=== PATIENT | male | born 1960 | race Caucasian/White ===

== ENCOUNTER 2016-10-01 18:12 | Inpatient (IN) | payer MEDICARE, MEDICAID ==
[~2016-10-01] VITALS: Ht 174 cm; Wt 116.6 kg
[~2016-10-01 18:12] MED LIST: ATOR40TA69 PO; BUPR150T9 PO; DOCU-41 PO; METO100T3 PO; OXYC1TAB24 PO; SLO64 PO; WARF7.5T4 PO
[2016-10-01 18:23] VITALS: BP 96/62; PULSE 93; RESP 18; O2SAT 97
--- NOTE | 2016-10-01 20:57 | ED.REPORT ---
HPI-Psychiatric Illness Date of Service Oct 01, 2016 ED Provider: Shalom Torres DO A 56 year old male on Warfarin with a history of stroke, diabetes, chronic atrial fibrillation on Warfarin, and coronary artery disease is brought to the ED via EMS due to behavioral changes. The pt's stroke occurred on 05/11/2017 and he has been at [facility] since for rehabilitation. The pt was on Wellbutrin, but was put on Prozac two weeks ago due to worsening depression. Since that time , he has been attempting to leave [facility] and requiring that his come in to watch him. When the pt was told by his four days ago that he was not able to be discharged yet, and he proceeded to "throw a fit." He was discharged two days ago, but has been emotionally unstable. This includes severe depression and rages. He has continued to be unstable to the point that his felt unsafe and called police two days ago. He was given Lorazepam and calmed down. He has been acting fairly normally today, but refused to take Lorazepam again and his has remained concerned. Nursing Notes Stated Complaint: BEHAVIORAL CHANGES Chief Complaint: Psychiatric Complaint Nursing Notes Reviewed: Yes Allergies: Coded Allergies: No Known Allergies (Verified , 05/02/16) Scheduled Atorvastatin Calcium (Atorvastatin Calcium) 40 Mg Tablet 40 MG PO HS Bupropion HCl (Zyban) 150 Mg Tablet.er 150 MG PO BID Magnesium Chloride (Slow-Mag) 64 Mg Tablet 64 MG PO BID Metoprolol Tartrate (Metoprolol Tartrate) 100 Mg Tablet 150 MG PO BID Warfarin Sodium (Warfarin Sodium) 7.5 Mg Tablet 7.5 MG PO DAILY Scheduled PRN Docusate Sodium (Colace) 100 Mg Capsule 100 MG PO DAILY PRN PRN For Constipation oxyCODONE-Acetaminophen 5-325 mg (oxyCODONE-Acetaminophen 5-325 mg) 1 Each Tablet 1 TAB PO Q4H PRN PRN For Pain General Time Seen by MD: 20:56 Chief Complaint Other (Behavioral changes) Hx Obtained From: Spouse, EMS Arrived By: Ambulance Onset Occurred: More than a week ago... Symptom Duration: Since onset Recent Healthcare: Recent doctor visit, Recent hospitalization Similar Sx Previous: No Risk-Psychiatric Illness Suicide Risk Stratification Suicide Risk Factors - Adult: No: Alcohol use, Prior psych admission, Substance abuse RF Statements: Risk factors reviewed Past Medical History Past Medical History Stroke Morbid obesity Depression Liliya's gangrene of R groin Kidney stones chronic atrial fibrillation on Warfarin Reports: Coronary artery disease, Diabetes mellitus, Stroke Past Surgical History Vertical sleeve gastrectomy Family History noncontributory Smoking History Never Smoker Social History Hx of alcohol abuse Alcohol Use: Denies alcohol use Drug Use: Denies drug use Other Social History: Good social support, , Local resident Ambulatory Status Independent Review of Systems Review of Systems Note: behavioral changes per Constitutional: Denies: Fever Respiratory: Denies: Non-productive cough Cardiovascular: Denies: Chest pain GI: Denies: Abdominal pain Skin: Denies Rash Psychiatric: Reports: Depression, Hostile Complete sys rev & neg: except as marked. Physical Exam Initial Vital Signs Vital Signs (First) Date Time Temp Pulse Resp B/P Pulse Ox O2 Delivery O2 Flow Rate FiO2 10/01/16 18:23 35.7 93 18 96/62 97 Room Air Initial VS: Reviewed General/Constitutional: Awake, Alert markedly aphasic, repeats statements ("oh boy") follows commands seems to understand conversation Neurologic: Oriented X3, No sensory deficits alternating between elated and frustrated Head / Eyes: Atraumatic, Normocephalic, PERRL, EOMI ENT: Atraumatic, Airway patent, Mucous membranes moist Respiratory / Chest: Atraumatic, Breath sounds NL, Breath sounds = bilat, No respiratory distress Cardiovascular: Heart rate NL, Regular rhythm, Heart sounds NL Abdomen: Atraumatic, Soft, Non-tender Skin: Atraumatic, Color NL, No rash, Warm, Dry Neck: Atraumatic, Supple, Full range of motion Back: Atraumatic Upper Extremity / MS: Atraumatic contracture and paralysis of the right arm strength and full use of left arm Lower Extremity / Pelvis / MS: Atraumatic Interpretation & Diagnostics Lab Results Interpretation Result Diagram: 10/01/16213710/01/162137 Test 10/01/16 21:38 10/01/16 22:32 White Blood Count 11.0th/mm3 (3.8-10.1) Red Blood Count 3.22mil/mm3 (4.40-5.80) Hemoglobin 10.1g/dL (13.8-17.2) Hematocrit 31.2% (41.0-50.0) Mean Corpuscular Volume 96.9fL (81-100) Mean Corpuscular Hemoglobin 31.4pg (27.0-35.0) Mean Corpuscular Hemoglobin Concent 32.4% (32.0-37.0) Red Cell Distribution Width 15.3% (12.3-15.4) Platelet Count 169bil/L (150-400) Neutrophils (%) (Auto) 73.7% (40-74) Lymphocytes (%) (Auto) 14.3% (14-46) Monocytes (%) (Auto) 11.0% (4-12) Eosinophils (%) (Auto) 0.7% (0-5) Basophils (%) (Auto) 0.2% (0-3) Prothrombin Time 22.8sec (8.1-12.5) Prothromb Time International Ratio 2.10ratio Sodium Level 140mEq/L (134-144) Potassium Level 3.7mEq/L (3.5-5.2) Chloride Level 103mEq/L (97-108) Carbon Dioxide Level 21mmol/L (18-29) Blood Urea Nitrogen 19mg/dL (6-24) Creatinine 0.77mg/dL (0.76-1.27) Estimat Glomerular Filtration Rate 111mL/min (>59) Glucose Level 96mg/dL (60-99) Calcium Level 9.0mg/dL (8.5-10.1) Total Bilirubin 0.7mg/dL (0.0-1.2) Aspartate Amino Transf (AST/SGOT) 34U/L (0-50) Alanine Aminotransferase (ALT/SGPT) 30U/L (0-44) Alkaline Phosphatase 83U/L (25-150) Total Protein 6.6g/dL (6.4-8.4) Albumin 3.4g/dL (3.4-5.0) Thyroid Stimulating Hormone (TSH) 1.350uIU/mL (0.450-4.500) Hold Schultz Top Tube Received (Received) Urine Color Dark yellow (YELLOW) Urine Appearance Clear (CLEAR,HAZY) Urine pH 5.0 (5.0-8.0) Urine Specific [place] 1.027 (1.003-1.035) Urine Protein Tracemg/dL (NEG,TRACE) Urine Glucose (UA) Negativemg/dL (NEGATIVE) Urine Ketones Tracemg/dL (NEGATIVE) Urine Occult Blood Negative (NEGATIVE) Urine Nitrite Negative (NEGATIVE) Urine Bilirubin Negative (NEGATIVE) Urine Urobilinogen Normalmg/dL (NORMAL) Urine Leukocyte Esterase Negative (NEGATIVE) Urine RBC 0-2/hpf (0-2) Urine WBC 0-5/hpf (0-5) Urine Epithelial Cells Few/hpf (NONE-MOD) Urine Crystals Oxalic acid crystals (NONE Urine Bacteria Moderate/hpf (NONE-FEW) Urine Hyaline Casts None/lpf (NONE) Urine Granular Casts None seen (NONE SEEN) Urine Waxy Casts None seen (NONE SEEN) Urine Red Blood Cell Casts None seen (NONE SEEN) Urine White Blood Cell Casts None seen (NONE SEEN) Urine Mucus Present (None Seen) Urine Trichomonas None seen (NONE SEEN) Urine Yeast None (NONE SEEN) Urine Culture Reflexed Indicated Hold Urine Received (Received) Pulse Oximetry Interpretation Pulse Oximetry Interpretation: 97% on room air Pulse Oximetry: Pulse Ox normal Pulse Oximetry Interpretation: 97% on room air Pulse Oximetry: Pulse Ox normal CT Head Interpretation IMPRESSION: 5 mm hyperdensity seen within the left temporal lobe, an area of encephalomalacia. Although this could represent calcification, in the absence of prior studies, acute blood cannot be excluded and recommend followup in 6 hours with noncontrast head CT. Findings were personally telephoned and discussed with Dr. Torres in the emergency department 2200 hrs. 10/01/16. Elsewhere, no acute abnormality. Dictated by: Wale Huang M.D. on 10/01/2016 at 21:55 Approved by: Wale Huang M.D. on 10/01/2016 at 22:04 Interpretation / Wet Read by: Interpret - Radiologist Re-Eval/Medical Decision Med Decision/Clinical Course Mr. Mclaughlin's is no longer able to care for him at home. His degree of a aphasia and hyperkinetic physical outbursts prevent her from caring for him safely. Most likely is going to need to be back into a care facility. We will repeat the head scan at the 6 hour interval as per recommendations from radiology. If there is in fact hemorrhage will reverse the pro time and transfer him to [facility]. Otherwise plan for hospital admission for long-term care placement. Care endorsed to at the end of my shift. Currently Mr. Mclaughlin is resting comfortably. His mental status has not changed. His neurologic exam has not changed. Source of Hx: Old records Counseled Regarding: Diagnosis, Lab results Discharge & Departure Shift Change Sign-Out Patient Care Transferred: Yes Discussed Complaint(s): Yes Laboratory Evaluation: Ordered, not yet done Imaging Studies: Imaging discussed Response to Therapy: Improved Impression: Primary Impression: Aphasia as late effect of cerebrovascular accident Additional Impression: Acute situational disturbance Discharge Condition All VS Reviewed: Yes Condition: Stable Referrals: Vicky Martin MD (PCP) Care Transferred to: Dr. Valentine Care Transferred at: 03:00 Margarita Attestation Portions of this note were transcribed by Vielka Saavedra. I, Dr. Torres personally performed the history, physical exam and medical decision-making; I reviewed and confirmed the accuracy of the information in the transcribed note. Signed by: Margarita Silver, 10/02/2016 and 0013. copies to: Vicky Martin MD, Todd P DO Oct 01, 2016 20:57 VIELKA SAAVEDRA Oct 01, 2016 21:17
[2016-10-01] MEDS ORDERED: LORazepam 0.5 mg Tablet PO ONE (21:20)
[2016-10-01 21:55] LABS: BASOPHILS % (AUTO) 0.2 % (0-3); EOSINOPHILS % (AUTO) 0.7 % (0-5); Mean Corpuscular Hemoglobin 31.4 pg (27.0-35.0); Mean Corpuscular Volume 96.9 fL (81-100); NEUTROPHILS % (AUTO) 73.7 % (40-74); Platelet Count 169 bil/L (150-400)
--- NOTE | 2016-10-01 22:06 | DRSVH ---
PROCEDURE: CT BRAIN WITHOUT CONTRAST ([id number]) INDICATIONS: altered, warfarin use TECHNIQUE: Noncontrast 4.5 mm thick angled axial sections acquired from the foramen magnum to the vertex, with c oronal reformats. COMPARISON: [facility], CT, BRAIN (TPA), 05/11/2016, 20:28. [facility], CT, CT ANGIO BRAIN AND NECK, 05/11/2016, 21:37. FINDINGS: Image quality: Excellent. CSF spaces: Basal cisterns are patent. No extra-axial fluid collections. Ventricles are normal in size and shape. Brain: No midline shift. Unchanged appearance of subcentimeter right frontal extra-axial hyperdensit y, presumed calcification since 05/11/16 on image 26 series 2. Large hypodensity seen within the left temporoparietal lobe in keeping with prior infarct or trauma. There is a small 5 mm hyperdense focus seen on image 16 series 2, which is technically indeterminate however cannot exclude small focus of acute intracranial blood in the absence of more recent comparison studies. Allen-white matter interface is normal. Skull and face: Calvarium and visualized facial bones are intact, without suspicious lesions. Sinuses: Visualized sinuses and mastoids are clear. IMPRESSION: 5 mm hyperdensity seen within the left temporal lobe, an area of encephalomalacia. Although this coul d represent calcification, in the absence of prior studies, acute blood cannot be excluded and recomm end followup in 6 hours with noncontrast head CT. Findings were personally telephoned and discussed w chacha Torres in the emergency department 2200 hrs. 10/01/16. Elsewhere, no acute abnormality. Dictated by: Wale Huang M.D. on 10/01/2016 at 21:55 Approved by: Wale Huang M.D. on 10/01/2016 at 22:04
[2016-10-01 22:07] LABS: INR 2.1 ratio
[2016-10-01 22:39] VITALS: BP 97/62; PULSE 122; RESP 20; O2SAT 97
[2016-10-01 23:23] LABS: APPEARANCE,URINE CLEAR (CLEAR,HAZY); COLOR,URINE DARK YELLOW (YELLOW); OCCULT BLOOD,URINE NEGATIVE (NEGATIVE); UROBILINOGEN,URINE NORMAL (NORMAL)
[2016-10-02] VITALS (7 sets, daily range): BP systolic 103–139; BP diastolic 37–69; PULSE 60–91; RESP 14–22; O2SAT 95–97
[2016-10-02] MEDS ORDERED: 0.9% Sodium Chloride 1,000 ML IV ONE (03:06)
[2016-10-02] MEDS ORDERED: Ondansetron 2 mg/mL 2 mL Inj IVPUSH PRN ×2 (05:35→08:15)
--- NOTE | 2016-10-02 06:43 | NUR ---
Received Received from ED via stretcher. Transferred into bed via slideboard. Agitated during transfer and unable to answer questions at this time r/t expressive aphasia. to come to answer admit questions as patient is unable to and becomes increasingly agitated when asked questions at this time. sitter at bedside for patient safety.
[2016-10-02] MEDS ORDERED: Alum-Mag Hydrox-Simeth 30 mL Suspension PO PRN (08:15)
[2016-10-02] MEDS ORDERED: Polyethylene Glycol (PEG) 17 Gm Powder PO PRN (08:15)
[2016-10-02] MEDS: 0.9% Sodium Chloride 1,000 ML IV SCH ×2 (09:09→19:28)
--- NOTE | 2016-10-02 09:36 | DRSVH ---
PROCEDURE: X-RAY PELVIS W/LAT HIP (RT) ([id number]) INDICATIONS: right hip pain TECHNIQUE: AP pelvis with lateral view(s) of the right hip(s). COMPARISON: None. FINDINGS: Bones: No fractures or dislocations. Pelvic ring appears intact. No suspicious bony lesions. Mild joint narrowing with periarticular osteophyte formation. Degenerative change within the lower lumba r spine. Soft tissues: The visualized bowel gas pattern is normal. No suspicious soft tissue calcifications. IMPRESSION: No displaced fracture seen. If there is continued pain, followup exam or additional eduardo ging such as MRI or CT could be performed for further assessment. Dictated by: Ronn Moreno RRA Interpreted: Charo Marsh MD on 10/02/2016 at 9:35 Transcribed by: MUNA on 10/02/2016 at 9:36 Approved by: Charo Marsh MD, PhD on 10/02/2016 at 16:50
--- NOTE | 2016-10-02 09:49 | DRSVH ---
PROCEDURE: CT BRAIN WITHOUT CONTRAST ([id number]) INDICATIONS: follow up from earlier, possible bleed, fall, warfarin use. TECHNIQUE: Noncontrast 4.5 mm thick angled axial sections acquired from the foramen magnum is left frontal-tempo ro-parietal infarct noted. the vertex, with coronal reformats. COMPARISON: [facility], CT, CT ANGIO BRAIN AND NECK, 05/11/2016, 21:37. [facility], CT, BRAIN (TPA), 05/11/2016, 20:28. [facility], CT, CT BRAIN WO CON, 10/01/2016, 21:14. FINDINGS: Image quality: Limited by patient motion artifact. CSF spaces: Basal cisterns are patent. No extra-axial fluid collections. The ventricles are symmet nani in size and shape. Brain: No intracranial bleeds or masses. There is cerebral volume loss for age, with resultant vent ricular and sulcal prominence. There are periventricular and deep white matter chronic small vessel ischemic changes. Old left hsogkem-crxfephz-dwymknad infarct is stable compared to prior examinations . There is intracranial internal carotid artery and vertebral artery atherosclerosis. Skull and face: Calvarium and visualized facial bones appear intact, without suspicious lesions. Sinuses: Visualized sinuses and mastoids are clear. IMPRESSION: No acute intracranial disease process. Dictated by: Charo Marsh MD, PhD on 10/02/2016 at 9:44 Approved by: Charo Marsh MD, PhD on 10/02/2016 at 9:48
[2016-10-02] MEDS ORDERED: ASPI-973 PO (12:00)
[2016-10-02] MEDS ORDERED: WARF5TAB7 PO (12:01)
[2016-10-02] MEDS ORDERED: METO25TA99 PO (12:04)
[2016-10-02] MEDS ORDERED: FAMO20T PO (12:05)
[2016-10-02] MEDS ORDERED: MULT1CAP33 PO (12:06)
[2016-10-02] MEDS ORDERED: SENN-133 PO (12:06)
[2016-10-02] MEDS ORDERED: SERT50TA9 PO (12:07)
[2016-10-02] MEDS ORDERED: CHOL200047 PO (12:07)
[2016-10-02] MEDS ORDERED: MAGN400O4 PO (12:10)
[2016-10-02] MEDS ORDERED: BISA10SU61 RC (12:10)
[2016-10-02] MEDS ORDERED: ACET325C PO (12:12)
[2016-10-02 13:52] LABS: BASOPHILS % (AUTO) 0.4 % (0-3); EOSINOPHILS % (AUTO) 1.8 % (0-5); MONOCYTES % (AUTO) 11.9 % (4-12); Mean Corpuscular Hemoglobin 31.2 pg (27.0-35.0); Mean Corpuscular Volume 97.3 fL (81-100); NEUTROPHILS % (AUTO) 68.3 % (40-74); Platelet Count 145 bil/L (150-400)
--- NOTE | 2016-10-02 14:32 | NUR ---
Patient is open with [facility] and will most likely need resumption orders. called [facility] and let them know patient was here. 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
[2016-10-02] MEDS: buPROPion XL 150 mg ER24 Tablet PO SCH (14:42)
--- NOTE | 2016-10-02 16:18 | PCM.PHAPRO ---
Progress Date of Service: Oct 02, 2016 Warfarin Dosing Indication: Afib Home Dose: 5mg Thursday , 7.5mg AOD Anticoagulation Trends: INR 2.1 INR change Warf Dose 7.5 MG GOAL INR: 2-3 Summary: Currently stable and therapeutic on home dose, continue with home dosing. Pharmacy will continue to follow daily. Thank you for consulting pharmacy in the care of this patient. Rony Medina Oct 02, 2016 16:17
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
--- NOTE | 2016-10-02 16:36 | NUR ---
Evaluation completed. Please go to "Notes" then click on "Assessments and Notes" (bottom left corner of screen). Then select appropriate discipline tab on top of screen.
--- NOTE | 2016-10-02 19:21 | NUR ---
Case Management: IMM explained to patient's Connie at 1903, all questions answered. Signed original placed in chart, copy given to Connie. Evelin Pearson RN
[2016-10-02] MEDS: MeTOProlol XL 25 mg ER24 Tablet PO SCH (20:30)
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
--- NOTE | 2016-10-03 05:11 | NUR ---
Behavior Patient was having a difficult time communicating and he was getting agitated and frustrated with and staff. Patient would start to cry and was at bedside to console. Patient was given pain medication and he fell asleep. Sitter remained at bedside to keep patient safe.
[2016-10-03 05:38] LABS: Mean Corpuscular Hemoglobin 31.2 pg (27.0-35.0); Mean Corpuscular Volume 97.9 fL (81-100)
[2016-10-03 06:06] LABS: INR 1.79 ratio
[2016-10-03] MEDS: 0.9% Sodium Chloride 1,000 ML IV SCH ×2 (06:10→17:12)
[2016-10-03 06:12] LABS: Unsaturated Iron Binding 128.2 ug/dL
[2016-10-03 06:40] VITALS: BP 115/72; PULSE 63; RESP 16; O2SAT 92
[2016-10-03 07:13] LABS: Vitamin B12 354 pg/mL (211-946)
[2016-10-03] MEDS ORDERED: Iron Sucrose Inj 200 MG in 0.9% Sodium Chloride 100 ML IV ONE (08:10)
[2016-10-03] MEDS: MeTOProlol XL 25 mg ER24 Tablet PO SCH ×2 (08:33→22:49)
[2016-10-03] MEDS: buPROPion XL 150 mg ER24 Tablet PO SCH (08:33)
--- NOTE | 2016-10-03 11:25 | NUR ---
BARREL INSPECTOR entered room to support communication. Large communication board with colored pictures was not helpful to facilitate communication. Small board with 6 items for need and turn on/off light and tv pictures was utilized well. Practiced use of board with pt. BARREL INSPECTOR continues to recommend full AAC device evaluation with BARREL INSPECTOR and an access to ACC evaluation with OT, both may be completed on an outpatient basis.
--- NOTE | 2016-10-03 12:08 | PCM.PHAPRO ---
Progress Date of Service: Oct 03, 2016 INR = 1.79, HCT = 28.6, PLTS = 150. Pt continues on warfarin for afib. INR today low at 1.79, goal 2-3. Will give warfarin 7.5 mg today. INR ordered. Pharmacy will continue to follow this pt' s warfarin therapy. Becka Milton PharmD Oct 03, 2016 12:08
--- NOTE | 2016-10-03 13:39 | PCM.PNMED ---
Subjective Date of Service Oct 03, 2016 Subjective 55-year-old male with medical history of diabetes type II, coronary artery disease, atrial fibrillation on warfarin, and morbid obesity presents to the emergency department via EMS due to behavioral changes. Overnight patient had some episodes of agitation and crying Per TELEPHONER report this morning patient attempted to take butter knife off tray when being cleared and hide in sheets. Nursing was notified. Patient does not endorse pain, he does agree to being frustrated, and points to sad on his communication tool. Exam Vital Signs Vital Sign - Last Date Time Temp Pulse Resp B/P Pulse Ox O2 Delivery O2 Flow Rate FiO2 10/03/16 06:40 36.9 63 16 115/72 92 Room Air Intake and Output 10/02/16 10/02/16 10/03/16 Cumulative From/Thru 15:00 23:00 07:00 10/02/16 06:05 - 10/03/16 06:03 Intake Total 0 ml 2213 ml 2213 ml Output Total 600 ml 525 ml 1125 ml Balance -600 ml 1688 ml 1088 ml Intake Oral 0 ml 250 ml 250 ml IV Total 1963 ml 1963 ml Output Urine Total 600 ml 525 ml 1125 ml # Voids 1 1 Exam General: Awake, alert, no acute distress, well-developed, well-nourished, appropriately interactive HEENT: Normocephalic, atraumatic. External ears without defect. Pupils equal, round, and reactive to light and accommodation. Anicteric sclerae, moist conjunctivae, and no lid lag. Lips dry, Oropharynx free of erythema and cobble stoning with moist mucosa. Neck: Supple. No jugular venous distension. No lymphadenopathy or thyromegaly. Cardiovascular: Regular rate and rhythm with no murmurs, rubs, or gallops appreciated Pulmonary: Clear to auscultation bilaterally with no crackles, wheezes, or rhonchi. Normal respiratory effort with no use of accessory muscles, snoring Abdomen: Bowel tones present. Obese, soft, nontender, nondistended. No hepatosplenomegaly or masses appreciated. Extremities: Multiple bruises in various stages of healing on upper and lower extremities, large ecchymosis on left internal thigh appears to be recent. No clubbing, cyanosis, edema, or lymphadenopathy appreciated. Skin: Normal temperature, turgor, and texture; no rash, ulcers, or subcutaneous nodules appreciated. Psychiatric/Neurologic: known gait impairment, right-sided weakness with resting flexion of right upper extremity. Lab and Diagnostics Result Diagram: 10/03/16 0520 10/03/16 0520 X-Rays, CTs and MRIs PROCEDURE: CT BRAIN WITHOUT CONTRAST ([id number]) INDICATIONS: altered, warfarin use TECHNIQUE: Noncontrast 4.5 mm thick angled axial sections acquired from the foramen magnum to the vertex, with coronal reformats. COMPARISON: [facility], CT, BRAIN (TPA), 05/11/2016, 20:28. [facility], CT, CT ANGIO BRAIN AND NECK, 05/11/2016, 21:37. FINDINGS: Image quality: Excellent. CSF spaces: Basal cisterns are patent. No extra-axial fluid collections. Ventricles are normal in size and shape. Brain: No midline shift. Unchanged appearance of subcentimeter right frontal extra-axial hyperdensity, presumed calcification since 05/11/16 on image 26 series 2. Large hypodensity seen within the left temporoparietal lobe in keeping with prior infarct or trauma. There is a small 5 mm hyperdense focus seen on image 16 series 2, which is technically indeterminate however cannot exclude small focus of acute intracranial blood in the absence of more recent comparison studies. Allen-white matter interface is normal. Skull and face: Calvarium and visualized facial bones are intact, without suspicious lesions. Sinuses: Visualized sinuses and mastoids are clear. IMPRESSION: 5 mm hyperdensity seen within the left temporal lobe, an area of encephalomalacia. Although this could represent calcification, in the absence of prior studies, acute blood cannot be excluded and recommend followup in 6 hours with noncontrast head CT. Findings were personally telephoned and discussed with Dr. Torres in the emergency department 2200 hrs. 10/01/16. Elsewhere, no acute abnormality. Dictated by: Wale Huang M.D. on 10/01/2016 at 21:55 PROCEDURE: CT BRAIN WITHOUT CONTRAST ([id number]) INDICATIONS: follow up from earlier, possible bleed, fall, warfarin use. TECHNIQUE: Noncontrast 4.5 mm thick angled axial sections acquired from the foramen magnum is left [id number] infarct noted. the vertex, with coronal reformats. COMPARISON: [facility], CT, CT ANGIO BRAIN AND NECK, 05/11/2016, 21 :37. [facility], CT, BRAIN (TPA), 05/11/2016, 20:28. [facility], CT, CT BRAIN WO CON, 10/01/2016, 21:14. FINDINGS: Image quality: Limited by patient motion artifact. CSF spaces: Basal cisterns are patent. No extra-axial fluid collections. The ventricles are symmetric in size and shape. Brain: No intracranial bleeds or masses. There is cerebral volume loss for age , with resultant ventricular and sulcal prominence. There are periventricular and deep white matter chronic small vessel ischemic changes. Old left frontal- temporal-parietal infarct is stable compared to prior examinations. There is intracranial internal carotid artery and vertebral artery atherosclerosis. Skull and face: Calvarium and visualized facial bones appear intact, without suspicious lesions. Sinuses: Visualized sinuses and mastoids are clear. IMPRESSION: No acute intracranial disease process. Dictated by: Charo Marsh MD, PhD on 10/02/2016 at 9:44 PROCEDURE: X-RAY PELVIS W/LAT HIP (RT) ([id number]) INDICATIONS: right hip pain IMPRESSION: No displaced fracture seen. If there is continued pain, followup exam or additional imaging such as MRI or CT could be performed for further assessment. Dictated by: Ronn Moreno [facility] Interpreted: Charo Marsh MD on 10/02/2016 at 9:35 Assessment & Plan 56-year-old male with past medical history of stroke, atrial fibrillation on warfarin, type II diabetes mellitus, anxiety, and coronary artery disease presented to the emergency department with behavioral changes and fall from wheelchair. 1. Acute behavioral disturbance, present on admission, acute - Patient's antidepressant medication was switched from Wellbutrin to sertraline about 2 weeks ago. Since that time patient has become increasingly agitated - Once discharged from [facility] patient had multiple episodes of agitation, emotional lability, and frustration culminating in an episode of throwing items across the room and outside - Consult psychiatry, we appreciate their time and recommendations - Sertraline discontinued, Wellbutrin resumed - TSH normal - Vitamin B12 and folate ordered - Vitamin D level requested by psychiatry, pending - Suicidal ideation not endorsed by patient at this time. Precautions in place. 2. Right hip pain, present on admission, acute - Pain likely secondary to fall from wheelchair - X-ray pelvis with lateral right hip performed in emergency department that shows no displaced fractures - Continue to monitor 3. 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 - Patient needs assist for transfers 4. Normocytic, normochromic Anemia, present on admission, subacute - Records review reveals some degree of anemia since 2009, patient with vertical sleeve gastrectomy in February 2016 - Most likely anemia of chronic disease as iron is low and TIBC is low. - Vitamin B12 and folate levels normal - IV iron sucrose ordered - Continue to monitor with CBC in the a.m. 5. Urinary tract infection, present on admission, chronicity unknown - Patient endorses some discomfort with urination - Urine culture positive for enterococci, sensitivities to follow - Treat with Macrobid 100 mg by mouth twice a day for 5 days 6. Restless legs, present on admission - Likely secondary to iron deficiency - IV iron sucrose as above 7. Difficult social situation, present on admission, acute - is concerned for her safety at home in her 's current state. - Social work and case management referral initiated, their expertise is appreciated. 8. Atrial fibrillation, chronic - Continue warfarin, dosed by pharmacy 9. Coronary artery disease, chronic - Continue aspirin, metoprolol, atorvastatin Acetaminophen for mild pain when necessary. Bowel regimen Senna and MiraLAX PRN. Zofran when necessary for nausea and vomiting. GI prophylaxis with home dose famotidine DVT prophylaxis patient therapeutic on warfarin Patient is admitted under observation status with expected length of stay less than 2 midnights due to severity of presenting symptoms, risk of adverse event, and complexity of treatment plan. Pain Evaluation: Adequate Pain Control GI Prophylaxis: H2 mayda VTE Prophylaxis: Theraputic Anticoag with Warfarin VTE Mechanical Devices: Intermittant Pneumatic CD Resuscitation Status: CPR: Attempt Resuscitation Attending Statement The patient was seen and examined together with Dr. Wong on 10/03/2016 and I agree with the history, exam and plan as outlined in the note above. Elis Wong DO Oct 03, 2016 08:18 Tom Booth MD Oct 04, 2016 11:16
--- NOTE | 2016-10-03 14:29 | NUR ---
Social Work: Initial Assessment Data: Pt is a 56 y/o male admitted for behavioral changes / combative / previous CV. Pt's PCP is Dr Martin, pt's insurance is Medicare with [facility] supp. EMR reviewed. Readmit score not listed. DIRECTOR OF ACQUISITION MARKETING met with pt's spouse for initial assessment. She states pt lives in [place] in a single story home where he is wheelchair bound. Pt was previously at [facility] then came home on September 29, 2016, with [facility] RN/PT/OT/DIRECTOR OF ACQUISITION MARKETING. Pt no longer drives, has no LTC or VA benefits and is not a caregiver. Pt's spouse states pt has SADE from Thursday through Thursday from 9:30am-5:30pm. DIRECTOR OF ACQUISITION MARKETING requested UR specialist fax clinicals over to Bettina FAY with [facility]. Per H&P, pt has a history of alcoholism. Pt's spouse reports pt quit drinking a few years ago and now uses marijuana. Pt's spouse states she cannot take pt home. Pt has become combative which resulted in pt's spouse calling --1 and pt was brought to the hospital. Pt's spouse states that this behavior is new. Pt was not nearly as agitated while at [facility] and he became very agitated once home, which looked like pt throwing items at his spouse and out the front door including a computer and a table. Pt's spouse states that he began chewing on electrical cords and that he army crawled through the home to knock over a "100 pound speaker". Psych has been consulted and has met with pt. They have adjusted pt's medications and will follow pt while he is at the hospital this visit. DIRECTOR OF ACQUISITION MARKETING spoke with Erik with [facility] regarding pt. He states that pt came to them on May 23, 2016 through September 29, 2016. Erik states that pt was not combative while in their facility and he suspects that pt is frustrated due to lack of ability to communicate and that pt's family may be overwhelmed. Erik states that they are able to accept pt to their facility, under his Medicaid as pt is out of his Medicare days, if that is what the pt and family want. Assessment: Pt in wheel chair at baseline. Plan: DIRECTOR OF ACQUISITION MARKETING will meet with pt and spouse to discuss D/C planning and the possibility of going back to [facility]. REBECA Zhang Addendum: 10/03/16 at 1515 by MIGUEL LÓPEZ Amended: Links added.
[2016-10-03 14:43] VITALS: BP 106/64; PULSE 69; RESP 16; O2SAT 96
--- NOTE | 2016-10-03 16:32 | NUR ---
Social Work: Continued d/c planning Data: Pt is on day 1 of hospitalization. EMR reviewed. UNIX ANALYST met with pt and spouse at bedside. UNIX ANALYST explained that [facility] is possibly willing to take pt back with his Medicaid and that [facility] is able to meet with pt on Thursday at the earliest. Pt has a caregiver that will be there on Thursday. Pt communicates by saying the word "hands" over and over again in different tones and an expressive face. Pt also says "oh boy", "no", and nodding (sometimes saying yes). Pt can write slowly, but only one word at a time and it is very difficult for him, sometimes writing letters that he does not mean to write and getting frustrated. UNIX ANALYST and pt's spoke with pt and asked many questions, pt can answer yes or no questions. Pt expresses that he does not want to go back to [employer] and that he wants to go back home with his . This would be home with [facility] with RN/PT/OT/UNIX ANALYST/ST/ALYSE and their SADE caregiver on Thursday through Thursday from 9:30am-5:30pm. They do not have support over the weekend. They do not have funds for private pay caregiving. They do not have any family or friends who can assist. Pt's stated previously with dialysis social worker that she is fearful of going home with pt because of how violent he became when he was frustrated with her. Pt answered that he was mad at his spouse because she wouldn't let him go where he wanted to, we could not get an answer of where he wanted to go. UNIX ANALYST explored techniques to calm down when upset with pt and spouse. Pt wrote the words "talk is food" on a piece of paper and used what little words that he has to express his feelings about this. After a lot of questions and time, UNIX ANALYST asked pt if he is talking about Speach Therapy and he said "oh boy!" while nodding his head very excitedly. UNIX ANALYST asked if he was wanting them to work on his communication more instead of mostly his eating. Pt again was very happy and sighed a relief filled sigh and said "yes". UNIX ANALYST states that ST and OT can provide assistance with that but that there may be other opportunities in the community to support pt in his ability to say words and communicate. UNIX ANALYST asked pt's spouse if she feels comfortable taking pt home with support of [facility] and SADE. Pt's spouse said she was as long as pt doesn't get violent again. UNIX ANALYST states that she did the right thing by calling 9-1-1 last time and that she has that option in the future. Pt's spouse states she wants pt to be monitored regarding his new psych meds. UNIX ANALYST notified MD of the situation. Assessment: Pt with caregiving at baseline. Plan: Pt will d/c home via POV when medically stable, SADE caregiving available on Thursday, [facility] available on Thursday. UNIX ANALYST will continue to follow. REBECA Zhang
[2016-10-03] MEDS ORDERED: Warfarin 5 MG, Warfarin 2.5 MG PO ONE ×2 (17:00)
--- NOTE | 2016-10-03 18:15 | NUR ---
Behavior- Patient awake and alert. Frustrated at times when trying to communicate needs and at times becomes angry especially towards . Complained that he has not been able to sleep well in hospital, and appeared relieved that he has medication ordered to help with sleep. Tylenol given and effective for most of leg discomfort. Patient much more calm and interactive this evening, laughing and joking with who has been at the bedside most of the day.
[2016-10-03] MEDS: Nitrofurantoin Monohyd-Macrocryst 100 mg Capsule PO SCH (20:30)
[2016-10-03 21:13] VITALS: BP 114/77; PULSE 62; RESP 16; O2SAT 95
[2016-10-03] MEDS: lamoTRIgine 25 mg Tablet PO SCH (22:46)
--- NOTE | 2016-10-03 23:19 | PCM.PNPSY ---
Subjective Date of Service Oct 03, 2016 Subjective The patient's family reported that the patient was quite irritable last night. The patient reports that he slept poorly as he was interrupted by nursing rounds. The patient reported no particular side effects from restarting bupropion. Nursing staff reported that the patient had sequestered a knife from his tray. When asked about why he had taken it, he denied intent to harm self but was unable to respond any further than writing "I needed it." Sleep: poor as above Appetite: reports decreased though this appears baseline secondary to bariatric surgery Suicidal and homicidal ideation: denies Anxiety/Depression: patient frustrated and tearful regarding aphasia Current Medications Current Medications Acetaminophen 650 mg Q4H PRN PO Last administered on 10/03/16 01:22; Admin Dose 650 MG; Start 10/02/16 at 08:15 Aspirin 81 mg DAILY PO Last administered on 10/03/16 08:33; Admin Dose 81 MG; Start 10/03/16 at 08:30 Atorvastatin Calcium 40 mg 40 mg HS PO Last administered on 10/02/16 20:11; Admin Dose 40 MG; Start 10/02/16 at 21:00 Bupropion HCl 150 mg DAILY PO Last administered on 10/03/16 08:33; Admin Dose 150 MG; Start 10/02/16 at 13:35; Stop 10/05/16 at 08:31 Docusate Sodium 100 mg DAILY PO Last administered on 10/03/16 08:33; Admin Dose 100 MG; Start 10/03/16 at 08:30 Famotidine 20 mg BID PO Last administered on 10/03/16 08:33; Admin Dose 20 MG; Start 10/02/16 at 20:30 Iron Sucrose/ Sodium Chloride 110 ml @ 110 mls/hr ONCE ONCE IV Last administered on 10/03/16 10:27; Admin Dose 110 MLS/HR; Start 10/03/16 at 08:10 ; Stop 10/03/16 at 09:09; Status DC Lorazepam 0.5 mg ONCE ONCE IVPUSH Last administered on 10/02/16 03:45; Admin Dose 0.5 MG; Start 10/02/16 at 03:30; Stop 10/02/16 at 03:31; Status DC Lorazepam 0.5 mg ONCE ONCE PO Last administered on 10/01/16 21:30; Admin Dose 0.5 MG; Start 10/01/16 at 21:20; Stop 10/01/16 at 21:21; Status DC Lorazepam 1 mg 1 mg ONCE ONCE IVPUSH Last administered on 10/02/16 04:13; Admin Dose 1 MG; Start 10/02/16 at 04:10; Stop 10/02/16 at 04:11; Status DC Metoprolol Succinate 12.5 mg BID PO Last administered on 10/03/16 08:33; Admin Dose 12.5 MG; Start 10/02/16 at 20:30 Pharmacy Consult 1 ea DAILY@17 XX Last administered on 10/02/16 16:49; Admin Dose 1 EA; Start 10/02/16 at 17:00 Sodium Chloride 1,000 ml @ 100 mls/hr Q10H IV Last administered on 10/03/16 06 :10; Admin Dose 100 MLS/HR; Start 10/02/16 at 08:13 Warfarin Sodium 7.5 mg OT ONCE PO Last administered on 10/02/16 18:25; Admin Dose 7.5 MG; Start 10/02/16 at 17:00; Stop 10/02/16 at 17:01; Status DC Mental Status Exam Vital Signs Vital Signs Date Time Temp Pulse Resp B/P Pulse Ox O2 Delivery O2 Flow Rate FiO2 10/03/16 06:40 36.9 63 16 115/72 92 Room Air Appearance: Unkept Attitude: Cooperative (but severely aphasic) Behavior: Overtly anxious, Tearful Affect: Labile Mood: Anxious, Fearful Thought Process/Associations: Other (difficult to assess due to aphasia) Speech Production: Other Speech Rate: Other Speech Articulation: Other (expressive aphasia) Thought Content: Other (difficult to assess) Danger to Self/Suicidal Ideati: None Danger to Others: None Consciousness: Alert Orientation: Person, Place, Situation (difficult to assess) Memory: Untestable Estimate Intellectual Function: Unable to assess Insight: Unable to assess Judgement: Unable to assess Result Diagram: 10/03/1651910/03/16519 Mental Health Plan The patient is a 56-year-old male with a history of depression and stroke with expressive aphasia, who presents with worsening mental state following his return to home and recent change of medications. Given the patient's family history of bipolar disorder and his reported history of hypomanic episodes in the past, switch to an selective serotonin reuptake inhibitor may have triggered a hypomanic episode or irritability. He could also be experiencing some form of withdrawal from the Wellbutrin, although this is less likely. The patient reports a history of thyroid disorder, although his TSH is normal. The patient reportedly had difficulty taking Wellbutrin 3 times a day and this may have resulted in missed doses at times which could have resulted in worsening symptoms. He is also prescribed vitamin D3, and given his gastric bypass surgery, it is possible there are some malabsorption issues and so vitamin d3 level ordered. Discussed with patient and starting adjunctive treatment with mood stabilizer given his history of possible hypomania, recurrent depression, and stroke. Although carbamazepine, oxcarbazepine, and valproic acid were options discussed, given his current symptoms, lamotrigine appeared to be the best candidate. Risks and benefits including long titration and Trivedi-Osbaldo syndrome were discussed and the patient and family agreed to proceed. [place] AXIS I: 1. Mood disorder unspecified versus cyclothymic or bipolar II disorder. 2. Alcohol use disorder in partial remission, with recent relapse AXIS II: Deferred. AXIS III: See past medical history. AXIS IV: Severe. AXIS V: Global Assessment of Functioning 35. Treatments 1. Wellbutrin XL 150mg x 4 days then 300mg daily thereafter. 2. The patient has a significant expressive aphasia, but is able to write under certain circumstances and use an image board. He appears to be able to at least answer limited questions in written format and appeared to be able to answer more with his eyes closed and would likely benefit from a clipboard with a ruler attached to help him organize his writing. This was discussed with the patient's . 3. B12, Folate, TSH normal. D3 level pending 4. Will start lamotrigine 25mg nightly, if sleep worsens, would move to daytime. Weeks 1& 2- 25mg nightly. Weeks 3 & 4-50mg nightly. Week 5-100mg nightly. Week 6-200mg nightly. 5. The patient has denied intent to harm self, but limiting china and metal utensils is advised. This was discussed with nursing and physician. Should the patient express active suicidal ideation, he should have a 1:1 sitter. 6. Psychiatry will continue to follow the patient while he is inpatient. 7. Please feel free to consult Psychiatry with any questions. Waiblinger,Paddy E MD Oct 03, 2016 14:27
--- NOTE | 2016-10-03 23:23 | NUR ---
Behavior Pt was pleasant and cooperative with care. Laughed and joked with care givers. Attempts to communicate are mostly successful, when not he smiles and shrugs shoulders. Will continue to work with pt communication issues.
[2016-10-04] MEDS ORDERED: diphenhydrAMINE 25 mg Capsule PO ONE (01:45)
[2016-10-04 05:18] VITALS: BP 105/66; PULSE 59; RESP 18; O2SAT 94
[2016-10-04] MEDS: 0.9% Sodium Chloride 1,000 ML IV SCH ×3 (05:30→20:13)
[2016-10-04 06:09] LABS: BASOPHILS % (AUTO) 0.7 % (0-3); EOSINOPHILS % (AUTO) 6.7 % (0-5); MONOCYTES % (AUTO) 8.9 % (4-12); Mean Corpuscular Hemoglobin 31.2 pg (27.0-35.0); Mean Corpuscular Volume 97.7 fL (81-100); NEUTROPHILS % (AUTO) 53.9 % (40-74); Platelet Count 170 bil/L (150-400)
[2016-10-04 06:21] LABS: INR 2.4 ratio
[2016-10-04] MEDS: MeTOProlol XL 25 mg ER24 Tablet PO SCH ×2 (08:56→21:09)
[2016-10-04] MEDS: buPROPion XL 150 mg ER24 Tablet PO SCH (08:57)
[2016-10-04] MEDS: Nitrofurantoin Monohyd-Macrocryst 100 mg Capsule PO SCH ×2 (08:57→21:10)
--- NOTE | 2016-10-04 09:25 | NUR ---
KULDEEP signed by at bedside. Becka Brunson,SECURITY TEAM LEAD
--- NOTE | 2016-10-04 13:07 | PCM.PNPSY ---
Subjective Date of Service Oct 04, 2016 Subjective Patient appears to have had a good night. Pleasant, bright and cooperative with this card writer hand. Still quite aphasic but pointed to images to indicate 2/10 on the pain scale (good) as his mood. He indicated that he thought he was thinking more clearly and denied any intent to harm himself. We discussed his current medication titration and the patient was appreciative. He denied side effects. Sleep: better Appetite: good, awaiting lunch Suicidal and homicidal ideation: denied Auditory hallucinations/Visual hallucinations: denied Other Psychotic Symptoms: N/A Anxiety/Depression: better today. Current Medications Current Medications Aspirin 81 mg DAILY PO Last administered on 10/04/16 08:57; Admin Dose 81 MG; Start 10/03/16 at 08:30 Atorvastatin Calcium 40 mg 40 mg HS PO Last administered on 10/03/16 22:46; Admin Dose 40 MG; Start 10/02/16 at 21:00 Bupropion HCl 150 mg DAILY PO Last administered on 10/04/16 08:57; Admin Dose 150 MG; Start 10/02/16 at 13:35; Stop 10/05/16 at 08:31 Diphenhydramine HCl 25 mg ONCE ONCE PO Last administered on 10/04/16 01:52; Admin Dose 25 MG; Start 10/04/16 at 01:45; Stop 10/04/16 at 01:49; Status DC Docusate Sodium 100 mg DAILY PO Last administered on 10/04/16 08:56; Admin Dose 100 MG; Start 10/03/16 at 08:30 Famotidine 20 mg BID PO Last administered on 10/04/16 08:57; Admin Dose 20 MG; Start 10/02/16 at 20:30 Iron Sucrose/ Sodium Chloride 110 ml @ 110 mls/hr ONCE ONCE IV Last administered on 10/03/16 10:27; Admin Dose 110 MLS/HR; Start 10/03/16 at 08:10 ; Stop 10/03/16 at 09:09; Status DC Lamotrigine 25 mg HS PO Last administered on 10/03/16 22:46; Admin Dose 25 MG; Start 10/03/16 at 21:00 Melatonin 5 mg 17 PO Last administered on 10/03/16 17:11; Admin Dose 5 MG; Start 10/03/16 at 17:00 Metoprolol Succinate 12.5 mg BID PO Last administered on 10/04/16 08:56; Admin Dose 12.5 MG; Start 10/02/16 at 20:30 Nitrofurantoin 100 mg BID PO Last administered on 10/04/16 08:57; Admin Dose 100 MG; Start 10/03/16 at 20:30 Pharmacy Consult 1 ea DAILY@17 XX Last administered on 10/02/16 16:49; Admin Dose 1 EA; Start 10/02/16 at 17:00 Warfarin Sodium 7.5 mg OT ONCE PO Last administered on 10/02/16 18:25; Admin Dose 7.5 MG; Start 10/02/16 at 17:00; Stop 10/02/16 at 17:01; Status DC Warfarin Sodium/ Warfarin Sodium 7.5 mg DAILY@17 ONCE PO Last administered on 17:11; Admin Dose 7.5 MG; Start 10/03/16 at 17:00; Stop 10/03/16 at 17: 01; Status DC Mental Status Exam Vital Signs Vital Signs Date Time Temp Pulse Resp B/P Pulse Ox O2 Delivery O2 Flow Rate FiO2 10/04/16 05:18 37.1 59 18 105/66 94 Room Air Appearance: Unkept Attitude: Pleasant, Cooperative (but severely aphasic) Behavior: No unusual behavior Affect: Well Modulated/Appropriate Mood: Euthymic Thought Process/Associations: Other (difficult to assess due to aphasia) Speech Production: Other Speech Rate: Other Speech Articulation: Other (expressive aphasia) Thought Content: Appropriate, Other (difficult to assess) Danger to Self/Suicidal Ideati: None Danger to Others: None Hallucinations: Auditory (Denies), Visual (Denies) Consciousness: Alert Orientation: Person, Place (difficult to assess but seemed to understand was in a hospital), Situation (difficult to assess) Memory: Untestable Estimate Intellectual Function: Unable to assess Insight: Unable to assess Judgement: Unable to assess Result Diagram: 10/04/1650910/04/16509 Mental Health Plan The patient is a 56-year-old male with a history of depression and stroke with expressive aphasia, who presents with worsening mental state following his return to home and recent change of medications. Given the patient's family history of bipolar disorder and his reported history of hypomanic episodes in the past, switch to an selective serotonin reuptake inhibitor may have triggered a hypomanic episode or irritability. He could also be experiencing some form of withdrawal from the Wellbutrin, although this is less likely. The patient reports a history of thyroid disorder, although his TSH is normal. The patient reportedly had difficulty taking Wellbutrin 3 times a day and this may have resulted in missed doses at times which could have resulted in worsening symptoms. He is also prescribed vitamin D3, and given his gastric bypass surgery, it is possible there are some malabsorption issues and so vitamin d3 level ordered and was also normal. Discussed with patient and starting adjunctive treatment with mood stabilizer given his history of possible hypomania, recurrent depression, and stroke. Although carbamazepine, oxcarbazepine, and valproic acid were options discussed, given his current symptoms, lamotrigine appeared to be the best candidate. Risks and benefits including long titration and Trivedi-Osbaldo syndrome were discussed and the patient and family agreed to proceed. Discussed with Dr. Wong who also started melatonin 5mg at bedtime which appears to have been effective. Patient appeared brighter this morning and was in good spirits. Mitchell AXIS I: 1. Mood disorder unspecified versus cyclothymic or bipolar II disorder. 2. Alcohol use disorder in partial remission, with recent relapse AXIS II: Deferred. AXIS III: See past medical history. AXIS IV: Severe. AXIS V: Global Assessment of Functioning 45. Treatments 1. Wellbutrin XL 150mg x 4 days then 300mg daily thereafter. 2. The patient has a significant expressive aphasia, but is able to write under certain circumstances and use an image board. He appears to be able to at least answer limited questions in written format and appeared to be able to answer more with his eyes closed and would likely benefit from a clipboard with a ruler attached to help him organize his writing. This was discussed with the patient's . 3. B12, Folate, TSH, D3 all normal. 4. Continue melatonin 5mg at bedtime. 5. Continue lamotrigine 25mg nightly, if sleep worsens, would move to daytime. Weeks 1& 2- 25mg nightly. Weeks 3 & 4-50mg nightly. Week 5-100mg nightly. Week 6-200mg nightly. 6. The patient continues to deny intent to harm self, but limiting china and metal utensils is advised. Should the patient express active suicidal ideation, he should have a 1:1 sitter. 7. Psychiatry will see patient again on Thursday10/06/16 if still admitted. 8. Please feel free to consult Psychiatry with any questions. Paddy Stout MD Oct 04, 2016 13:07
--- NOTE | 2016-10-04 13:48 | NUR ---
Social Work-readiness for discharge: Data:EMR Reviewed. Pt is on day 2 of hospitalization for behavioral changed per H&P. Pt is not medically stable for discharge anticipate tomorrow. Psychiatry has seen pt and worked on adjusting medications. Psychiatry has cleared pt for return home. SW met with pt and at bedside to discuss discharge planning, SW role explained. Pt and agreeable for pt to return home with services. [facility] has been set up for RN,OT,PT, ST, MARINE ENGINE MECHANIC, and MARKING STITCHER. confirms that she has caregivers set up for Thursday and they come Thursday through Thursday. SW also discussed that [facility] will be out on Thursday to see pt. confirms that she met with Dwayne yesterday. has questions about transport. Pt did come in via EMS and does have Medicaid transport. Pt is w/c bound at baseline. SW explained w/c van through Medicaid could be set up for discharge. Pt and agreeable to plan. F2F in folder. SW will continue to follow. Assessment: Pt who would benefit from services and SADE. Plan:Pt to discharge home with when medically stable. Referral made to [facility] for RN,OT,PT,ST,MARKING STITCHER, and MARINE ENGINE MECHANIC. Pt to have Caregiver support Thursday through Thursday. Psychiatry has adjusted pt's medications and has cleared pt for home. F2F in folder. SW will continue to follow. REBECA Duncan
[2016-10-04 14:55] VITALS: BP 133/85; PULSE 68; RESP 20; O2SAT 97
--- NOTE | 2016-10-04 15:19 | NUR ---
behavior Pt appeared to be in a pleasant mood as evidence by laughing and smiling with this nurse. Pt occasionally became frustrated, but showed no aggression when trying to communicate d/t his expressive aphasia. Pt stated that he was having a hard time sleeping and requested Tylenol as a sleep aid. Pt acted and answered questions appropriately when able to and was cooperative with care.
--- NOTE | 2016-10-04 16:27 | NUR ---
Evaluation completed. Please go to "Notes" then click on "Assessments and Notes" (bottom left corner of screen). Then select appropriate discipline tab on top of screen.
--- NOTE | 2016-10-04 17:53 | PCM.PNMED ---
Subjective Date of Service Oct 04, 2016 Subjective 55-year-old male with medical history of diabetes type II, coronary artery disease, atrial fibrillation on warfarin, and morbid obesity presents to the emergency department via EMS due to behavioral changes. Overnight patient had trouble sleeping This morning patient reports feeling okay. He does not endorse any pain, though he does have some concern about the left side of his head that is difficult to elucidate. Patient and requested medicine to help him sleep in the evening. Exam Vital Signs Vital Sign - Last Date Time Temp Pulse Resp B/P Pulse Ox O2 Delivery O2 Flow Rate FiO2 10/04/16 14:55 36.3 68 20 133/85 97 Room Air Intake and Output 10/03/16 10/03/16 10/04/16 Cumulative From/Thru 15:00 23:00 07:00 10/02/16 06:05 - 10/04/16 06:43 Intake Total 1902 ml 1183 ml 5298 ml Output Total 700 ml 275 ml 2100 ml Balance 1202 ml 908 ml 3198 ml Intake Oral 740 ml 200 ml 1190 ml IV Total 1162 ml 983 ml 4108 ml Output Urine Total 700 ml 275 ml 2100 ml # Voids 1 Exam General: Awake, alert, no acute distress, well-developed, well-nourished, appropriately interactive with moments of increased intensity due to frustration from aphasia HEENT: Normocephalic, atraumatic. External ears without defect. Pupils equal, round, and reactive to light and accommodation. Anicteric sclerae, moist conjunctivae, and no lid lag. Lips dry, Oropharynx free of erythema and cobble stoning with moist mucosa. Small amount of dried blood on lips coming from the gumline of upper rate incisor Neck: Supple. No jugular venous distension. No lymphadenopathy or thyromegaly. Cardiovascular: Regular rate and rhythm with no murmurs, rubs, or gallops appreciated Pulmonary: Clear to auscultation bilaterally with no crackles, wheezes, or rhonchi. Normal respiratory effort with no use of accessory muscles, snoring Abdomen: Bowel tones present. Obese, soft, nontender, nondistended. No hepatosplenomegaly or masses appreciated. Extremities: Multiple bruises in various stages of healing on upper and lower extremities, large ecchymosis on left internal thigh appears to be recent. No clubbing, cyanosis, edema, or lymphadenopathy appreciated. Skin: Normal temperature, turgor, and texture; no rash, ulcers, or subcutaneous nodules appreciated. Psychiatric/Neurologic: known gait impairment, right-sided weakness with resting flexion of right upper extremity. Expressive aphasia using the word hand repeatedly and "oh boy" occasionally Lab and Diagnostics Result Diagram: 10/04/16 0510 10/04/16 0510 X-Rays, CTs and MRIs PROCEDURE: CT BRAIN WITHOUT CONTRAST ([id number]) INDICATIONS: altered, warfarin use TECHNIQUE: Noncontrast 4.5 mm thick angled axial sections acquired from the foramen magnum to the vertex, with coronal reformats. COMPARISON: [facility], CT, BRAIN (TPA), 05/11/2016, 20:28. [facility], CT, CT ANGIO BRAIN AND NECK, 05/11/2016, 21:37. FINDINGS: Image quality: Excellent. CSF spaces: Basal cisterns are patent. No extra-axial fluid collections. Ventricles are normal in size and shape. Brain: No midline shift. Unchanged appearance of subcentimeter right frontal extra-axial hyperdensity, presumed calcification since 05/11/16 on image 26 series 2. Large hypodensity seen within the left temporoparietal lobe in keeping with prior infarct or trauma. There is a small 5 mm hyperdense focus seen on image 16 series 2, which is technically indeterminate however cannot exclude small focus of acute intracranial blood in the absence of more recent comparison studies. Allen-white matter interface is normal. Skull and face: Calvarium and visualized facial bones are intact, without suspicious lesions. Sinuses: Visualized sinuses and mastoids are clear. IMPRESSION: 5 mm hyperdensity seen within the left temporal lobe, an area of encephalomalacia. Although this could represent calcification, in the absence of prior studies, acute blood cannot be excluded and recommend followup in 6 hours with noncontrast head CT. Findings were personally telephoned and discussed with Dr. Torres in the emergency department 2200 hrs. 10/01/16. Elsewhere, no acute abnormality. Dictated by: Wale Huang M.D. on 10/01/2016 at 21:55 PROCEDURE: CT BRAIN WITHOUT CONTRAST ([id number]) INDICATIONS: follow up from earlier, possible bleed, fall, warfarin use. TECHNIQUE: Noncontrast 4.5 mm thick angled axial sections acquired from the foramen magnum is left [id number] infarct noted. the vertex, with coronal reformats. COMPARISON: [facility], CT, CT ANGIO BRAIN AND NECK, 05/11/2016, 21 :37. [facility], CT, BRAIN (TPA), 05/11/2016, 20:28. [facility], CT, CT BRAIN WO CON, 10/01/2016, 21:14. FINDINGS: Image quality: Limited by patient motion artifact. CSF spaces: Basal cisterns are patent. No extra-axial fluid collections. The ventricles are symmetric in size and shape. Brain: No intracranial bleeds or masses. There is cerebral volume loss for age , with resultant ventricular and sulcal prominence. There are periventricular and deep white matter chronic small vessel ischemic changes. Old left frontal- temporal-parietal infarct is stable compared to prior examinations. There is intracranial internal carotid artery and vertebral artery atherosclerosis. Skull and face: Calvarium and visualized facial bones appear intact, without suspicious lesions. Sinuses: Visualized sinuses and mastoids are clear. IMPRESSION: No acute intracranial disease process. Dictated by: Charo Marsh MD, PhD on 10/02/2016 at 9:44 PROCEDURE: X-RAY PELVIS W/LAT HIP (RT) ([id number]) INDICATIONS: right hip pain IMPRESSION: No displaced fracture seen. If there is continued pain, followup exam or additional imaging such as MRI or CT could be performed for further assessment. Dictated by: Ronn Moreno [facility] Interpreted: Charo Marsh MD on 10/02/2016 at 9:35 Assessment & Plan 56-year-old male with past medical history of stroke, atrial fibrillation on warfarin, type II diabetes mellitus, anxiety, and coronary artery disease presented to the emergency department with behavioral changes and fall from wheelchair. 1. Acute behavioral disturbance, present on admission, acute - Patient's antidepressant medication was switched from Wellbutrin to sertraline about 2 weeks ago. Since that time patient has become increasingly agitated - Once discharged from [facility] patient had multiple episodes of agitation, emotional lability, and frustration culminating in an episode of throwing items across the room and outside - Consult psychiatry, we appreciate their time and recommendations - Sertraline discontinued, Wellbutrin resumed - TSH normal - Vitamin B12 and folate normal - Vitamin D level in the normal range at 44 - Suicidal ideation not endorsed by patient at this time. Precautions in place. 2. Right hip pain, present on admission, acute - Pain likely secondary to fall from wheelchair - X-ray pelvis with lateral right hip performed in emergency department that shows no displaced fractures - Continue to monitor 3. 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 - Patient needs assist for transfers - Physical therapy recommending discharge to detention facility. 4. Normocytic, normochromic Anemia, present on admission, subacute - Records review reveals some degree of anemia since 2009, patient with vertical sleeve gastrectomy in February 2016 - Most likely anemia of chronic disease as iron is low and TIBC is low. - Vitamin B12 and folate levels normal - IV iron sucrose ordered - Continue to monitor with CBC in the a.m. - Patient to follow-up with iron infusion or oral iron upon discharge 5. Urinary tract infection, present on admission, chronicity unknown - Patient endorses some discomfort with urination - Urine culture positive for enterococci, sensitivities to follow - Treat with Macrobid 100 mg by mouth twice a day for 5 days 6. Restless legs, present on admission - Likely secondary to iron deficiency - IV iron sucrose as above 7. Difficult social situation, present on admission, acute - is concerned for her safety at home in her 's current state. - Social work and case management referral initiated, their expertise is appreciated. 8. Atrial fibrillation, chronic - Continue warfarin, dosed by pharmacy 9. Coronary artery disease, chronic - Continue aspirin, metoprolol, atorvastatin Acetaminophen for mild pain when necessary. Bowel regimen Senna and MiraLAX PRN. Zofran when necessary for nausea and vomiting. GI prophylaxis with home dose famotidine DVT prophylaxis patient therapeutic on warfarin Patient is admitted under observation status with expected length of stay less than 2 midnights due to severity of presenting symptoms, risk of adverse event, and complexity of treatment plan. Patient's preference would be to go home. Home health can be arranged. residential is recommended by physical therapy. Pain Evaluation: Adequate Pain Control GI Prophylaxis: H2 mayda VTE Prophylaxis: Theraputic Anticoag with Warfarin VTE Mechanical Devices: Intermittant Pneumatic CD Resuscitation Status: CPR: Attempt Resuscitation Attending Statement The patient was seen and examined together with Dr. Wong on 10/04/2016 and I agree with the history, exam and plan as outlined in the note above. Elis Wong DO Oct 04, 2016 17:53 Tom Booth MD Oct 05, 2016 10:51
[2016-10-04 20:40] VITALS: BP 124/71; PULSE 60; RESP 18; O2SAT 98
[2016-10-04] MEDS ORDERED: diphenhydrAMINE 50 mg Capsule PO SCH (21:00)
[2016-10-04] MEDS: lamoTRIgine 25 mg Tablet PO SCH (21:10)
--- NOTE | 2016-10-05 03:38 | NUR ---
IV access Pt's IV line got infiltrated and pt has been refusing to have another one. was notified and aware, says ok not to have an IV line for now. Will continue to monitor.
[2016-10-05 04:40] VITALS: BP 114/69; PULSE 58; RESP 20; O2SAT 96
[2016-10-05] MEDS: 0.9% Sodium Chloride 1,000 ML IV SCH (06:13)
[2016-10-05 06:56] LABS: BASOPHILS % (AUTO) 0.6 % (0-3); EOSINOPHILS % (AUTO) 6.4 % (0-5); MONOCYTES % (AUTO) 10.2 % (4-12); Mean Corpuscular Hemoglobin 31.4 pg (27.0-35.0); Platelet Count 165 bil/L (150-400)
[2016-10-05] MEDS: MeTOProlol XL 25 mg ER24 Tablet PO SCH (09:01)
[2016-10-05] MEDS: Nitrofurantoin Monohyd-Macrocryst 100 mg Capsule PO SCH (09:01)
[2016-10-05] MEDS: buPROPion XL 150 mg ER24 Tablet PO SCH (09:04)
[2016-10-05 09:27] LABS: INR 2.62 ratio
--- NOTE | 2016-10-05 10:17 | PCM.DIMED ---
Elis Wong DO 10/04/16 0812: Discharge Instructions Date of Service Oct 04, 2016 Dates of Hospitalization Oct 02, 2016 at 05:31 Discharge Diagnosis Discharge Diagnosis 1. Acute behavioral disturbance 2. Right hip pain 3. 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 Normocytic normochromic anemia 5. Urinary tract infection 6. Restless leg 7. Atrial fibrillation 8. Coronary artery disease 9. Cyclothymic or bipolar II disorder Medication Instructions Will start lamotrigine 25mg nightly, if sleep worsens, move to daytime dosing should be advanced on the following schedule: Weeks 1& 2- 25mg nightly. Weeks 3 & 4-50mg nightly. Week 5-100mg nightly. Week 6-200mg nightly. Take Wellbutrin 150 mg for 4 days, 300 mg daily after that (starting 10/06/2016) Continue other medications as previously prescribed You will need to take iron supplementation, you have been given an IV dose here in the hospital, you will be discharged with oral prescription. Follow-up with your primary care provider for additional labs and infusions if necessary. Diet Heart Healthy Activity Home Health Phyical Therapy Call your provider Fever or Chills, Shortness of breath, Chest pain, Excessive diarrhea Patient Instructions You had acute behavioral disturbance possibly related to medication change. Continue to take her previously prescribed medications with the exception of sertraline Follow-up plan Follow-up with primary care provider within 2 weeks. Home health nursing, physical therapy, occupational therapy, and speech therapy Follow-up Provider: Vicky Martin MD Follow-up with PCP in: 2 weeks Adina Page DO 10/05/16 1017: Tom Booth MD 10/05/16 1050: Elis Wong DO Oct 04, 2016 08:12 Adina Page DO Oct 05, 2016 10:17 Tom Booth MD Oct 05, 2016 10:50
[2016-10-05] MEDS ORDERED: BUPR300T51 PO (10:22)
[2016-10-05] MEDS ORDERED: LAMO25TA2 PO (10:22)
[2016-10-05] MEDS ORDERED: MELA5TAB14 PO (10:22)
[2016-10-05] MEDS ORDERED: NITR100 PO (10:25)
--- NOTE | 2016-10-05 13:28 | NUR ---
Social Work-discharge: Data:EMR Reviewed. Pt is on day 3 of hospitalization for behavioral changes per H&P. Pt is medically stable for discharge today. Psychiatry has seen pt and cleared pt for home, changed some medications. PT worked with pt and they are recommending SNF. Pt continues to decline SNF, wanting to return home. Pt is excited about returning home today. VIANEY confirmed with Connie about discharge and has arranged for caregiver to be at the house tomorrow. SW informed Dwayne Patel with [facility] [phone] of discharge and faxed in F2F and orders for RN,PT,OT,ST,SPECIAL WARFARE OPERATOR, and DEVELOPMENT OFFICER. [facility] to be out to the house on Thursday. requesting assistance with transport home. SW verified pt did come in via Ambulance. VIANEY set up Medicaid w/c van for 1545. SW updated pt and , both agreeable. All updated and agreeable to plan. Assessment:Pt to benefit from caregivers and HH services. Plan:Pt to discharge home today via medicaid transport at 1545. Psychiatry has cleared pt for home. Pt declining SNF, but agreeable to HH Services. F2F and orders for RN,PT,OT,ST,SPECIAL WARFARE OPERATOR, and DEVELOPMENT OFFICER faxed into [facility]. Pt to have caregiving assistance at home. All updated and agreeable to plan. REBECA Duncan
[2016-10-05 13:33] VITALS: BP 119/69; PULSE 67; RESP 20; O2SAT 95
--- NOTE | 2016-10-05 15:53 | NUR ---
discharge went of discharge information with and pt. No iv. pt left in wheelchair with , SHIP CAPTAIN and transport service. no s/s of distress at time of dc
[2016-10-06] MEDS ORDERED: buPROPion XL 300 mg ER24 Tablet PO SCH (08:30)
--- NOTE | 2016-10-17 13:32 | PCM.DC.MED ---
Discharge Summary Date of Service Oct 06, 2016 Dates of Hospitalization Date of Hospital Admission Oct 02, 2016 at 05:31 Date of Discharge: Oct 05, 2016 Providers: Admitting Physician: Carmelo Alexander MD Primary Care Physician: Vicky Martin MD Attending Physician: Carmelo Alexander MD Diagnosis at Time of Discharge Diagnosis at Time of Discharge Discharge Diagnosis 1. Acute behavioral disturbance 2. Right hip pain 3. 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 Normocytic normochromic anemia 5. Urinary tract infection 6. Restless leg 7. Atrial fibrillation 8. Coronary artery disease 9. Cyclothymic or bipolar II disorder Consultations Psychiatry Procedures XRay, CTs & MRIs PROCEDURE: CT BRAIN WITHOUT CONTRAST ([id number]) IMPRESSION: 5 mm hyperdensity seen within the left temporal lobe, an area of encephalomalacia. Although this could represent calcification, in the absence of prior studies, acute blood cannot be excluded and recommend followup in 6 hours with noncontrast head CT. Findings were personally telephoned and discussed with Dr. Torres in the emergency department 2200 hrs. 10/01/16. Elsewhere, no acute abnormality. Dictated by: Wale Huang M.D. on 10/01/2016 at 21:55 PROCEDURE: CT BRAIN WITHOUT CONTRAST ([id number]) IMPRESSION: No acute intracranial disease process. Dictated by: Charo Marsh MD, PhD on 10/02/2016 at 9:44 PROCEDURE: X-RAY PELVIS W/LAT HIP (RT) ([id number]) INDICATIONS: right hip pain IMPRESSION: No displaced fracture seen. If there is continued pain, followup exam or additional imaging such as MRI or CT could be performed for further assessment. Dictated by: Ronn Moreno [facility] Interpreted: Charo Marsh MD on 10/02/2016 at 9:[address] Wong's H and P: "55-year-old male with medical history of diabetes type II, coronary artery disease, atrial fibrillation on warfarin, and morbid obesity presents to the emergency department via EMS due to behavioral changes. Patient had a stroke on 05/11/2016 for which she was transferred to [facility], his deficits include right-sided weakness and expressive aphasia. Patient had a medication change from Wellbutrin to sertraline about 2 weeks ago due to increased tearfulness. In the last couple of weeks he has been generally irritable and then 5 days prior to admission he had some episodes of agitation with sobbing. He had been at [facility] until he was discharged on 09/29/2016. Since being home patient has continued to be agitated and exhibited episodes of frustration including throwing things across the room and also outside. During one of these events he fell from his wheelchair. Due to patient's aphasia and somnolence history is completed with records review and as reported by patient's Melba. She says that he has been eating a general diet recently with a much greater appetite in the last couple of weeks. He had a vertical sleeve gastrectomy in February 2016, he was taken off of warfarin for one week for a kidney stone removal procedure. It was soon after that time that he had his stroke." Hospital Course 56-year-old male with past medical history of stroke, atrial fibrillation on warfarin, type II diabetes mellitus, anxiety, and coronary artery disease presented to the emergency department with behavioral changes and fall from wheelchair. 1. Acute behavioral disturbance, present on admission, acute - Patient's antidepressant medication was switched from Wellbutrin to sertraline about 2 weeks ago. Since that time patient has become increasingly agitated - Once discharged from [facility] patient had multiple episodes of agitation, emotional lability, and frustration culminating in an episode of throwing items across the room and outside - Consult psychiatry, we appreciate their time and recommendations - Sertraline discontinued, Wellbutrin resumed - TSH normal - Vitamin B12 and folate normal - Vitamin D level in the normal range at 44 - Suicidal ideation not endorsed by patient at this time. Precautions in place. 2. Right hip pain, present on admission, acute - Pain likely secondary to fall from wheelchair - X-ray pelvis with lateral right hip performed in emergency department that shows no displaced fractures - Continued to monitor 3. 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 - Patient needed assist for transfers - Physical therapy [facility]. 4. Normocytic, normochromic Anemia, present on admission, subacute - Records review reveals some degree of anemia since 2009, patient with vertical sleeve gastrectomy in February 2016 - Most likely anemia of chronic disease as iron is low and TIBC is low. - Vitamin B12 and folate levels normal - IV iron sucrose ordered - Continued to monitor with CBC in the a.m. - Patient to follow-up with iron infusion or oral iron upon discharge 5. Urinary tract infection, present on admission, chronicity unknown - Patient endorsed some discomfort with urination - Urine culture positive for enterococci, sensitivities to follow - Treated with Macrobid 100 mg by mouth twice a day for 5 days 6. Restless legs, present on admission - Likely secondary to iron deficiency - IV iron sucrose as above 7. Difficult social situation, present on admission, acute - is concerned for her safety at home in her 's current state. - Social work and case management referral initiated, their expertise is appreciated. 8. Atrial fibrillation, chronic - Continued warfarin, dosed by pharmacy 9. Coronary artery disease, chronic - Continued aspirin, metoprolol, atorvastatin Exam Vital Signs (Last) Date Time Temp Pulse Resp B/P Pulse Ox O2 Delivery O2 Flow Rate FiO2 10/05/16 13:33 36.6 67 20 119/69 95 Room Air Exam General: Awake, alert, no acute distress, well-developed, well-nourished, appropriately interactive with moments of increased intensity due to frustration from aphasia HEENT: Normocephalic, atraumatic. External ears without defect. Pupils equal, round, and reactive to light and accommodation. Anicteric sclerae, moist conjunctivae, and no lid lag. Lips dry, Oropharynx free of erythema and cobble stoning with moist mucosa. Small amount of dried blood on lips coming from the gumline of upper rate incisor Neck: Supple. No jugular venous distension. No lymphadenopathy or thyromegaly. Cardiovascular: Regular rate and rhythm with no murmurs, rubs, or gallops appreciated Pulmonary: Clear to auscultation bilaterally with no crackles, wheezes, or rhonchi. Normal respiratory effort with no use of accessory muscles, snoring Abdomen: Bowel tones present. Obese, soft, nontender, nondistended. No hepatosplenomegaly or masses appreciated. Extremities: Multiple bruises in various stages of healing on upper and lower extremities, large ecchymosis on left internal thigh appears to be recent. No clubbing, cyanosis, edema, or lymphadenopathy appreciated. Skin: Normal temperature, turgor, and texture; no rash, ulcers, or subcutaneous nodules appreciated. Psychiatric/Neurologic: known gait impairment, right-sided weakness with resting flexion of right upper extremity. Expressive aphasia using the word hand repeatedly and "oh boy" occasionally Test 10/01/16 21:38 10/01/16 22:32 10/02/16 13:30 10/03/16 05:20 Thyroid Stimulating Hormone (TSH) 1.350uIU/mL (0.450-4.500) Hold Schultz Top Tube Received (Received) Urine Color Dark yellow (YELLOW) Urine Appearance Clear (CLEAR,HAZY) Urine pH 5.0 (5.0-8.0) Urine Specific [place] 1.027 (1.003-1.035) Urine Protein Tracemg/dL (NEG,TRACE) Urine Glucose (UA) Negativemg/dL (NEGATIVE) Urine Ketones Tracemg/dL (NEGATIVE) Urine Occult Blood Negative (NEGATIVE) Urine Nitrite Negative (NEGATIVE) Urine Bilirubin Negative (NEGATIVE) Urine Urobilinogen Normalmg/dL (NORMAL) Urine Leukocyte Esterase Negative (NEGATIVE) Urine RBC 0-2/hpf (0-2) Urine WBC 0-5/hpf (0-5) Urine Epithelial Cells Few/hpf (NONE-MOD) Urine Crystals Oxalic acid crystals (NONE Urine Bacteria Moderate/hpf (NONE-FEW) Urine Hyaline Casts None/lpf (NONE) Urine Granular Casts None seen (NONE SEEN) Urine Waxy Casts None seen (NONE SEEN) Urine Red Blood Cell Casts None seen (NONE SEEN) Urine White Blood Cell Casts None seen (NONE SEEN) Urine Mucus Present (None Seen) Urine Trichomonas None seen (NONE SEEN) Urine Yeast None (NONE SEEN) Urine Culture Reflexed Indicated Hold Urine Received (Received) Vitamin B12 Level 354pg/mL (211-946) Folate > 19.9ng/mL (>3.0) Iron Level 26ug/dL (35-150) Total Iron Binding Capacity 154ug/dL (250-450) Percent Iron Saturation 17%sat (15-50) Unsaturated Iron Binding 128.2ug/dL Vitamin D 25-Hydroxy 44.0ng/mL (30.0-100.0) Test 10/05/16 05:45 10/05/16 08:47 White Blood Count 6.4th/mm3 (3.8-10.1) Red Blood Count 2.96mil/mm3 (4.40-5.80) Hemoglobin 9.3g/dL (13.8-17.2) Hematocrit 29.0% (41.0-50.0) Mean Corpuscular Volume 98.0fL (81-100) Mean Corpuscular Hemoglobin 31.4pg (27.0-35.0) Mean Corpuscular Hemoglobin Concent 32.1% (32.0-37.0) Red Cell Distribution Width 14.9% (12.3-15.4) Platelet Count 165bil/L (150-400) Neutrophils (%) (Auto) 54.0% (40-74) Lymphocytes (%) (Auto) 28.6% (14-46) Monocytes (%) (Auto) 10.2% (4-12) Eosinophils (%) (Auto) 6.4% (0-5) Basophils (%) (Auto) 0.6% (0-3) Sodium Level 144mEq/L (134-144) Potassium Level 3.7mEq/L (3.5-5.2) Chloride Level 110mEq/L (97-108) Carbon Dioxide Level 22mmol/L (18-29) Blood Urea Nitrogen 10mg/dL (6-24) Creatinine 0.66mg/dL (0.76-1.27) Estimat Glomerular Filtration Rate 133mL/min (>59) Glucose Level 72mg/dL (60-99) Calcium Level 8.9mg/dL (8.5-10.1) Total Bilirubin 0.4mg/dL (0.0-1.2) Aspartate Amino Transf (AST/SGOT) 27U/L (0-50) Alanine Aminotransferase (ALT/SGPT) 19U/L (0-44) Alkaline Phosphatase 74U/L (25-150) Total Protein 5.5g/dL (6.4-8.4) Albumin 2.7g/dL (3.4-5.0) Prothrombin Time 28.6sec (8.1-12.5) Prothromb Time International Ratio 2.62ratio Discharge Medications Discharge Medications Aspirin (Aspirin) 81 Mg Tablet 81 MG PO DAILY (Reported) Atorvastatin Calcium (Atorvastatin Calcium) 40 Mg Tablet 40 MG PO HS (Reported) Bupropion ER (Wellbutrin XL) 300 Mg Tab.er.24h 300 MG PO DAILY Prescribed by: KACEY PAGE DO Docusate Sodium (Colace) 100 Mg Capsule 100 MG PO DAILY (Reported) Famotidine (Pepcid) 20 Mg Tablet 20 MG PO BID (Reported) Lamotrigine (Lamictal) 25 Mg Tablet 25 MG PO HS Prescribed by: KACEY PAGE DO Melatonin (Melatonin) 5 Mg Tablet 5 MG PO 17 Prescribed by: KACEY PAGE DO Metoprolol Succinate ER (Metoprolol Succinate ER) 25 Mg Tab.er.24h 12.5 MG PO BID (Reported) Multivitamin (Multivitamins) 1 Each Capsule 1 EACH PO DAILY (Reported) Nitrofurantoin Monohyd/M-Cryst (MacroBid) 100 Mg Capsule 100 MG PO BID Prescribed by: KACEY PAGE DO Sennosides (Senna) 8.6 Mg Tablet 8.6 MG PO DAILY (Reported) Warfarin Sodium (Warfarin Sodium) 7.5 Mg Tablet 7.5 MG PO , , W, , , ( Reported) Warfarin Sodium (Warfarin Sodium) 5 Mg Tablet 5 MG PO THURSDAY (Reported) As needed Acetaminophen (Acetaminophen) 325 Mg Capsule 650 MG PO Q4H PRN PRN For Pain ( Reported) Bisacodyl (Dulcolax Rectal) 10 Mg Supp.rect 10 MG RC DAILY PRN PRN For Constipation (Reported) Magnesium Hydroxide (Milk of Magnesia) 400 Mg/5 Ml Oral.susp 30 ML PO HS PRN PRN Q3D (Reported) Miscellaneous Medications Cholecalciferol (Vitamin D3) (Vitamin D3) 2,000 Unit Capsule 2,000 UNIT PO ( Reported) Followup Plan Follow-up plan Will start lamotrigine 25mg nightly, if sleep worsens, move to daytime dosing should be advanced on the following schedule: Weeks 1& 2- 25mg nightly. Weeks 3 & 4-50mg nightly. Week 5-100mg nightly. Week 6-200mg nightly. Take Wellbutrin 150 mg for 4 days, 300 mg daily after that (starting 10/06/2016) Continue other medications as previously prescribed You will need to take iron supplementation, you have been given an IV dose here in the hospital, you will be discharged with oral prescription. Follow-up with your primary care provider for additional labs and infusions if necessary. Kacey Page 27, 2017 11:46
== END 2016-10-05 15:45 | disposition home health service (06) | DRG 886 ==
LOC: SED 18:12 → MPC 10-02 05:31 → OBSVTOIN 10-02 05:31
PROVIDERS: ADMIT Hospitalist; ATTEND Hospitalist
DX: F91.9 Conduct disorder, unspecified (principal); I69.351 Hemiplegia and hemiparesis following cerebral infarction affecting right dominant side; N39.0 Urinary tract infection, site not specified; F31.81 Bipolar II disorder; Z79.01 Long term (current) use of anticoagulants; I69.320 Aphasia following cerebral infarction; I25.2 Old myocardial infarction; R41.82 Altered mental status, unspecified; M25.551 Pain in right hip; Y93.9 Activity, unspecified; Y99.9 Unspecified external cause status; W05.0XXA Fall from non-moving wheelchair, initial encounter; Y92.019 Unspecified place in single-family (private) house as the place of occurrence of the external cause; D64.9 Anemia, unspecified; I25.10 Atherosclerotic heart disease of native coronary artery without angina pectoris; Z60.8 Other problems related to social environment; G25.81 Restless legs syndrome; I48.2 Chronic atrial fibrillation; Z98.84 Bariatric surgery status; F34.0 Cyclothymic disorder

== ENCOUNTER 2016-10-24 18:50 | Emergency (ER) | payer MEDICARE, MEDICAID ==
[~2016-10-24 18:50] MED LIST changes: +ACET325C PO; +ASPI-973 PO; +BISA10SU61 RC; -BUPR150T9 PO; +BUPR300T51 PO; +CHOL200047 PO; +FAMO20T PO; +LAMO25TA2 PO; +MAGN400O4 PO; +MELA5TAB14 PO; -METO100T3 PO; +METO25TA99 PO; +MULT1CAP33 PO; +NITR100 PO; -OXYC1TAB24 PO; +SENN-133 PO; -SLO64 PO; +WARF5TAB7 PO
[2016-10-24 19:01] VITALS: BP 107/52; PULSE 77; RESP 16; O2SAT 97
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
[2016-10-24 19:32] LABS: BASOPHILS % (AUTO) 0.5 % (0-3); Mean Corpuscular Hemoglobin 31.9 pg (27.0-35.0); Mean Corpuscular Volume 100.3 fL (81-100); NEUTROPHILS % (AUTO) 65.6 % (40-74); Platelet Count 168 bil/L (150-400)
[2016-10-24 19:52] LABS: INR 2.4 ratio
[2016-10-24 21:52] LABS: APPEARANCE,URINE SLIGHTLY CLOUDY (CLEAR,HAZY); COLOR,URINE DARK YELLOW (YELLOW); OCCULT BLOOD,URINE MODERATE (NEGATIVE); PH,URINE 5.5 (5.0-8.0)
[2016-10-24 21:53] LABS: ICTOTEST,URINE POSITIVE (Negative); UROBILINOGEN,URINE NORMAL (NORMAL)
[2016-10-24 23:08] VITALS: BP 95/62; PULSE 87; RESP 16; O2SAT 98
[2016-10-25 03:43] VITALS: BP 101/63; PULSE 76; RESP 16; O2SAT 98
[2016-10-25 06:19] VITALS: BP 94/62; PULSE 80; RESP 16; O2SAT 98
[2016-10-25 10:58] VITALS: BP 106/66; PULSE 83; RESP 18; O2SAT 98
[2016-10-25] MEDS ORDERED: LORA-303 PO (11:59)
[2016-10-25 12:19] VITALS: BP 106/66; PULSE 83; RESP 18; O2SAT 98
== END 2016-10-25 12:20 | disposition home or self-care (01) ==
LOC: SED 18:50 → EDBD 18:50 → SED 10-25 12:20
DX: R45.1 Restlessness and agitation (principal); N30.00 Acute cystitis without hematuria; F43.0 Acute stress reaction; I48.91 Unspecified atrial fibrillation; I25.10 Atherosclerotic heart disease of native coronary artery without angina pectoris; E11.9 Type 2 diabetes mellitus without complications; Z86.73 Personal history of transient ischemic attack (TIA), and cerebral infarction without residual deficits; Z79.82 Long term (current) use of aspirin; Z79.01 Long term (current) use of anticoagulants
CPT/HCPCS: 36415; 80053; 81000; 81002; 84443; 85025; 85610; 87086; 87088; 93005; 96372; 99285; G0480; J2060

== ENCOUNTER 2016-10-28 07:44 | Inpatient (IN) | payer MEDICARE, MEDICAID ==
[~2016-10-28] VITALS: Ht 172.7 cm; Wt 112.0 kg
[~2016-10-28 07:44] MED LIST changes: +LORA-303 PO
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
[2016-10-28] MEDS ORDERED: Ondansetron 2 mg/mL 2 mL Inj IV PRN (07:55)
[2016-10-28 08:00] VITALS: BP 107/75; PULSE 91; RESP 16; O2SAT 98
[2016-10-28 08:31] LABS: BASOPHILS % (AUTO) 0.6 % (0-3); EOSINOPHILS % (AUTO) 3.8 % (0-5); MONOCYTES % (AUTO) 13.1 % (4-12); Mean Corpuscular Hemoglobin 31.9 pg (27.0-35.0); Mean Corpuscular Volume 100.3 fL (81-100); NEUTROPHILS % (AUTO) 66.2 % (40-74); Platelet Count 149 bil/L (150-400)
--- NOTE | 2016-10-28 08:35 | DRSVH ---
PROCEDURE: X-RAY CHEST ONE VIEW, PORTABLE ([id number]) INDICATIONS: Acute altered level of consciousness TECHNIQUE: One view of the chest was acquired. COMPARISON: [facility], CR, CHEST 2VW, 08/22/2009, 14:20. [facility], CR, CH EST 1VW (PORTABLE), 01/02/2011, 5:58. FINDINGS: Surgical changes and devices: None. Lungs and pleura: No pleural effusions or pneumothorax. Lungs are clear. Mediastinum: Mediastinal contours appear normal. Heart size is normal. Bones and chest wall: No suspicious bony lesions. Overlying soft tissues appear unremarkable. IMPRESSION: No acute cardiopulmonary disease process. Dictated by: Charo Marsh MD, PhD on 10/28/2016 at 8:33 Approved by: Charo Marsh MD, PhD on 10/28/2016 at 8:34
[2016-10-28 09:04] VITALS: PULSE 79; RESP 17; O2SAT 96
[2016-10-28 09:04] LABS: Magnesium 1.7 mg/dL (1.6-2.6)
[2016-10-28 09:07] LABS: APPEARANCE,URINE HAZY (CLEAR,HAZY); COLOR,URINE STRAW (YELLOW); OCCULT BLOOD,URINE NEGATIVE (NEGATIVE); UROBILINOGEN,URINE NORMAL (NORMAL)
[2016-10-28] MEDS ORDERED: cefTRIAXone Inj 2,000 MG in Dextrose 5% Minibag Plus 50 ML IV ONE (09:30)
[2016-10-28 10:34] VITALS: BP 109/54; PULSE 98; RESP 25; O2SAT 99
--- NOTE | 2016-10-28 10:55 | NUR ---
Spoke with Ngoc at [facility] and they have been in contact with family and right now they can not accommodate patient's need at this time. The capacity is to high and he feels the change in behaviors may put others in the facility at risk. Updated ED NEURORADIOLOGIST
[2016-10-28 11:33] VITALS: BP 100/60; PULSE 98; RESP 13; O2SAT 99
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
[2016-10-28] MEDS ORDERED: CHOL5000 PO (16:47)
[2016-10-28] MEDS ORDERED: MELA1TAB16 PO (16:47)
[2016-10-28] MEDS ORDERED: WARF5TAB7 PO (16:53)
[2016-10-28] MEDS ORDERED: WARF2TAB7 PO (16:53)
[2016-10-28] MEDS ORDERED: LAMO25TA PO (16:53)
[2016-10-28 17:02] VITALS: BP 109/77; PULSE 74; RESP 20; O2SAT 100
--- NOTE | 2016-10-28 17:49 | NUR ---
ADMIT Admitted a 56/M into room 3029 following report from ED RN, Heather. Pt arrived via w/c, able to transfer from w/c to bed with 2 person assist, bearing weight on L leg as R UE/RLE flaccid following CVA in May 2016. Pt has expressive aphagia and only able to say a few words such as "hands" repeatedly and other words such as "no", "yes", "oh boy." and other one syllable words. Pt able to write on paper with L hand and writing numbers as well as the word "wait." IV patent, flushing without issue. Noted a scratch to R foot, abrasion on R toe and redness to R groin. Pt wearing sweats and a neri-shirt which he is refusing to take off at this time so skin check to be done when pt more compliant. Melba went home, admission done as well as can be due to pt's limitations. Per sitter at bedside, pt using urinal without issue. Pt admitted under psychiatry, called Dr De La Torre environmental property assessor as there are no admitting orders, diet, medications, etc. frit mixer and burner spoke with to obtain medication orders. Environmental Studies Program Director notified to see if pt will be followed by hospitalist while on [facility]. Pt's bed in lowest, locked position and call light in reach. Sitter at bedside.
[2016-10-28] MEDS ORDERED: Haloperidol 5 mg/mL Inj IV PRN (18:45)
[2016-10-28 19:36] LABS: INR 2.1 ratio
[2016-10-28 20:13] VITALS: BP 108/73; PULSE 82; RESP 18; O2SAT 94
[2016-10-28] MEDS: lamoTRIgine 25 mg Tablet PO SCH (20:42)
[2016-10-28] MEDS: MeTOProlol XL 25 mg ER24 Tablet PO SCH (20:42)
--- NOTE | 2016-10-29 04:57 | NUR ---
Behavior Pt rested intermittently through the night. Became agitated/frustrated while repeatedly stating,"hands." Pt turned frequently throughout the night. R UE/RLE flaccid r/t CVA. Pt wearing sweats and a neri-shirt which he is refusing to take off unable to do a complete skin check at this time. Using urinal in bed without issue. Bed locked, lowest position. Call light in place. Sitter at bedside. Cooperative with care.
[2016-10-29 06:23] LABS: INR 2.06 ratio
[2016-10-29 08:09] VITALS: BP 92/58; PULSE 80; RESP 16
[2016-10-29] MEDS: MeTOProlol XL 25 mg ER24 Tablet PO SCH ×2 (08:11→21:07)
[2016-10-29] MEDS: buPROPion XL 300 mg ER24 Tablet PO SCH (08:14)
--- NOTE | 2016-10-29 10:22 | NUR ---
TT Mary Ch, [phone] pt's SADE FAY. Mary made a referral to the [facility], they assist in difficult placement due to mental illness, disability, ect. Mary will let us know the outcome of referral once she hears back from them. Advised APPLIQUER ZIGZAG.
--- NOTE | 2016-10-29 11:15 | NUR ---
Communication Pt's father and stepmother in this morning and stated they would bring in pt's own communication board from home. Pen/paper provided and ST contacted to bring up communication board in the meantime to ensure adequate communication.
--- NOTE | 2016-10-29 11:40 | PCM.PHAPRO ---
Progress WARFARIN DOSING PER PHARMACY (day) 1 2 [facility] [place] DFF Date -Oct 29-Oct INR 2.10 2.06 INR change -0.04 Warf Dose 5MG 7 MG Updated home dose: Warfarin 7mg daily A/P -Therapeutic INR. was dosed yesterday prior to med rec being updated so pt received lower dose. -Will increase dose to warfarin 7 mg this evening based on home regimen. -Pharmacy will continue to monitor. Jagjit Black, PharmD Jagjit Black Oct 29, 2016 11:40
--- NOTE | 2016-10-29 11:57 | PCM.CHPMED ---
Subjective Date of Service: Oct 29, 2016 Primary Physician: Admitting Physician: Paddy Stout MD Primary Care Physician: Vicky Martin MD Attending Physician: Paddy Stout MD Chief Complaint: Chief Complaint: Medical management History of Present Illness: 56-year-old male with past medical history of stroke, atrial fibrillation on warfarin, type II diabetes mellitus, anxiety, and coronary artery disease is presented to the ED via EMS with aggressive behavior. patient was admitted to psychiatric service, hospitalist was consulted for medical management. Patient was hospitalized with aggressive behaviors and fell from wheelchair. Psychiatry was consulted during this hospitalization, new regimen with wellbutrin, lamotrigine was started, discharged to [facility], and at the end of [place], patient was discharged to home with SADE caregiver. As per , , patient showed multiple aggressive behaviors(refer to for details), didn't feel safe at home, brought him to the hospital. Given his global aphasia from prior stroke, medical history was not obtained from EMR, . stated that he has been compliant to all his medicine except 2-3times since pt was discharged from [facility]. taking aspirin, Coumadin as well. Not witnessed any fever, chills, vomiting, diarrhea, cough, sputum. patient was unhappy at home, being aggressive towards her intermittently. His motor strength has been stable, Review of Systems: Pertinent positives as noted in history of present illness. All other systems were reviewed and are negative PMH Past Medical History PMH Morbid obesity Depression Coronary artery disease, history of MO in 2003 with 2 smaller heart attacks since that time Stroke Liliya's Gangrene of right groin Diabetes mellitus II Kidney stones Atrial fibrillation on warfarin Anxiety Surgical History Vertical sleeve gastrectomy February 2016 Tonsillectomy Incision and drainage of perianal abscess Colonoscopy Family History Mother and sister both with cancer and bipolar disorder Father diabetes and coronary artery disease Physical and emotional abuse Bedside Blood Glucose: 76 Home Medications Sim Gibson [phone] 07/25/1932 09/04/2016 10:00 AM Page: 07/13 Aspirin (Aspirin) 81 Mg Tablet 81 MG PO DAILY (Reported) Last Taken: Unknown Dose on 10/27/16 Atorvastatin Calcium (Atorvastatin Calcium) 40 Mg Tablet 40 MG PO HS (Reported) Last Taken: Unknown Dose on 10/27/16 Bupropion ER (Wellbutrin XL) 300 Mg Tab.er.24h 300 MG PO DAILY Last Taken: Unknown Dose on 10/27/16 Cholecalciferol (Vitamin D3) (Vitamin D3) 5,000 Unit Capsule 5,000 UNIT PO DAILY (Reported) Last Taken: Unknown Dose on 10/27/16 Docusate Sodium (Colace) 100 Mg Capsule 100 MG PO DAILY (Reported) Last Taken: Unknown Dose on 10/27/16 Famotidine (Pepcid) 20 Mg Tablet 20 MG PO BID (Reported) Last Taken: Unknown Dose on 10/27/16 Lamotrigine (Lamotrigine) 25 Mg Tablet 50 MG PO HS (Reported) Last Taken: Unknown Dose on 10/27/16 Melatonin/Pyridoxine (Melatonin 5 mg Tablet) 1 Each Tablet 1 EACH PO HS (Reported) Last Taken: Unknown Dose on 10/27/16 Metoprolol Succinate ER (Metoprolol Succinate ER) 25 Mg Tab.er.24h 12.5 MG PO BID (Reported) Last Taken: Unknown Dose on 10/27/16 Multivitamin (Multivitamins) 1 Each Capsule 1 EACH PO DAILY (Reported) Last Taken: Unknown Dose on 10/27/16 Warfarin Sodium (Warfarin Sodium) 5 Mg Tablet 5 MG PO HS (Reported) Last Taken: Unknown Dose on 10/27/16 Warfarin Sodium (Warfarin Sodium) 2 Mg Tablet 2 MG PO HS (Reported) Allergies: Coded Allergies: No Known Allergies (Verified , 05/02/16) Social History Hx Alcohol Use: Yes (per report, ETOH use x30-40 years)Hx Substance Use: Yes ( marijuana)Hx Tobacco Use: No Smoking Status: Never Smoker Exam Vital Signs Vital Sign - Last Date Time Temp Pulse Resp B/P Pulse Ox O2 Delivery O2 Flow Rate FiO2 10/29/16 08:09 80 16 92/58 10/28/16 20:13 36.3 94 Room Air Intake and Output 10/28/16 10/28/16 10/29/16 Cumulative From/Thru 15:00 23:00 07:00 10/28/16 17:04 - 10/29/16 05:35 Intake Total 286 ml 286 ml Output Total 450 ml 450 ml Balance -164 ml -164 ml Intake Oral 286 ml 286 ml Output Urine Total 450 ml 450 ml Additional Information: NAD, comfortably laying down on the bed making incoherent sounds, motor 4/5 on right side, grossly CN2-12 intact. no JVD, MMM, no LAD RRR, nl s1, s2 no mrg CTAB, no w,c S,ND,NT,normoactive BS+ warm, no edema, pulses 2/2 MSK: minor bruises on bilateral knees, Rt foot-old scab from prior wound Lab and Diagnostics Result Diagram: 10/28/1681410/28/16814 Assessment & Plan Assessment 56-year-old male with past medical history of stroke, atrial fibrillation on warfarin, type II diabetes mellitus, anxiety, and coronary artery disease presented to the emergency department with behavioral changes and fall from wheelchair. acute, active 1. Acute behavioral disturbance, present on admission, this is recurrent problems already addressed in last hospitalization, no medical etiology was found: normal TSH,vitB12,vitD likely related to personality changes due to vascular dementia, probable underlying mood disorder. labs on admission didn't show any metabolic/toxic etiologies so far. this time, patient UA is positive for pyuria, bacteriuria, prelim UCX positive for gram neg, which could potentially contributed to his behavioral chg. -Continue with lamotrigine titration, Wellbutrin XL 300mg daily, add quetiapine 25mg twice daily -further eval for placement, guardianship as pt dosen't have decisional capacity , defer to SW/Psychiatric team. -added Utox given recent ETOH intake. -will treat for probable UTI with Rocephin 2g iv qd today chronic, stable #Prior stroke with residual expressive aphasia and right-sided weakness, present on admission, chronic - tolerated general, no report on dysphagia, consider s/s eval if necessary -PT eval again in anticipation of terminal press operator placement # Normocytic, normochromic Anemia, present on admission, subacute, Records review reveals some degree of anemia since 2009, patient with vertical sleeve gastrectomy in February 2016.likely anemia of chronic dz, h/h stable. #Restless legs, #afib, Continued warfarin, dosed by pharmacy #Coronary artery disease, chronic, ontinued aspirin, metoprolol, atorvastatin Thank you for the opportunity to evaluate patient, medicine service will continue to follow Problems: Time spent 65 minutes Jose Orta MD Oct 29, 2016 11:31
--- NOTE | 2016-10-29 13:00 | PCM.PNPSY ---
Subjective Date of Service Oct 29, 2016 Subjective Patient seen with parents present. Patient still using "hand" as primary word. Attempted to write several words, one of which looked like "foggy" as to how he was feeling, but he seemed to indicate that that was not what he meant. Family is concerned that he is angry at his regarding the loss of use of his car. He denied suicidal thoughts. Reports not getting multiple meals. Sleep: okay Appetite: okay Suicidal and homicidal ideation:denies Auditory hallucinations: none Visual hallucinations: none Other Psychotic Symptoms: difficult to assess Anxiety: endorses Depression: appears to endorse Current Medications Current Medications Aspirin 81 mg DAILY PO Last administered on 10/29/16 08:10; Admin Dose 81 MG; Start 10/29/16 at 08:30 Atorvastatin Calcium 40 mg HS PO Last administered on 10/28/16 20:42; Admin Dose 40 MG; Start 10/28/16 at 21:00 Bupropion HCl 300 mg DAILY PO Last administered on 10/29/16 08:14; Admin Dose 300 MG; Start 10/29/16 at 08:30 Ceftriaxone Sodium/Dextrose/ Water 50 ml @ 100 mls/hr ONCE ONCE IV Last administered on 10/28/16 09:51; Admin Dose 100 MLS/HR; Start 10/28/16 at 09:30 ; Stop 10/28/16 at 09:59; Status DC Cholecalciferol 5,000 unit DAILY PO Last administered on 10/29/16 08:10; Admin Dose 5,000 UNIT; Start 10/29/16 at 08:30 Docusate Sodium 100 mg DAILY PO Last administered on 10/29/16 08:10; Admin Dose 100 MG; Start 10/29/16 at 08:30 Famotidine 20 mg BID PO Last administered on 10/29/16 08:10; Admin Dose 20 MG; Start 10/28/16 at 20:30 Lamotrigine 50 mg HS PO Last administered on 10/28/16 20:42; Admin Dose 50 MG; Start 10/28/16 at 21:00 Lorazepam 1 mg Q2H PRN IVPUSH Last administered on 10/29/16 08:11; Admin Dose 1 MG; Start 10/28/16 at 18:45 Lorazepam 1 mg Q4H PRN IVPUSH Last administered on 10/28/16 13:31; Admin Dose 1 MG; Start 10/28/16 at 13:15; Stop 10/28/16 at 18:44; Status DC Lorazepam 1 mg 1 mg ONCE ONCE IVPUSH Last administered on 10/28/16 08:11; Admin Dose 1 MG; Start 10/28/16 at 07:55; Stop 10/28/16 at 07:56; Status DC Melatonin 5 mg HS PO Last administered on 10/28/16 20:42; Admin Dose 5 MG; Start 10/28/16 at 21:00 Metoprolol Succinate 12.5 mg BID PO Last administered on 10/28/16 20:42; Admin Dose 12.5 MG; Start 10/28/16 at 20:30 Multivitamins/ Minerals Therapeutic 1 tablet DAILY PO Last administered on 08:10; Admin Dose 1 TABLET; Start 10/29/16 at 08:30 Ondansetron HCl 4 mg Q15M PRN IV Last administered on 10/28/16 08:10; Admin Dose 4 MG; Start 10/28/16 at 07:55 Warfarin Sodium 5 mg DAILY@17 ONCE PO Last administered on 10/28/16 20:42; Admin Dose 5 MG; Start 10/28/16 at 19:52; Stop 10/28/16 at 19:53; Status DC Mental Status Exam Vital Signs Vital Signs Date Time Temp Pulse Resp B/P Pulse Ox O2 Delivery O2 Flow Rate FiO2 10/29/16 08:09 80 16 92/58 Appearance: Unkept Attitude: Other (Aphasic, difficulty answering questions consistently) Behavior: Overtly anxious, Distractible, Other (Right side paralysis) Affect: Labile Mood: Irritable (mild), Depressed Thought Process/Associations: Other (Difficult to assess) Speech Production: Other (repeated use of the word "hand" for all elements of speech.) Speech Rate: Normal Speech Articulation: Other (dysarthric) Thought Content: Other (Difficult to assess) Danger to Self/Suicidal Ideati: None Danger to Others: None Hallucinations: Auditory (Denies), Visual (Denies) Consciousness: Alert Orientation: Person Memory: Untestable Estimate Intellectual Function: Unable to assess Attention/Concentration & Cogn: Unable to assess Insight: Limited Judgement: Limited Result Diagram: 10/28/1681410/28/16814 Mental Health Plan The patient is a 56-year-old male with a history of depression, mood disorder ( bipolar II vs. cyclothymia) and stroke with expressive aphasia, who presents with worsening mental state following his return to home and loss of SADE caregiver. The patient does not appear to understand that he cannot return home given his level of disability and the lack of care in the home. As such, he appears to lack decisional capacity regarding appropriate placement care needs. He has also had worsening agitation consistent with his previous episode. Discussed using low dose quetiapine to help stabilize his mood, the patient was agreeable. The patient had recent increase of lamotrigine. The patient was seen and detained by the [facility]. Discussed with family that they should consider a GAL given his apparent lack of capacity regarding placement and concerns for both patient and family safety in the home. [place] AXIS I: 1. Mood disorder unspecified versus cyclothymic/bipolar II disorder versus mental disorder due to stroke. 2. 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 AXIS III: See past medical history. AXIS IV: Severe. AXIS V: Global Assessment of Functioning 25. Treatments 1. The patient is admitted to the medical unit due to his multiple medical needs and difficulty benefiting from the [facility] and will be provided a safe and secure environment. 2. The patient is denying current active suicidality but will be provided a 1: 1 staff for safety while on the medical floor. 3. The patient will be seen by the treatment team on a daily basis to assess symptoms, side effects and response to treatment. 4. Continue with lamotrigine titration, current at 50mg. 5. Continue Wellbutrin XL 300mg daily. 6. Will add quetiapine 25mg twice daily for agitation/bipolar and titrate as tolerated. 7. Consider adding temazepam at bedtime if quetiapine not effective in improving sleep. 8. Contacted frog farmer regarding receiving multiple small meals per day, she will place clarification. 9. Requested that image board be made available to patient to assist in communication. 10. Family is encouraged to start the process for a store custodian given his impaired decisional capacity. 11. Appreciate medical service support given multiple medical issues. 12. Anticipated length of stay 10-14 days. Paddy Stout MD Oct 29, 2016 13:00
[2016-10-29] MEDS ORDERED: Alum-Mag Hydrox-Simeth 30 mL Suspension PO PRN (13:15)
[2016-10-29] MEDS ORDERED: Benzocaine-Menthol Lozenge 2/Pkg PO PRN (13:15)
[2016-10-29] MEDS: cefTRIAXone Inj 2,000 MG in Dextrose 5% Minibag Plus 50 ML IV SCH (14:33)
--- NOTE | 2016-10-29 15:21 | NUR ---
Brief Note - Attempted assessment Pt is REY and not appropriate to do assessment. SW attempted to do assessment via phone with Connie . Left voicemail. Joan Segura. REBECA
--- NOTE | 2016-10-29 17:41 | NUR ---
Social Work - brief note SW received call from [facility] Precious to confirm pt is still here. She requested SW contact her tomorrow morning 10/30 to confirm pt's inpatient status. ext [phone] or [phone]. REBECA Porras
[2016-10-29 18:08] VITALS: BP 116/70; PULSE 104; RESP 17
--- NOTE | 2016-10-29 18:21 | NUR ---
Behavior/activity/meals Pt has been pleasant, cooperative with cares this shift. One episode of frustration and pt hit himself in the L thigh repeatedly while groaning loudly. Pt's own communication board brought in and pt has been utilizing effectively. Pt amb in thomas with PT. Up in recliner most of shift. Per family, he eats 6 small meals a day due to gastric bypass. MD also ordered ensure. Pt currently in bed, visiting with . Sitter remains at bedside for safety.
[2016-10-29] MEDS: lamoTRIgine 25 mg Tablet PO SCH (21:06)
[2016-10-30 02:17] VITALS: BP 103/67; PULSE 88; RESP 16; O2SAT 96
[2016-10-30 05:10] VITALS: BP 107/74; PULSE 80; RESP 18; O2SAT 98
[2016-10-30 05:54] LABS: BASOPHILS % (AUTO) 0.7 % (0-3); EOSINOPHILS % (AUTO) 5.8 % (0-5); Mean Corpuscular Hemoglobin 31.5 pg (27.0-35.0); Mean Corpuscular Volume 100.6 fL (81-100); NEUTROPHILS % (AUTO) 50.1 % (40-74); Platelet Count 151 bil/L (150-400)
[2016-10-30 06:03] LABS: INR 2.54 ratio
[2016-10-30 06:09] LABS: Magnesium 1.9 mg/dL (1.6-2.6); Phosphorus 3.7 mg/dL (2.5-4.9)
[2016-10-30] MEDS: buPROPion XL 300 mg ER24 Tablet PO SCH (08:50)
[2016-10-30] MEDS: MeTOProlol XL 25 mg ER24 Tablet PO SCH ×2 (08:51→20:49)
--- NOTE | 2016-10-30 12:17 | NUR ---
Evaluation completed. Please go to "Notes" then click on "Assessments and Notes" (bottom left corner of screen). Then select appropriate discipline tab on top of screen.
--- NOTE | 2016-10-30 12:25 | PCM.PHAPRO ---
Progress Medical management WARFARIN DOSING PER PHARMACY (day) 1 2 3 [facility] [place] D[place] DFF Date Oct 29-Oct 30-Oct INR 2.10 2.06 2.54 INR change -0.04 0.48 Warf Dose 5MG 7 MG 5MG A/P -Therapeutic INR but significant uptrend this am. Not seeing effects of 7mg dose yet so may be due to ABX and limited mobility. No s/s of bleeding noted. -Will decrease dose to warfarin 5mg this evening -Pharmacy will continue to monitor. Jagjit Black, PharmD Jagjit Black Oct 30, 2016 12:25
[2016-10-30 13:34] VITALS: BP 97/65; PULSE 68; RESP 16
--- NOTE | 2016-10-30 14:04 | NUR ---
Orders received. Chart reviewed. Evaluation placed on hold. Patient is sleepy and minimally alert. Rec remain on current diet. MAT TESTER to complete speech evaluation tomorrow.
--- NOTE | 2016-10-30 14:37 | NUR ---
Social Work: Initial Assessment Data: Pt is a 56 y/o male admitted for mood disorder, related to CVA. Pt's PCP is Dr Martin, pt's insurance is Medicare with [facility] supp. EMR reviewed. Readmit score is 5, high. INFANTRY WEAPONS OFFICER spoke with pt's regarding initial assessment. Pt is currently REY'd. Pt's spouse states that prior to this hospitalization, pt was living at home with [facility] and caregiving. He uses a wheel chair at baseline. Pt does not drive, has hx at [facility] who cannot take him back at this time due to behavioral concerns, and pt is not a caregiver. Pt has AD/DPOA, INFANTRY WEAPONS OFFICER requested a copy for hospital. INFANTRY WEAPONS OFFICER will continue to follow. Assessment: Pt who has caregiving at baseline. Plan: INFANTRY WEAPONS OFFICER will continue to follow regarding plan and will discuss plan further with pt's spouse when she has longer than the time she has available today. REBECA Zhang Addendum: 10/30/16 at 1440 by MIGUEL LÓPEZ Amended: Links added. Addendum: 10/30/16 at 1442 by MIGUEL LÓPEZ Pt's spouse states she has been talking with someone named Cam Clemons, she thinks he is a 7th grade social studies teacher with [employer]. His phone number is [phone]. REBECA Zhang
--- NOTE | 2016-10-30 14:41 | NUR ---
Social Work: Brief Note GOLD MINER BLASTING notified JOHN Lang, that pt is still in the hospital at ext [phone] or [phone] REBECA Zhang
[2016-10-30] MEDS: cefTRIAXone Inj 2,000 MG in Dextrose 5% Minibag Plus 50 ML IV SCH (14:48)
--- NOTE | 2016-10-30 15:13 | PCM.PNMED ---
Subjective Date of Service Oct 30, 2016 Subjective Patient did not show any aggressive behaviors, cooperative and pleasant Being treated for UTI at the moment Remained afebrile hemodynamically stable Limited communication due to aphasia Exam Vital Signs Vital Sign - Last Date Time Temp Pulse Resp B/P Pulse Ox O2 Delivery O2 Flow Rate FiO2 10/30/16 13:34 36.2 68 16 97/65 Room Air 10/30/16 05:10 98 Intake and Output 10/29/16 10/29/16 10/30/16 Cumulative From/Thru 15:00 23:00 07:00 10/28/16 17:04 - 10/30/16 05:10 Intake Total 320 ml 100 ml 706 ml Output Total 400 ml 450 ml 1300 ml Balance -80 ml -350 ml -594 ml Intake Oral 320 ml 100 ml 706 ml Output Urine Total 400 ml 450 ml 1300 ml # Bowel Movements 0 0 0 Exam NAD, comfortably laying down on the bed making incoherent sounds, motor 4/5 on right side, grossly CN2-12 intact. no JVD, MMM, no LAD RRR, nl s1, s2 no mrg CTAB, no w,c S,ND,NT,normoactive BS+ warm, no edema, pulses 2/2 MSK: minor bruises on bilateral knees, Rt foot-old scab from prior wound IVs and Medications Medications Reviewed: Medications were reviewed in detail Lab and Diagnostics Result Diagram: 10/30/1652610/30/16526 Assessment & Plan 56-year-old male with past medical history of stroke, atrial fibrillation on warfarin, type II diabetes mellitus, anxiety, and coronary artery disease presented to the emergency department with behavioral changes and fall from wheelchair. acute, active 1. Acute behavioral disturbance, present on admission, this is recurrent problems already addressed in last hospitalization, no medical etiology was found: normal TSH,vitB12,vitD likely related to personality changes due to vascular dementia, probable underlying mood disorder. labs on admission didn't show any metabolic/toxic etiologies so far. this time, patient UA is positive for pyuria, bacteriuria, prelim UCX positive for gram neg, which could potentially contributed to his behavioral chg. -Continue with lamotrigine titration, Wellbutrin XL 300mg daily, add quetiapine 25mg twice daily per psychiatric team. -further eval for placement, guardianship as pt dosen't have decisional capacity , defer to SW/Psychiatric team. -continue tx for UTI with Rocephin 2g iv qd for 5D chronic, stable #Prior stroke with residual expressive aphasia and right-sided weakness, present on admission, chronic - tolerated general, no report on dysphagia, consider s/s eval if necessary -PT eval again in anticipation of tank terminal gauger placement # Normocytic, normochromic Anemia, present on admission, subacute, Records review reveals some degree of anemia since 2009, patient with vertical sleeve gastrectomy in February 2016.likely anemia of chronic dz, h/h stable. #Restless legs, #afib, Continued warfarin, dosed by pharmacy #Coronary artery disease, chronic, ontinued aspirin, metoprolol, atorvastatin dispo: tank terminal gauger placement vs inpatient psych unit, appreciate SW/CM/ psychiatric input, patient will likely medically be ready in 1-2days. Thank you for the opportunity to evaluate patient, medicine service will continue to follow Time spent 35min Jose Orta MD Oct 30, 2016 15:13
--- NOTE | 2016-10-30 17:28 | NUR ---
Mentation/Activity Pt very drowsy this shift, sleeping in recliner and bed most of the day. Did get up to chair with PT and sat there for several hours, later wanting to go back to bed because he was tired. Difficult to rouse for meals and medications, and when awake, only eating small amounts of meals. Compliant and pleasant with cares. Sitter at bedside.
[2016-10-30 18:34] VITALS: BP 125/81; PULSE 70; RESP 16; O2SAT 98
--- NOTE | 2016-10-30 20:15 | PCM.PNPSY ---
Subjective Date of Service Oct 30, 2016 Subjective Patient seen, had speech pad but had difficulty using it. Patient indicated that he still had thoughts of suicide. He reported that he was angry with his and had some ambivalent thoughts about harming her, but it was unclear whether this was past or present. He stated that he feels angry and frustrated. He still reports that he would like to return home. He seemed somewhat confused that there would not be a SADE or other helper in the home. Despite this, he still declined to go to a [facility] facility. Sleep: okay Appetite: okay Suicidal and homicidal ideation: endorses SI, vague about HI Auditory hallucinations: none Visual hallucinations: none Other Psychotic Symptoms: difficult to assess Anxiety/Depression: appears to endorse, but unclear. Current Medications Current Medications Aspirin 81 mg DAILY PO Last administered on 10/30/16 08:50; Admin Dose 81 MG; Start 10/29/16 at 08:30 Atorvastatin Calcium 40 mg HS PO Last administered on 10/29/16 21:07; Admin Dose 40 MG; Start 10/28/16 at 21:00 Bupropion HCl 300 mg DAILY PO Last administered on 10/30/16 08:50; Admin Dose 300 MG; Start 10/29/16 at 08:30 Ceftriaxone Sodium/Dextrose/ Water 50 ml @ 100 mls/hr Q24H IV Last administered on 10/30/16 14:48; Admin Dose 100 MLS/HR; Start 10/29/16 at 14:00 Cholecalciferol 5,000 unit DAILY PO Last administered on 10/30/16 08:50; Admin Dose 5,000 UNIT; Start 10/29/16 at 08:30 Docusate Sodium 100 mg DAILY PO Last administered on 10/30/16 08:51; Admin Dose 100 MG; Start 10/29/16 at 08:30 Famotidine 20 mg BID PO Last administered on 10/30/16 08:50; Admin Dose 20 MG; Start 10/28/16 at 20:30 Lamotrigine 50 mg HS PO Last administered on 10/29/16 21:06; Admin Dose 50 MG; Start 10/28/16 at 21:00 Melatonin 5 mg HS PO Last administered on 10/29/16 21:06; Admin Dose 5 MG; Start 10/28/16 at 21:00 Metoprolol Succinate 12.5 mg BID PO Last administered on 10/30/16 08:51; Admin Dose 12.5 MG; Start 10/28/16 at 20:30 Multivitamins/ Minerals Therapeutic 1 tablet DAILY PO Last administered on 08:50; Admin Dose 1 TABLET; Start 10/29/16 at 08:30 Quetiapine Fumarate 25 mg 25 mg BID PO Last administered on 10/30/16 08:50; Admin Dose 25 MG; Start 10/29/16 at 20:30 Warfarin Sodium 5 mg DAILY@17 PO Last administered on 10/30/16 17:10; Admin Dose 5 MG; Start 10/30/16 at 17:00; Stop 10/30/16 at 17:01; Status DC Warfarin Sodium/ Warfarin Sodium 7 mg ONCE@17 ONCE PO Last administered on 10/29 17:11; Admin Dose 7 MG; Start 10/29/16 at 17:00; Stop 10/29/16 at 17:01; Status DC Mental Status Exam Vital Signs Vital Signs Date Time Temp Pulse Resp B/P Pulse Ox O2 Delivery O2 Flow Rate FiO2 10/30/16 18:34 36.8 70 16 125/81 98 Room Air 10/30/16 13:34 36.2 68 16 97/65 Room Air Appearance: Unkept Attitude: Cooperative, Other (Aphasic, difficulty answering questions consistently) Behavior: Overtly anxious, Distractible, Other (Right side paralysis) Affect: Labile Mood: Irritable, Depressed Thought Process/Associations: Other (Difficult to assess) Speech Production: Other (repeated use of the word "hand" for all elements of speech.) Speech Rate: Normal Speech Articulation: Other Thought Content: Other (Difficult to assess) Danger to Self/Suicidal Ideati: Active Danger to Others: Thoughts/Plans of Harming Others (unclear), Identified target () Hallucinations: Auditory (Denies), Visual (Denies) Consciousness: Alert Orientation: Person Memory: Untestable Estimate Intellectual Function: Unable to assess Attention/Concentration & Cogn: Unable to assess Insight: Limited Judgement: Limited Result Diagram: 10/30/1627 10/30/16526 Mental Health Plan The patient is a 56-year-old male with a history of depression, mood disorder ( bipolar II vs. cyclothymia) and stroke with expressive aphasia, who presents with worsening mental state following his return to home and loss of SADE caregiver. The patient does not appear to understand that he cannot return home given his level of disability and the lack of care in the home. As such, he appears to lack decisional capacity regarding appropriate placement care needs. He has also had worsening agitation consistent with his previous episode. Discussed using low dose quetiapine to help stabilize his mood, the patient was agreeable. The patient had recent increase of lamotrigine. The patient was seen and detained by the [facility]. Discussed with family that they should consider a GAL given his apparent lack of capacity regarding placement and concerns for both patient and family safety in the home. Patient appears calmer today, but is still endorsing SI and vague HI. Patient' s depression and anxiety appear improved. Patient is still wanting to return home despite the lack of support. [place] AXIS I: 1. Mood disorder unspecified versus cyclothymic/bipolar II disorder versus mental disorder due to stroke. 2. 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 AXIS III: See past medical history. AXIS IV: Severe. AXIS V: Global Assessment of Functioning 25. Treatments 1. The patient is admitted to the medical unit due to his multiple medical needs and difficulty benefiting from the [facility] and will be provided a safe and secure environment. 2. The patient is denying current active suicidality but will be provided a 1: 1 staff for safety while on the medical floor. 3. The patient will be seen by the treatment team on a daily basis to assess symptoms, side effects and response to treatment. 4. Continue with lamotrigine titration, current at 50mg. 5. Continue Wellbutrin XL 300mg daily. 6. Continue quetiapine 25mg twice daily for agitation/bipolar and titrate as tolerated. 7. Consider adding temazepam at bedtime if quetiapine not effective in improving sleep. 8 Requested that image board be made available to patient to assist in communication. 9. Family is encouraged to start the process for a ed educational aide given his impaired decisional capacity. 10. Appreciate medical service support given multiple medical issues. 11. Anticipated length of stay 10-14 days. Paddy Stout MD Oct 30, 2016 20:15
[2016-10-30] MEDS: lamoTRIgine 25 mg Tablet PO SCH (20:50)
[2016-10-30 21:32] VITALS: BP 103/67; PULSE 75; RESP 18; O2SAT 98
[2016-10-31 05:18] VITALS: BP 105/68; PULSE 65; RESP 14; O2SAT 97
[2016-10-31 06:21] LABS: INR 2.58 ratio
[2016-10-31] MEDS ORDERED: Ampicillin-Sulbactam Inj 3,000 MG in 0.9% Sodium Chloride 100 ML IV SCH ×3 (08:30→17:00)
[2016-10-31 08:43] LABS: BASOPHILS % (AUTO) 0.6 % (0-3); EOSINOPHILS % (AUTO) 5.2 % (0-5); MONOCYTES % (AUTO) 7.4 % (4-12); Mean Corpuscular Hemoglobin 31.7 pg (27.0-35.0); Mean Corpuscular Volume 100.6 fL (81-100); NEUTROPHILS % (AUTO) 60.2 % (40-74); Platelet Count 151 bil/L (150-400)
[2016-10-31 09:12] LABS: Phosphorus 3.3 mg/dL (2.5-4.9)
[2016-10-31] MEDS: buPROPion XL 300 mg ER24 Tablet PO SCH (10:28)
[2016-10-31] MEDS: MeTOProlol XL 25 mg ER24 Tablet PO SCH ×2 (10:29→20:58)
[2016-10-31 13:23] VITALS: BP 105/69; PULSE 85; RESP 18; O2SAT 100
--- NOTE | 2016-10-31 14:22 | PCM.PNMED ---
Subjective Date of Service Oct 31, 2016 Subjective Patient was more drowsy than yesterday Not really interactive remained afebrile, UCX showed E.Fecalis, therefore abx changed to Unasyn Exam Vital Signs Vital Sign - Last Date Time Temp Pulse Resp B/P Pulse Ox O2 Delivery O2 Flow Rate FiO2 10/31/16 13:23 36.7 85 18 105/69 100 Room Air Intake and Output 10/30/16 10/30/16 10/31/16 Cumulative From/Thru 15:00 23:00 07:00 10/28/16 17:04 - 10/30/16 21:10 Intake Total 245 ml 951 ml Output Total 200 ml 1500 ml Balance 45 ml -549 ml Intake Oral 120 ml 826 ml IV Total 125 ml 125 ml Output Urine Total 200 ml 1500 ml # Voids 1 1 # Bowel Movements 0 0 Exam NAD, comfortably laying down on the bed making incoherent sounds, motor 4/5 on right side, grossly CN2-12 intact. no JVD, MMM, no LAD RRR, nl s1, s2 no mrg CTAB, no w,c S,ND,NT,normoactive BS+ warm, no edema, pulses 2/2 MSK: minor bruises on bilateral knees, Rt foot-old scab from prior wound IVs and Medications Medications Reviewed: Medications were reviewed in detail Lab and Diagnostics Result Diagram: 10/31/16 0810 10/31/16 0810 Assessment & Plan 56-year-old male with past medical history of stroke, atrial fibrillation on warfarin, type II diabetes mellitus, anxiety, and coronary artery disease presented to the emergency department with behavioral changes and fall from wheelchair. acute, active 1. Acute behavioral disturbance, present on admission, this is recurrent problems already addressed in last hospitalization, no medical etiology was found: normal TSH,vitB12,vitD likely related to personality changes due to vascular dementia, probable underlying mood disorder. labs on admission didn't show any metabolic/toxic etiologies so far. this time, patient UA is positive for pyuria, bacteriuria, prelim UCX positive for gram neg, which could potentially contributed to his behavioral chg. -Continue with lamotrigine titration, Wellbutrin XL 300mg daily, added quetiapine 25mg twice daily per psychiatric team. -further eval for placement, guardianship as pt dosen't have decisional capacity , defer to SW/Psychiatric team. -continue tx for UTI, to see this will improve her mentation. #UTI, POA, UCX+E.Fecalis, sensitive to PCN MIC5 -s/p Rocephin 2g iv qd, switched to Unasyn, ID consult placed, -if pt becomes febrile, will get renal US given gender, complicated UTI. chronic, stable #Prior stroke with residual expressive aphasia and right-sided weakness, present on admission, chronic - appreciate s/s eval, PT eval and tx. 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 #Restless legs, #afib, Continued warfarin, dosed by pharmacy #Coronary artery disease, chronic, ontinued aspirin, metoprolol, atorvastatin dispo: parts counterman placement vs inpatient psych unit, appreciate SW/CM/ psychiatric input, patient is not medical optimized yet. Thank you for the opportunity to evaluate patient, medicine service will continue to follow Time spent 35min Jose Orta MD Oct 31, 2016 14:22
--- NOTE | 2016-10-31 14:58 | PCM.PHAPRO ---
Progress Medical management WARFARIN DOSING PER PHARMACY (day) 1 2 3 4 [facility] [place] DFF DFF DFF Date -Oct 29-Oct 30-Oct 31-Oct INR 2.10 2.06 2.54 2.58 INR change -0.04 0.48 0.04 Warf Dose 5MG 7 MG 5MG 5 MG A/P -Therapeutic INR. Receiving slightly lower doses than home regimen but stable. -Will continue warfarin 5 mg this evening. -Pharmacy will continue to monitor. Jagjit Black, PharmD Jagjit Black Oct 31, 2016 14:58
--- NOTE | 2016-10-31 15:11 | NUR ---
Social Work: Continued d/c planning Data: Pt is on day 4 of hospitalization. EMR reviewed. court was today, [employer] informed by [facility] Precious that pt has been committed on a 14 day petition expiring on 11/14/16. The order is in the hard chart. [employer] will continue to follow. Assessment: Pt on 14 day hold. Plan: Pt will remain in hospital until at least 11/14/16 on psychiatric 14 day hold. [employer] will follow up with regarding possibility of AFH and placement after hold. [employer] will continue to follow. REBECA Zhang
--- NOTE | 2016-10-31 16:47 | PCM.PNPSY ---
Subjective Date of Service Oct 31, 2016 Subjective Patient reports his mood is improved, yet is still indicating that he still had thoughts of suicide. He denied intent to harm others. He reported that he was sleeping better. He reported feeling bored and not sure what he should be doing while in the hospital. He reported episodic irritability and frustration particularly between meals. Patient's met with state attorney and the family decided that she will be the guardian, but will have to take guardianship classes beforehand. The patient appeared to be more agreeable to going to an alternate care facility until services in the home can be arranged. Sleep: okay Appetite: okay Suicidal and homicidal ideation: endorses SI, denies HI Auditory hallucinations: none Visual hallucinations: none Other Psychotic Symptoms: difficult to assess Anxiety/Depression: Reports improved. Current Medications Current Medications Ampicillin Sodium/ Sulbactam Sodium/ Sodium Chloride 100 ml @ 200 mls/hr Q6 IV Last administered on 10/31/16 11:12; Admin Dose 200 MLS/HR; Start 10/31/16 at 08:30; Stop 10/31/16 at 14:28; Status DC Quetiapine Fumarate 25 mg BID PO Last administered on 10/31/16 10:28; Admin Dose 25 MG; Start 10/29/16 at 20:30 Warfarin Sodium 5 mg 5 mg DAILY@17 PO Last administered on 10/30/16 17:10; Admin Dose 5 MG; Start 10/30/16 at 17:00; Stop 10/30/16 at 17:01; Status DC Warfarin Sodium/ Warfarin Sodium 7 mg ONCE@17 ONCE PO Last administered on 10/29 17:11; Admin Dose 7 MG; Start 10/29/16 at 17:00; Stop 10/29/16 at 17:01; Status DC Mental Status Exam Vital Signs Vital Signs Date Time Temp Pulse Resp B/P Pulse Ox O2 Delivery O2 Flow Rate FiO2 10/31/16 13:23 36.7 85 18 105/69 100 Room Air Appearance: Unkept Attitude: Cooperative, Other (Aphasic, difficulty answering questions consistently) Behavior: Overtly anxious (but decreased), Distractible, Other (Right side paralysis) Affect: Labile Mood: Dysthymic, Anxious Thought Process/Associations: Other (Difficult to assess) Speech Production: Other (repeated use of the word "hand" for all elements of speech.) Speech Rate: Normal Speech Articulation: Other (dysarthria) Thought Content: Other (Difficult to assess) Danger to Self/Suicidal Ideati: Active Danger to Others: None Hallucinations: Auditory (Denies), Visual (Denies) Consciousness: Alert Orientation: Person Memory: Untestable Estimate Intellectual Function: Unable to assess Attention/Concentration & Cogn: Unable to assess Insight: Limited Judgement: Limited Result Diagram: 10/31/16 0810 10/31/16 0810 Mental Health Plan The patient is a 56-year-old male with a history of depression, mood disorder ( bipolar II vs. cyclothymia) and stroke with expressive aphasia, who presents with worsening mental state following his return to home and loss of SADE caregiver. The patient does not appear to understand that he cannot return home given his level of disability and the lack of care in the home. As such, he appears to lack decisional capacity regarding appropriate placement care needs. He has also had worsening agitation consistent with his previous episode. Discussed using low dose quetiapine to help stabilize his mood, the patient was agreeable. The patient had recent increase of lamotrigine. The patient was seen and detained by the [facility]. Discussed with family that they should consider a GAL given his apparent lack of capacity regarding placement and concerns for both patient and family safety in the home. Patient appears calmer today, is still endorsing SI but denies HI. Patient's depression and anxiety appear improved. Patient appears open to going to other facility then home. will be guardian, but needs to take courses first, then go to court. Medical has replaced antibiotic to Unasyn to treat UTI. [place] AXIS I: 1. Mood disorder unspecified versus cyclothymic/bipolar II disorder versus mental disorder due to stroke. 2. 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 AXIS III: See past medical history. AXIS IV: Severe. AXIS V: Global Assessment of Functioning 25. Treatments 1. The patient is admitted to the medical unit due to his multiple medical needs and difficulty benefiting from the [facility] and will be provided a safe and secure environment. 2. The patient is denying current active suicidality but will be provided a 1: 1 staff for safety while on the medical floor. 3. The patient will be seen by the treatment team on a daily basis to assess symptoms, side effects and response to treatment. 4. Continue with lamotrigine titration, current at 50mg. 5. Continue Wellbutrin XL 300mg daily. 6. Continue quetiapine 25mg twice daily for agitation/bipolar and titrate as tolerated. 7. Consider adding temazepam at bedtime if quetiapine not effective in improving sleep. 8 Requested that image board be made available to patient to assist in communication. 9. Family has started process for guardianship. 10. Appreciate medical service support given multiple medical issues. 11. Anticipated length of stay 10-14 days. Paddy Stout MD Oct 31, 2016 16:47
--- NOTE | 2016-10-31 18:33 | NUR ---
Behavior: Patient calm and cooperative with care this shift. Attempting communication by writing, uses appropriate hand gestures and electronic tablet w/pictures. Resting w/eyes closed for a short part of the afternoon. visited this afternoon.
--- NOTE | 2016-10-31 18:34 | CONS ---
[address] [address] CONSULTATION REPORT PATIENT: ANGEL MARTINI : 1960 MR#: [id number] ADMIT: 10/28/2016 JOB ID: [id number] INFECTIOUS DISEASE CONSULTATION: DATE OF SERVICE: 10/31/2016 REASON FOR CONSULTATION: Recalcitrant enterococcal urinary tract infection. I thank Dr. Orta for this timely consult. HISTORY OF PRESENT ILLNESS: The patient is an extraordinarily unfortunate 56-year-old man who I know from admission last summer. In late summer, the patient was admitted with a series of perianal and perirectal abscesses. This was in the setting of diabetes, coronary disease and atrial fibrillation. At that point, he was disabled by his many medical problems but was hoping to get back to work before long, and he was an quite enthusiastic gentleman as I recall. He was found to have an elevated white blood count with some left shift and a significant soft tissue infection. We aggressively treated this patient with broad-spectrum antibiotics and he did quite well. His therapy included a wound VAC, and he was eventually discharged in early March with oral antibiotics. He did well with his oral antibiotics and wound VAC with excellent healing of his wounds. He then unfortunately, developed kidney stones, and in late April the patient needed a procedure for his stones and a resuspension of his warfarin was required. Unfortunately, shortly thereafter, the patient was found on the floor by his with stroke-like symptoms including right hemiparesis in association with left-sided gaze preference and the acute onset of aphasia. It was noted that his INR a few days before that was 1.09. In any event, the patient was transported to [facility] by helicopter and aggressive workup and management followed. Unfortunately, the patient was left with a profound right-sided hemiplegia as well as near complete expressive aphasia and some behavioral and cognitive issues which have persisted. He is now quite disabled. The patient now is certainly awake and quite animated. He can move the left side of his body very well and also smiles and has a wide variety of facial expressions. Unfortunately, he can only say a few words including hand or hands, as well as the expression "oh boy." He tends to speak in what appears to be an almost fluent speech, but only uses those few words. He seems to be somewhat labile in his affect and it is very difficult to obtain any history from him whatsoever. He does shake his head at times and seems appropriate with that and tells us he does not have currently fevers, chills, headaches or shortness of breath. He also says he does not have any urinary symptoms, but his said he actually has a great deal of frequency. He was found to have an enterococcal urinary tract infection a couple weeks ago which was treated with nitrofurantoin, but unfortunately during this admission, which was for behavioral reasons, a repeat urine culture and urinalysis continued to indicate the presence of pyuria with nitrofurantoin. He does not have a neurogenic bladder nor does he have a [place] catheter chronically in place. ID consultation is requested regarding the management of this apparently recurrent or difficult to eradicate enterococcal urinary tract infection. PAST MEDICAL HISTORY: 1. Left brain CVA with aphasia, facial droop, and right-sided hemiplegia. 2. Atrial fibrillation with resultant massive stroke. 3. Diabetes. 4. Status post gastric bypass for weight loss. 5. History of multiple perianal and inguinal abscesses. 6. Coronary artery disease. SOCIAL HISTORY: The patient quit smoking eight years ago. Does not abuse alcohol and occasionally smokes marijuana. FAMILY HISTORY: Positive for diabetes. We cannot obtain any more family history at this point, as the patient is functionally aphasic. REVIEW OF SYSTEMS: Is also essentially impossible. The patient shakes his head vigorously no when asked virtually any question, but I am not sure if any of this is accurate. He also says no to urinary frequency and urgency, but his who lives with him and takes care of him, says he answers definitely yes, so I think the review of systems is not reasonable or possible in this unfortunate gentleman. PHYSICAL EXAMINATION: Reveals a gentleman who is awake, alert, seems to want interact but only can say "hands and oh boy." He moves one side of his body very frequently in an attempt to express himself but it is hard to understand what he means. He has been afebrile. Temp 36.7, pulse 85, respiratory rate 18, blood pressure 105/69. He is saturating well on room air. His head is without evident trauma. His eyes are without conjunctivitis. His oral cavity appears completely benign though his dentition is in questionable condition but no apparent gingivitis, no pharyngitis. Lungs fairly clear. Cardiac tones: AFib, irregular rate and rhythm. Abdomen is soft and nontender. His right side of his body is paralyzed, but he has some residual motion in his right arm and a bit in his left leg as well, but hemiparetic at least on the right side. Left side moves very well. He does have a facial droop on the right side and is aphasic. Abdomen without hepatosplenomegaly. Does not have a [place] catheter. Does not have evidence of synovitis. No skin rash. Neurologic exam as noted. No peripheral edema. LABORATORY DATA: Include white count 4900, platelet count 151,000, creatinine 0.94. LFTs are normal. Procalcitonin is negative. Urinalysis 11-50 white cells. Urine cannabinoids positive. INR 2.58. Micro studies include Enterococcus faecalis which grew in the urine on October 01 and that was treated with nitrofurantoin, and now on October 28, again, urine culture positive for enterococcus. It is sensitive to nitrofurantoin and so it is surprising that it did not eradicate the infection. It is also sensitive to penicillin, amoxicillin and quinolones. IMAGING: Chest x-ray done on this admission two days ago is clear. IMPRESSION: This patient admitted with behavioral issues and questionable suicidal ideation. He has irritability and labile moods which seem to be a consequence of his very unfortunate and very severe stroke. We are asked to evaluate his enterococcal urinary tract infection. The optimal drug for enterococcal urinary tract infection is probably amoxicillin. Many other agents would also work but I think that is the simplest way to proceed in this gentleman. RECOMMENDATIONS: 1. Amoxicillin 500 mg p.o. t.i.d. to be continued for a total of 14 days. 2. If this number of pills and compliance is an issue, fosfomycin could be used. I would probably give 3 g of fosfomycin and repeat in 3 and 6 six days for a total of three doses to try and get rid of this difficult pathogen. 3. No additional input from ID. Will be signing off at this time but do not hesitate to call with questions about this very unfortunate gentleman.
[2016-10-31 20:26] VITALS: BP 131/72; PULSE 90; RESP 18; O2SAT 99
[2016-10-31] MEDS: lamoTRIgine 25 mg Tablet PO SCH (20:58)
[2016-11-01 04:56] VITALS: BP 109/74; PULSE 99; RESP 18; O2SAT 97
[2016-11-01 07:22] LABS: BASOPHILS % (AUTO) 0.6 % (0-3); EOSINOPHILS % (AUTO) 4.1 % (0-5); MONOCYTES % (AUTO) 9.1 % (4-12); Mean Corpuscular Hemoglobin 31.4 pg (27.0-35.0); Mean Corpuscular Volume 100.3 fL (81-100); NEUTROPHILS % (AUTO) 60.2 % (40-74); Platelet Count 172 bil/L (150-400)
[2016-11-01 07:27] LABS: INR 2.49 ratio
--- NOTE | 2016-11-01 07:57 | PCM.PHAPRO ---
Progress Date of Service: Nov 01, 2016 Progress Medical management WARFARIN DOSING PER PHARMACY -Oct 31-Nov 01-Oct 2.54 2.58 2.49 0.48 0.04 -0.09 5MG 5 MG 5 A/P -Therapeutic INR. Receiving slightly lower doses than home regimen but stable. -Will continue warfarin 5 mg this evening. -Pharmacy will continue to monitor. Nila Kline PharmD Nov 01, 2016 07:57
[2016-11-01 08:23] LABS: Phosphorus 3.1 mg/dL (2.5-4.9)
[2016-11-01 08:25] VITALS: BP 105/68; PULSE 66; RESP 14; O2SAT 94
[2016-11-01] MEDS: MeTOProlol XL 25 mg ER24 Tablet PO SCH ×2 (08:39→21:33)
[2016-11-01] MEDS: buPROPion XL 300 mg ER24 Tablet PO SCH (08:41)
--- NOTE | 2016-11-01 11:33 | PCM.PNMED ---
Subjective Date of Service Nov 01, 2016 Subjective Patient was very pleasant and alert this morning Symptoms patient is at his baseline mental status Exam Vital Signs Vital Sign - Last Date Time Temp Pulse Resp B/P Pulse Ox O2 Delivery O2 Flow Rate FiO2 11/01/16 08:25 36.5 66 14 105/68 94 Room Air Intake and Output 10/31/16 10/31/16 11/01/16 Cumulative From/Thru 15:00 23:00 07:00 10/28/16 17:04 - 11/01/16 06:35 Intake Total 0 ml 430 ml 400 ml 1781 ml Output Total 400 ml 300 ml 625 ml 2825 ml Balance -400 ml 130 ml -225 ml -1044 ml Intake Oral 0 ml 300 ml 400 ml 1526 ml IV Total 130 ml 255 ml Output Urine Total 400 ml 300 ml 625 ml 2825 ml # Voids 1 # Bowel Movements 0 0 0 IVs and Medications Medications Reviewed: Medications were reviewed in detail Lab and Diagnostics Result Diagram: 11/01/1655 11/01/16 0655 Assessment & Plan 56-year-old male with past medical history of stroke, atrial fibrillation on warfarin, type II diabetes mellitus, anxiety, and coronary artery disease presented to the emergency department with behavioral changes and fall from wheelchair. acute, active 1. Acute behavioral disturbance, present on admission, this is recurrent problems already addressed in last hospitalization, no medical etiology was found: normal TSH,vitB12,vitD likely related to personality changes due to vascular dementia, probable underlying mood disorder. labs on admission didn't show any metabolic/toxic etiologies so far. this time, patient UA is positive for pyuria, bacteriuria, prelim UCX positive for gram neg, which could potentially contributed to his behavioral chg. -pt seems to be improving with clearance of UTI -Continue with lamotrigine titration, Wellbutrin XL 300mg daily, added quetiapine 25mg twice daily per psychiatric team. -further eval for placement, guardianship as pt dosen't have decisional capacity , defer to SW/Psychiatric team. #UTI, POA, UCX+E.Fecalis, sensitive to PCN MIC5 -s/p Rocephin 2g iv qd, switched to Unasyn, switched to Amoxacillin per ID for 14days course -if pt becomes febrile, will get renal US given gender, complicated UTI. chronic, stable #Prior stroke with residual expressive aphasia and right-sided weakness, present on admission, chronic - appreciate s/s eval, PT eval and tx. 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 #Restless legs, #afib, Continued warfarin, dosed by pharmacy #Coronary artery disease, chronic, ontinued aspirin, metoprolol, atorvastatin dispo: termination clerk placement vs inpatient psych unit, appreciate SW/CM/ psychiatric input, patient is not medical optimized yet. Thank you for the opportunity to evaluate patient, medicine service will continue to follow Jose Orta MD Nov 01, 2016 11:33
[2016-11-01 13:52] VITALS: BP 96/59; PULSE 71; RESP 16; O2SAT 96
--- NOTE | 2016-11-01 15:32 | PCM.PNPSY ---
Subjective Date of Service Nov 01, 2016 Subjective Patient reports his mood is much improved and is denying suicidal thoughts. He reports that he is not frustrated with his today either which he finds reassuring. He indicates that he is concerned about his perceived lack of muscle mass in his left leg although some appears to be loose skin secondary to weight loss. Patient with mild rash in [place], appears to be a contact dermatitis. Advised to shave long [place] stubble to reduce retained material in [place]. He reports sleep and appetite good. No side effect c/o. reports has meeting with SADE team on Thursday. Patient agreeable to discharge to alternate facility if SADE not available in near future. Sleep: good Appetite: good Suicidal and homicidal ideation: denies Auditory hallucinations: none Visual hallucinations: none Other Psychotic Symptoms: difficult to assess Anxiety/Depression: denies Current Medications Current Medications Amoxicillin 500 mg TID PO Last administered on 11/01/16 14:48; Admin Dose 500 MG; Start 10/31/16 at 20:30; Stop 11/14/16 at 20:31 Ampicillin Sodium/ Sulbactam Sodium/ Sodium Chloride 100 ml @ 200 mls/hr Q6 IV Last administered on 10/31/16 11:12; Admin Dose 200 MLS/HR; Start 10/31/16 at 08:30; Stop 10/31/16 at 14:28; Status DC Ampicillin Sodium/ Sulbactam Sodium/ Sodium Chloride 100 ml @ 200 mls/hr Q6H IV Last administered on 10/31/16 16:44; Admin Dose 200 MLS/HR; Start 10/31/16 at 17:00; Stop 10/31/16 at 17:21; Status DC Warfarin Sodium 5 mg 5 mg DAILY@17 PO Last administered on 10/30/16 17:10; Admin Dose 5 MG; Start 10/30/16 at 17:00; Stop 10/30/16 at 17:01; Status DC Warfarin Sodium 5 mg 5 mg ONCE@17 ONCE PO Last administered on 10/31/16 16:44 ; Admin Dose 5 MG; Start 10/31/16 at 17:00; Stop 10/31/16 at 17:01; Status DC Mental Status Exam Vital Signs Vital Signs Date Time Temp Pulse Resp B/P Pulse Ox O2 Delivery O2 Flow Rate FiO2 11/01/16 13:52 36.6 71 16 96/59 96 Room Air 11/01/16 08:25 36.5 66 14 105/68 94 Room Air Appearance: Unkept Attitude: Cooperative, Other (Aphasic, difficulty answering questions consistently) Behavior: No unusual behavior Affect: Well Modulated/Appropriate Mood: Euthymic Thought Process/Associations: Other (Difficult to assess due to aphasia) Speech Production: Other (repeated use of the word "hand" for all elements of speech. Occasional "oh boy") Speech Rate: Normal Speech Articulation: Other (dysarthria) Thought Content: Other (Difficult to assess, but appears appropriate) Danger to Self/Suicidal Ideati: None Danger to Others: None Hallucinations: Auditory (Denies), Visual (Denies) Consciousness: Alert Orientation: Person Memory: Untestable Estimate Intellectual Function: Unable to assess Attention/Concentration & Cogn: Unable to assess Insight: Limited Judgement: Limited Result Diagram: 11/01/16 0655 11/01/16 0655 Mental Health Plan The patient is a 56-year-old male with a history of depression, mood disorder ( depression vs. bipolar II vs. cyclothymia) and stroke with expressive aphasia, who presents with worsening mental state following his return to home and loss of SADE caregiver. On admission, the patient did not appear to understand that he cannot return home given his level of disability and the lack of care in the home. He appears to have a better understanding today, and, at least for now, is agreeing to go to other facility if SADE not available in near future. He was excited about the possibility of going to inpatient physical rehab per physical therapy recommendations. Medicine is continuing to follow, appreciate ID consult. [place] AXIS I: 1. Mood disorder unspecified versus cyclothymic/bipolar II disorder versus mental disorder due to stroke. 2. 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 AXIS III: See past medical history. AXIS IV: Severe. AXIS V: Global Assessment of Functioning 25. Treatments 1. The patient is admitted to the medical unit due to his multiple medical needs and difficulty benefiting from the [facility] and will be provided a safe and secure environment. 2. The patient is denying current active suicidality but will be provided a 1: 1 staff for safety while on the medical floor. 3. The patient will be seen by the treatment team on a daily basis to assess symptoms, side effects and response to treatment. 4. Continue with lamotrigine titration, current at 50mg. 5. Continue Wellbutrin XL 300mg daily. 6. Continue quetiapine 25mg twice daily for agitation/bipolar and titrate as tolerated. 7. Consider adding temazepam at bedtime if quetiapine not effective in improving sleep. 8 SW to discuss transfer options with family/patient. 9. Family has started process for guardianship. 10. Appreciate medical service support given multiple medical issues. 11. Anticipated length of stay 10-14 days. Paddy Stout MD Nov 01, 2016 15:32 Paddy Stout MD Nov 01, 2016 15:32
--- NOTE | 2016-11-01 16:24 | NUR ---
Social Work: Continued d/c planning Data: Pt is on day 4 of hospitalization. Psych is following, pt is on a 14 day hold. Psychiatrist met with CLINICAL RESOURCE NURSE stating that pt is much more stable today and to pursue d/c plan of either inpt rehab or SNF, CLINICAL RESOURCE NURSE to follow up with pt and spouse regarding this and will make referrals. CLINICAL RESOURCE NURSE will continue to follow. Plan: Inpt rehab and SNF referrals to be made after meeting with pt and spouse. REBECA Zhang
--- NOTE | 2016-11-01 19:13 | NUR ---
Activity Pt. ambulated in [place] with assistance from PT and specialty walker. present and says she has never seen him able to walk since the stroke. He tolerated activity well and was very excited about it. Will continue to work on mobility.
[2016-11-01 21:07] VITALS: BP 93/61; PULSE 83; RESP 16; O2SAT 98
[2016-11-01] MEDS: lamoTRIgine 25 mg Tablet PO SCH (21:34)
[2016-11-02 05:47] VITALS: BP 94/55; PULSE 68; RESP 16; O2SAT 97
[2016-11-02 06:36] LABS: BASOPHILS % (AUTO) 0.8 % (0-3); EOSINOPHILS % (AUTO) 4.5 % (0-5); MONOCYTES % (AUTO) 8.4 % (4-12); Mean Corpuscular Hemoglobin 31.4 pg (27.0-35.0); Mean Corpuscular Volume 100.3 fL (81-100); NEUTROPHILS % (AUTO) 57.3 % (40-74); Platelet Count 177 bil/L (150-400)
[2016-11-02 06:59] LABS: INR 2.04 ratio
[2016-11-02 07:01] LABS: Magnesium 2.1 mg/dL (1.6-2.6); Phosphorus 3.5 mg/dL (2.5-4.9)
--- NOTE | 2016-11-02 07:45 | PCM.PHAPRO ---
Progress Date of Service: Nov 02, 2016 WARFARIN DOSING PER PHARMACY -Nov 01-Nov 02-Oct 2.58 2.49 2.04 0.04 -0.09 -0.45 5 MG 5 7 A/P -Therapeutic INR.. -Will continue HOME DOSE warfarin 7 mg this evening. -Pharmacy will continue to monitor. Nila Kline PharmD Nov 02, 2016 07:45
[2016-11-02] MEDS: buPROPion XL 300 mg ER24 Tablet PO SCH (09:42)
[2016-11-02] MEDS: MeTOProlol XL 25 mg ER24 Tablet PO SCH ×2 (09:45→21:02)
--- NOTE | 2016-11-02 11:39 | PCM.PNMED ---
Subjective Date of Service Nov 02, 2016 Subjective Patient was first time ambulating with assistance after stroke yesterday Remain in good spirit, denied any pain. Exam Vital Signs Vital Sign - Last Date Time Temp Pulse Resp B/P Pulse Ox O2 Delivery O2 Flow Rate FiO2 11/02/16 05:47 36.4 68 16 94/55 97 Room Air Intake and Output 11/01/16 11/01/16 11/02/16 Cumulative From/Thru 15:00 23:00 07:00 10/28/16 17:04 - 11/02/16 06:22 Intake Total 1395 ml 236 ml 3412 ml Output Total 800 ml 175 ml 3800 ml Balance 595 ml 61 ml -388 ml Intake Oral 755 ml 236 ml 2517 ml IV Total 640 ml 895 ml Output Urine Total 800 ml 175 ml 3800 ml # Voids 1 # Bowel Movements 0 Exam NAD, comfortably laying down on the bed making incoherent sounds, motor 4/5 on right side, grossly CN2-12 intact. no JVD, MMM, no LAD RRR, nl s1, s2 no mrg CTAB, no w,c S,ND,NT,normoactive BS+ warm, no edema, pulses 2/2 MSK: minor bruises on bilateral knees, Rt foot-old scab from prior wound IVs and Medications Medications Reviewed: Medications were reviewed in detail Lab and Diagnostics Result Diagram: 11/02/1660911/02/16609 Assessment & Plan 56-year-old male with past medical history of stroke, atrial fibrillation on warfarin, type II diabetes mellitus, anxiety, and coronary artery disease presented to the emergency department with behavioral changes and fall from wheelchair. acute, active 1. Acute behavioral disturbance, present on admission, this is recurrent problems already addressed in last hospitalization, no medical etiology was found: normal TSH,vitB12,vitD likely related to personality changes due to vascular dementia, probable underlying mood disorder. labs on admission didn't show any metabolic/toxic etiologies so far. this time, patient UA is positive for pyuria, bacteriuria, prelim UCX positive for gram neg, which could potentially contributed to his behavioral chg. -pt seems to be improving with clearance of UTI -Continue with lamotrigine titration, Wellbutrin XL 300mg daily, added quetiapine 25mg twice daily per psychiatric team. -further eval for placement, guardianship as pt dosen't have decisional capacity , defer to SW/Psychiatric team. #UTI, POA, UCX+E.Fecalis, sensitive to PCN MIC5 -s/p Rocephin 2g iv qd, switched to Unasyn, switched to Amoxacillin per ID for 14days course -if pt becomes febrile, will get renal US given gender, complicated UTI. chronic, stable #Prior stroke with residual expressive aphasia and right-sided weakness, present on admission, chronic - appreciate s/s eval, PT eval and tx. 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 #Restless legs, #afib, Continued warfarin, dosed by pharmacy #Coronary artery disease, chronic, ontinued aspirin, metoprolol, atorvastatin dispo: jail placement vs inpatient psych unit, appreciate SW/CM/ psychiatric input, patient seems medical optimized, likely to sign off tomorrow. Thank you for the opportunity to evaluate patient, medicine service will continue to follow Time spent 35min Jose Orta MD Nov 02, 2016 11:39
[2016-11-02 13:10] VITALS: BP 97/62; PULSE 67; RESP 16; O2SAT 97
--- NOTE | 2016-11-02 13:58 | PCM.PNPSY ---
Subjective Date of Service Nov 02, 2016 Subjective Patient is seen with Dr. De La Torre today for continuity of care. Patient reports his mood is much improved and is denying suicidal thoughts. He reports that he is still not frustrated with his today. The patient is still agreeable to go to inpatient rehab and potentially other facility if SADE not available by time of discharge. He reports sleep and appetite good. He denies racing thoughts. No side effect c/o. Sleep: 10 hours by patient report Appetite: good Suicidal and homicidal ideation: denies Auditory hallucinations: denies Visual hallucinations: denies Other Psychotic Symptoms: N/A Anxiety: "so-so" Depression: denies Current Medications Current Medications Amoxicillin 500 mg TID PO Last administered on 11/02/16 09:43; Admin Dose 500 MG; Start 10/31/16 at 20:30; Stop 11/14/16 at 20:31 Ampicillin Sodium/ Sulbactam Sodium/ Sodium Chloride 100 ml @ 200 mls/hr Q6H IV Last administered on 10/31/16 16:44; Admin Dose 200 MLS/HR; Start 10/31/16 at 17:00; Stop 10/31/16 at 17:21; Status DC Warfarin Sodium 5 mg DAILY@17 ONCE PO Last administered on 11/01/16 18:37; Admin Dose 5 MG; Start 11/01/16 at 17:00; Stop 11/01/16 at 17:01; Status DC Warfarin Sodium 5 mg 5 mg ONCE@17 ONCE PO Last administered on 10/31/16 16:44 ; Admin Dose 5 MG; Start 10/31/16 at 17:00; Stop 10/31/16 at 17:01; Status DC Mental Status Exam Vital Signs Vital Signs Date Time Temp Pulse Resp B/P Pulse Ox O2 Delivery O2 Flow Rate FiO2 11/02/16 13:10 36.5 67 16 97/62 97 Room Air Appearance: Unkept Attitude: Cooperative, Other (Expressive aphasia) Behavior: No unusual behavior Affect: Well Modulated/Appropriate Mood: Euthymic Thought Process/Associations: Other Speech Production: Other Speech Rate: Normal Speech Articulation: Other (dysarthria) Thought Content: Appropriate Danger to Self/Suicidal Ideati: None Danger to Others: None Hallucinations: Auditory (Denies), Visual (Denies) Consciousness: Alert Orientation: Person, Place, Situation (Appears oriented) Memory: Untestable Estimate Intellectual Function: Unable to assess Attention/Concentration & Cogn: Unable to assess Insight: Limited Judgement: Limited Result Diagram: 11/02/16 0610 11/02/16 0610 Mental Health Plan The patient is a 56-year-old male with a history of depression, mood disorder ( depression vs. bipolar II vs. cyclothymia) and stroke with expressive aphasia, who presents with worsening mental state following his return to home and loss of SADE caregiver. On admission, the patient did not appear to understand that he cannot return home given his level of disability and the lack of care in the home. He appears to have maintained his gains from yesterday, and, at least for now, is agreeing to go to other facility if SADE not available in near future. He was excited about the possibility of going to inpatient physical rehab per physical therapy recommendations. Medicine is continuing to follow, appreciate ID consult. [place] AXIS I: 1. Mood disorder unspecified versus cyclothymic/bipolar II disorder versus mental disorder due to stroke. 2. 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 AXIS III: See past medical history. AXIS IV: Severe. AXIS V: Global Assessment of Functioning 35. Treatments 1. The patient is admitted to the medical unit due to his multiple medical needs and difficulty benefiting from the [facility] and will be provided a safe and secure environment. 2. The patient is denying current active suicidality but will be provided a 1: 1 staff for safety while on the medical floor. 3. The patient will be seen by the treatment team on a daily basis to assess symptoms, side effects and response to treatment. 4. Increase lamotrigine titration, 100mg nightly starting tonight. 5. Continue Wellbutrin XL 300mg daily. 6. Continue quetiapine 25mg twice daily for agitation/bipolar and titrate as tolerated. 7. Consider adding temazepam at bedtime if quetiapine not effective in improving sleep. 8 SW to discuss transfer options with family/patient. 9. Family has started process for guardianship. 10. Appreciate medical service support given multiple medical issues. 11. Anticipated length of stay 10-14 days. Paddy Stout MD Nov 02, 2016 13:58
--- NOTE | 2016-11-02 16:42 | NUR ---
Social Work: Continued Discharge planning Data & Assessment: Ground Operations Supervisor spoke with patient's via phone and notified her that the proposed discharge plan was either inpt rehab or SNF. Patient stated that she was not visiting today because she has a fever, but requested that SW leave SNF choice and inpatient rehab choices at bedside. SW left choices at bedside and also notified patient of choices. Ground Operations Supervisor will follow-up with patient and patient's spouse for choices tomorrow. SW will continue to follow. Plan: Patient will either discharge to inpatient rehab or a SNF. SW will continue to follow. Lenore Estrada, JACOB, ACM
--- NOTE | 2016-11-02 17:13 | NUR ---
[facility] Signed
--- NOTE | 2016-11-02 19:17 | NUR ---
Behavior/activity/BM Pt having no aggressive or inappropriate behavior. Very cheerful, laughing and engaging with staff. Communication done via thumbs up/ thumbs down and communication board/device at bedside. Pt did get up in recliner for all meals. He amb in hallway with PT with platform walker. Pt had a BM this morning. Currently resting in bed which is in lowest, locked position and call light in reach.
[2016-11-02] MEDS: lamoTRIgine 100 mg Tablet PO SCH (21:03)
[2016-11-02 21:06] VITALS: BP 112/70; PULSE 66; RESP 16; O2SAT 98
[2016-11-03 05:57] LABS: BASOPHILS % (AUTO) 0.8 % (0-3); EOSINOPHILS % (AUTO) 4.9 % (0-5); MONOCYTES % (AUTO) 8.5 % (4-12); Mean Corpuscular Volume 100.3 fL (81-100); NEUTROPHILS % (AUTO) 53.5 % (40-74); Platelet Count 162 bil/L (150-400)
[2016-11-03 06:00] VITALS: BP 91/53; PULSE 62; RESP 16; O2SAT 97
[2016-11-03 06:03] LABS: INR 1.73 ratio
[2016-11-03 06:08] LABS: Magnesium 2.1 mg/dL (1.6-2.6); Phosphorus 3.7 mg/dL (2.5-4.9)
--- NOTE | 2016-11-03 06:30 | NUR ---
Neuro Pt alert, significantly expressive aphasia,communicates via communication board ,pt keep saying "hands" and "oh boy", which are the only words that pt can express when communicate with RN,responds to yes/no questions by shaking or nod head or posture.pt appears understand spoken language, anxious and frustrated due to unable to express well. Right facial droop, right sided weakness, strength 3/5 at right arm, 4/5 at right leg. Pt calm most of times and cooperative, sleeping comfortably overnight, no aggressive or inappropriate behaviors demonstrated.
[2016-11-03] MEDS: buPROPion XL 300 mg ER24 Tablet PO SCH (09:16)
[2016-11-03] MEDS: MeTOProlol XL 25 mg ER24 Tablet PO SCH ×2 (09:16→20:30)
--- NOTE | 2016-11-03 13:32 | NUR ---
SW- Continued Discharge Planning SW contacted pt's Connie [phone] who provided preferences for inpatient rehab [facility] and [facility]. SW passed info along to UR specialist who will send referrals. VIANEY will continue to follow. REBECA Porras
--- NOTE | 2016-11-03 13:49 | PCM.PNPSY ---
Subjective Date of Service Nov 03, 2016 Subjective I spent 30 minutes both reviewing his treatment plan and providing supportive and educational psychotherapy. I spent more than 50% of the time counseling the patient. I reviewed the treatment plan with the patient and discussed options available including the potential risks, benefits and side effects. Daryn reports a positive mood. He indicated this by pointing to different pictures on his picture board. The patient has an expressive aphasia. The Staff reports that he has been active and is participating well in his care and is easily redirected. They note no abnormal behaviors or behavioral problems over the past 72 hours. Staff reports that he sleeping well and has good appetite. He does have a gastric bypass and tends to eat multiple small portions during the day. He denies medication side effects. He denied suicidal ideation plan or intent. He denied difficult with impulse control or thought organization. Patient was able to identify his medications and what they were used to treat. Current Medications Current Medications Lamotrigine 100 mg HS PO Last administered on 11/02/16 21:03; Admin Dose 100 MG ; Start 11/02/16 at 21:00 Warfarin Sodium 5 mg DAILY@17 ONCE PO Last administered on 11/01/16 18:37; Admin Dose 5 MG; Start 11/01/16 at 17:00; Stop 11/01/16 at 17:01; Status DC Warfarin Sodium/ Warfarin Sodium 7 mg DAILY@17 ONCE PO Last administered on 17:01; Admin Dose 7 MG; Start 11/02/16 at 17:00; Stop 11/02/16 at 17:01 ; Status DC Mental Status Exam Vital Signs Vital Signs Date Time Temp Pulse Resp B/P Pulse Ox O2 Delivery O2 Flow Rate FiO2 11/03/16 06:00 37.1 62 16 91/53 97 Room Air Appearance: Unkept Attitude: Cooperative, Other (Expressive aphasia) Behavior: No unusual behavior Affect: Well Modulated/Appropriate Mood: Euthymic Thought Process/Associations: Other Speech Production: Other Speech Rate: Normal Speech Articulation: Other (dysarthria) Thought Content: Appropriate Danger to Self/Suicidal Ideati: None Danger to Others: None Hallucinations: Auditory (Denies), Visual (Denies) Consciousness: Alert Orientation: Person, Place, Situation (Appears oriented) Memory: Untestable Estimate Intellectual Function: Unable to assess Attention/Concentration & Cogn: Unable to assess Insight: Limited Judgement: Limited Result Diagram: 11/03/16 0535 11/03/16 0535 Mental Health Plan I met Daryn for the first time today. This is my first day back on the service. I reviewed his course and records I scheduled [facility] and interviewed him for 30 minutes. The patient is a 56-year-old male with a history of depression, mood disorder ( bipolar II vs. cyclothymia) and stroke with expressive aphasia, who presented 10/28 with worsening mental state following his return to home and loss of SADE caregiver. It been having aggressive and impulsive acting out at home. He was detained on a 72 hour involuntary treatment hold, this was extended and he is currently on a 14 day MR. At present he has good appetite and is sleeping well throughout the night. Staff Reported no difficulty with emotional lability, impulse control, or agitation for the past 72 hours. Daryn denies any medication side effects and is happy with his current meds. He is looking forward to getting out of the hospital and understands that he will need to go to a jail home facility from the hospital for longer term rehabilitation. [place] AXIS I: 1. 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 2. 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 AXIS II: Deferred. AXIS III: See past medical history. AXIS IV: Severe. AXIS V: Global Assessment of Functioning 40. Treatments 1. The patient is admitted to the medical unit due to his multiple medical needs and difficulty benefiting from the [facility] and will be provided a safe and secure environment. 2. The patient is denying current active suicidality but will be provided a 1: 1 staff for safety while on the medical floor. 3. The patient will be seen by the treatment team on a daily basis to assess symptoms, side effects and response to treatment. 4. lamotrigine titration, 100mg nightly starting tonight. 5. Continue Wellbutrin XL 300mg daily. 6. Continue quetiapine 25mg twice daily for agitation/bipolar and titrate as tolerated. 7. Consider adding temazepam at bedtime if quetiapine not effective in improving sleep. 8 SW to discuss transfer options with family/patient. 9. Family has started process for guardianship. 10. Appreciate medical service support given multiple medical issues. 11. Anticipated length of stay 10-14 days. Son Felix MD Nov 03, 2016 13:49
--- NOTE | 2016-11-03 13:56 | PCM.PHAPRO ---
Progress Date of Service: Nov 03, 2016 WARFARIN MANAGEMENT A\ PT with AFib INR=1.73 PT =18.7 Home warfarin 7mg PO daily INR has decrease from therapeutic goal 2-3. Pt received 7mg 11/02 and 5mg previously with INRs near 2.5. Expect the 7mg will begin increasing the INR into therapeutic range. Medication interactions: amoxicillin and quetiapine can increase the risk of bleeding P\ Will give Warfarin 7mg po x1 tonight and check the INR with AM labs Pharmacy will continue to monitor INR and adjust Warfarin as needed. Ender Sapp [facility] Nov 03, 2016 13:56
[2016-11-03 14:43] VITALS: BP 83/54; PULSE 64; RESP 16; O2SAT 96
--- NOTE | 2016-11-03 15:27 | PCM.PNMED ---
Subjective Date of Service Nov 03, 2016 Subjective Patient has expressive aphasia and slurring at baseline. No new events. Behavior controlled with psychiatrist adjusting medications. INR 1.73, on amoxicillin thru 11/14 Exam Vital Signs Vital Sign - Last Date Time Temp Pulse Resp B/P Pulse Ox O2 Delivery O2 Flow Rate FiO2 11/03/16 14:43 36.7 64 16 83/54 96 Room Air Intake and Output 11/02/16 11/02/16 11/03/16 Cumulative From/Thru 15:00 23:00 07:00 10/28/16 17:04 - 11/03/16 06:47 Intake Total 992 ml 400 ml 4804 ml Output Total 250 ml 300 ml 4350 ml Balance 742 ml 100 ml 454 ml Intake Oral 992 ml 400 ml 3909 ml IV Total 895 ml Output Urine Total 250 ml 300 ml 4350 ml # Voids 1 2 # Bowel Movements 1 1 2 Exam NAD, comfortably laying down on the bed making incoherent sounds, expressive aphasia and slurring of speech at baseline. Motor 4/5 on right side, 5/5 on left side ,grossly CN2-12 intact. no JVD, MMM, no LAD RRR, nl s1, s2 no mrg CTAB, no w,c S,ND,NT,normoactive BS+ warm, no edema, pulses 2/2 MSK: minor bruises on bilateral knees, Rt foot-old scab from prior wound IVs and Medications Medications Reviewed: Medications were reviewed in detail Lab and Diagnostics Result Diagram: 11/03/16 0535 11/03/16 0535 Assessment & Plan 56-year-old male with past medical history of stroke, atrial fibrillation on warfarin, type II diabetes mellitus, anxiety, and coronary artery disease presented to the emergency department with behavioral changes and fall from wheelchair. acute, active 1. Acute behavioral disturbance, present on admission, this is recurrent problems already addressed in last hospitalization, no medical etiology was found: normal TSH,vitB12,vitD likely related to personality changes due to vascular dementia, probable underlying mood disorder. labs on admission didn't show any metabolic/toxic etiologies so far. this time, patient UA is positive for pyuria, bacteriuria, prelim UCX positive for gram neg, which could potentially contributed to his behavioral chg. -pt seems to be improving with clearance of UTI -Continue with lamotrigine titration, Wellbutrin XL 300mg daily, added quetiapine 25mg twice daily per psychiatric team. -further eval for placement, guardianship as pt dosen't have decisional capacity , defer to SW/Psychiatric team. #UTI, POA, UCX+E.Fecalis, sensitive to PCN MIC5 -s/p Rocephin 2g iv qd, switched to Unasyn, switched to Amoxacillin per ID for 14days course thru 11/14/16 -if pt becomes febrile, will get renal US given gender, complicated UTI. chronic, stable #Prior stroke with residual expressive aphasia and right-sided weakness, present on admission, chronic - appreciate s/s eval, PT eval and tx. 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 #Restless legs, #afib, Continued warfarin, dosed by pharmacy #Coronary artery disease, chronic, continued aspirin, metoprolol, atorvastatin dispo: extermination supervisor placement vs inpatient psych unit, appreciate SW/CM/ psychiatric input, patient seems medical optimized, likely to sign off tomorrow. Thank you for the opportunity to evaluate patient, medicine service will continue to follow [employer] Mechanical Devices: Intermittant Pneumatic CD Kaushik Mariano MD Nov 03, 2016 15:26
--- NOTE | 2016-11-03 16:32 | NUR ---
Behavior/activity Pt continues with no aggressive/agitated behaviors. Utilizing communication board/devices. in this afternoon to visit. Pt did amb in [place] with PT. Currently resting, bed in lowest, locked position and call light in reach.
[2016-11-03 21:08] VITALS: BP 123/67; PULSE 74; RESP 16; O2SAT 95
[2016-11-03] MEDS: lamoTRIgine 100 mg Tablet PO SCH (21:15)
[2016-11-04 05:40] VITALS: BP 92/57; PULSE 87; RESP 16; O2SAT 97
[2016-11-04 07:53] LABS: INR 1.65 ratio
[2016-11-04] MEDS: MeTOProlol XL 25 mg ER24 Tablet PO SCH ×2 (10:08→21:46)
[2016-11-04] MEDS: buPROPion XL 300 mg ER24 Tablet PO SCH (10:08)
--- NOTE | 2016-11-04 12:06 | PCM.PHAPRO ---
Progress Date of Service: Nov 04, 2016 WARFARIN MANAGEMENT A\ AFib pt Goal INR 2-3 with current INR= 1.65 Home warfarin dose 7mg po daily Pt has received Warfarin 7mg po x2 days will increase Warfarin to mg tonight and monitor INR P\ Warfarin 8mg PO x1 tonight and continue to monitor daily INR Ender Sapp [facility] Nov 04, 2016 12:06
--- NOTE | 2016-11-04 13:35 | PCM.PNPSY ---
Subjective Date of Service Nov 04, 2016 Subjective I spent 20 minutes both reviewing his treatment plan and providing supportive and educational psychotherapy. I spent more than 50% of the time attempting to vp & general counsel the patient. I reviewed the treatment plan with the patient and discussed options available. Daryn reports a positive mood. He was smiling and joking and gesturing in an animated manner. He indicated this by pointing to different pictures on his picture board. The Staff reports that he has been active and is participating well in his care and is easily redirected. They note no abnormal behaviors or behavioral problems over the past 24 hours. Staff reports that he sleeping well and has not been enjoying the food and is restricting his intake. He does have a gastric bypass and tends to eat multiple small portions during the day. He denies medication side effects. He denied suicidal ideation plan or intent. He denied difficult with impulse control or thought organization. Current Medications Current Medications Lamotrigine 100 mg HS PO Last administered on 11/03/16 21:15; Admin Dose 100 MG ; Start 11/02/16 at 21:00 Warfarin Sodium/ Warfarin Sodium 7 mg DAILY@17 ONCE PO Last administered on 17:01; Admin Dose 7 MG; Start 11/02/16 at 17:00; Stop 11/02/16 at 17:01 ; Status DC Warfarin Sodium/ Warfarin Sodium 7 mg DAILY@17 ONCE PO Last administered on 17:00; Admin Dose 7 MG; Start 11/03/16 at 17:00; Stop 11/03/16 at 17:01 ; Status DC Mental Status Exam Vital Signs Vital Signs Date Time Temp Pulse Resp B/P Pulse Ox O2 Delivery O2 Flow Rate FiO2 11/04/16 05:40 36.6 87 16 92/57 97 Room Air Appearance: Unkept Attitude: Pleasant, Cooperative, Other (Expressive aphasia) Behavior: No unusual behavior Affect: Well Modulated/Appropriate Mood: Euthymic Thought Process/Associations: Other Speech Production: Other (client repetitively speaks hands hands hands for nearly all responses) Speech Rate: Normal Speech Articulation: Other (dysarthria) Thought Content: Appropriate Danger to Self/Suicidal Ideati: None Danger to Others: None Consciousness: Alert Orientation: Person, Place, Situation (Appears oriented) Memory: Untestable Estimate Intellectual Function: Unable to assess Attention/Concentration & Cogn: Grossly Intact Insight: Limited Judgement: Limited Result Diagram: 4/24/17 0535 11/03/16 0535 Mental Health Plan Problems: (1) Behavioral change Status: Acute ICD Code: R46.89 Daryn is a 56-year-old male with a history of depression, mood disorder (bipolar II vs. cyclothymia) and stroke with expressive aphasia, who presented 10/28 with worsening mental state following his return to home and loss of SADE caregiver. He had been having aggressive and impulsive acting out at home. He was detained on a 72 hour involuntary treatment hold, and this was extended. He is currently on a 14 day MR. At present he is sleeping well. Staff Reported no difficulty with emotional lability, impulse control, or agitation for the past 72 hours. Daryn denies any medication side effects and is happy with his current meds. He is looking forward to getting out of the hospital and understands that he will need to go to a prison home facility from the hospital for longer term rehabilitation. [place] AXIS I: 1. 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 2. 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 AXIS II: Deferred. AXIS III: See past medical history. AXIS IV: Severe. AXIS V: Global Assessment of Functioning 45. Treatments 1. The patient is admitted to the medical unit due to his multiple medical needs and difficulty benefiting from the [facility] and will be provided a safe and secure environment. 2. The patient is denying current active suicidality 3. The patient will be seen by the treatment team on a daily basis to assess symptoms, side effects and response to treatment. 4. lamotrigine 100mg nightly. 5. Continue Wellbutrin XL 300mg daily. 6. Continue quetiapine 25mg twice daily for agitation/bipolar. 7. Consider adding temazepam at bedtime if quetiapine not effective in improving sleep. 8 SW to discuss transfer options with family/patient. 9. Family has started process for guardianship. 10. Appreciate medical service support given multiple medical issues. No new Recommendations at this time. Son Felix MD Nov 04, 2016 13:35
[2016-11-04 13:47] VITALS: BP 104/69; PULSE 77; RESP 16; O2SAT 95
--- NOTE | 2016-11-04 15:38 | NUR ---
Faxed referrals to [facility] and [facility] inpatient rehab.
--- NOTE | 2016-11-04 15:51 | NUR ---
Recommend full AAC evaluation upon discharge, no matter the setting. Pt will benefit greatly from a formal language evaluation for tx goals and AAC evaluation by specialized AAC team to determine use and access to device. Pt will require intensive language tx. Recommend [facility] or [facility].
--- NOTE | 2016-11-04 16:38 | PCM.PNMED ---
Subjective Date of Service Nov 04, 2016 Subjective No new events. Awaiting placement Exam Vital Signs Vital Sign - Last Date Time Temp Pulse Resp B/P Pulse Ox O2 Delivery O2 Flow Rate FiO2 11/04/16 13:47 36.6 77 16 104/69 95 Room Air Intake and Output 11/03/16 11/03/16 11/04/16 Cumulative From/Thru 15:00 23:00 07:00 10/28/16 17:04 - 11/04/16 06:43 Intake Total 572 ml 537 ml 5913 ml Output Total 425 ml 450 ml 5225 ml Balance 147 ml 87 ml 688 ml Intake Oral 572 ml 537 ml 5018 ml IV Total 895 ml Output Urine Total 425 ml 450 ml 5225 ml # Voids 2 # Bowel Movements 1 1 4 Exam NAD, comfortably laying down on the bed making incoherent sounds, expressive aphasia and slurring of speech at baseline. Motor 4/5 on right side, 5/5 on left side no JVD, MMM, no LAD RRR, nl s1, s2 no mrg CTAB, no w,c S,ND,NT,normoactive BS+ warm, no edema, pulses 2/2 MSK: minor bruises on bilateral knees, Rt foot-old scab from prior wound IVs and Medications Medications Reviewed: Medications were reviewed in detail Lab and Diagnostics Result Diagram: 11/03/16 0535 11/03/16 0535 Assessment & Plan 56-year-old male with past medical history of stroke, atrial fibrillation on warfarin, type II diabetes mellitus, anxiety, and coronary artery disease presented to the emergency department with behavioral changes and fall from wheelchair. acute, active 1. Acute behavioral disturbance, present on admission, this is recurrent problems already addressed in last hospitalization, no medical etiology was found: normal TSH,vitB12,vitD likely related to personality changes due to vascular dementia, probable underlying mood disorder. labs on admission didn't show any metabolic/toxic etiologies so far. this time, patient UA is positive for pyuria, bacteriuria, prelim UCX positive for gram neg, which could potentially contributed to his behavioral chg. -pt seems to be improving with clearance of UTI -Continue with lamotrigine titration, Wellbutrin XL 300mg daily, added quetiapine 25mg twice daily per psychiatric team. -further eval for placement, guardianship as pt dosen't have decisional capacity , defer to SW/Psychiatric team. #UTI, POA, UCX+E.Fecalis, sensitive to PCN MIC5 -s/p Rocephin 2g iv qd, switched to Unasyn, switched to Amoxacillin per ID for 14days course thru 11/14/16 -if pt becomes febrile, will get renal US given gender, complicated UTI. chronic, stable #Prior stroke with residual expressive aphasia and right-sided weakness, present on admission, chronic - appreciate s/s eval, PT eval and tx. 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 #Restless legs, #afib, Continued warfarin, dosed by pharmacy #Coronary artery disease, chronic, continued aspirin, metoprolol, atorvastatin dispo: group home placement vs inpatient psych unit, appreciate SW/CM/ psychiatric input, patient seems medical optimized, Patient may be discharged on amoxicillin thru 11/14 from medical standpoint Thank you for the opportunity to evaluate patient, medicine service will continue to follow [employer] Devices: Venous Foot Pump Kaushik Mariano MD Nov 04, 2016 16:38
--- NOTE | 2016-11-04 17:49 | NUR ---
Communication Difficult to communicate with pt. Appears to get upset/aggressive when conversing d/t misunderstanding. Was compliant with meds.
[2016-11-04 20:48] VITALS: BP 101/67; PULSE 68; RESP 16; O2SAT 99
[2016-11-04] MEDS: lamoTRIgine 100 mg Tablet PO SCH (21:42)
[2016-11-05 05:26] VITALS: BP 105/66; PULSE 74; RESP 16; O2SAT 98
[2016-11-05 08:34] VITALS: BP 112/63; PULSE 75; RESP 16; O2SAT 99
[2016-11-05] MEDS: buPROPion XL 300 mg ER24 Tablet PO SCH (09:19)
[2016-11-05] MEDS: MeTOProlol XL 25 mg ER24 Tablet PO SCH ×2 (09:22→20:12)
--- NOTE | 2016-11-05 14:45 | PCM.PNPSY ---
Subjective Date of Service Nov 05, 2016 Subjective I spent 20 minutes both reviewing his treatment plan and providing supportive and educational psychotherapy. I spent more than 50% of the time attempting to genetic counselor the patient. Daryn reports a positive mood. He was smiling and joking and gesturing in an animated manner. He was able to write his name daryn Mclaughlin with his left hand and eyes closed. He was able to hum the tune of his favorite song "Geoffrey was a bowl frog" The Staff reports that he has been active and is participating well in his care and is easily redirected. They note no abnormal behaviors or behavioral problems over the past 24 hours. Staff reports that he sleeping well and has not been enjoying the food and is restricting his intake. He does have a gastric bypass and tends to eat multiple small portions during the day. He denies medication side effects. He denied suicidal ideation plan or intent. He denied difficult with impulse control or thought organization Current Medications Current Medications Warfarin Sodium 7 mg DAILY@17 ONCE PO Last administered on 11/03/16 17:00; Admin Dose 7 MG; Start 11/03/16 at 17:00; Stop 11/03/16 at 17:01; Status DC Warfarin Sodium/ Warfarin Sodium 8 mg DAILY@17 PO Last administered on 16:09; Admin Dose 8 MG; Start 11/04/16 at 17:00; Stop 11/05/16 at 07:09; Status DC Mental Status Exam Vital Signs Vital Signs Date Time Temp Pulse Resp B/P Pulse Ox O2 Delivery O2 Flow Rate FiO2 11/05/16 08:34 37.2 75 16 112/63 99 Room Air Appearance: Unkept Attitude: Pleasant, Cooperative, Other (Expressive aphasia) Behavior: No unusual behavior Affect: Well Modulated/Appropriate Mood: Euthymic Thought Process/Associations: Other Speech Production: Other (client repetitively speaks hands hands hands for nearly all responses) Speech Rate: Normal Speech Articulation: Other (dysarthria) Thought Content: Appropriate Danger to Self/Suicidal Ideati: None Danger to Others: None Consciousness: Alert Orientation: Person, Place, Situation (Appears oriented) Memory: Untestable Estimate Intellectual Function: Unable to assess Attention/Concentration & Cogn: Grossly Intact Insight: Limited Judgement: Limited Result Diagram: 11/03/16 0535 11/03/16 0535 Mental Health Plan Problems: (1) Behavioral change Status: Acute ICD Code: R46.89 Daryn is a 56-year-old male with a history of depression, mood disorder (bipolar II vs. cyclothymia) and stroke with expressive aphasia, who presented 10/28 with worsening mental state following his return to home and loss of SADE caregiver. He had been having aggressive and impulsive acting out at home. He was detained on a 72 hour involuntary treatment hold, and this was extended. He is currently on a 14 day MR. At present he is sleeping well. Staff Reported no difficulty with emotional lability, impulse control, or agitation for the past 72 hours. Daryn denies any medication side effects and is happy with his current meds. He is looking forward to getting out of the hospital and understands that he will need to go to a residential home facility from the hospital for longer term rehabilitation. Patient appears to be making gradual progress in terms of expression using techniques such as closing his eyes and Emotionally charged memory such as his favorite songs. He may benefit from training with his computer program. Client's mood seems very positive and has had no behavioral outbursts [place] AXIS I: 1. 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 2. 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 AXIS II: Deferred. AXIS III: See past medical history. AXIS IV: Severe. AXIS V: Global Assessment of Functioning 45. Treatments 1. The patient is admitted to the medical unit due to his multiple medical needs and difficulty benefiting from the [facility] and will be provided a safe and secure environment. 2. The patient is denying current active suicidality 3. The patient will be seen by the treatment team on a daily basis to assess symptoms, side effects and response to treatment. 4. lamotrigine 100mg nightly. 5. Continue Wellbutrin XL 300mg daily. 6. Continue quetiapine 25mg twice daily for agitation/bipolar. 7. Consider adding temazepam at bedtime if quetiapine not effective in improving sleep. 8 SW to discuss transfer options with family/patient. 9. Family has started process for guardianship. 10. Appreciate medical service support given multiple medical issues. No new Recommendations at this time. Son Felix MD Nov 05, 2016 14:45
--- NOTE | 2016-11-05 14:53 | NUR ---
[facility] is unable to accept pt due to mental health issues [facility] is unable to accept pt due to no DC Plan, they would willing be to look again once there is a dc plan. Advised REHABILITATION NURSE.
--- NOTE | 2016-11-05 15:10 | PCM.PNMED ---
Subjective Date of Service Nov 05, 2016 Subjective Patient is refusing blood draw for INR check. No event otherwise Exam Vital Signs Vital Sign - Last Date Time Temp Pulse Resp B/P Pulse Ox O2 Delivery O2 Flow Rate FiO2 11/05/16 08:34 37.2 75 16 112/63 99 Room Air Intake and Output 11/04/16 11/04/16 11/05/16 Cumulative From/Thru 15:00 23:00 07:00 10/28/16 17:04 - 11/05/16 06:28 Intake Total 237 ml 400 ml 6550 ml Output Total 600 ml 150 ml 5975 ml Balance -363 ml 250 ml 575 ml Intake Oral 237 ml 400 ml 5655 ml IV Total 895 ml Output Urine Total 600 ml 150 ml 5975 ml # Voids 1 3 # Bowel Movements 1 1 6 Exam NAD, comfortably laying down on the bed making incoherent sounds, expressive aphasia and slurring of speech at baseline. Motor 4/5 on RLE,3/5 RUE, 5/5 on left side no JVD, MMM, no LAD RRR, nl s1, s2 no mrg CTAB, no w,c S,ND,NT,normoactive BS+ warm, no edema, pulses 2/2 IVs and Medications Medications Reviewed: Medications were reviewed in detail Lab and Diagnostics Result Diagram: 11/03/1635 11/03/1635 Assessment & Plan 56-year-old male with past medical history of stroke, atrial fibrillation on warfarin, type II diabetes mellitus, anxiety, and coronary artery disease presented to the emergency department with behavioral changes and fall from wheelchair. acute, active 1. Acute behavioral disturbance, present on admission, this is recurrent problems already addressed in last hospitalization, no medical etiology was found: normal TSH,vitB12,vitD likely related to personality changes due to vascular dementia, probable underlying mood disorder. labs on admission didn't show any metabolic/toxic etiologies so far. this time, patient UA is positive for pyuria, bacteriuria, prelim UCX positive for gram neg, which could potentially contributed to his behavioral chg. -pt improved with clearance of UTI -Continue with lamotrigine titration, Wellbutrin XL 300mg daily, added quetiapine 25mg twice daily per psychiatric team. -further eval for placement, guardianship as pt dosen't have decisional capacity , defer to SW/Psychiatric team. #UTI, POA, UCX+E.Fecalis, sensitive to PCN MIC5 -s/p Rocephin 2g iv qd, switched to Unasyn, switched to Amoxacillin per ID for 14days course thru 11/14/16 -if pt becomes febrile, will get renal US given gender, complicated UTI. chronic, stable #Prior stroke with residual expressive aphasia and right-sided weakness, present on admission, chronic - appreciate s/s eval, PT eval and tx. 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 #Restless legs, #afib, Continued warfarin, dosed by pharmacy. Patient refusing INR check and difficult to dose warfarin. Patient is not an ideal candidate for warfarin.will ask SW to see if he can be preauthorised for NOACs #Coronary artery disease, chronic, continued aspirin, metoprolol, atorvastatin dispo: detention placement vs inpatient psych unit, appreciate SW/CM/ psychiatric input, patient seems medical optimized, Patient may be discharged on amoxicillin thru 11/14 from medical standpoint Thank you for the opportunity to evaluate patient, medicine service will continue to follow [employer] Devices: Intermittant Pneumatic CD Kaushik Mariano MD Nov 05, 2016 15:10
--- NOTE | 2016-11-05 15:15 | PCM.PHAPRO ---
Progress -Nov 04-Nov 05-Oct 1.73 1.65 REFUSED -0.31 -0.08 #VALUE! 7 8 7 Jasbir Aggarwal Pharm.D Nov 05, 2016 15:15
--- NOTE | 2016-11-05 17:04 | NUR ---
Communication/lab Pt. is unable to effectively communicate verbally. However, he has a paper on his clipboard, in the middle of the stack of paperwork, that has pictures of faces and feelings along with a pain scale that greatly improves his ability to communicate. He does need to be reminded to reference the page. Pt. refused AM lab draw. notified. Pharmacist ok with current dosing. Will reassess tomorrow. Addendum: 11/05/16 at 1838 by GAYATHRI JENNINGS RN I agree with above SRNs note.
--- NOTE | 2016-11-05 17:40 | NUR ---
SW- Continued Discharge Planning Data: Pt is on day 8 of hospitalization for mood disorder, related to CVA, 14 day psych hold. Pt was discussed in morning rounds and is medically ready to go upon placement. PT is recommending inpatient rehab. Referrals sent to [facility]. [facility] is unable to accept pt due to mental health issues. [facility] is unable to accept pt due to no DC Plan following inpatient rehab stay. SW will continue to explore placement for pt. SW will update family re: denials. SW will continue to follow Assessment: Pt who would benefit from inpatient rehab Plan: SW to continue to seek placement for pt. SW to update family. SW to continue to follow. REBECA Porras
[2016-11-05 18:46] VITALS: BP 106/68; PULSE 72; RESP 18; O2SAT 99
[2016-11-05] MEDS: lamoTRIgine 100 mg Tablet PO SCH (20:13)
[2016-11-05 20:14] VITALS: BP 108/69; PULSE 71; RESP 18; O2SAT 99
[2016-11-06 05:06] VITALS: BP 99/65; PULSE 65; RESP 18; O2SAT 98
[2016-11-06] MEDS: buPROPion XL 300 mg ER24 Tablet PO SCH (08:40)
[2016-11-06] MEDS: MeTOProlol XL 25 mg ER24 Tablet PO SCH ×2 (08:41→20:12)
--- NOTE | 2016-11-06 11:20 | NUR ---
refusing blood draw pt would not sit still enough for research laboratory specialist to attempt to draw blood. pt appeared to not want to have blood drawn.
[2016-11-06 13:15] VITALS: BP 108/73; PULSE 80; RESP 18; O2SAT 98
--- NOTE | 2016-11-06 13:51 | NUR ---
DIAN Ch at [facility], [place], is with [facility] [place] [facility]. His phone number is [phone]. 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
--- NOTE | 2016-11-06 14:02 | PCM.PHAPRO ---
Progress Date of Service: Nov 06, 2016 Warfarin dosing -Nov 04-Nov 05-Nov 06-Oct 1.73 1.65 REFUSED REFUSED 7 mg 8 mg 7 mg 7 mg Rony Medina Nov 06, 2016 14:02
--- NOTE | 2016-11-06 14:50 | PCM.PNPSY ---
Subjective Date of Service Nov 06, 2016 Subjective I spent 30 minutes both reviewing his treatment plan and providing supportive and educational psychotherapy. I spent more than 50% of the time attempting to general counselor the patient. Daryn reports a positive mood. He was able to [place] the word happy. He was able to write his name and write the date. He was smiling and joking and gesturing in an animated manner. The Staff reports that he has been active and is participating well in his care and is easily redirected. They note no abnormal behaviors or behavioral problems over the past 24 hours. Staff reports that he sleeping well and has not been enjoying the food and is restricting his intake. He does have a gastric bypass and tends to eat multiple small portions during the day. He denies medication side effects. He denied suicidal ideation plan or intent. He denied difficult with impulse control or thought organization Current Medications Current Medications Warfarin Sodium 8 mg DAILY@17 PO Last administered on 11/04/16 16:09; Admin Dose 8 MG; Start 11/04/16 at 17:00; Stop 11/05/16 at 07:09; Status DC Warfarin Sodium/ Warfarin Sodium 7 mg DAILY@17 ONCE PO Last administered on t 16:27; Admin Dose 7 MG; Start 11/05/16 at 17:00; Stop 11/05/16 at 17:01 ; Status DC Mental Status Exam Appearance: Unkept Attitude: Pleasant, Cooperative, Other (Expressive aphasia) Behavior: No unusual behavior Affect: Well Modulated/Appropriate Mood: Euthymic Thought Process/Associations: Other Speech Production: Other (client repetitively speaks hands hands hands for nearly all responses) Speech Rate: Normal Speech Articulation: Other (dysarthria) Thought Content: Appropriate Danger to Self/Suicidal Ideati: None Danger to Others: None Consciousness: Alert Orientation: Person, Place, Situation (Appears oriented) Memory: Untestable Estimate Intellectual Function: Unable to assess Attention/Concentration & Cogn: Grossly Intact Insight: Limited Judgement: Limited Result Diagram: 11/03/1635 11/03/16534 Mental Health Plan Problems: (1) Behavioral change Status: Acute ICD Code: R46.89 Daryn is a 56-year-old male with a history of depression, mood disorder (bipolar II vs. cyclothymia) and stroke with expressive aphasia, who presented 10/28 with worsening mental state following his return to home and loss of SADE caregiver. He had been having aggressive and impulsive acting out at home. He was detained on a 72 hour involuntary treatment hold, and this was extended. He is currently on a 14 day MR. At present he is sleeping well. Staff Reported no difficulty with emotional lability, impulse control, or agitation for the past 72 hours. Daryn denies any medication side effects and is happy with his current meds. He is looking forward to getting out of the hospital and understands that he will need to go to a nursing home home facility from the hospital for longer term rehabilitation. Patient appears to be making gradual progress in terms of expression using techniques such as closing his eyes and Emotionally charged memory such as his favorite songs. He may benefit from training with his computer program. Client's mood seems very positive and has had no behavioral outbursts [place] AXIS I: 1. 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 2. 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 AXIS II: Deferred. AXIS III: See past medical history. AXIS IV: Severe. AXIS V: Global Assessment of Functioning 45. Treatments 1. The patient is admitted to the medical unit due to his multiple medical needs and difficulty benefiting from the [facility] and will be provided a safe and secure environment. 2. The patient is denying current active suicidality 3. The patient will be seen by the treatment team on a daily basis to assess symptoms, side effects and response to treatment. 4. lamotrigine 100mg nightly. 5. Continue Wellbutrin XL 300mg daily. 6. Continue quetiapine 25mg twice daily for agitation/bipolar. 7. Consider adding temazepam at bedtime if quetiapine not effective in improving sleep. 8 SW to discuss transfer options with family/patient. 9. Family has started process for guardianship. 10. Appreciate medical service support given multiple medical issues. No new Recommendations at this time. Son Felix MD Nov 06, 2016 14:50
--- NOTE | 2016-11-06 17:05 | PCM.PNMED ---
Subjective Date of Service Nov 06, 2016 Subjective No new events. Awaiting placement Exam Vital Signs Vital Sign - Last Date Time Temp Pulse Resp B/P Pulse Ox O2 Delivery O2 Flow Rate FiO2 11/06/16 13:15 36.8 80 18 108/73 98 11/06/16 05:06 Room Air Intake and Output 11/05/16 11/05/16 11/06/16 Cumulative From/Thru 15:00 23:00 07:00 10/28/16 17:04 - 11/06/16 06:29 Intake Total 600 ml 200 ml 7350 ml Output Total 500 ml 200 ml 6675 ml Balance 100 ml 0 ml 675 ml Intake Oral 600 ml 200 ml 6455 ml IV Total 895 ml Output Urine Total 500 ml 200 ml 6675 ml # Voids 3 # Bowel Movements 0 6 Exam NAD, comfortably laying down on the bed making incoherent sounds, expressive aphasia and slurring of speech at baseline. Motor 4/5 on RLE,3/5 RUE, 5/5 on left side no JVD, MMM, no LAD RRR, nl s1, s2 no mrg CTAB, no w,c S,ND,NT,normoactive BS+ warm, no edema, pulses 2/2 IVs and Medications Medications Reviewed: Medications were reviewed in detail Lab and Diagnostics Result Diagram: 11/03/1635 11/03/1635 Assessment & Plan 56-year-old male with past medical history of stroke, atrial fibrillation on warfarin, type II diabetes mellitus, anxiety, and coronary artery disease presented to the emergency department with behavioral changes and fall from wheelchair. acute, active 1. Acute behavioral disturbance, present on admission, this is recurrent problems already addressed in last hospitalization, no medical etiology was found: normal TSH,vitB12,vitD likely related to personality changes due to vascular dementia, probable underlying mood disorder. labs on admission didn't show any metabolic/toxic etiologies so far. this time, patient UA is positive for pyuria, bacteriuria, prelim UCX positive for gram neg, which could potentially contributed to his behavioral chg. -pt improved with clearance of UTI -Continue with lamotrigine titration, Wellbutrin XL 300mg daily, added quetiapine 25mg twice daily per psychiatric team. -further eval for placement, guardianship as pt dosen't have decisional capacity , defer to SW/Psychiatric team. #UTI, POA, UCX+E.Fecalis, sensitive to PCN MIC5 -s/p Rocephin 2g iv qd, switched to Unasyn, switched to Amoxacillin per ID for 14days course thru 11/14/16 -if pt becomes febrile, will get renal US given gender, complicated UTI. chronic, stable #Prior stroke with residual expressive aphasia and right-sided weakness, present on admission, chronic - appreciate s/s eval, PT eval and tx. 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 #Restless legs, # afib, Continued warfarin, dosed by pharmacy. Patient refusing INR check and difficult to dose warfarin. Patient is not an ideal candidate for warfarin.will ask SW to see if he can be preauthorised for NOACs #Coronary artery disease, chronic, continued aspirin, metoprolol, atorvastatin dispo: intermediate placement vs inpatient psych unit, appreciate SW/CM/ psychiatric input, patient seems medical optimized, Patient may be discharged on amoxicillin thru 11/14 from medical standpoint Thank you for the opportunity to evaluate patient, medicine service will continue to follow [employer]: Intermittant Pneumatic CD Kaushik Mariano MD Nov 06, 2016 17:05
--- NOTE | 2016-11-06 17:12 | NUR ---
Social Work: Continued Discharge Planning Patient Service Representative spoke with patient's to get SNF choices. Patient's chose [facility] (1st choice), [facility] (2nd choice), and [facility] (3rd choice). SW gave all facilities access. SW will continue to follow patient and assist patient with discharge planning needs. Lenore Estrada, JACOB, ACM
--- NOTE | 2016-11-06 18:00 | NUR ---
Seroquel pt's would like to make sure pt has Seroquel for when he is discharged. She would like him to be on his medications for a few months before he comes home.
[2016-11-06] MEDS: lamoTRIgine 100 mg Tablet PO SCH (20:13)
[2016-11-06 20:20] VITALS: BP 114/76; PULSE 82; RESP 18; O2SAT 97
[2016-11-07 05:46] VITALS: BP 112/61; PULSE 65; RESP 18; O2SAT 98
[2016-11-07] MEDS: MeTOProlol XL 25 mg ER24 Tablet PO SCH ×2 (08:11→22:37)
[2016-11-07] MEDS: buPROPion XL 300 mg ER24 Tablet PO SCH (08:16)
--- NOTE | 2016-11-07 12:01 | PCM.CONPHA ---
Subjective Date of Service: Nov 07, 2016 Warfarin dosing Reason for Pharmacy Consult: Anticoagulation Management Objective Vital Signs Date Time Temp Pulse Resp B/P Pulse Ox O2 Delivery O2 Flow Rate FiO2 11/07/16 05:46 36.8 65 18 112/61 98 Room Air 11/06/16 20:20 36.5 82 18 114/76 97 Room Air 11/06/16 13:15 36.8 80 18 108/73 98 Intake and Output 11/05/16 11/06/16 11/07/16 00:00 00:00 00:00 Intake Total 774 ml 1000 ml 1000 ml Output Total 1050 ml 650 ml 900 ml Balance -276 ml 350 ml 100 ml Weight (Kilograms): 112.000 Height (Feet): 5 Height (Inches): 8.00 Test 10/28/16 08:15 10/28/16 08:40 10/29/16 08:40 11/01/16 06:55 Thyroid Stimulating Hormone (TSH) 0.961uIU/mL (0.450-4.500) Hold Schultz Top Tube Received (Received) Alcohols < 10mg/dL (0-10) Urine Color Straw (YELLOW) Urine Appearance Hazy (CLEAR,HAZY) Urine pH 6.0 (5.0-8.0) Urine Specific [place] 1.030 (1.003-1.035) Urine Protein Negativemg/dL (NEG,TRACE) Urine Glucose (UA) Negativemg/dL (NEGATIVE) Urine Ketones Negativemg/dL (NEGATIVE) Urine Occult Blood Negative (NEGATIVE) Urine Nitrite Negative (NEGATIVE) Urine Bilirubin Negative (NEGATIVE) Urine Urobilinogen Normalmg/dL (NORMAL) Urine Leukocyte Esterase Small (NEGATIVE) Urine RBC 0-2/hpf (0-2) Urine WBC 11-50/hpf (0-5) Urine Epithelial Cells Occasional/hpf (NONE-MOD) Urine Crystals None seen (NONE SEEN) Urine Bacteria Many/hpf (NONE-FEW) Urine Hyaline Casts None/lpf (NONE) Urine Granular Casts None seen (NONE SEEN) Urine Waxy Casts None seen (NONE SEEN) Urine Red Blood Cell Casts None seen (NONE SEEN) Urine White Blood Cell Casts None seen (NONE SEEN) Urine Mucus Present (None Seen) Urine Trichomonas None seen (NONE SEEN) Urine Yeast None (NONE SEEN) Urinalysis Comment None Urine Culture Reflexed Indicated Urine Opiates Screen Negative Urine Methadone Screen Negative Urine Barbiturates Screen Negative Urine Amphetamines Screen Negative Urine Benzodiazepines Screen Negative Urine Cocaine Metabolite Screen Negative Urine Cannabinoids Screen Positive Procalcitonin 0.06ng/mL (0.00-0.08) Test 11/03/16 05:35 11/04/16 06:55 White Blood Count 6.5th/mm3 (3.8-10.1) Red Blood Count 3.22mil/mm3 (4.40-5.80) Hemoglobin 10.3g/dL (13.8-17.2) Hematocrit 32.3% (41.0-50.0) Mean Corpuscular Volume 100.3fL (81-100) Mean Corpuscular Hemoglobin 32.0pg (27.0-35.0) Mean Corpuscular Hemoglobin Concent 31.9% (32.0-37.0) Red Cell Distribution Width 15.0% (12.3-15.4) Platelet Count 162bil/L (150-400) Neutrophils (%) (Auto) 53.5% (40-74) Lymphocytes (%) (Auto) 32.0% (14-46) Monocytes (%) (Auto) 8.5% (4-12) Eosinophils (%) (Auto) 4.9% (0-5) Basophils (%) (Auto) 0.8% (0-3) Sodium Level 143mEq/L (134-144) Potassium Level 4.0mEq/L (3.5-5.2) Chloride Level 107mEq/L (97-108) Carbon Dioxide Level 24mmol/L (18-29) Blood Urea Nitrogen 14mg/dL (6-24) Creatinine 1.00mg/dL (0.76-1.27) Estimat Glomerular Filtration Rate 82mL/min (>59) Glucose Level 78mg/dL (60-99) Calcium Level 9.4mg/dL (8.5-10.1) Phosphorus Level 3.7mg/dL (2.5-4.9) Magnesium Level 2.1mg/dL (1.6-2.6) Total Bilirubin 0.5mg/dL (0.0-1.2) Aspartate Amino Transf (AST/SGOT) 25U/L (0-50) Alanine Aminotransferase (ALT/SGPT) 20U/L (0-44) Alkaline Phosphatase 88U/L (25-150) Total Protein 5.9g/dL (6.4-8.4) Albumin 3.3g/dL (3.4-5.0) Prothrombin Time 17.8sec (8.1-12.5) Prothromb Time International Ratio 1.65ratio Assessment/Plan Assessment/Plan Assessment: * Patient is needing warfarin management for atrial fibrillation. * Patient received the home dose of warfarin 7 mg on 11/06/16. Patient has been combative and has not allowed the INR to be drawn. * Patient's INR goal range: 2-3 * Patient's INR was not drawn again due to the patient being combative. Plan: * As we cannot get an INR for this patient, the patient will be continued on the home dose of warfarin 7 mg. * mentioned in note that the patient may be switched to a DOAC in the near future. * Will continue to follow. Sim Fisher Nov 07, 2016 12:01
[2016-11-07 13:27] VITALS: BP 95/57; PULSE 75; RESP 18; O2SAT 99
--- NOTE | 2016-11-07 13:52 | PCM.PNMED ---
Subjective Date of Service Nov 07, 2016 Subjective Patient continues to refuse INR check and blood work. Fingerstick INR check yesterday 2.5. Gave warfarin last night. Awaiting placement Exam Vital Signs Vital Sign - Last Date Time Temp Pulse Resp B/P Pulse Ox O2 Delivery O2 Flow Rate FiO2 11/07/16 13:27 36.9 75 18 95/57 99 Room Air Intake and Output 11/06/16 11/06/16 11/07/16 Cumulative From/Thru 15:00 23:00 07:00 10/28/16 17:04 - 11/07/16 06:29 Intake Total 800 ml 0 ml 8150 ml Output Total 700 ml 0 ml 7375 ml Balance 100 ml 0 ml 775 ml Intake Oral 800 ml 0 ml 7255 ml IV Total 895 ml Output Urine Total 700 ml 0 ml 7375 ml # Voids 3 # Bowel Movements 0 6 Exam NAD, comfortably laying down on the bed making incoherent sounds, expressive aphasia and slurring of speech at baseline. [place]. Motor 4/5 on RLE,3/5 RUE, 5/5 on left side no JVD, MMM, no LAD RRR, nl s1, s2 no mrg CTAB, no w,c S,ND,NT,normoactive BS+ warm, no edema, pulses 2/2 IVs and Medications Medications Reviewed: Medications were reviewed in detail Lab and Diagnostics Result Diagram: 11/03/16 0535 11/03/16 0535 Assessment & Plan 56-year-old male with past medical history of stroke, atrial fibrillation on warfarin, type II diabetes mellitus, anxiety, and coronary artery disease presented to the emergency department with behavioral changes and fall from wheelchair. acute, active 1. 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 labs on admission didn't show any metabolic/toxic etiologies so far. this time, patient UA is positive for pyuria, bacteriuria, prelim UCX positive for gram neg, which contributed to his behavioral change. Mental status improved to baseline with treatment of UTI. -Continue with lamotrigine titration, Wellbutrin XL 300mg daily, added quetiapine 25mg twice daily per psychiatric team. -further eval for placement, guardianship as pt dosen't have decisional capacity , defer to SW/Psychiatric team. #UTI, POA, UCX+E.Fecalis, sensitive to PCN MIC5 -s/p Rocephin 2g iv qd, switched to Unasyn, switched to Amoxacillin per ID for 14days course thru 11/14/16 -if pt becomes febrile, will get renal US given gender, complicated UTI. # Patient reportedly had acute encephalopathy related to UTI initially which improved with treatment of UTI. Patient currently at his baseline mental status # afib, Continued warfarin, dosed by pharmacy. Patient refusing INR check and difficult to dose warfarin. Patient is not an ideal candidate for warfarin.will ask SW to see if he can be preauthorised for NOACs. Gave prescription for Xarelto to SW to run by insurance #Prior stroke with residual expressive aphasia and right-sided weakness, present on admission, chronic - appreciate s/s eval, PT eval and tx. 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 #Restless legs, #Coronary artery disease, chronic, continued aspirin, metoprolol, atorvastatin dispo: watermaster placement vs inpatient psych unit vs SNF, appreciate SW/CM/ psychiatric input, patient seems medical optimized, Patient may be discharged on amoxicillin thru 11/14 from medical standpoint Thank you for the opportunity to evaluate patient, medicine service will continue to follow [employer]: Intermittant Pneumatic CD Kaushik Mariano MD Nov 07, 2016 13:52
--- NOTE | 2016-11-07 14:13 | NUR ---
NUTRITION ASSESSMENT: ASSESS: 56 YO male admitted for acute behavioral disturbances. Pt with variable po intake of 15-100% of meals since admit. PMHx: Morbid obesity s/p gastric sleeve in Feb 2016, depression, CAD, [place], Stroke, Liliya's gangrene R groin, Kidney Stones, A-fib, anxiety, probable underlying mood disorder. LABS: Reviewed. Alb 3.3. MEDS: Reviewed. GI: BM x 1 (11/05) CURRENT WT: 112.0 kg (10/28/16). IBW: 70 kg. Pt has intentionally lost 38 kg since March 2016 from gastric sleeve procedure. DIET: Soft. Variable PO intake of 15-100% with PO avg of 40% x 10 days. EST. NEEDS (BMI): 2170-6103 kcals (20-22 kcals/kg BW), 85-105 g protein (1.2-1.5 g/kg IBW) NUTRITION DIAGNOSIS: 1.) Inadequate oral intake related to altered GI function (gastric sleeve) as evidenced by avg. po intake of 40% per meal x 7 days. NUTRITION INTERVENTION: 1.) Will add Gelatein Plus at 10am & 8pm and Mighty shake at 2pm between meals to encourage adequate po intake. 2.) Recommend getting new wt on pt. MONITOR / EVAL: PO intake, labs, weights, nutritional status. Follow per moderate nutritional risk guidelines.
--- NOTE | 2016-11-07 14:46 | NUR ---
faxed clinicals to [facility]
--- NOTE | 2016-11-07 15:36 | PCM.PNPSY ---
Subjective Date of Service Nov 07, 2016 Subjective I spent 30 minutes both reviewing his treatment plan and providing supportive and educational psychotherapy. I spent more than 50% of the time attempting to residence counselor the patient. Daryn reports a positive mood. He again circled the word happy. He was able to write his name and write the date. He was smiling and joking and gesturing in an animated manner. The Staff reports that he has been active and is participating well in his care and is easily redirected. They note no abnormal behaviors or behavioral problems over the past 72 hours. Staff reports that he sleeping well but has not been enjoying the food and is restricting his intake. He denies medication side effects. He denied suicidal ideation plan or intent. He denied difficult with impulse control or thought organization Current Medications Current Medications Warfarin Sodium 7 mg DAILY@17 ONCE PO Last administered on 11/05/16 16:27; Admin Dose 7 MG; Start 11/05/16 at 17:00; Stop 11/05/16 at 17:01; Status DC Warfarin Sodium/ Warfarin Sodium 7 mg OT ONCE PO Last administered on 17:08; Admin Dose 7 MG; Start 11/06/16 at 17:00; Stop 11/06/16 at 17:01; Status DC Mental Status Exam Vital Signs Vital Signs Date Time Temp Pulse Resp B/P Pulse Ox O2 Delivery O2 Flow Rate FiO2 11/07/16 13:27 36.9 75 18 95/57 99 Room Air Appearance: Unkept Attitude: Pleasant, Cooperative, Other (Expressive aphasia) Behavior: No unusual behavior Affect: Well Modulated/Appropriate Mood: Euthymic Thought Process/Associations: Other Speech Production: Other (client repetitively speaks hands hands hands for nearly all responses) Speech Rate: Normal Speech Articulation: Other (dysarthria) Thought Content: Appropriate Danger to Self/Suicidal Ideati: None Danger to Others: None Consciousness: Alert Orientation: Person, Place, Situation (Appears oriented) Memory: Untestable Estimate Intellectual Function: Unable to assess Attention/Concentration & Cogn: Grossly Intact Insight: Limited Judgement: Limited Result Diagram: 11/03/16 0535 11/03/16534 Mental Health Plan Problems: (1) Behavioral change Status: Acute ICD Code: R46.89 Daryn is a 56-year-old male with a history of depression, mood disorder (bipolar II vs. cyclothymia) and stroke with expressive aphasia, who presented 10/28 with worsening mental state following his return to home and loss of SADE caregiver. He had been having aggressive and impulsive acting out at home. He was detained on a 72 hour involuntary treatment hold, and this was extended. He is currently on a 14 day MR. At present he is sleeping well. Staff Reported no difficulty with emotional lability, impulse control, or agitation for the past 72 hours. Daryn denies any medication side effects and is happy with his current meds. He is looking forward to getting out of the hospital and understands that he will need to go to a retirement home facility from the hospital for longer term rehabilitation. Patient appears to be making gradual progress in terms of expression using techniques such as closing his eyes and Emotionally charged memory such as his favorite songs. He may benefit from training with his computer program. Client's mood seems very positive and has had no behavioral outbursts [place] AXIS I: 1. 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 2. 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 AXIS II: Deferred. AXIS III: See past medical history. AXIS IV: Severe. AXIS V: Global Assessment of Functioning 45. Treatments 1. The patient is admitted to the medical unit due to his multiple medical needs and difficulty benefiting from the [facility] and will be provided a safe and secure environment. 2. The patient is denying current active suicidality 3. The patient will be seen by the treatment team on a daily basis to assess symptoms, side effects and response to treatment. 4. lamotrigine 100mg nightly. 5. Continue Wellbutrin XL 300mg daily. 6. Continue quetiapine 25mg twice daily for agitation/bipolar. 7. Consider adding temazepam at bedtime if quetiapine not effective in improving sleep. 8 SW to discuss transfer options with family/patient. 9. Family has started process for guardianship. 10. Appreciate medical service support given multiple medical issues. No new Recommendations at this time. Son Felix MD Nov 07, 2016 15:36
--- NOTE | 2016-11-07 17:03 | NUR ---
Social Work: continued discharge Planning SW received a call from Trudy with [facility] stating that there [facility]- location was unable to accept the patient, but that the [facility] would be-able to accept the patient. SW attempted to call patient's , but there was no answer. SW will continue to follow and assist patient throughout stay and continue to try and contact patient's spouse. Lenore Estrada, JACOB, ACLeidy
[2016-11-07 20:59] VITALS: BP 95/60; PULSE 82; RESP 18; O2SAT 98
[2016-11-07] MEDS: lamoTRIgine 100 mg Tablet PO SCH (22:38)
[2016-11-08 04:59] VITALS: BP 92/54; PULSE 65; RESP 16; O2SAT 100
[2016-11-08] MEDS: MeTOProlol XL 25 mg ER24 Tablet PO SCH (09:47)
[2016-11-08] MEDS: buPROPion XL 300 mg ER24 Tablet PO SCH (09:47)
--- NOTE | 2016-11-08 11:45 | PCM.DIMED ---
Discharge Instructions Date of Service Nov 08, 2016 Dates of Hospitalization Oct 28, 2016 at 15:41 Discharge Diagnosis Discharge Diagnosis AXIS I: 1. 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 2. 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 AXIS II: Deferred. AXIS III: See past medical history. AXIS IV: Severe. AXIS V: Global Assessment of Functioning 45. Medication Instructions I Strongly encouraged patient to follow up with outpatient care: 1-Recommended patient takes medication as prescribed and not alter this unless under the direct care of a provider. 2-Recommend client refrain from recreational drugs and alcohol while taking psychiatric medications. 3-Recommend patient attempt to find a therapist or group to deal with impulse control and interpersonal relationship conflicts Diet Heart Healthy Activity Limited until seen by PCP, Home Health Phyical Therapy Call your provider Fever or Chills, Shortness of breath, Excessive diarrhea Patient Instructions Follow-up plan Client to be transferred to [facility] in [place]. Follow-up with PCP in: 2 weeks Son Felix MD Nov 08, 2016 11:45
[2016-11-08] MEDS ORDERED: MELA5TAB14 PO (11:49)
[2016-11-08] MEDS ORDERED: LAMO100T PO (11:49)
[2016-11-08] MEDS ORDERED: CHOL100043 PO (11:49)
[2016-11-08] MEDS ORDERED: QUET25TA73 PO (11:49)
[2016-11-08] MEDS ORDERED: Therapeutic Multivit/Minerals PO (11:49)
[2016-11-08] MEDS ORDERED: BUPR300T51 PO (11:49)
[2016-11-08] MEDS ORDERED: DOCU-41 PO (11:49)
[2016-11-08] MEDS ORDERED: FAMO20T PO (11:49)
[2016-11-08] MEDS ORDERED: AMOX500C2 PO (12:12)
--- NOTE | 2016-11-08 12:16 | DIS ---
[address] [address] DISCHARGE SUMMARY PATIENT: ANGEL MARTINI : 1960 MR#: [id number] ADMIT: 10/28/2016 JOB ID: [id number] DIS: 11/08/2016 IDENTIFICATION: The patient is a 56-year-old male with a history of depression and a stroke with expressive aphasia. REASON FOR ADMISSION: Client admitted to the medical floor due to worsening mental state following his recent return from a [facility] home. SUMMARY OF PRESENT ILLNESS: The patient is a 56-year-old white male with history of depression and recent stroke with expressive aphasia. He presented with worsening mental state following return to his home and a loss of SADE caregiver. This stress produced incredible frustration and violent bizarre acting out by the patient towards his family. The patient had worsening agitation, decreased ability to care for himself, increase aggression towards others and was detained by a [facility] designated mental health professional to the medical floor. HOSPITAL COURSE: Client was followed by Dr. Paddy Stout for the first week of his admission here. Dr. Stout modified his medications to include lamotrigine, Wellbutrin, Seroquel and Restoril. He met with him on a daily basis as the medical team addressed issues related to anticoagulation and client was involved daily with OT and PT. The client had a fairly rapid return to a normal mood and when I picked up the case on this last Thursday, he was laughing and jovial. He has been animated and able to communicate through his computer and writing with his left hand all week long. He has consistently denied symptoms of depression, suicidal ideation and has had returned to normal sleep and appetite. This morning Social Work called and stated that they had a bed at [facility] in [place]. I am recommending his hold be dropped today and transferred on current medications. MENTAL STATUS: Client neatly dressed. Good eye contact. Behavior calm. Attitude animated, cooperative and pleasant. Speech markedly impaired only being able to repeat the word "hand, hand, hand." Mood euthymic. Affect congruent. Normal intensity. Thought process: Client struggles to relate a coherent history partially due to expressive aphasia and partially due to memory loss. He did not appear to be responding to internal stimuli. Thought content: Themes of wanting to go home. He denied auditory hallucinations or suicidal ideations. Insight and judgment are appropriate. Impulse control: Client's containing aggressive acting out in his being able to work well with staff. Reality testing intact. Competence to handle current stressors appears to be at baseline. DISCHARGE DIAGNOSES: AXIS I: 1. Mood disorder, unspecified. 2. 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 3. Alcohol use disorder, partial remission with recent relapse. AXIS II: Deferred. AXIS III: See Past Medical History. AXIS IV: Severe. AXIS V: Current Global Assessment of Functioning equal to 40. DISCHARGE PLAN: Client to be transferred to [facility]. DISCHARGE MEDICATIONS: 1. Wellbutrin 300 daily. 2. Lamictal 100 h.s. 3. Melatonin 5 h.s. 4. Metoprolol 12.5 b.i.d. 5. Seroquel 25 b.i.d. Client from general medicine is on: 1. Amoxicillin 500 t.i.d. through November 14, 2016. 2. Aspirin 1 daily. 3. Lipitor 40 h.s. 4. Colace 100 daily. 5. Warfarin dosing per Pharmacy and General Medicine. ACTIVITY AND DIET: Client requires assistance with transfers. Recommend he refrain from changing psychiatric medications unless under the supervision of a physician. Recommend he not drink alcohol or use recreational drugs while taking his medications. Client would benefit from Occupational Therapy related to signing and communicating with expressive aphasia. CONDITION ON DISCHARGE: Good. PROGNOSIS: Guarded.
--- NOTE | 2016-11-08 12:21 | PCM.DIMED ---
Discharge Instructions Date of Service Nov 08, 2016 Dates of Hospitalization Oct 28, 2016 at 15:41 Discharge Diagnosis Discharge Diagnosis #. 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 # afib, on warfarin, #Prior stroke with residual expressive aphasia and right-sided weakness, present on admission, chronic # Normocytic, normochromic Anemia, present on admission, #Restless legs, #Coronary artery disease, chronic, Medication Instructions Please continue amoxicillin for 5 more days for UTI. Diet Heart Healthy Activity Limited until seen by PCP, Home Health Phyical Therapy Call your provider Fever or Chills, Shortness of breath, Bleeding, Chest pain, Vomitting, Excessive diarrhea, Weakness (unilateral) Patient Instructions You were hospitalized due to worsening of behavioral disturbance. This was partly due to UTI and improved with treatment of UTI. Psychiatry team adjusted your medications which seems to help control behavior. You are currently on warfarin for atrial fibrillation. Please follow-up with PCP and may consider switching to one of the newer blood thinners for convenience. ( Patient has been refusing INR checks which makes it difficult to adjust dose of warfarin) . Please continue physical therapy at [facility] facility. Follow-up plan Please follow-up with PCP one week after discharge from [facility] facility Follow-up Provider: Vicky Martin MD Follow-up with PCP in: 1 week Kaushik Mariano MD Nov 08, 2016 12:20
--- NOTE | 2016-11-08 12:24 | PCM.PNMED ---
Subjective Date of Service Nov 08, 2016 Subjective No new events. Patient to be discharged to [facility] today Exam Vital Signs Vital Sign - Last Date Time Temp Pulse Resp B/P Pulse Ox O2 Delivery O2 Flow Rate FiO2 11/08/16 04:59 36.6 65 16 92/54 100 Room Air Intake and Output 11/07/16 11/07/16 11/08/16 Cumulative From/Thru 15:00 23:00 07:00 10/28/16 17:04 - 11/08/16 06:09 Intake Total 1200 ml 0 ml 9350 ml Output Total 575 ml 0 ml 7950 ml Balance 625 ml 0 ml 1400 ml Intake Oral 1200 ml 0 ml 8455 ml IV Total 895 ml Output Urine Total 575 ml 0 ml 7950 ml # Voids 3 # Bowel Movements 0 0 6 Exam NAD, comfortably laying down on the bed making incoherent sounds, expressive aphasia and slurring of speech at baseline. Mumbles. keeps on saying 'hands' and 'oh boy 'the only 2 phrases patient space says. Motor 4/5 on RLE,3/5 RUE, 5/5 on left side no JVD, MMM, no LAD RRR, nl s1, s2 no mrg CTAB, no w,c S,ND,NT,normoactive BS+ warm, no edema, pulses 2/2 IVs and Medications Medications Reviewed: Medications were reviewed in detail Lab and Diagnostics Result Diagram: 11/03/16 0535 11/03/16 0535 Assessment & Plan 56-year-old male with past medical history of stroke, atrial fibrillation on warfarin, type II diabetes mellitus, anxiety, and coronary artery disease presented to the emergency department with behavioral changes and fall from wheelchair. acute, active # . 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 labs on admission didn't show any metabolic/toxic etiologies so far. this time, patient UA is positive for pyuria, bacteriuria, UCX positive for e.fecalis, which contributed to his behavioral change. Mental status improved to baseline with treatment of UTI. -Continue with lamotrigine , Wellbutrin XL, quetiapine per psychiatric team. #Prior stroke with residual expressive aphasia and right-sided weakness in setting of Afib , present on admission, chronic - Discharged to [facility]. Continue physical therapy at residential facility. Patient on anticoagulation and high risk for fall. Patient also at risk of getting another stroke. -Speech therapy recommends continued outpatient speech therapy upon discharge # afib, Continued warfarin, . Patient refusing INR check and difficult to dose warfarin. Patient is not an ideal candidate for warfarin.strongly advise to consider NOACs if approved by insurance. #UTI, POA, UCX+E.Fecalis, sensitive to PCN MIC5 -s/p Rocephin 2g iv qd, switched to Unasyn, switched to Amoxacillin per ID for 14days course thru 11/14/16 # Patient reportedly had acute encephalopathy related to UTI initially which improved with treatment of UTI. Patient currently at his baseline mental status # Normocytic, normochromic Anemia, present on admission, subacute, Records review reveals some degree of anemia since 2009, patient with vertical sleeve gastrectomy in February 2016.likely anemia of chronic dz, h/h stable. #Restless legs, #Coronary artery disease, chronic, continued aspirin, metoprolol, atorvastatin dispo: endodontics dentist placement vs inpatient psych unit vs SNF, appreciate SW/CM/ psychiatric input, patient seems medical optimized, Patient discharged on amoxicillin thru 11/14 from medical standpoint Thank you for the opportunity to evaluate patient, medicine will sign off VTE Mechanical Devices: Venous Foot Pump Kaushik Mariano MD Nov 08, 2016 12:24 Kaushik Mariano MD Nov 08, 2016 12:24
[2016-11-08] MEDS ORDERED: RIVA20TA PO (12:51)
--- NOTE | 2016-11-08 13:11 | NUR ---
[facility] signed
--- NOTE | 2016-11-08 13:11 | NUR ---
Social Work: Discharge SW spoke with patent's and notified her that patient was accepted into [facility] and that the physician placed discharge orders on the chart. Patient's voiced understanding and was in agreement with patient discharging to [facility]. SW spoke with Rocio at [facility] and she scheduled cabulance to pick the patient up at three. patient's nurse and attending physician are aware and in agreement. SW will continue to follow and assist patient. Lenore Estrada, JACOB, ACM
[2016-11-08 13:43] VITALS: BP 112/72; PULSE 83; RESP 18; O2SAT 97
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
== END 2016-11-08 15:31 | DRG 689 ==
LOC: EDBD 07:44 → SED 07:44 → MPC 15:41
PROVIDERS: ADMIT Psychiatry & Neurology Psychiatry; ATTEND Psychiatry & Neurology Psychiatry
DX: N39.0 Urinary tract infection, site not specified (principal); G93.41 Metabolic encephalopathy; F23 Brief psychotic disorder; F31.64 Bipolar disorder, current episode mixed, severe, with psychotic features; I69.351 Hemiplegia and hemiparesis following cerebral infarction affecting right dominant side; F06.8 Other specified mental disorders due to known physiological condition; F34.0 Cyclothymic disorder; Z79.01 Long term (current) use of anticoagulants; Z79.82 Long term (current) use of aspirin; I25.2 Old myocardial infarction; I69.320 Aphasia following cerebral infarction; I48.91 Unspecified atrial fibrillation; B95.2 Enterococcus as the cause of diseases classified elsewhere; Z16.11 Resistance to penicillins; F91.9 Conduct disorder, unspecified; D64.9 Anemia, unspecified; Z91.19 Patient's noncompliance with other medical treatment and regimen

== ENCOUNTER 2016-11-09 12:50 | Inpatient (IN) | payer MEDICARE, MEDICAID ==
[~2016-11-09] VITALS: Ht 172.7 cm; Wt 108.7 kg
[~2016-11-09 12:50] MED LIST changes: +AMOX500C2 PO; -BISA10SU61 RC; +CHOL100043 PO; -CHOL200047 PO; +LAMO100T PO; -LAMO25TA2 PO; -LORA-303 PO; -MAGN400O4 PO; -MULT1CAP33 PO; -NITR100 PO; +QUET25TA73 PO; +RIVA20TA PO; -SENN-133 PO; +Therapeutic Multivit/Minerals PO; -WARF5TAB7 PO; -WARF7.5T4 PO
[2016-11-09 12:55] VITALS: BP 114/72; PULSE 80; RESP 16; O2SAT 98
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
[2016-11-09] MEDS ORDERED: Haloperidol 5 mg/mL Inj IM ONE (16:15)
[2016-11-09 17:58] LABS: BASOPHILS % (AUTO) 0.6 % (0-3); EOSINOPHILS % (AUTO) 1.6 % (0-5); MONOCYTES % (AUTO) 9.4 % (4-12); Mean Corpuscular Hemoglobin 31.7 pg (27.0-35.0); Mean Corpuscular Volume 96.1 fL (81-100); NEUTROPHILS % (AUTO) 64.6 % (40-74); Platelet Count 176 bil/L (150-400)
[2016-11-09 18:16] LABS: INR 2.36 ratio
[2016-11-09 19:04] LABS: APPEARANCE,URINE HAZY (CLEAR,HAZY); COLOR,URINE DARK YELLOW (YELLOW); OCCULT BLOOD,URINE NEGATIVE (NEGATIVE); UROBILINOGEN,URINE NORMAL (NORMAL)
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
[2016-11-09] MEDS ORDERED: Ondansetron 2 mg/mL 2 mL Inj IVPUSH PRN (22:45)
[2016-11-09] MEDS ORDERED: Alum-Mag Hydrox-Simeth 30 mL Suspension PO PRN (22:45)
[2016-11-09 22:52] VITALS: BP 107/43; PULSE 84; RESP 18; O2SAT 99
[2016-11-09 23:11] VITALS: BP 106/67; PULSE 80; RESP 20; O2SAT 95
[2016-11-10] MEDS: buPROPion XL 300 mg ER24 Tablet PO SCH ×2 (00:36→10:32)
[2016-11-10] MEDS: Nystatin 100,000 Unit/Gm 15 Gm Powder TOPICAL SCH ×3 (00:36→21:47)
[2016-11-10] MEDS: lamoTRIgine 100 mg Tablet PO SCH ×2 (00:36→21:42)
[2016-11-10 05:31] VITALS: BP 101/65; PULSE 61; RESP 20; O2SAT 95
[2016-11-10 05:53] VITALS: BP 101/72; PULSE 84; RESP 16; O2SAT 99
--- NOTE | 2016-11-10 06:03 | NUR ---
Admission Admitted pt from the ED. Denies chest pain, sob, n/v or abd discomfort. Has been pleasant and cooperative with care. Observed pt having expressive aphasia and can only pronounce a few words like "hands and oh boy". Hourly rounding in effect.
[2016-11-10 08:08] LABS: INR 2.13 ratio
[2016-11-10 13:34] VITALS: BP 98/72; PULSE 63; RESP 18; O2SAT 96
--- NOTE | 2016-11-10 13:43 | PCM.PNMED ---
Subjective Date of Service November 10, 2016 Subjective pt denied any complaints, looked drowsy this morning no report on aggressive behaviors overnight Exam Vital Signs Vital Sign - Last Date Time Temp Pulse Resp B/P Pulse Ox O2 Delivery O2 Flow Rate FiO2 11/10/16 13:34 36.6 63 18 98/72 96 Room Air Intake and Output 11/09/16 11/09/16 11/10/16 Cumulative From/Thru 15:00 23:00 07:00 11/09/16 13:58 - 11/10/16 06:58 Intake Total 246 ml 246 ml Output Total 500 ml 500 ml Balance -254 ml -254 ml Intake Oral 226 ml 226 ml IV Total 20 ml 20 ml Output Urine Total 500 ml 500 ml Bladder Scan Volume Amount 117 # Bowel Movements 0 0 Exam NAD, comfortably laying down on the bed making incoherent sounds, motor 4/5 on right side, grossly CN2-12 intact. no JVD, MMM, no LAD RRR, nl s1, s2 no mrg CTAB, no w,c S,ND,NT,normoactive BS+ warm, no edema, pulses 2/2 MSK: minor bruises on bilateral knees, Rt foot-old scab from prior wound IVs and Medications Medications Reviewed: Medications were reviewed in detail Lab and Diagnostics Result Diagram: 11/09/16174411/09/161744 Assessment & Plan 56-year-old male with past medical history of stroke, atrial fibrillation on warfarin, type II diabetes mellitus, anxiety, and coronary artery disease presented to the emergency department following discharge (11/08) due to combative behavior at SNF. Urinary retention, acute, POA -reported urinary retention at SNF -bladder scan, post void residual, contact MD if residual >300cc Behavior disturbance, acute, POA patient has been known to have behavior concerns due to major vascular neurocognitive disorder with history of bipolar disorder. recent UTI diagnosed and treated, currently managed. disruptive behavior following discharge with no obvious medical etiology. Likely personality changes with vascular dementia. -continue psych medications: lamotrigine, wellbutrin XL, quetiapine - consult for placement UTI, acute, POA -urine cx positive for e. fecalis -currently being treated with amoxicillin per ID for 14 day course through Prior stroke with residual expressive aphasia and right sided weakness in the setting of afib, POA, chronic -PT consult -pharmacy to dose warfarin, poor candidate for anticoagulation however high stroke risk, resume Xarelto but likely to stop if family opt out. Normocytic, normochromic Anemia, present on admission, subacute, Records review reveals some degree of anemia since 2009, patient with vertical sleeve gastrectomy in February 2016.likely anemia of chronic dz, h/h stable. Restless legs, Coronary artery disease, chronic, continued aspirin, metoprolol, atorvastatin dispo: unlikely back to [facility], nor home. needs SNF that can accept pt, appreciate SW/CM input VTE Prophylaxis: Other (therapeutic INR) Resuscitation Status: CPR: Attempt Resuscitation Time spent 35min Jose Orta MD November 10, 2016 13:39
--- NOTE | 2016-11-10 13:51 | NUR ---
Social Work: Initial Assessment Data: See initial Assessment. EMR reviewed. Pt is a 56 y/o male admitted for depression per H&P. Patient is not decisional. SW spoke with patient's Connie Mclaughlin to complete initial assessment, discuss discharge planning and SW role reviewed. Pt's PCP is Dr Martin, pt's insurance is Medicare with [facility] supp. Patient does not have a readmit score. patient does not have any LTC or VA benefits. Patient is a re-admit. prior to hospitalization patient was at [facility]. Patient uses a wheel chair at baseline. Patient does have history with [facility]. Patient's states that patient does have an Advance Directive/DPOA. SW requested a copy of patient's ADV/DPOA. Patient's is in agreement with the hospital SW working with Mary Dima Ch, [email or web address], from [facility] program to assist with finding housing for the patient. SW called Mary Ch and notified her that patient re-admitted into the hospital. SW will continue to follow and assist patient throughout stay. Plan: SW will continue to work with patient and patient for a discharge plan throughout patient's stay. Felicia Estrada LMSW, [place] Addendum: 11/10/16 at 1410 by FELICIA ESTRADA Amended: Links added.
[2016-11-10] MEDS ORDERED: MULT-140 PO (14:00)
--- NOTE | 2016-11-10 14:05 | NUR ---
Medication Reconciliation Attempted to review med lists from recent [facility] discharge instruction and [facility] MAR with pt. Unfortunately, pt. has communication deficit and hence was unable to get any reliable info from him. Med Rec completed based on info from recent discharge list as well as MAR list from [facility].
[2016-11-10] MEDS: Polyethylene Glycol (PEG) 17 Gm Powder PO SCH (16:00)
--- NOTE | 2016-11-10 16:14 | NUR ---
Constipation Spoke with pt about last BM. Has not had BM since this admission. Pt very difficult to understand d/t expressive aphasia, repeats "Hands" for most responses. Pt does understand and nods head. Pt responded with an affirmative nod to having a BM about 5 days ago. BSC placed near bedside, pt instructed to use call light for assistance - will require 2P assist for pt to transfer to BSC. Pt reports R leg does not work with limited use of R arm. paged for Bowel regimen medications, with new orders received.
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
[2016-11-10 21:42] VITALS: BP 102/64; PULSE 76; RESP 20; O2SAT 97
[2016-11-11 04:45] VITALS: BP 88/57; PULSE 68; RESP 18; O2SAT 98
[2016-11-11 06:31] VITALS: BP 100/71; PULSE 80
--- NOTE | 2016-11-11 06:33 | NUR ---
blood pressure patient's blood pressure at 0430 88/57 retaken now at 0630 100/71. hr 80 patient feeling well. expressing a variety of emotions. appropriate. slept well through the night. fall precautions in place. care continues.
[2016-11-11 06:41] LABS: INR 2.13 ratio
[2016-11-11] MEDS: Polyethylene Glycol (PEG) 17 Gm Powder PO SCH (08:30)
[2016-11-11] MEDS: buPROPion XL 300 mg ER24 Tablet PO SCH (10:28)
[2016-11-11] MEDS: Nystatin 100,000 Unit/Gm 15 Gm Powder TOPICAL SCH ×2 (10:28→20:34)
--- NOTE | 2016-11-11 11:23 | PCM.PNMED ---
Subjective Date of Service November 11, 2016 Subjective pt had large soft BM, very pleasant this morning no aggressive behaviors reported Exam Vital Signs Vital Sign - Last Date Time Temp Pulse Resp B/P Pulse Ox O2 Delivery O2 Flow Rate FiO2 11/11/16 06:31 80 100/71 Room Air 11/11/16 04:45 36.4 18 98 Intake and Output 11/10/16 11/10/16 11/11/16 Cumulative From/Thru 15:00 23:00 07:00 11/09/16 13:58 - 11/11/16 06:55 Intake Total 160 ml 318 ml 724 ml Output Total 350 ml 350 ml 1200 ml Balance -190 ml -32 ml -476 ml Intake Oral 160 ml 318 ml 704 ml IV Total 20 ml Output Urine Total 350 ml 350 ml 1200 ml # Bowel Movements 0 0 0 Exam NAD, comfortably laying down on the bed making incoherent sounds, motor 4/5 on right side, grossly CN2-12 intact. no JVD, MMM, no LAD RRR, nl s1, s2 no mrg CTAB, no w,c S,ND,NT,normoactive BS+ warm, no edema, pulses 2/2 MSK: minor bruises on bilateral knees, Rt foot-old scab from prior wound IVs and Medications Medications Reviewed: Medications were reviewed in detail Lab and Diagnostics Result Diagram: 11/09/16174411/09/161744 Assessment & Plan 56-year-old male with past medical history of stroke, atrial fibrillation on warfarin, type II diabetes mellitus, anxiety, and coronary artery disease presented to the emergency department following discharge (11/08) due to combative behavior at . Urinary retention, acute, POA -reported urinary retention at -bladder scan, post void residual, contact MD if residual >300cc Behavior disturbance, acute, POA patient has been known to have behavior concerns due to major vascular neurocognitive disorder with history of bipolar disorder. recent UTI diagnosed and treated, currently managed. disruptive behavior following discharge with no obvious medical etiology. Likely personality changes with vascular dementia. -continue psych medications: lamotrigine, wellbutrin XL, quetiapine - consult for placement ileus, POA, responding to current regimen, continue bowel regimen upon d/c UTI, acute, POA -urine cx positive for e. fecalis -currently being treated with amoxicillin per ID for 14 day course through Prior stroke with residual expressive aphasia and right sided weakness in the setting of afib, POA, chronic -PT consult -pharmacy to dose warfarin, poor candidate for anticoagulation however high stroke risk, resume Xarelto but likely to stop if family opt out. Normocytic, normochromic Anemia, present on admission, subacute, Records review reveals some degree of anemia since 2009, patient with vertical sleeve gastrectomy in February 2016.likely anemia of chronic dz, h/h stable. Restless legs, Coronary artery disease, chronic, continued aspirin, metoprolol, atorvastatin dispo: patient is medical stable for discharge, unlikely back to [facility], nor home. needs SNF that can accept pt, appreciate SW/CM input VTE Prophylaxis: Other (therapeutic INR) VTE Mechanical Devices: Intermittant Pneumatic CD Resuscitation Status: CPR: Attempt Resuscitation Time spent 35min Jose Orta MD November 11, 2016 11:23
[2016-11-11 13:17] VITALS: BP 90/58; PULSE 71; RESP 18; O2SAT 98
--- NOTE | 2016-11-11 13:44 | NUR ---
NUTRITION ASSESSMENT: ASSESS: 56 YO male admitted for depression. Pt was just recently discharged and during previous admission, pt with variable po intake of 15-100% of meals. Pt currently eating 25% of meals so far this admission. Placement pending. PMHx: Morbid obesity s/p gastric sleeve in Feb 2016, depression, CAD, IA, Stroke, Liliya's gangrene R groin, Kidney Stones, A-fib, anxiety, probable underlying mood disorder. LABS: Reviewed. Alb 3.6 MEDS: Reviewed. GI: No BM reported. CURRENT WT: 106.4 kg. IBW: 70 kg. Pt has intentionally lost 44 kg since March 2016 from gastric sleeve procedure. DIET: Dysphagia Mechanical. PO intake 25%. EST. NEEDS (BMI): 0168-7640 kcals (20-22 kcals/kg BW), 85-105 g protein (1.2-1.5 g/kg IBW) NUTRITION DIAGNOSIS: 1.) Inadequate oral intake related to altered GI function (gastric sleeve) as evidenced by po intake of 25% of meals. NUTRITION INTERVENTION: 1.) Will add Gelatein Plus at 10am & 8pm and Mighty shake at 2pm between meals to encourage adequate po intake. MONITOR / EVAL: PO intake, labs, weights, nutritional status. Follow per moderate nutritional risk guidelines.
--- NOTE | 2016-11-11 16:50 | NUR ---
SW - Continued Discharge Planning SW spoke to Mary Ch, from [facility] to update them. transcription specialist sent referrals to [facility] and we are awaiting responses. SW spoke to Cam, Plant Breeder Scientist with [facility] [phone] who is also working to engage with the client and find appropriate placement. He has not been able to meet with the pt yet but is working to coordinate with Connie. Agreed to update each other if pt is approved at any facility. SW will continue to follow. Assessment: Pt who would benefit from SNF and adult family home Plan: Placement at SNF or [facility]. transcription specialist sent referrals to [facility] [facility] and we are awaiting responses. Will continue to update [facility] and [facility]. SW will continue to follow for needs. REBECA Porras
--- NOTE | 2016-11-11 19:37 | NUR ---
Dayshift Pt had very large BM this AM. reports that pt tends to go about every 5 days as his baseline. Pt denies any discomfort/constipation. 1-2P assist to BSC, pt has residual R side weakness from prior CVA. Pt able to move extremities but lack fine motor skills. Able to bear partial weight on transfer. Pt cooperative during day. reports that on occasion pt becomes violent with her. Further clarified with PSYCH that pt sometimes feels that he is being overly controlled which makes him frustrated in addition to aphasia. also reports that pt was hiding some knives in the sofa at home. PSYCH MD notified, diet order updated to be 6 small meals a day with no silver munguia. Staff notified of possible risk, with no questionable behavior observed.
[2016-11-11 19:46] VITALS: BP 108/74; PULSE 71; RESP 18; O2SAT 96
[2016-11-11] MEDS: lamoTRIgine 100 mg Tablet PO SCH (20:34)
--- NOTE | 2016-11-11 21:00 | PCM.PNPSY ---
Subjective Date of Service November 11, 2016 Subjective Patient with some irritability with his during their visit but otherwise had an uneventful evening. He reported that he did not feel she was explaining things well to him which made him irritable. He reported that he is not receiving 6 small meals per day due to gastric bypass. He also indicated that the noise at night was disrupting his sleep and he would prefer if they could close the door. He also indicated that he would like physical therapy again to help with strengthening. Sleep: disrupted by noise Appetite: okay, decreased due to gastric bypass Suicidal and homicidal ideation: denies Auditory hallucinations/Visual hallucinations: denies Other Psychotic Symptoms: N/A Anxiety: 11/19 Depression: 11/19 Current Medications Current Medications Amoxicillin 500 mg ONCE ONCE PO Last administered on 11/10/16 00:35; Admin Dose 500 MG; Start 11/10/16 at 00:30; Stop 11/10/16 at 00:31; Status DC Amoxicillin 500 mg TID PO Last administered on 11/11/16 20:33; Admin Dose 500 MG ; Start 11/09/16 at 23:00 Aspirin 81 mg DAILY PO Last administered on 11/11/16 10:27; Admin Dose 81 MG; Start 11/10/16 at 08:30 Atorvastatin Calcium 40 mg HS PO Last administered on 11/11/16 20:33; Admin Dose 40 MG; Start 11/09/16 at 23:05 Atorvastatin Calcium 40 mg ONCE ONCE PO Last administered on 11/10/16 00:37; Admin Dose 40 MG; Start 11/10/16 at 00:35; Stop 11/10/16 at 00:36; Status DC Bupropion HCl 300 mg DAILY PO Last administered on 11/11/16 10:28; Admin Dose 300 MG; Start 11/10/16 at 08:30 Docusate Sodium 250 mg BID PO Last administered on 11/11/16 10:28; Admin Dose 250 MG; Start 11/10/16 at 16:00 Lamotrigine 100 mg HS PO Last administered on 11/11/16 20:34; Admin Dose 100 MG ; Start 11/09/16 at 23:00 Melatonin 5 mg HS PRN PO Last administered on 11/11/16 20:33; Admin Dose 5 MG; Start 11/09/16 at 23:00 Metoprolol Tartrate 12.5 mg BID PO Last administered on 11/11/16 20:34; Admin Dose 12.5 MG; Start 11/09/16 at 23:00 Metoprolol Tartrate 12.5 mg ONCE ONCE PO Last administered on 11/10/16 00:36; Admin Dose 12.5 MG; Start 11/10/16 at 00:35; Stop 11/10/16 at 00:36; Status DC Nystatin 1 applic BID TOPICAL Last administered on 11/11/16 20:34; Admin Dose 1 APPLIC; Start 11/09/16 at 23:25 Quetiapine Fumarate 25 mg BID PO Last administered on 11/11/16 10:28; Admin Dose 25 MG; Start 11/09/16 at 23:00; Stop 11/11/16 at 17:02; Status DC Quetiapine Fumarate 25 mg ONCE ONCE PO Last administered on 11/10/16 00:35; Admin Dose 25 MG; Start 11/10/16 at 00:35; Stop 11/10/16 at 00:36; Status DC Quetiapine Fumarate 50 mg HS PO Last administered on 11/11/16 20:33; Admin Dose 50 MG; Start 11/11/16 at 21:00 Rivaroxaban 20 mg DAILY@17 PO Last administered on 11/11/16 16:03; Admin Dose 20 MG; Start 11/10/16 at 17:00 Senna 17.2 mg HS PO Last administered on 11/10/16 21:48; Admin Dose 17.2 MG; Start 11/10/16 at 21:00 Mental Status Exam Vital Signs Vital Signs Date Time Temp Pulse Resp B/P Pulse Ox O2 Delivery O2 Flow Rate FiO2 11/11/16 19:46 36.9 71 18 108/74 96 Room Air 11/11/16 13:17 36.7 71 18 90/58 98 Room Air Appearance: Unkept Attitude: Pleasant, Cooperative Behavior: Other (Right sided paresis) Affect: Well Modulated/Appropriate (Difficult to fully assess due to aphasia) Mood: Euthymic Thought Process/Associations: Other (Difficult to assess due to aphasia but appears to be responding to questions) Speech Production: Other (repeated use of the word "hand" for all elements of speech with occasional "yes," and "oh boy") Speech Rate: Normal Speech Articulation: Other (dysarthria) Thought Content: Obsessions/compulsions Danger to Self/Suicidal Ideati: None Danger to Others: None Hallucinations: Auditory (Denies), Visual (Denies) Consciousness: Alert Orientation: Person Memory: Untestable Estimate Intellectual Function: Unable to assess Attention/Concentration & Cogn: Unable to assess Insight: Unable to assess Judgement: Unable to assess Result Diagram: 11/09/16 1745 11/09/16 174 Mental Health Plan The patient is a 56-year-old male with a history of depression, mood disorder ( bipolar II vs. cyclothymia) and stroke with expressive aphasia, who presents with unexplained agitation and non-adherence with hours of his transfer to [facility]. Given his fairly rapid return to baseline, it would seem that some environmental cue was involved in his rapid decline although it is not readily apparent what that may have been. The patient indicated today that he becomes frustrated when others do not explain what they are doing and do what they want. Discussed increasing pm quetiapine to help with irritability and patient agreeable. [place] AXIS I: 1. Mood disorder unspecified 2. 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 Major neurocognitive disorder, vascular type, due to stroke. AXIS II: Deferred. AXIS III: See past medical history. AXIS IV: Severe. AXIS V: Global Assessment of Functioning 30. Treatments 1. The patient has been REY'd but admitted to the medical unit due to his level of physical impairment and inability to significantly benefit from services offered at the [facility]. 2. Continue with lamotrigine titration. 3. Continue Wellbutrin XL 300mg daily. 4. Increase quetiapine to 25mg daily and 50mg nightly or agitation/bipolar. 5. Continue melatonin for sleep. 6. Patient will have 1:1 due to REY status, though is currently denying SI. Will need to decide on filing status by tomorrow. 7. Will need to further investigate what may have caused decompensation. 8. PT Consult 9. Dietary consult for 6 small meals per day. 10. Estimated length of stay 5-7 days. Paddy Stout MD November 11, 2016 21:00
[2016-11-12 05:32] VITALS: BP 90/57; PULSE 61; RESP 16; O2SAT 98
[2016-11-12 06:39] LABS: INR 1.54 ratio
[2016-11-12] MEDS: Polyethylene Glycol (PEG) 17 Gm Powder PO SCH (07:53)
[2016-11-12] MEDS: buPROPion XL 300 mg ER24 Tablet PO SCH (07:53)
[2016-11-12] MEDS: Nystatin 100,000 Unit/Gm 15 Gm Powder TOPICAL SCH ×2 (07:53→20:17)
--- NOTE | 2016-11-12 09:08 | PCM.PNMED ---
Subjective Date of Service November 12, 2016 Subjective pt remained pleasant, no complaints, eating well, denied abdominal pain, chest pain, SOB Exam Vital Signs Vital Sign - Last Date Time Temp Pulse Resp B/P Pulse Ox O2 Delivery O2 Flow Rate FiO2 11/12/16 05:32 36.6 61 16 90/57 98 Room Air Intake and Output 11/11/16 11/11/16 11/12/16 Cumulative From/Thru 15:00 23:00 07:00 11/09/16 13:58 - 11/12/16 06:17 Intake Total 336 ml 520 ml 1580 ml Output Total 200 ml 1400 ml Balance 336 ml 320 ml 180 ml Intake Oral 336 ml 520 ml 1560 ml IV Total 20 ml Output Urine Total 200 ml 1400 ml # Bowel Movements 1 1 2 Exam NAD, comfortably laying down on the bed making incoherent sounds, motor 4/5 on right side, grossly CN2-12 intact. no JVD, MMM, no LAD RRR, nl s1, s2 no mrg CTAB, no w,c S,ND,NT,normoactive BS+ warm, no edema, pulses 2/2 MSK: minor bruises on bilateral knees, Rt foot-old scab from prior wound IVs and Medications Medications Reviewed: Medications were reviewed in detail Lab and Diagnostics Result Diagram: 11/09/16174411/09/161744 Assessment & Plan 56-year-old male with past medical history of stroke, atrial fibrillation on warfarin, type II diabetes mellitus, anxiety, and coronary artery disease presented to the emergency department following discharge (11/08) due to combative behavior at SNF. Urinary retention, acute, POA -reported urinary retention at SNF -bladder scan, post void residual, contact MD if residual >300cc Behavior disturbance, acute, POA patient has been known to have behavior concerns due to major vascular neurocognitive disorder with history of bipolar disorder. recent UTI diagnosed and treated, currently managed. disruptive behavior following discharge with no obvious medical etiology. Likely personality changes with vascular dementia. -continue psych medications: lamotrigine, wellbutrin XL, quetiapine - consult for placement ileus, POA, responding to current regimen, continue bowel regimen upon d/c UTI, acute, POA -urine cx positive for e. fecalis -currently being treated with amoxicillin per ID for 14 day course through Prior stroke with residual expressive aphasia and right sided weakness in the setting of afib, POA, chronic -PT consult -pharmacy to dose warfarin, poor candidate for anticoagulation however high stroke risk, resume Xarelto but likely to stop if family opt out. Normocytic, normochromic Anemia, present on admission, subacute, Records review reveals some degree of anemia since 2009, patient with vertical sleeve gastrectomy in February 2016.likely anemia of chronic dz, h/h stable. Restless legs, Coronary artery disease, chronic, continued aspirin, metoprolol, atorvastatin dispo: patient is medical stable for discharge, unlikely back to [facility], nor home. needs SNF that can accept pt, appreciate SW/CM input VTE Prophylaxis: Other (therapeutic INR) VTE Mechanical Devices: Intermittant Pneumatic CD Resuscitation Status: CPR: Attempt Resuscitation Time spent 35min Jose Orta MD November 12, 2016 09:08
--- NOTE | 2016-11-12 10:32 | NUR ---
Pt not appropriate to sign KULDEEP. SW called Connie [phone] and left message. REBECA Porras
--- NOTE | 2016-11-12 10:44 | NUR ---
SW - Continued Discharge Planning SW called Mary With [facility] and left message requesting new daily rate for pt and new evaluation as SW will be exploring adult family home placement for him. SW will continue to follow. REBECA Porras
--- NOTE | 2016-11-12 12:04 | NUR ---
Evaluation completed. Please go to "Notes" then click on "Assessments and Notes" (bottom left corner of screen). Then select appropriate discipline tab on top of screen.
--- NOTE | 2016-11-12 12:11 | NUR ---
D5 0.45% NS Patient is diabetic and NPO as of this morning with NS running at 100mL/hour. Patient blood sugar was 73 this morning. made aware and NS was discontinued and started D5 0.45% NS running at 100. Blood sugar at noon was 122. Addendum: 11/12/16 at 1214 by RICHARD PRECIADO RN DISREGARD NOTE WRONG PATIENT
[2016-11-12 13:48] VITALS: BP 91/55; PULSE 60; RESP 16; O2SAT 96
--- NOTE | 2016-11-12 15:38 | NUR ---
Daily update Patient has been alert today. Patient takes medication whole with thin liquids with no difficulty swallowing medication noted. Patient has right sided weakness to hand and leg due to previous CVA. Patient continues to have aphasia and repeats the word "hands" when trying to explain himself to staff. Patient did walk with PT this morning with the walker. Patient uses urinal independently in bed with episodes of spilling at times. Patient continues to need setup for meals, but is able to feed himself. Patient communicates he has small appetite due to previous gastric bypass surgery. Patient has been on a Q2 hour turn schedule and is able to slightly reposition himself independently. Bed down and locked with call light with in reach of patient.
[2016-11-12 19:43] VITALS: BP 108/67; PULSE 72; RESP 18; O2SAT 97
[2016-11-12] MEDS: lamoTRIgine 100 mg Tablet PO SCH (20:16)
--- NOTE | 2016-11-12 23:12 | PCM.PNPSY ---
Subjective Date of Service November 12, 2016 Subjective Patient and patient's report that last night and this evening have been better than previous. Patient is engaged in watching a movie. He indicated that he enjoyed having PT to come to see him to help with ambulation. He reports no side effects. He indicated that he would be willing and was wanting to go to an alternate facility. Sleep: good Appetite: okay, decreased due to gastric bypass Suicidal and homicidal ideation: denies Auditory hallucinations/Visual hallucinations: denies Other Psychotic Symptoms: N/A Anxiety: 11/19 Depression: 11/19 Current Medications Current Medications Quetiapine Fumarate 25 mg DAILY PO Last administered on 11/12/16 07:53; Admin Dose 25 MG; Start 11/12/16 at 08:30 Quetiapine Fumarate 50 mg HS PO Last administered on 11/12/16 20:16; Admin Dose 50 MG; Start 11/11/16 at 21:00 Mental Status Exam Vital Signs Vital Signs Date Time Temp Pulse Resp B/P Pulse Ox O2 Delivery O2 Flow Rate FiO2 11/12/16 19:43 36.5 72 18 108/67 97 Room Air Appearance: Unkept Attitude: Pleasant, Cooperative Behavior: Other (Right sided paresis) Affect: Well Modulated/Appropriate (Difficult to fully assess due to aphasia) Mood: Euthymic Thought Process/Associations: Other (Difficult to assess due to aphasia but appears to be responding to questions) Speech Production: Other (repeated use of the word "hand" for all elements of speech with occasional "yes," and "oh boy") Speech Rate: Normal Speech Articulation: Other (dysarthria) Thought Content: Obsessions/compulsions Danger to Self/Suicidal Ideati: None Danger to Others: None Hallucinations: Auditory (Denies), Visual (Denies) Consciousness: Alert Orientation: Person Memory: Untestable Estimate Intellectual Function: Unable to assess Attention/Concentration & Cogn: Unable to assess Insight: Unable to assess Judgement: Unable to assess Result Diagram: 11/09/16174411/09/161744 Mental Health Plan The patient is a 56-year-old male with a history of depression, mood disorder ( bipolar II vs. cyclothymia) and stroke with expressive aphasia, who presents with unexplained agitation and non-adherence with hours of his transfer to [facility]. Given his fairly rapid return to baseline, it would seem that some environmental cue was involved in his rapid decline although it is not readily apparent what that may have been. The patient tolerated the increase in pm quetiapine and reports improved mood. Given his lack of psychiatric symptoms , other than his CVA there appears no indication to file for additional inpatient psychiatric time. [place] AXIS I: 1. Mood disorder unspecified 2. 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 Major neurocognitive disorder, vascular type, due to stroke. AXIS II: Deferred. AXIS III: See past medical history. AXIS IV: Severe. AXIS V: Global Assessment of Functioning 30. Treatments 1. The patient has been REY'd but admitted to the medical unit due to his level of physical impairment and inability to significantly benefit from services offered at the mental health center. 2. Continue with lamotrigine titration. 3. Continue Wellbutrin XL 300mg daily. 4. Increase quetiapine to 25mg daily and 50mg nightly for agitation/bipolar. 5. Continue melatonin for sleep. 6. Patient will have 1:1 due to REY status, but will not be filing for additional psychiatric time.. 7. SW working on placement in [facility]. 8. Estimated length of stay 5-7 days. Paddy Stout MD November 12, 2016 23:12
[2016-11-13 05:26] VITALS: BP 104/63; PULSE 69; RESP 18; O2SAT 99
--- NOTE | 2016-11-13 06:10 | NUR ---
NOC shift note Patient was in a wheelchair this evening, went out to front windows with family members. Patient slept through the night, denies pain, vital signs stable. Patient used paper/pen to assist with his communication and hand gestures too. Pleasant and cooperative. Bed alarm on for safety with no attempts to get out of bed, repositions independently. Intentional rounding in place.
--- NOTE | 2016-11-13 06:13 | NUR ---
Metoprolol held Patient's HS Metoprolol was not given, 12.5 mg BID ordered. Blood pressures during the day were 90/50's, heart rate 60-70's. Patient denied dizziness, palpitations, shortness of breath. AM BP was 104/63.
[2016-11-13 06:40] LABS: INR 1.3 ratio
[2016-11-13 06:41] LABS: EOSINOPHILS % (AUTO) 5.8 % (0-5); MONOCYTES % (AUTO) 10.3 % (4-12); Mean Corpuscular Hemoglobin 31.9 pg (27.0-35.0); NEUTROPHILS % (AUTO) 48.1 % (40-74); Platelet Count 152 bil/L (150-400)
[2016-11-13 06:50] LABS: Magnesium 1.8 mg/dL (1.6-2.6); Phosphorus 3.5 mg/dL (2.5-4.9)
[2016-11-13] MEDS: Polyethylene Glycol (PEG) 17 Gm Powder PO SCH (08:30)
[2016-11-13] MEDS: Nystatin 100,000 Unit/Gm 15 Gm Powder TOPICAL SCH ×2 (09:13→21:12)
[2016-11-13] MEDS: buPROPion XL 300 mg ER24 Tablet PO SCH (09:13)
--- NOTE | 2016-11-13 10:46 | PCM.PNMED ---
Subjective Date of Service November 13, 2016 Subjective pt is making good BM, pleasant Exam Vital Signs Vital Sign - Last Date Time Temp Pulse Resp B/P Pulse Ox O2 Delivery O2 Flow Rate FiO2 11/13/16 05:26 36.5 69 18 104/63 99 Room Air Intake and Output 11/12/16 11/12/16 11/13/16 Cumulative From/Thru 15:00 23:00 07:00 11/09/16 13:58 - 11/12/16 20:24 Intake Total 10 ml 720 ml 2310 ml Output Total 550 ml 1950 ml Balance 10 ml 170 ml 360 ml Intake Oral 720 ml 2280 ml IV Total 10 ml 30 ml Output Urine Total 550 ml 1950 ml # Bowel Movements 0 2 Exam NAD, comfortably laying down on the bed making incoherent sounds, motor 4/5 on right side, grossly CN2-12 intact. no JVD, MMM, no LAD RRR, nl s1, s2 no mrg CTAB, no w,c S,ND,NT,normoactive BS+ warm, no edema, pulses 2/2 MSK: minor bruises on bilateral knees, Rt foot-old scab from prior wound IVs and Medications Medications Reviewed: Medications were reviewed in detail Lab and Diagnostics Result Diagram: 11/13/1660411/13/16604 Assessment & Plan 56-year-old male with past medical history of stroke, atrial fibrillation on warfarin, type II diabetes mellitus, anxiety, and coronary artery disease presented to the emergency department following discharge (11/08) due to combative behavior at SNF. Urinary retention, acute, POA -reported urinary retention at [facility] -bladder scan, post void residual, contact MD if residual >300cc Behavior disturbance, acute, POA patient has been known to have behavior concerns due to major vascular neurocognitive disorder with history of bipolar disorder. recent UTI diagnosed and treated, currently managed. disruptive behavior following discharge with no obvious medical etiology. Likely personality changes with vascular dementia. -continue psych medications: lamotrigine, wellbutrin XL, quetiapine - consult for placement ileus, POA, responding to current regimen, continue bowel regimen upon d/c UTI, acute, POA -urine cx positive for e. fecalis -currently being treated with amoxicillin per ID for 14 day course through Prior stroke with residual expressive aphasia and right sided weakness in the setting of afib, POA, chronic -PT consult -pharmacy to dose warfarin, poor candidate for anticoagulation however high stroke risk, resume Xarelto but likely to stop if family opt out. Normocytic, normochromic Anemia, present on admission, subacute, Records review reveals some degree of anemia since 2009, patient with vertical sleeve gastrectomy in February 2016.likely anemia of chronic dz, h/h stable. Restless legs, Coronary artery disease, chronic, continued aspirin, metoprolol, atorvastatin dispo: patient is medical stable for discharge, unlikely back to [facility], [facility] home. needs SNF that can accept pt, appreciate SW/CM input VTE Prophylaxis: Other (therapeutic INR) VTE Mechanical Devices: Intermittant Pneumatic CD Resuscitation Status: CPR: Attempt Resuscitation Time spent 35min Jose Orta MD November 13, 2016 10:46
--- NOTE | 2016-11-13 11:14 | NUR ---
Faxed referrals to [facility] in [facility] and [facility]. Spoke with Skye Ferrari director international at [facility] and they do have LTC beds and she has not gotten previous referral on this patient. 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 Addendum: 11/13/16 at 1554 by KIERRA AMOS Gracie will be coming to do an onsite with patient and see if he is appropriate for LTC in their facility. Updated POST TENSIONING IRONWORKER HELPER
[2016-11-13 13:20] VITALS: BP 95/63; PULSE 72; RESP 18; O2SAT 99
--- NOTE | 2016-11-13 15:44 | NUR ---
Activity/Skin Pt skin has odorous/yeast smell. Administered Nystatin powder as ordered. Pt allowed to clean some parts of body- hands and face but declined having a bed bath 2x during shift. Will suggest to NOC shift to attempt again. Skin minimally red and blanchable on sacrum, placed pillows underneath to relieve pressure on backside and heels. This morning pt was very enthusiastic about using the WC during rehab/PT therapy session. Otherwise pt resting in bed for most of shift. Declined to get in the WC during the afternoon. Was reported that the pt enjoyed getting in the WC and going out onto the [place] yesterday.
[2016-11-13] MEDS: lamoTRIgine 100 mg Tablet PO SCH (21:12)
[2016-11-13 21:38] VITALS: BP 97/61; PULSE 89; RESP 18; O2SAT 95
--- NOTE | 2016-11-13 22:14 | PCM.PNPSY ---
Subjective Date of Service November 13, 2016 Subjective The patient was in good spirits today. Reported having a good evening and now had his communication iPad. Patient had strong yeast smell, refused feng bath per nursing notes. Patient reported a number of things that can make him irritable: being pushed around, not having the situation/process explained to him, being talked to as if he cannot understand. No side effect complaints. Sleep: good. Appetite: normal Suicidal and homicidal ideation: denies Auditory hallucinations: denies Visual hallucinations: denies Other Psychotic Symptoms: N/A Anxiety: denies Depression: denies Current Medications Current Medications Quetiapine Fumarate 25 mg DAILY PO Last administered on 11/13/16t 09:13; Admin Dose 25 MG; Start 11/12/16 at 08:30 Mental Status Exam Vital Signs Vital Signs Date Time Temp Pulse Resp B/P Pulse Ox O2 Delivery O2 Flow Rate FiO2 11/13/16 21:38 36.9 89 18 97/61 95 Room Air Appearance: Unkept, Malodorous Attitude: Pleasant, Cooperative Behavior: Other (Right sided paresis) Affect: Well Modulated/Appropriate Mood: Euthymic Thought Process/Associations: Other (Difficult to assess due to aphasia but appears to be responding to questions) Speech Production: Other (repeated use of the word "hand" for all elements of speech with occasional "yes," and "oh boy") Speech Rate: Normal Speech Articulation: Other (dysarthria) Thought Content: Obsessions/compulsions Danger to Self/Suicidal Ideati: None Danger to Others: None Hallucinations: Auditory (Denies), Visual (Denies) Consciousness: Alert Orientation: Person Memory: Untestable Estimate Intellectual Function: Unable to assess Attention/Concentration & Cogn: Unable to assess Insight: Unable to assess Judgement: Unable to assess Result Diagram: 11/13/1660411/13/16604 Mental Health Plan The patient is a 56-year-old male with a history of depression, mood disorder ( bipolar II vs. cyclothymia) and stroke with expressive aphasia, who presents with unexplained agitation and non-adherence with hours of his transfer to [facility]. Given his fairly rapid return to baseline, it would seem that some environmental cue was involved in his rapid decline although it is not readily apparent what that may have been. The patient tolerated the increase in pm quetiapine and reports improved mood. Given his lack of psychiatric symptoms , other than his CVA there appears no indication to file for additional inpatient psychiatric time. VIANEY is working on placement. [place] AXIS I: 1. Mood disorder unspecified 2. 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 Major neurocognitive disorder, vascular type, due to stroke. AXIS II: Deferred. AXIS III: See past medical history. AXIS IV: Severe. AXIS V: Global Assessment of Functioning 35 (due to physical impairments/ aphasia). Treatments 1. The patient has been REY'd but admitted to the medical unit due to his level of physical impairment and inability to significantly benefit from services offered at the [facility]. The patient's REY status has now lapsed and he is no longer under a psychiatric hold. 2. Continue with lamotrigine titration. 3. Continue Wellbutrin XL 300mg daily. 4. Increase quetiapine to 25mg daily and 50mg nightly for agitation/bipolar. 5. Continue melatonin for sleep. 6. Patient does not appear to need 1:1. 7. VIANEY working on placement in [facility]. 8. Estimated length of stay 5-7 days. Paddy Stout MD November 13, 2016 22:14
[2016-11-14 06:41] VITALS: BP 99/64; PULSE 78; RESP 18; O2SAT 96
[2016-11-14] MEDS: Polyethylene Glycol (PEG) 17 Gm Powder PO SCH (10:15)
[2016-11-14] MEDS: Nystatin 100,000 Unit/Gm 15 Gm Powder TOPICAL SCH ×2 (10:15→21:42)
[2016-11-14] MEDS: buPROPion XL 300 mg ER24 Tablet PO SCH (10:16)
--- NOTE | 2016-11-14 11:10 | PCM.PNMED ---
Subjective Date of Service November 14, 2016 Subjective No overnight event Patient looked comfortable and calm Exam Vital Signs Vital Sign - Last Date Time Temp Pulse Resp B/P Pulse Ox O2 Delivery O2 Flow Rate FiO2 11/14/16 06:41 36.4 78 18 99/64 96 Room Air Intake and Output 11/13/16 11/13/16 11/14/16 Cumulative From/Thru 15:00 23:00 07:00 11/09/16 13:58 - 11/14/16 06:53 Intake Total 250 ml 772 ml 200 ml 3532 ml Output Total 250 ml 550 ml 0 ml 2750 ml Balance 0 ml 222 ml 200 ml 782 ml Intake Oral 250 ml 772 ml 200 ml 3502 ml IV Total 30 ml Output Urine Total 250 ml 550 ml 0 ml 2750 ml # Bowel Movements 0 2 Exam NAD, comfortably laying down on the bed making incoherent sounds, motor 4/5 on right side, grossly CN2-12 intact. no JVD, MMM, no LAD RRR, nl s1, s2 no mrg CTAB, no w,c S,ND,NT,normoactive BS+ warm, no edema, pulses 2/2 MSK: minor bruises on bilateral knees, Rt foot-old scab from prior wound IVs and Medications Medications Reviewed: Medications were reviewed in detail Lab and Diagnostics Result Diagram: 11/13/1660411/13/16604 Assessment & Plan 56-year-old male with past medical history of stroke, atrial fibrillation on warfarin, type II diabetes mellitus, anxiety, and coronary artery disease presented to the emergency department following discharge (11/08) due to combative behavior at [facility]. Urinary retention, acute, POA -reported urinary retention at [facility] -bladder scan, post void residual, contact MD if residual >300cc Behavior disturbance, acute, POA patient has been known to have behavior concerns due to major vascular neurocognitive disorder with history of bipolar disorder. recent UTI diagnosed and treated, currently managed. disruptive behavior following discharge with no obvious medical etiology. Likely personality changes with vascular dementia. -continue psych medications: lamotrigine, wellbutrin XL, quetiapine - consult for placement ileus, POA, responding to current regimen, continue bowel regimen upon d/c UTI, acute, POA -urine cx positive for e. fecalis -currently being treated with amoxicillin per ID for 14 day course through Prior stroke with residual expressive aphasia and right sided weakness in the setting of afib, POA, chronic -PT consult -pharmacy to dose warfarin, poor candidate for anticoagulation however high stroke risk, resume Xarelto but likely to stop if family opt out. Normocytic, normochromic Anemia, present on admission, subacute, Records review reveals some degree of anemia since 2009, patient with vertical sleeve gastrectomy in February 2016.likely anemia of chronic dz, h/h stable. Restless legs, Coronary artery disease, chronic, continued aspirin, metoprolol, atorvastatin dispo: patient is medical stable for discharge, unlikely back to [facility], nor home. needs SNF that can accept pt, appreciate SW/CM input VTE Prophylaxis: Other (therapeutic INR) VTE Mechanical Devices: Intermittant Pneumatic CD Resuscitation Status: CPR: Attempt Resuscitation Time spent 35 minutes Jose Orta MD November 14, 2016 11:10
[2016-11-14 13:04] VITALS: BP 100/65; PULSE 77; RESP 18; O2SAT 97
--- NOTE | 2016-11-14 14:56 | NUR ---
NUTRITION FOLLOW-UP: ASSESS: 56 YO male admitted for depression. Pt was just recently discharged and during previous admission, pt with variable po intake of 15-100% of meals. Pt currently eating 25% of most meals with occasional 75% of meal consumed reported. Placement pending. PMHx: Morbid obesity s/p gastric sleeve in Feb 2016, depression, CAD, RI, Stroke, Liliya's gangrene R groin, Kidney Stones, A-fib, anxiety, probable underlying mood disorder. LABS: Reviewed. MEDS: Reviewed. GI: BM x 1 (11/12) CURRENT WT: 106.4 kg. IBW: 70 kg. Pt has intentionally lost 44 kg since March 2016 from gastric sleeve procedure. DIET: Dysphagia Mechanical. Gelatein Plus at 10am & 8pm and Mighty shake at 2pm. PO intake 25% of most meals. EST. NEEDS (BMI): 5190-1192 kcals (20-22 kcals/kg BW), 85-105 g protein (1.2-1.5 g/kg IBW) NUTRITION DIAGNOSIS: 1.) Inadequate oral intake related to altered GI function (gastric sleeve) as evidenced by po intake of 25% of meals--PERSISTS. NUTRITION INTERVENTION: 1.) Continue to send Gelatein Plus at 10am & 8pm and Mighty shake at 2pm between meals to encourage adequate po intake. MONITOR / EVAL: PO intake, labs, weights, nutritional status. Follow per moderate nutritional risk guidelines.
--- NOTE | 2016-11-14 16:16 | NUR ---
Gracie did onsite for patient and it is being furthered reviewed by DNS of facility. Offered to Skye Treat director of nursing for MD to MD phone call if needed. She would try to get answer this evening but if not will follow up with me on Thursday. Also let her know patient is connected with [facility], they have started to work on [facility]H placement as well. 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
--- NOTE | 2016-11-14 18:30 | NUR ---
Activity Patient 2 person assist to wheelchair. Sat up in wheelchair and wheeled self around his room for 2-3 hrs. Rearranged his belongings. Pleasant, cooperative. Continues to have difficulty with communications due to expressive aphagia.
[2016-11-14 20:24] VITALS: BP 104/68; PULSE 70; RESP 18; O2SAT 98
[2016-11-14] MEDS: lamoTRIgine 100 mg Tablet PO SCH (21:42)
--- NOTE | 2016-11-14 22:56 | PCM.PNPSY ---
Subjective Date of Service November 14, 2016 Subjective The patient was animated and in a good mood today. Patient indicated that he enjoyed ambulating today and was excited about recent placement assessment visits. Uneventful evenings per charting. No side effect complaints. Sleep: good. Appetite: okay Suicidal and homicidal ideation: denies Auditory hallucinations: denies Visual hallucinations: denies Other Psychotic Symptoms: N/A Anxiety: denies Depression: denies Mental Status Exam Vital Signs Vital Signs Date Time Temp Pulse Resp B/P Pulse Ox O2 Delivery O2 Flow Rate FiO2 11/14/16 20:24 36.4 70 18 104/68 98 Room Air Appearance: Unkept Attitude: Pleasant, Cooperative Behavior: Other (Right sided paresis) Affect: Well Modulated/Appropriate Mood: Euthymic Thought Process/Associations: Other (Difficult to assess due to aphasia but appears to be responding to questions) Speech Production: Other (repeated use of the word "hand" for all elements of speech with occasional "yes," and "oh boy") Speech Rate: Normal Speech Articulation: Other (dysarthria) Thought Content: Obsessions/compulsions Danger to Self/Suicidal Ideati: None Danger to Others: None Hallucinations: Auditory (Denies), Visual (Denies) Consciousness: Alert Orientation: Person Memory: Untestable Estimate Intellectual Function: Unable to assess Attention/Concentration & Cogn: Unable to assess Insight: Unable to assess Judgement: Unable to assess Result Diagram: 11/13/1660411/13/16 06 Mental Health Plan The patient is a 56-year-old male with a history of depression, mood disorder ( bipolar II vs. cyclothymia) and stroke with expressive aphasia, who presents with unexplained agitation and non-adherence with hours of his transfer to [facility]. Given his fairly rapid return to baseline, it would seem that some environmental cue was involved in his rapid decline although it is not readily apparent what that may have been. The patient tolerated the increase in pm quetiapine and reports improved mood. Given his lack of psychiatric symptoms , other than his CVA there appears no indication to file for additional inpatient psychiatric time. SW is working on placement. [place] AXIS I: 1. Mood disorder unspecified 2. 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 Major neurocognitive disorder, vascular type, due to stroke. AXIS II: Deferred. AXIS III: See past medical history. AXIS IV: Severe. AXIS V: Global Assessment of Functioning 35 (due to physical impairments/ aphasia). Treatments 1. The patient has been REY'd but admitted to the medical unit due to his level of physical impairment and inability to significantly benefit from services offered at the mental health center. The patient's REY status has now lapsed and he is no longer under a psychiatric hold. 2. Continue with lamotrigine titration. 3. Continue Wellbutrin XL 300mg daily. 4. Increase quetiapine to 25mg daily and 50mg nightly for agitation/bipolar. 5. Continue melatonin for sleep. 6. Patient does not appear to need 1:1. 7. SW working on placement in [facility]. 8. Estimated length of stay 5-7 days. Paddy Stout MD November 14, 2016 22:56
--- NOTE | 2016-11-15 03:15 | NUR ---
uneventful night Pt cooperative with care; slept throughout the night after getting his HS meds. independent with repositioning in bed. no s/s of discomfort. bed alarm on for safety.
[2016-11-15 04:36] VITALS: BP 97/60; PULSE 62; RESP 18; O2SAT 97
[2016-11-15] MEDS: Polyethylene Glycol (PEG) 17 Gm Powder PO SCH (08:11)
[2016-11-15] MEDS: Nystatin 100,000 Unit/Gm 15 Gm Powder TOPICAL SCH ×2 (09:23→20:30)
--- NOTE | 2016-11-15 09:24 | PCM.PNMED ---
Subjective Date of Service November 15, 2016 Subjective no overnight event Exam Vital Signs Vital Sign - Last Date Time Temp Pulse Resp B/P Pulse Ox O2 Delivery O2 Flow Rate FiO2 11/15/16 04:36 36.8 62 18 97/60 97 Room Air Intake and Output 11/14/16 11/14/16 11/15/16 Cumulative From/Thru 15:00 23:00 07:00 11/09/16 13:58 - 11/15/16 04:20 Intake Total 438 ml 3970 ml Output Total 575 ml 3325 ml Balance -137 ml 645 ml Intake Oral 438 ml 3940 ml IV Total 30 ml Output Urine Total 575 ml 3325 ml # Bowel Movements 0 2 Exam NAD, comfortably laying down on the bed making incoherent sounds, motor 4/5 on right side, grossly CN2-12 intact. no JVD, MMM, no LAD RRR, nl s1, s2 no mrg CTAB, no w,c S,ND,NT,normoactive BS+ warm, no edema, pulses 2/2 MSK: minor bruises on bilateral knees, Rt foot-old scab from prior wound IVs and Medications Medications Reviewed: Medications were reviewed in detail Lab and Diagnostics Result Diagram: 11/13/1660411/13/16604 Assessment & Plan 56-year-old male with past medical history of stroke, atrial fibrillation on warfarin, type II diabetes mellitus, anxiety, and coronary artery disease presented to the emergency department following discharge (11/08) due [facility] behavior at [facility]F. Urinary retention, acute, POA -reported urinary retention at SNF -bladder scan, post void residual, contact MD if residual >300cc Behavior disturbance, acute, POA patient has been known to have behavior concerns due to major vascular neurocognitive disorder with history of bipolar disorder. recent UTI diagnosed and treated, currently managed. disruptive behavior following discharge with no obvious medical etiology. Likely personality changes with vascular dementia. -continue psych medications: lamotrigine, wellbutrin XL, quetiapine - consult for placement ileus, POA, responding to current regimen, continue bowel regimen upon d/c UTI, acute, POA -urine cx positive for e. fecalis -currently being treated with amoxicillin per ID for 14 day course through Prior stroke with residual expressive aphasia and right sided weakness in the setting of afib, POA, chronic -PT consult -pharmacy to dose warfarin, poor candidate for anticoagulation however high stroke risk, resume Xarelto but likely to stop if family opt out. Normocytic, normochromic Anemia, present on admission, subacute, Records review reveals some degree of anemia since 2009, patient with vertical sleeve gastrectomy in February 2016.likely anemia of chronic dz, h/h stable. Restless legs, Coronary artery disease, chronic, continued aspirin, metoprolol, atorvastatin dispo: patient is medical stable for discharge, unlikely back to [facility]. needs SNF that can accept pt, appreciate SW/CM input VTE Prophylaxis: Other (therapeutic INR) VTE Mechanical Devices: Intermittant Pneumatic CD Resuscitation Status: CPR: Attempt Resuscitation Time spent 35min Jose Orta MD November 15, 2016 09:24
[2016-11-15] MEDS: buPROPion XL 300 mg ER24 Tablet PO SCH (09:52)
--- NOTE | 2016-11-15 12:01 | NUR ---
Social Work: Continued Discharge Planning Data: Pt is on day 6 of hospitalization for depression per H&P, is a readmit. EMR reviewed. Per interdisciplinary rounds pt is medically ready for discharge and is awaiting placement. [facility] did onsite for patient and it is being furthered reviewed by DNS of facility. [facility] will follow up with decision. SW will update pt and as soon as decision is received. VIANEY working with Mary Ch, [email or web address], from [facility] to assist with finding housing for the patient. SW will continue to follow. Assessment: Pt who woudl benefit from SNF vs AFH Plan: SW will continue to work on placement. [facility] will follow up when decision is made and VIANEY will update family as soon as possible. VIANEY will continue to follow. REBECA Porras
--- NOTE | 2016-11-15 12:33 | NUR ---
Daily update Patient alert and oriented. Patient continues to have aphasia and repeatedly says, "hands" and "oh boy" along with few other words. Patient is able to communicate by pointing at objects and writing on paper. Patient does becomes anxious when people don't understand what his trying to say. When staff or others spend time to understand him, his anxiety reduces. Patient has been cooperative with care. Patient did get up into wheelchair with assistance of 2 person transfer and was expressing he wanted to leave. Patient was talked to about possible placement and waiting until a home is found and he understood. Patient went back to room and wanted back in bed and was assisted into bed. Bed locked in lowest position and call light within reach.
--- NOTE | 2016-11-15 12:39 | NUR ---
BM Pt given his daily miralax and docusate sodium this morning. Shortly after pt had multiple loose BM, large and light brown in color. Total BM of 4 this am. Continue to monitor and will notify evening nurse. Pt currently watching tv, no complaints, no pain, call light at bedside.
[2016-11-15 12:57] VITALS: BP 92/57; PULSE 83; RESP 20; O2SAT 97
[2016-11-15 14:21] VITALS: BP 100/66; PULSE 66; RESP 16; O2SAT 100
--- NOTE | 2016-11-15 18:19 | PCM.PNPSY ---
Subjective Date of Service November 15, 2016 Subjective The patient was animated and in a good mood today though somewhat apprehensive about the discharge process. He was reassured that everyone seems to be on board with making sure to explain situation and be patient in order to reduce patient anxiety. Patient had some diarrhea overnight, but otheriwse was uneventful evenings per charting. No side effect complaints. Sleep: good. Appetite: okay Suicidal and homicidal ideation: denies Auditory hallucinations: denies Visual hallucinations: denies Other Psychotic Symptoms: N/A Anxiety: denies Depression: denies Mental Status Exam Vital Signs Vital Signs Date Time Temp Pulse Resp B/P Pulse Ox O2 Delivery O2 Flow Rate FiO2 11/15/16 15:18 Room Air 11/15/16 14:21 66 16 100/66 100 Room Air 11/15/16 12:57 37.0 83 20 92/57 97 Room Air Appearance: Neat/well groomed Attitude: Pleasant, Cooperative Behavior: Other (Right sided paresis) Affect: Well Modulated/Appropriate Mood: Euthymic Thought Process/Associations: Other (Difficult to assess due to aphasia but appears to be responding to questions) Speech Production: Other (repeated use of the word "hand" for all elements of speech with occasional "yes," and "oh boy") Speech Rate: Normal Speech Articulation: Other (dysarthria) Thought Content: Appropriate Danger to Self/Suicidal Ideati: None Danger to Others: None Hallucinations: Auditory (Denies), Visual (Denies) Consciousness: Alert Orientation: Person Memory: Untestable Estimate Intellectual Function: Unable to assess Attention/Concentration & Cogn: Unable to assess Insight: Unable to assess Judgement: Unable to assess Result Diagram: 11/13/1660411/13/16 06 Mental Health Plan The patient is a 56-year-old male with a history of depression, mood disorder ( bipolar II vs. cyclothymia) and stroke with expressive aphasia, who presents with unexplained agitation and non-adherence with hours of his transfer to [facility]. Given his fairly rapid return to baseline, it would seem that some environmental cue was involved in his rapid decline although it is not readily apparent what that may have been. The patient tolerated the increase in pm quetiapine and reports improved mood. Given his lack of psychiatric symptoms , other than his CVA there appears no indication to file for additional inpatient psychiatric time. SW is working on placement. Psychiatry will sign off tomorrow if no further issues. [place] AXIS I: 1. Mood disorder unspecified 2. 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 Major neurocognitive disorder, vascular type, due to stroke. AXIS II: Deferred. AXIS III: See past medical history. AXIS IV: Severe. AXIS V: Global Assessment of Functioning 35 (due to physical impairments/ aphasia). Treatments 1. The patient has been REY'd but admitted to the medical unit due to his level of physical impairment and inability to significantly benefit from services offered at the [facility]. The patient's REY status has now lapsed and he is no longer under a psychiatric hold. Psychiatry will sign off tomorrow if no further issues. 2. Continue with lamotrigine titration. 3. Continue Wellbutrin XL 300mg daily. 4. Increase quetiapine to 25mg daily and 50mg nightly for agitation/bipolar. 5. Continue melatonin for sleep. 6. Patient does not appear to need 1:1. 7. SW working on placement in [facility]. 8. Estimated length of stay 5-7 days. Paddy Stout MD November 15, 2016 18:19
--- NOTE | 2016-11-15 18:36 | NUR ---
Shift Pt mood appears good. Had loose stools today x 4, which has now resolved currently. Pt has expressive aphasia and has difficulties communicating. Pt becomes irritated/agitated if we are unable to understand his needs. Pt has tablet and paper to express his concerns. He can answer yes or no questions, and is cooperative with care today. Pt utilizes call light appropriately, and has it at bedside. Pt denies pain, denies CP, denies nausea. Pt prefers small meals often. Pt eagerly awaiting to DC. Pt currently in bed watching sports. Pt VSS stable on RA.
[2016-11-15 20:55] VITALS: BP 103/68; PULSE 80; RESP 18; O2SAT 98
[2016-11-15] MEDS: lamoTRIgine 100 mg Tablet PO SCH (21:00)
--- NOTE | 2016-11-16 06:24 | NUR ---
Ear discomfort/ tearful Patient c/o mild ear discomfort in left ear that was worse last night. patient reports his ear just feels plugged possibly from drainage. patient denies pain at this time in his left ear. he reports that he told the doctor about it and it has been going on for about 3 weeks on and off. Patient is tearful about upcoming tracheostomy surgery, allowed patient to express his feelings he was unable to and was tearful. patient appears to have good support system at home with his son. patient slept throughout the night. no c/o pain. VSS. Addendum: 11/16/16 at 0629 by SATISH REA RN WRONG PATIENT> NOTE ENTERED IN ERROR
--- NOTE | 2016-11-16 06:29 | NUR ---
Behavior Patient became agitated when he was unable to express his needs. he began yelling "hands" and pointing at the window. Patient stated he needed to use the bathroom. 2pa to stand to [facility]. patient then tried pushing the commode away shouting "no". patient began raising his voice and was unable to calm patient. called charge nurse in. charge nurse into redirect patient. patient tried using IPAD at bedside to communicate. IPAD battery . patient became upset when we tried to charge it for him. Patient requested to go for a walk. Patient wanted to leave the unit, was unable to redirect patient back to room. he became agitated. started yelling and swinging his fists at staff. Dez moralez called. patient then tried to slide himself out of his wheelchair. Staff assisted patient back to his room. Patient tried slipping out of wheelchair. he was lowered to the floor safely with no injuries. staff helped patient back to bed. bed alarm in place. allowed patient space to calm down. Patients called to help assist with situation. his declined to speak to him and states he has been calling her all day. I could hear the phone ringing in the background and the patient was visualized calling on the phone. patients declined to come in to sit with patient and she was informed that he may need a sitter. Reproached patient. patient took all of his night medications without issue and slept throughout the night. vitals stable. bed alarm in place. will continue to monitor.
[2016-11-16 06:49] VITALS: BP 93/58; PULSE 73; RESP 18; O2SAT 97
[2016-11-16 08:32] LABS: BASOPHILS % (AUTO) 0.9 % (0-3); EOSINOPHILS % (AUTO) 4.8 % (0-5); MONOCYTES % (AUTO) 7.2 % (4-12); Mean Corpuscular Hemoglobin 31.8 pg (27.0-35.0); Mean Corpuscular Volume 98.7 fL (81-100); NEUTROPHILS % (AUTO) 59.8 % (40-74); Platelet Count 155 bil/L (150-400)
[2016-11-16] MEDS: buPROPion XL 300 mg ER24 Tablet PO SCH (08:34)
[2016-11-16] MEDS: Polyethylene Glycol (PEG) 17 Gm Powder PO SCH (08:35)
[2016-11-16] MEDS: Nystatin 100,000 Unit/Gm 15 Gm Powder TOPICAL SCH ×2 (08:35→20:49)
[2016-11-16 08:53] LABS: Magnesium 1.8 mg/dL (1.6-2.6); Phosphorus 3.5 mg/dL (2.5-4.9)
--- NOTE | 2016-11-16 10:45 | NUR ---
[facility] signed
--- NOTE | 2016-11-16 12:26 | PCM.PNMED ---
Subjective Date of Service November 16, 2016 Subjective pt was agitated and aggressive towards staffs overnight this AM, pt remains calm, cooperative denied pain, eating well Exam Vital Signs Vital Sign - Last Date Time Temp Pulse Resp B/P Pulse Ox O2 Delivery O2 Flow Rate FiO2 11/16/16 06:49 36.6 73 18 93/58 97 Room Air Intake and Output 11/15/16 11/15/16 11/16/16 Cumulative From/Thru 15:00 23:00 07:00 11/09/16 13:58 - 11/16/16 06:50 Intake Total 200 ml 350 ml 200 ml 4720 ml Output Total 150 ml 600 ml 150 ml 4225 ml Balance 50 ml -250 ml 50 ml 495 ml Intake Oral 200 ml 320 ml 200 ml 4660 ml IV Total 30 ml 60 ml Output Urine Total 150 ml 600 ml 150 ml 4225 ml # Bowel Movements 0 4 6 Exam NAD, comfortably laying down on the bed making incoherent sounds, motor 4/5 on right side, grossly CN2-12 intact. no JVD, MMM, no LAD RRR, nl s1, s2 no mrg CTAB, no w,c S,ND,NT,normoactive BS+ warm, no edema, pulses 2/2 MSK: minor bruises on bilateral knees, Rt foot-old scab from prior wound IVs and Medications Medications Reviewed: Medications were reviewed in detail Lab and Diagnostics Result Diagram: 11/16/1681411/16/16814 Assessment & Plan 56-year-old male with past medical history of stroke, atrial fibrillation on warfarin, type II diabetes mellitus, anxiety, and coronary artery disease presented to the emergency department following discharge (11/08) due to combative behavior at [facility]. Urinary retention, acute, POA -reported urinary retention at [facility] -bladder scan, post void residual, contact MD if residual >300cc Behavior disturbance, acute, POA patient has been known to have behavior concerns due to major vascular neurocognitive disorder with history of bipolar disorder. recent UTI diagnosed and treated, currently managed. disruptive behavior following discharge with no obvious medical etiology. Likely personality changes with vascular dementia. -continue psych medications: lamotrigine, wellbutrin XL, quetiapine - consult for placement ileus, POA, responding to current regimen, continue bowel regimen upon d/c UTI, acute, POA -urine cx positive for e. fecalis -currently being treated with amoxicillin per ID for 14 day finished. Prior stroke with residual expressive aphasia and right sided weakness in the setting of afib, POA, chronic -PT consult -pharmacy to dose warfarin, poor candidate for anticoagulation however high stroke risk, resume Xarelto but likely to stop if family opt out. Normocytic, normochromic Anemia, present on admission, subacute, Records review reveals some degree of anemia since 2009, patient with vertical sleeve gastrectomy in February 2016.likely anemia of chronic dz, h/h stable. Restless legs, Coronary artery disease, chronic, continued aspirin, metoprolol, atorvastatin dispo: patient is medical stable for discharge, unlikely back to [facility], nor home. needs SNF that can accept pt, appreciate SW/CM input VTE Prophylaxis: Other (therapeutic INR) VTE Mechanical Devices: Intermittant Pneumatic CD Resuscitation Status: CPR: Attempt Resuscitation Time spent 35min Jose Orta MD November 16, 2016 12:26
[2016-11-16 14:52] VITALS: BP 93/62; PULSE 84; RESP 18; O2SAT 95
--- NOTE | 2016-11-16 16:43 | NUR ---
Activity: Patient has been calm and cooperative with care today. His nursing assistants helped him take a shower today. Patient became anxious when his came and kept repeation "Hands! Hands! " insisting that his leave. His left promptly and told patient that she would be back tomorrow. Patient took all of his meds without issues and sat calmly watching TV for most of the day.
[2016-11-16 20:30] VITALS: BP 110/64; PULSE 72; RESP 16; O2SAT 95
[2016-11-16] MEDS: lamoTRIgine 100 mg Tablet PO SCH (22:01)
--- NOTE | 2016-11-16 23:06 | NUR ---
Sign off pt at 2300, report given to receiving charge nurse Emilia Alegre.
[2016-11-17 05:05] VITALS: BP 109/61; PULSE 80; RESP 16; O2SAT 98
--- NOTE | 2016-11-17 05:23 | NUR ---
Uneventful Night assumed care at 23:00. pt has been able to sleep during the night with minimal interruptions. pt is alert to self, verbalizes "hands" and "oh boy" to most questions. pt has denied having pain with a verbal "no" and a head shake. pt has been able to verbalize "okay" as well. pt has been pleasant and cooperative with care. call light placed within reach. hourly rounding in effect. bed alarm placed for safety.
[2016-11-17] MEDS: Polyethylene Glycol (PEG) 17 Gm Powder PO SCH (09:12)
[2016-11-17] MEDS: Nystatin 100,000 Unit/Gm 15 Gm Powder TOPICAL SCH ×2 (09:12→21:20)
[2016-11-17] MEDS: buPROPion XL 300 mg ER24 Tablet PO SCH (09:13)
[2016-11-17 11:56] VITALS: BP 103/63; PULSE 79; RESP 16; O2SAT 99
--- NOTE | 2016-11-17 12:53 | NUR ---
SW - Continued discharge planning SW contacted Mary Ch at [facility] to request assessment for pt and pt's daily rate. Left voicemail. SW will continue to follow. REBECA Porras
--- NOTE | 2016-11-17 12:55 | PCM.PNMED ---
Subjective Date of Service November 17, 2016 Subjective Sitting up in chair with food but not eating. Spoke with patient but he becomes agitated. Talked with nurse says al in all patient doing OK, noyhing that they need at this time. Working on placement. Exam Vital Signs Vital Sign - Last Date Time Temp Pulse Resp B/P Pulse Ox O2 Delivery O2 Flow Rate FiO2 11/17/16 11:56 36.5 79 16 103/63 99 Room Air Intake and Output 11/16/16 11/16/16 11/17/16 Cumulative From/Thru 15:00 23:00 07:00 11/09/16 13:58 - 11/17/16 05:04 Intake Total 978 ml 100 ml 5798 ml Output Total 650 ml 200 ml 5075 ml Balance 328 ml -100 ml 723 ml Intake Oral 978 ml 100 ml 5738 ml IV Total 60 ml Output Urine Total 650 ml 200 ml 5075 ml # Bowel Movements 0 6 Exam Eyes; alma, eom intact HENT; adequate hydration CV; regular Resp; Course GI; soft and non acute Lab and Diagnostics Result Diagram: 11/16/16 0815 11/16/16 0815 Assessment & Plan 56-year-old male with past medical history of stroke, atrial fibrillation on warfarin, type II diabetes mellitus, anxiety, and coronary artery disease presented to the emergency department following discharge (11/08) due to combative behavior at SNF. 1,Urinary retention, acute, POA, stable -reported urinary retention at SNF -bladder scan, post void residual, contact MD if residual >300cc 2.Behavior disturbance, acute, POA, improving -patient has been known to have behavior concerns due to major vascular neurocognitive disorder with history of bipolar disorder. recent UTI diagnosed and treated, currently managed. disruptive behavior following discharge with no obvious medical etiology. Likely personality changes with vascular dementia. -continue psych medications: lamotrigine, wellbutrin XL, quetiapine - consult for placement 3.UTI, acute, POA, active -urine cx positive for e. fecalis -currently being treated with amoxicillin per ID for 14 day finished. 4.Prior stroke POA, chronic, -with residual expressive aphasia and right sided weakness in the setting of afib,T consult -resume Xarelto but likely to stop if family opt out. 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 6.Restless legs, 7.Coronary artery disease, poa, stable -continued aspirin, metoprolol, atorvastatin dispo: patient is medical stable for discharge, unlikely back to [facility], nor home. needs SNF that can accept pt, appreciate SW/CM input VTE Prophylaxis: Other (therapeutic INR) VTE Mechanical Devices: Intermittant Pneumatic CD Resuscitation Status: CPR: Attempt Resuscitation Marylin Moreira MD November 17, 2016 12:55
--- NOTE | 2016-11-17 15:50 | NUR ---
Social Work: Continued Discharge Planning Data: Pt is on day 8 of hospitalization for depression per H&P, is a readmit. EMR reviewed. Per interdisciplinary rounds pt is medically ready for discharge and is awaiting placement. [facility] declined to accept the pt. Montana Flores [phone] has been designated as pt's Lead Architect and came in to see the pt today, introduced himself, asked that SW keep him updated if pt is discharged. SW contacted Connie [phone] to check in and left voicemail. SW will continue to follow. Assessment: Pt who would benefit from AFH placement Plan: SW will continue to work on AFH placement, contacted Mary Ch from [facility] at [phone] to request daily rate. SW will continue to follow. REBECA Porras
--- NOTE | 2016-11-17 18:30 | NUR ---
Guardianship/mood A state appointed guardian came to see patient. Staff informed that has relinquished her right as guardian. Patient unhappy and subdued, but not angry or showed any inclination toward losing control.
[2016-11-17 20:46] VITALS: BP 97/64; PULSE 86; RESP 16; O2SAT 97
[2016-11-17] MEDS: lamoTRIgine 100 mg Tablet PO SCH (21:15)
[2016-11-18 04:36] VITALS: BP 96/65; PULSE 74; RESP 16; O2SAT 97
--- NOTE | 2016-11-18 05:33 | NUR ---
Uneventful Night Pt alert,denies pain,no s/s of N/V/SOB/fever/chills. Baseline right sided weakness,slightly right facial droop,severe expressive aphasia,can only say words like "hands" "oh boy" , communication with posture, pleasant,sometimes laugh or singing while watching TV at evening. Sleeping comfortably most of night. VSS.
[2016-11-18] MEDS: Polyethylene Glycol (PEG) 17 Gm Powder PO SCH (10:31)
[2016-11-18] MEDS: Nystatin 100,000 Unit/Gm 15 Gm Powder TOPICAL SCH ×2 (10:32→21:09)
[2016-11-18] MEDS: buPROPion XL 300 mg ER24 Tablet PO SCH (10:32)
--- NOTE | 2016-11-18 12:13 | NUR ---
VIANEY - Continued Discharge Planning SW received phone call from pt's Connie Mclaughlin [phone]. SW provided update re: plan to find AFH placement, request from [facility] for assessment and daily rate. She explained rationale for appointing GAL. Stated it was a recommendation from pyschiatrist due to pt's erratic behavior. felt it best for their relationship that she not be the guardian. She is still very interested in being involved in his care and still hopes he can return home at some point. She expressed concern that an AFH will not provide level of rehab of a SNF. VIANEY empathized, stated that the pt has been denied by SNF's which is why VIANEY is pursuing this option. VIANEY will continue to keep her updated. REBECA Porras
[2016-11-18 12:24] VITALS: BP 105/71; PULSE 82; RESP 17; O2SAT 96
--- NOTE | 2016-11-18 13:23 | PCM.PNMED ---
Subjective Date of Service November 18, 2016 Subjective Spoke with patient's nurse, doing OK, behavior is manageable. No new problems noted. Exam Vital Signs Vital Sign - Last Date Time Temp Pulse Resp B/P Pulse Ox O2 Delivery O2 Flow Rate FiO2 11/18/16 12:24 36.9 82 17 105/71 96 Room Air Intake and Output 11/17/16 11/17/16 11/18/16 Cumulative From/Thru 15:00 23:00 07:00 11/09/16 13:58 - 11/18/16 05:15 Intake Total 225 ml 100 ml 6123 ml Output Total 175 ml 450 ml 5700 ml Balance 50 ml -350 ml 423 ml Intake Oral 225 ml 100 ml 6063 ml IV Total 60 ml Output Urine Total 175 ml 450 ml 5700 ml # Bowel Movements 0 6 Exam Easily frustrated when tries to speak Eyes alma, eom intact CV; regular no murmur Resp; clear GI, soft and non acute or tender Lab and Diagnostics Result Diagram: 11/16/16 0815 11/16/16 0815 Assessment & Plan 56-year-old male with past medical history of stroke, atrial fibrillation on warfarin, type II diabetes mellitus, anxiety, and coronary artery disease presented to the emergency department following discharge (11/08) due to combative behavior at SNF. 1,Urinary retention, acute, POA, stable -reported urinary retention at SNF -bladder scan, post void residual, contact MD if residual >300cc -nurse said voiding well 2.Behavior disturbance, acute, POA, improving -patient has been known to have behavior concerns due to major vascular neurocognitive disorder with history of bipolar disorder. recent UTI diagnosed and treated, currently managed. disruptive behavior following discharge with no obvious medical etiology. Likely personality changes with vascular dementia. -continue psych medications: lamotrigine, wellbutrin XL, quetiapine - consult for placement 3.UTI, acute, POA, active -urine cx positive for e. fecalis -currently being treated with amoxicillin per ID for 14 day finished. 4.Prior stroke POA, chronic, -with residual expressive aphasia and right sided weakness in the setting of afib,T consult -resume Xarelto but likely to stop if family opt out. 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 6.Restless legs, 7.Coronary artery disease, poa, stable -continued aspirin, metoprolol, atorvastatin dispo: patient is medical stable for discharge, unlikely back to [facility], nor home. needs SNF that can accept pt, appreciate SW/CM input VTE Prophylaxis: Other (therapeutic INR) VTE Mechanical Devices: Intermittant Pneumatic CD Resuscitation Status: CPR: Attempt Resuscitation Marylin Moreira MD November 18, 2016 13:23
--- NOTE | 2016-11-18 14:00 | NUR ---
Called and left message for Summer from [facility] and asked her to call me back regarding referral. Faxed new referral to [facility] so they could review patient. Updated CAREER DEVELOPMENT COORDINATOR Addendum: 11/18/16 at 1556 by KIERRA AMOS CM [facility] is not able to accept patient.
--- NOTE | 2016-11-18 18:30 | NUR ---
Guardian Patient indicated that state appointed guardian came by today and dropped off court paperwork of state guardianship. Patient indicated that he was upset and had questions. Patient mimed that guardian dropped off paperwork and left without an explanation. food prep worker contacted.
[2016-11-18 20:42] VITALS: BP 100/68; PULSE 85; RESP 16; O2SAT 94
[2016-11-18] MEDS: lamoTRIgine 100 mg Tablet PO SCH (21:10)
--- NOTE | 2016-11-18 22:29 | NUR ---
behavior: came into room, pt. had phone cord wrapped around his neck, asked pt. about it and he became tearful, charge nurse notified, pt's window and door open, light on, sitting outside his window. Pt. later expressed desire to go in his wheelchair. pt. took evening meds, currently resting. Pt. using i-pad for communicating.
[2016-11-19 05:56] VITALS: BP 104/68; PULSE 70; RESP 16; O2SAT 97
--- NOTE | 2016-11-19 08:52 | NUR ---
Social Work: Continued Discharge Planning Data: Pt is on day 10 of hospitalization for depression per H&P, is a readmit. EMR reviewed. Per interdisciplinary rounds pt is medically ready for discharge and is awaiting placement. VIANEY met with pt in room as he was expressing distress and referring to Checkering Machine Operator paperwork. SW was able to clarify that he has concerns about this paperwork and would like to have it further explained. VIANEY contacted LEELEE Flores [phone] and left message requesting he return to further explain paperwork. Outgoing message stated he is out of the office and will return 11/25. VIANEY contacted Connie [phone] and left voicemail. VIANEY will continue to follow. Assessment: Pt who would benefit from AFH placement Plan: VIANEY will continue to work on AFH placement. VIANEY will continue to follow. REBECA Porras
--- NOTE | 2016-11-19 08:55 | NUR ---
Pt not appropriate to sign KULDEEP. VIANEY contacted pt's and left message. REBECA Porras Addendum: 11/19/16 at 1614 by CADENCE BAUTISTA SS VIANEY spoke to pt's by phone and she verbally signed KULDEEP. REBECA Porras
[2016-11-19] MEDS: Polyethylene Glycol (PEG) 17 Gm Powder PO SCH (10:05)
[2016-11-19] MEDS: Nystatin 100,000 Unit/Gm 15 Gm Powder TOPICAL SCH ×2 (10:05→20:39)
[2016-11-19] MEDS: buPROPion XL 300 mg ER24 Tablet PO SCH (10:06)
[2016-11-19 13:22] VITALS: BP 102/59; PULSE 86; RESP 18; O2SAT 94
--- NOTE | 2016-11-19 13:39 | PCM.PNMED ---
Subjective Date of Service November 19, 2016 Subjective Behavior fluctuates, last night found with a telephone cord around his neck, cooperated with staff to remove this. It was not tight and there was no damage to patient Exam Vital Signs Vital Sign - Last Date Time Temp Pulse Resp B/P Pulse Ox O2 Delivery O2 Flow Rate FiO2 11/19/16 13:22 36.5 86 18 102/59 94 Room Air Intake and Output 11/18/16 11/18/16 11/19/16 Cumulative From/Thru 14:59 22:59 06:59 11/09/16 13:58 - 11/19/16 05:58 Intake Total 472 ml 636 ml 7231 ml Output Total 650 ml 0 ml 6350 ml Balance -178 ml 636 ml 881 ml Intake Oral 472 ml 636 ml 7171 ml IV Total 60 ml Output Urine Total 650 ml 0 ml 6350 ml # Bowel Movements 2 8 Exam Easily frustrated when tries to speak Eyes alma, eom intact CV; regular no murmur Resp; clear GI, soft and non acute or tender Neck; no evidence of any trauma Lab and Diagnostics Result Diagram: 11/16/1681411/16/1615 Assessment & Plan 56-year-old male with past medical history of stroke, atrial fibrillation on warfarin, type II diabetes mellitus, anxiety, and coronary artery disease presented to the emergency department following discharge (11/08) due to combative behavior at SNF. 1,Urinary retention, acute, POA, stable -reported urinary retention at SNF -bladder scan, post void residual, contact MD if residual >300cc -nurse said voiding well 2.Behavior disturbance, acute, POA, improving -patient has been known to have behavior concerns due to major vascular neurocognitive disorder with history of bipolar disorder. recent UTI diagnosed and treated, currently managed. disruptive behavior following discharge with no obvious medical etiology. Likely personality changes with vascular dementia. -continue psych medications: lamotrigine, wellbutrin XL, quetiapine - consult for placement -due to episode with telephone cord we will request psy to re-visit patient 3.UTI, acute, POA, active -urine cx positive for e. fecalis -currently being treated with amoxicillin per ID for 14 day finished. 4.Prior stroke POA, chronic, -with residual expressive aphasia and right sided weakness in the setting of afib,T consult -resume Xarelto but likely to stop if family opt out. 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 6.Restless legs, 7.Coronary artery disease, poa, stable -continued aspirin, metoprolol, atorvastatin dispo: patient is medical stable for discharge, unlikely back to [facility], nor home. needs SNF that can accept pt, appreciate SW/CM input VTE Prophylaxis: Other (therapeutic INR) VTE Mechanical Devices: Intermittant Pneumatic CD Resuscitation Status: CPR: Attempt Resuscitation Marylin Moreira MD November 19, 2016 13:39
--- NOTE | 2016-11-19 15:03 | NUR ---
NUTRITION FOLLOW-UP: ASSESS: 56 YO male admitted for depression. Pt was just recently discharged and during previous admission, pt with variable po intake of 15-100% of meals. PO intake has improved with pt eating 25-100% of meals. Placement pending. PMHx: Morbid obesity s/p gastric sleeve in Feb 2016, depression, CAD, MD, Stroke, Liliya's gangrene R groin, Kidney Stones, A-fib, anxiety, probable underlying mood disorder. LABS: Reviewed. Alb 3.1, Glu 115. MEDS: Reviewed. GI: BM x 1 (11/17) CURRENT WT: 106.4 kg (11/09/16) IBW: 70 kg. Pt has intentionally lost 44 kg since March 2016 from gastric sleeve procedure. DIET: Dysphagia Mechanical. Gelatein Plus at 10am & 8pm and Mighty shake at 2pm. PO intake 25% of most meals. EST. NEEDS (BMI): 7467-1182 kcals (20-22 kcals/kg BW), 85-105 g protein (1.2-1.5 g/kg IBW) NUTRITION DIAGNOSIS: 1.) Inadequate oral intake related to altered GI function (gastric sleeve) as evidenced by po intake of 25% of meals--IMPROVING. NUTRITION INTERVENTION: 1.) Continue to send Gelatein Plus at 10am & 8pm and Mighty shake at 2pm between meals to encourage adequate po intake. 2.) Recommend new wt as only wt recorded was admit wt, 10 days ago. MONITOR / EVAL: PO intake, labs, weights, nutritional status. Follow per moderate nutritional risk guidelines.
--- NOTE | 2016-11-19 16:14 | NUR ---
VIANEY - Continued Discharge Planning Pt was discussed in rounds and nurse expressed concerns re: incident previous night in which pt was found with telephone chord tightly wrapped around his neck. VIANEY met with pt at bedside to check in re: suicidal ideation. Pt confirmed by nodding that the action was a suicide attempt. SW asked if pt is currently suicidal and he shook his head no. Due to communication barriers SW was unable to safety plan or further explore attempt with pt. ordered psych consult and followed up with nathaniel to provide further information about interaction with the pt. VIANEY followed up with pt's to update her. Informed that he appears to be confused about GAL paperwork and VIANEY recommends a meeting with GAL, , and pt next week when GAL is back in the office. She was agreeable to this. clarified that she does want to be the pt's appointed guardian and started this process with that intent. VIANEY contacted LEELEE Flores [phone] and left second message proposing meeting next Thursday with pt. VIANEY met with pt to update him. VIANEY will follow up with GAL next Thursday. VIANEY will continue to follow. REBECA Porras
--- NOTE | 2016-11-19 18:23 | NUR ---
Mood Patient tearful this am-jesturing for staff to go away, turning head away to hide tears. By noon, patient sitting up in wheelchair, smiling, appeared back to baseline. Laughing, getting excited for hockey game on tv.
[2016-11-19] MEDS: lamoTRIgine 100 mg Tablet PO SCH (20:40)
[2016-11-19 20:53] VITALS: BP 99/66; PULSE 75; RESP 18; O2SAT 94
--- NOTE | 2016-11-20 04:45 | NUR ---
behavior Pt is interacting more to sitter and RN. no suicidal ideation. denies pain, no s/s of discomfort. Sitter at bedside. Pt has been sleeping since 23:00. will closely monitor.
--- NOTE | 2016-11-20 07:48 | PCM.PNMED ---
Subjective Date of Service November 20, 2016 Subjective In bed, no further problems overnight. Sitter present. No complaints by patient. Exam Vital Signs Vital Sign - Last Date Time Temp Pulse Resp B/P Pulse Ox O2 Delivery O2 Flow Rate FiO2 11/19/16 20:53 37.1 75 18 99/66 94 Room Air Intake and Output 11/19/16 11/19/16 11/20/16 Cumulative From/Thru 15:00 23:00 07:00 11/09/16 13:58 - 11/20/16 05:43 Intake Total 636 ml 520 ml 8387 ml Output Total 625 ml 200 ml 7175 ml Balance 11 ml 320 ml 1212 ml Intake Oral 636 ml 520 ml 8327 ml IV Total 60 ml Output Urine Total 625 ml 200 ml 7175 ml # Voids 1 1 # Bowel Movements 0 0 8 Exam Easily frustrated when tries to speak Eyes alma, eom intact CV; regular no murmur Resp; clear GI, soft and non acute or tender Neck; no evidence of any trauma Lab and Diagnostics Result Diagram: 11/16/1615 11/16/1615 Assessment & Plan 56-year-old male with past medical history of stroke, atrial fibrillation on warfarin, type II diabetes mellitus, anxiety, and coronary artery disease presented to the emergency department following discharge (11/08) due to combative behavior at SNF. 1,Urinary retention, acute, POA, stable -reported urinary retention at [facility] -bladder scan, post void residual, contact MD if residual >300cc -nurse said voiding well 2.Behavior disturbance, acute, POA, improving -patient has been known to have behavior concerns due to major vascular neurocognitive disorder with history of bipolar disorder. recent UTI diagnosed and treated, currently managed. disruptive behavior following discharge with no obvious medical etiology. Likely personality changes with vascular dementia. -continue psych medications: lamotrigine, wellbutrin XL, quetiapine - consult for placement -due to episode with telephone cord we will request psy to re-visit patient, continue sitter, Psy input pending 3.UTI, acute, POA, active -urine cx positive for e. fecalis -currently being treated with amoxicillin per ID for 14 day finished. 4.Prior stroke POA, chronic, -with residual expressive aphasia and right sided weakness in the setting of afib,T consult -resume Xarelto but likely to stop if family opt out. 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 6.Restless legs, 7.Coronary artery disease, poa, stable -continued aspirin, metoprolol, atorvastatin dispo: patient is medical stable for discharge, unlikely back to [facility], nor home. needs SNF that can accept pt, appreciate SW/CM input VTE Prophylaxis: Other (therapeutic INR) VTE Mechanical Devices: Intermittant Pneumatic CD Resuscitation Status: CPR: Attempt Resuscitation Marylin Moreira MD November 20, 2016 07:48
[2016-11-20 08:20] VITALS: BP 104/75; PULSE 100; RESP 18; O2SAT 98
[2016-11-20] MEDS: Polyethylene Glycol (PEG) 17 Gm Powder PO SCH (08:30)
[2016-11-20] MEDS: buPROPion XL 300 mg ER24 Tablet PO SCH (09:52)
[2016-11-20] MEDS: Nystatin 100,000 Unit/Gm 15 Gm Powder TOPICAL SCH ×2 (09:56→20:37)
--- NOTE | 2016-11-20 16:31 | PCM.PNPSY ---
Subjective Date of Service November 20, 2016 Subjective I spent 30 minutes both reviewing his treatment plan and providing supportive and educational psychotherapy. I spent more than 50% of the time counseling the patient. I reviewed the treatment plan with the patient and discussed options available including the potential risks, benefits and side effects. Daryn reports reports extreme anger and frustration after receiving papers that his is handing over guardianship to the state. He does not understand. He is demanding that the staff call the police and taken back to his home. He is unaware of his deficits or his lack of impulse control that resulted in violent behavior towards his and staff. He denied depressive review of systems reporting that he is doing well but is very adamant that he will not go to a residential. The Staff reports that he has been cooperative and very active today. I was asked by internal medicine to evaluate after reports that he was suicidal and wrapped a cord around his neck. Daryn was able to communicate to me that he was mad but has no intention of harming himself. He denies medication side effects. Communication was very slow and very difficult. Patient with an expressive aphagia that believes when he repeats the word [id number] hand that he is communicating. I do frequently slow him down and get him to write with his eyes closed using his left hand. When he does this he is able to do a "work around" of the expressive aphasia and he is able to communicate concretely. Mental Status Exam Appearance: Neat/well groomed Attitude: Pleasant, Cooperative Behavior: Other (Right sided paresis) Affect: Well Modulated/Appropriate Mood: Euthymic Thought Process/Associations: Other (Difficult to assess due to aphasia but appears to be responding to questions) Speech Production: Other (repeated use of the word "hand" for all elements of speech with occasional "yes," and "oh boy") Speech Rate: Normal Speech Articulation: Other (dysarthria) Thought Content: Appropriate Danger to Self/Suicidal Ideati: None Danger to Others: None Hallucinations: Auditory (Denies), Visual (Denies) Consciousness: Alert Orientation: Person Memory: Untestable Estimate Intellectual Function: Unable to assess Attention/Concentration & Cogn: Unable to assess Insight: Unable to assess Judgement: Unable to assess Result Diagram: 11/16/16 0815 11/16/16 0815 Mental Health Plan The patient is a 56-year-old white male with history of depression and recent stroke with expressive aphasia. I evaluated him on multiple occasions when he was here on his previous admission where he presented with worsening mental state following return to his home and a loss of SADE caregiver. That stress produced incredible frustration and violent bizarre acting out by the patient towards his family. The patient had worsening agitation, decreased ability to care for himself, increase aggression towards others and was detained by a [facility] designated mental health professional to the medical floor. He again presented to the ER with unexplained agitation and non-adherence within hours of his transfer to [facility]. Given his fairly rapid return to baseline, it would seem that some environmental cue was involved in his rapid decline although it is not readily apparent what that may have been. The patient tolerated the increase in pm quetiapine and reports improved mood. Given his lack of psychiatric symptoms, other than his CVA there appears no indication to file for additional inpatient psychiatric time. SW is working on placement. I believe due to the impulsivity when he is frustrated that he will likely need a one-to-one in order to prevent a repeat of self-harm behavior. No new recommendations for medications at this time [place] AXIS I: 1. Mood disorder unspecified 2. 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 Major neurocognitive disorder, vascular type, due to stroke. AXIS II: Deferred. AXIS III: See past medical history. AXIS IV: Severe. AXIS V: Global Assessment of Functioning 35 (due to physical impairments/ aphasia). Treatments Patient is being provided with a high degree of safety through the structure and active adult engagement with a one-to-one sitter. Would encourage PT and OT to focus on developing and encouraging as much independence as possible.. At this time he appears to have achieved a tenuous: Stability of mood and currently denies thoughts of harm to self and/or others Has Established a consistent sleep pattern Has maximized his Medication regimen for stabilization of mood and/or thought process Has a Reduced risk of imminent harm to self and/or others by being provided with a safe environment prior to transfer to a fpc home facility Is able to Tolerate medication without side effects Patient is receiving the following psychiatric medications: Seroquel 25 every morning 50 at bedtime Lamictal 100 at bedtime Melatonin 5 mg at bedtime Bupropion XL 300 daily Disposition: 1. The patient has been REY'd but admitted to the medical unit due to his level of physical impairment and inability to significantly benefit from services offered at the mental health center. The patient's REY status has now lapsed and he is no longer under a psychiatric hold. 2. SW working on placement in [facility]. Son Felix MD November 20, 2016 16:31
[2016-11-20 16:34] VITALS: BP 112/65; PULSE 77; RESP 18; O2SAT 98
[2016-11-20 20:30] VITALS: BP 105/72; PULSE 80; RESP 16; O2SAT 99
[2016-11-20] MEDS: lamoTRIgine 100 mg Tablet PO SCH (20:36)
[2016-11-20 23:37] VITALS: PULSE 76; O2SAT 98
--- NOTE | 2016-11-21 04:06 | NUR ---
Behavior Patient cooperative with care. patient does get frustrated easily when he is unable to express himself. voices "hands" and "oh boy" frequently when word searching. right sided weakness present at baseline. sitter at bedside. no suicidal Ideation noted at this time. Patient requested night medications. will continue to monitor. .
[2016-11-21 05:17] VITALS: BP 96/63; PULSE 64; RESP 16; O2SAT 95
[2016-11-21] MEDS: Polyethylene Glycol (PEG) 17 Gm Powder PO SCH (08:30)
[2016-11-21 09:29] VITALS: BP 101/59; PULSE 74; O2SAT 98
[2016-11-21] MEDS: Nystatin 100,000 Unit/Gm 15 Gm Powder TOPICAL SCH ×2 (09:38→20:39)
[2016-11-21] MEDS: buPROPion XL 300 mg ER24 Tablet PO SCH (10:20)
--- NOTE | 2016-11-21 11:22 | NUR ---
KULDEEP Update : Called and spoke with GENETIC TECHNOLOGIST asbestos textile supervisor and discussed patient's watermaster plan and discharge planning process, we will not be calling patient's every two days to update on KULDEEP. But we will continue to follow so KULDEEP is done within 48 hours of discharge. Will Update all GENETIC TECHNOLOGIST's as well in the department.
--- NOTE | 2016-11-21 11:34 | PCM.PNMED ---
Subjective Date of Service November 21, 2016 Subjective Behavior has been OK overnight. No new problems per patient of nurse. Reviewed Dr Felix's note, help appreciated Exam Vital Signs Vital Sign - Last Date Time Temp Pulse Resp B/P Pulse Ox O2 Delivery O2 Flow Rate FiO2 11/21/16 09:29 36.3 74 101/59 98 Room Air 11/21/16 05:17 16 Intake and Output 11/20/16 11/20/16 11/21/16 Cumulative From/Thru 15:00 23:00 07:00 11/09/16 13:58 - 11/21/16 06:52 Intake Total 800 ml 100 ml 9287 ml Output Total 525 ml 0 ml 7700 ml Balance 275 ml 100 ml 1587 ml Intake Oral 800 ml 100 ml 9227 ml IV Total 60 ml Output Urine Total 525 ml 0 ml 7700 ml # Voids 0 1 # Bowel Movements 0 0 8 Exam Easily frustrated when tries to speak Eyes alma, eom intact CV; regular no murmur Resp; clear GI, soft and non acute or tender Neck; no evidence of any trauma Lab and Diagnostics Result Diagram: 11/16/1681411/16/1615 Assessment & Plan 56-year-old male with past medical history of stroke, atrial fibrillation on warfarin, type II diabetes mellitus, anxiety, and coronary artery disease presented to the emergency department following discharge (11/08) due to combative behavior at SNF. 1,Urinary retention, acute, POA, stable -reported urinary retention at SNF -bladder scan, post void residual, contact MD if residual >300cc -nurse said voiding well 2.Behavior disturbance, acute, POA, improving -patient has been known to have behavior concerns due to major vascular neurocognitive disorder with history of bipolar disorder. recent UTI diagnosed and treated, currently managed. disruptive behavior following discharge with no obvious medical etiology. Likely personality changes with vascular dementia. -continue psych medications: lamotrigine, wellbutrin XL, quetiapine - consult for placement -due to episode with telephone cord we will request psy to re-visit patient, continue sitter, Psy input appreciated 3.UTI, acute, POA, active -urine cx positive for e. fecalis -currently being treated with amoxicillin per ID for 14 day finished. 4.Prior stroke POA, chronic, -with residual expressive aphasia and right sided weakness in the setting of afib,T consult -resume Xarelto but likely to stop if family opt out. 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 6.Restless legs, 7.Coronary artery disease, poa, stable -continued aspirin, metoprolol, atorvastatin dispo: patient is medical stable for discharge, unlikely back to [facility], nor home. needs SNF that can accept pt, appreciate SW/CM input VTE Prophylaxis: Other (therapeutic INR) VTE Mechanical Devices: Intermittant Pneumatic CD Resuscitation Status: CPR: Attempt Resuscitation Marylin Moreira MD November 21, 2016 11:34
[2016-11-21 12:57] VITALS: BP 97/63; PULSE 71; RESP 14; O2SAT 97
--- NOTE | 2016-11-21 16:55 | NUR ---
behavior Pt appeared to be more frustrated with the staff this AM. Slammed Ipad when PT was in the room, was unwilling to get up and ambulate. Shower was completed this afternoon, pt appears to be more relaxed, pleasant with the staff. resting quietly. call light with in reach 1:1 sitter at bedside. Will continue to monitor.
[2016-11-21 20:35] VITALS: BP 100/67; PULSE 73; RESP 16; O2SAT 98
[2016-11-21] MEDS: lamoTRIgine 100 mg Tablet PO SCH (20:38)
--- NOTE | 2016-11-22 00:33 | NUR ---
Transfer to [facility] Pt transferred to [id number] at [facility] at 0028, alert and oriented, report given to Ivelisse Jackson RN at [facility].
--- NOTE | 2016-11-22 03:33 | NUR ---
Transfer pt arrived to [facility] room 1021 at 0030. he is alert and pleasant, on RA. in no apparent distress. responded with yes or no to assessment questions but otherwise answered with "oh boy" or "hands", does use gestures to communicate. he has been pleasant and cooperative. 1:1 sitter is with pt. pt denies any suicidal ideation. care continues.
[2016-11-22 05:33] VITALS: BP 101/60; PULSE 66; RESP 18; O2SAT 99
[2016-11-22] MEDS: Polyethylene Glycol (PEG) 17 Gm Powder PO SCH (08:30)
[2016-11-22] MEDS: Nystatin 100,000 Unit/Gm 15 Gm Powder TOPICAL SCH ×2 (08:30→21:21)
--- NOTE | 2016-11-22 09:21 | NUR ---
SW -Continued Discharge Planning Data: EMR reviewed. Pt is on day 13 of hospitalization for depression per H&P. Pt is medically stable for discharge, awaiting placement at this time. GAL is [place] [facility] [phone]. Psychiatry is following pt. Per Psychiatry recommendations, pt has 1:1 sitter due to impulsivity in order to prevent a repeat of self-harm behavior. SW is working on placement in an Adult Family Home. Pt is frustrated with GAL process, [employer] working on facilitating family meeting between pt's , GAL, and pt next week when GAL is back in the office. [employer] to call LEELEE Saturday 11/25 to set up this meeting. SW will continue to follow. Assessment: Pt who would benefit from AFH placement Plan: SW will continue to work on AFH placement. SW to facilitate meeting between GAL, pt, and pt's . SW to call LEELEE Boyle on 11/25 to schedule meeting (GAL is out of the office until then). SW will continue to follow. Amy Pastrana MSW
[2016-11-22] MEDS: buPROPion XL 300 mg ER24 Tablet PO SCH (10:00)
--- NOTE | 2016-11-22 12:13 | PCM.PNMED ---
Subjective Date of Service November 22, 2016 Subjective Knee events. Awaiting placement. Behavior ok , pleasant today, no agitation Exam Vital Signs Vital Sign - Last Date Time Temp Pulse Resp B/P Pulse Ox O2 Delivery O2 Flow Rate FiO2 11/22/16 05:33 36.3 66 18 101/60 99 Room Air Intake and Output 11/21/16 11/21/16 11/22/16 Cumulative From/Thru 14:59 22:59 06:59 11/09/16 13:58 - 11/22/16 06:32 Intake Total 200 ml 9487 ml Output Total 125 ml 7825 ml Balance 75 ml 1662 ml Intake Oral 200 ml 9427 ml IV Total 60 ml Output Urine Total 125 ml 7825 ml # Voids 1 # Bowel Movements 0 8 Exam Easily frustrated when tries to speak Eyes alma, eom intact CV; regular no murmur Resp; clear GI, soft and non acute or tender Neck; no evidence of any trauma IVs and Medications Medications Reviewed: Medications were reviewed in detail Lab and Diagnostics Result Diagram: 11/16/1681411/16/16814 Assessment & Plan 56-year-old male with past medical history of stroke, atrial fibrillation on warfarin, type II diabetes mellitus, anxiety, and coronary artery disease presented to the emergency department following discharge (11/08) due to combative behavior at SNF. 1,Urinary retention, acute, POA, resolved -reported urinary retention at SNF -bladder scan, post void residual, contact MD if residual >300cc -nurse said voiding well 2.Behavior disturbance, acute, POA, improving -patient has been known to have behavior concerns due to major vascular neurocognitive disorder with history of bipolar disorder. recent UTI diagnosed and treated, currently managed. disruptive behavior following discharge with no obvious medical etiology. Likely personality changes with vascular dementia. -continue psych medications: lamotrigine, wellbutrin XL, quetiapine - consult for placement -due to episode with telephone cord we will request psy to re-visit patient, continue sitter, Psy input appreciated 3.UTI, acute, POA, active -urine cx positive for e. fecalis -currently being treated with amoxicillin per ID for 14 day finished. 4.Prior stroke POA, chronic, -with residual expressive aphasia and right sided weakness in the setting of afib,T consult -resume Xarelto but likely to stop if family opt out. 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 6.Restless legs, 7.Coronary artery disease, poa, stable -continued aspirin, metoprolol, atorvastatin dispo: patient is medical stable for discharge, unlikely back to [facility], nor home. needs SNF that can accept pt, appreciate SW/CM input VTE Prophylaxis: Other (therapeutic INR) VTE Mechanical Devices: Intermittant Pneumatic CD Resuscitation Status: CPR: Attempt Resuscitation Kaushik Mariano MD November 22, 2016 12:13
[2016-11-22 14:13] VITALS: BP 122/80; PULSE 74; RESP 18; O2SAT 95
--- NOTE | 2016-11-22 14:59 | NUR ---
PT HAS NOT VOIDED ON MY SHIFT hE WAS BLADDER SCANNED AT 000ML Addendum: 11/22/16 at 1500 by FAZAL BILL CNA Amended: Links added.
--- NOTE | 2016-11-22 18:31 | NUR ---
Uop Patient had not voided t/o day bladder scanned again 486 showing patient enc to attempt urinating or possible in and out cath to be done would occur. patient able to void 275 mls at this time. Patient with severe aphasia and communication is difficult . Patient with frustration at times but has not been hostile or agitated . Patient had visitors today and has been upbeat in mood.
--- NOTE | 2016-11-22 18:31 | NUR ---
SCANED 438 Then he output 275. Addendum: 11/22/16 at 1832 by ESTEVAN DORSEY CNA Amended: Links added.
[2016-11-22 20:31] VITALS: BP 97/60; PULSE 76; RESP 18; O2SAT 98
[2016-11-22] MEDS: lamoTRIgine 100 mg Tablet PO SCH (21:20)
--- NOTE | 2016-11-23 03:47 | NUR ---
Activity/urine Pt remained in bed all shift, very active and loud voice, very excited. Continues to have expressive aphasia and his word is "hand". He did not have any combative behaviors but would not drink fluids when encouraged. Pt did not void as he was sleeping up until till this time. Will encourage to urinate next rounds and bladder scan if needed. Care continues
[2016-11-23 05:15] VITALS: BP 100/67; PULSE 60; RESP 16; O2SAT 99
--- NOTE | 2016-11-23 05:35 | NUR ---
Pt refusing to urinate this shift, encouraged multiple times. Pt getting very upset. Bladder scan done 423ml. Paged
[2016-11-23] MEDS: Polyethylene Glycol (PEG) 17 Gm Powder PO SCH (08:30)
[2016-11-23] MEDS: buPROPion XL 300 mg ER24 Tablet PO SCH (10:24)
[2016-11-23] MEDS: Nystatin 100,000 Unit/Gm 15 Gm Powder TOPICAL SCH ×2 (10:28→21:53)
[2016-11-23 13:12] VITALS: BP 95/61; PULSE 66; RESP 17; O2SAT 98
--- NOTE | 2016-11-23 15:37 | PCM.PNMED ---
Subjective Date of Service November 23, 2016 Subjective spoke with nurse, patient doing OK, no major behavioral issues since yesterday. He's watching TV golf and looks comfortable. No complaints. Exam Vital Signs Vital Sign - Last Date Time Temp Pulse Resp B/P Pulse Ox O2 Delivery O2 Flow Rate FiO2 11/23/16 13:12 36.9 66 17 95/61 98 Room Air Intake and Output 11/22/16 11/22/16 11/23/16 Cumulative From/Thru 15:00 23:00 07:00 11/09/16 13:58 - 11/23/16 06:34 Intake Total 600 ml 118 ml 400 ml 95125 ml Output Total 0 ml 275 ml 200 ml 8300 ml Balance 600 ml -157 ml 200 ml 2305 ml Intake Oral 600 ml 118 ml 400 ml 41989 ml IV Total 60 ml Output Urine Total 0 ml 275 ml 200 ml 8300 ml # Voids 1 2 # Bowel Movements 0 8 Exam Eyes; alma eom intact HENT; mucus membranes moist, no oral lesions CV; reg, no murmur -Resp; clear GI; soft and minimally tender, incision site healing well, drain clean and functioning Skin; no active rashes noted Neuro; cn 2-12 intact, no focal neuro deficits Assessment & Plan 56-year-old male with past medical history of stroke, atrial fibrillation on warfarin, type II diabetes mellitus, anxiety, and coronary artery disease presented to the emergency department following discharge (11/08) due to combative behavior at SNF. 1,Urinary retention, acute, POA, resolved -reported urinary retention at SNF -bladder scan, post void residual, contact MD if residual >300cc -nurse said voiding well 2.Behavior disturbance, acute, POA, improving -patient has been known to have behavior concerns due to major vascular neurocognitive disorder with history of bipolar disorder. recent UTI diagnosed and treated, currently managed. disruptive behavior following discharge with no obvious medical etiology. Likely personality changes with vascular dementia. -continue psych medications: lamotrigine, wellbutrin XL, quetiapine - consult for placement -due to episode with telephone cord we will request psy to re-visit patient, continue sitter, Psy input appreciated 3.UTI, acute, POA, active -urine cx positive for e. fecalis -currently being treated with amoxicillin per ID for 14 day finished. 4.Prior stroke POA, chronic, -with residual expressive aphasia and right sided weakness in the setting of afib,T consult -resume Xarelto but likely to stop if family opt out. 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 6.Restless legs, 7.Coronary artery disease, poa, stable -continued aspirin, metoprolol, atorvastatin dispo: patient is medical stable for discharge, unlikely back to [facility], nor home. needs SNF that can accept pt, appreciate SW/CM input VTE Prophylaxis: Other (therapeutic INR) VTE Mechanical Devices: Intermittant Pneumatic CD Resuscitation Status: CPR: Attempt Resuscitation Marylin Moreira MD November 23, 2016 15:37
--- NOTE | 2016-11-23 18:08 | NUR ---
Behavior Pt remained with care sitter present throughout shift, no issues with care. Pt able to void with 2PA. Encourage PO intake. No acute issues this shift. Pt alert, watching sports - happy, no issues with getting frustrated d/t expressive aphasia. Care continues.
[2016-11-23 19:38] VITALS: BP 99/63; PULSE 70; RESP 16; O2SAT 98
[2016-11-23] MEDS: lamoTRIgine 100 mg Tablet PO SCH (21:42)
--- NOTE | 2016-11-24 03:27 | NUR ---
Activity/ Behavior Due to baseline expressive aphasia, pt. can only say "hands", but is otherwise non-verbal. Pt. does use non-verbal language, and hand gestures to make needs known. Pt. at one time got agitated when door and window shade was left open. This RN and sitter explained for his safety that door and window shade would need to be left open. 1:1 sitter tonya for recent hx of suicide ideation.
[2016-11-24 04:24] VITALS: BP 85/49; PULSE 65; RESP 16; O2SAT 99
[2016-11-24 04:51] VITALS: BP 93/55
[2016-11-24 08:27] VITALS: BP 111/70; PULSE 74; RESP 16; O2SAT 93
[2016-11-24] MEDS: Polyethylene Glycol (PEG) 17 Gm Powder PO SCH (08:31)
[2016-11-24] MEDS: Nystatin 100,000 Unit/Gm 15 Gm Powder TOPICAL SCH ×2 (08:31→20:58)
[2016-11-24] MEDS: buPROPion XL 300 mg ER24 Tablet PO SCH (08:31)
--- NOTE | 2016-11-24 11:35 | NUR ---
VIANEY spoke with Teri at [facility] and they will look at referral. VIANEY called and spoke with tara at [facility], she will look at referral and get back to VIANEY. VIANEY will continue to follow. REBECA Duncan Addendum: 11/24/16 at 1232 by LEONID LOCKWOOD SS [facility] [place] has declined pt. REBECA Duncan
--- NOTE | 2016-11-24 11:35 | NUR ---
Social Work-continued d/c planning: Data& assessment:EMR reviewed. Pt is on day 15 of hospitalization for depression per H&P. Pt is being followed by psychiatry. SW placed a call to pt's Melba [phone] and left message requesting a return call to discuss pt. SW to discuss with placement outside of [facility] and also arrange for a meeting with and pt's GAL. SW awaiting a return call from . Pt's assessment has been completed and his daily rate is $103.33. SW to pursue calling AFH's if agreeable to placement outside of [facility]. SW will continue to follow. Plan:SW awaiting a return call from to further discuss pt. SW will continue to follow. REBECA Duncan
[2016-11-24 13:12] VITALS: BP 87/53; PULSE 69; RESP 17; O2SAT 97
--- NOTE | 2016-11-24 13:41 | NUR ---
Social Work-continued d/c planning: Data& assessment:EMR Reviewed. Pt is on day 15 of hospitalization for depression per H&P. VIANEY received a call back from pt's to further discuss discharge planning, SW role explained. SW explained to pt's that SW would like to set up a meeting with her,LEELEE Boyle, VIANEY, and FLAKITO to further discuss. is agreeable and states she has her lunch break from [phone], she can come on Sunday 11/26 at 1130. SW to call LEELEE Boyle tomorrow to confirm that this time will work for him. SW discussed further placement options with . SW explained from a medical standpoint pt is medically stable to discharge. SW explained to that SW team will continue to explore placement options for pt. SW explained to that pt likely will not able to stay in [facility] and is agreeable for pt to go out of [facility]. SW explained that placement can continue to be explored, but if no placement is found by next week Thursday 11/30 either will need to be prepared to take pt home with her or she may be responsible for the hospital bill. SW explained pt's CM in the community can continue to pursue placement for pt outside of the hospital. states an understanding and is agreeable to plan. SW updated UR specialist on plan. VIANEY and UR specialist to work on calling for bed at [facility] or SNF daily rate of $103.33 a day. SW will continue to follow. Plan:VIANEY will continue to work on placement. available to have meeting with VIANEY, FLAKITO &LEELEE on Thursday at 1130. SW to call LEELEE tomorrow to confirm that this time works for him. aware that SW team will continue to pursue placement, she is agreeable to out of [facility], but aware that on Thursday 11/30 pt will either discharge home with or she may be responsible for the hospital bill. VIANEY will continue to follow. REBECA Duncan
--- NOTE | 2016-11-24 16:12 | NUR ---
Social Work-continued d/c planning: Data& assessment:EMR reviewed. Pt is day of hospitalization for depression per h&P. Pt is medically stable to leave the hospital. SW working on placement for pt. SW spoke with pt's CM Mary Ch at [facility] who informed SW that pt is not ECS funded and she will start to call AFH's from [facility] to [facility]. SW also informed Mary Ch of the meeting on Thursday at 1130 and she will plan on being there. SW called pt's [facility] geriatric transitions coordinator [place] [phone] and left message informing him of meeting as well and requesting a return call. SW worked on placement for pt: [facility]- [facility] [place]- no [facility]- no [facility]no [place]- not willing to take pt [place] [facility]- no beds [facility]- will call tomorrow about bed [place]- no beds [place] [facility]- left message [place]- yes male beds- faxed referral [phone] [place]-no Medicaid [facility]- Cherry Matthew owner/photographer [phone] has bed will review faxed to [phone] [facility]- Has bed will review [phone] [facility]- no Medicaid [place]on [place]- left message with owner/photographer [facility]- no male beds [facility]- no beds [place]- no beds [place]-left message [place]- no male beds [place]- no beds [facility] [place]- no beds [place]- no answer [place]- no beds [place]- no beds [place]- no beds [place]- No beds [address]- no beds [facility]-left message [facility]- no beds [facility]- left message [facility]- [facility] willing to look at referral faxed to [phone] [facility]- willing to look at referral faxed to [phone], has beds [facility]-no beds [facility]- left message [facility]- willing to look at referral faxed to [phone], has beds [facility]- left message [facility]- no beds [facility]-willing to look at referral [phone] [facility]- requested that Charo look at referral. SW will awaiting to hear back from the above places and start calling in [facility] tomorrow. SW will continue to follow. Plan:VIANEY will continue to work on placement for pt. SW has sent referrals to multiple SNF's and AFH. Meeting is scheduled for Sunday 11/26 at 1130. SW to call [facility] tomorrow and provide update. Pt's NYA Ch will attend and message left for [facility] geriatric transitions coordinator [place] [phone] regarding meeting. VIANEY will continue to follow. REBECA Duncan
--- NOTE | 2016-11-24 16:28 | NUR ---
NUTRITION FOLLOW-UP: ASSESS: 56 YO male admitted for depression, behavior disturbance, psych following, pt with sitter. PO intake has been declining; Appears diet texture of dysphagia was ordered but no speech therapy evaluation was completed and per previous admit pt was on less restrictive mechanical soft diet, text paged re ordering ST eval in attempt to potentially improve po intake with possible texture modification. Attempted to "speak" (via writing-per RN) to pt re po preferences, pt in shower, pt with severe aphasia and difficulty communicating. PMHx: Morbid obesity s/p gastric sleeve in Feb 2016, depression, CAD, PA, Stroke, Liliya's gangrene R groin, Kidney Stones, A-fib, anxiety, probable underlying mood disorder. LABS: Reviewed. Alb 3.1, Glu 115. MEDS: Reviewed. GI: BM x 1 (11/17) CURRENT WT: 106.4 kg (11/09/16) IBW: 70 kg. Pt has intentionally lost 44 kg since March 2016 from gastric sleeve procedure. DIET: Dysphagia Mechanical. Gelatein Plus at 10am & 8pm and Mighty shake at 2pm. PO intake 25% x5d EST. NEEDS (BMI): 4611-5305 kcals (20-22 kcals/kg BW), 85-105 g protein (1.2-1.5 g/kg IBW) NUTRITION DIAGNOSIS: 1.) Inadequate oral intake related to altered GI function (gastric sleeve) as evidenced by po intake of 25% of meals x 5d--PERSISTS. NUTRITION INTERVENTION: 1.) Continue to send Gelatein Plus at 10am & 8pm and Mighty shake at 2pm between meals to encourage adequate po intake. 2.) Recommend new wt as only wt recorded was admit wt, 15 days ago. 3.) Text paged MD to please obtain ST eval. MONITOR / EVAL: PO intake, labs, weights, nutritional status, potential diet modification. Follow per moderate nutritional risk guidelines.
[2016-11-24 16:59] VITALS: BP 105/68; PULSE 67; RESP 18; O2SAT 99
--- NOTE | 2016-11-24 18:11 | PCM.PNMED ---
Subjective Date of Service November 24, 2016 Subjective Pt seen and examined. Patient is stable and has had no acute events overnight. Exam Vital Signs Vital Sign - Last Date Time Temp Pulse Resp B/P Pulse Ox O2 Delivery O2 Flow Rate FiO2 11/24/16 16:59 36.7 67 18 105/68 99 Room Air Intake and Output 11/23/16 11/23/16 11/24/16 Cumulative From/Thru 15:00 23:00 07:00 11/09/16 13:58 - 11/24/16 05:00 Intake Total 233 ml 120 ml 68775 ml Output Total 675 ml 400 ml 9375 ml Balance -442 ml -280 ml 1583 ml Intake Oral 233 ml 120 ml 91353 ml IV Total 60 ml Output Urine Total 675 ml 400 ml 9375 ml # Voids 1 3 # Bowel Movements 0 0 8 Exam Eyes; alma eom intact HENT; mucus membranes moist, no oral lesions CV; reg, no murmur -Resp; clear GI; soft and minimally tender, incision site healing well, drain clean and functioning Skin; no active rashes noted Neuro; cn 2-12 intact, no focal neuro deficits IVs and Medications Medications Reviewed: Medications were reviewed in detail Assessment & Plan 56-year-old male with past medical history of stroke, atrial fibrillation on warfarin, type II diabetes mellitus, anxiety, and coronary artery disease presented to the emergency department following discharge (11/08) due to combative behavior at SNF. 1,Urinary retention, acute, POA, resolved -reported urinary retention at [facility] -bladder scan, post void residual, contact MD if residual >300cc -pts voiding well 2.Behavior disturbance, acute, POA, improving -patient has been known to have behavior concerns due to major vascular neurocognitive disorder with history of bipolar disorder. recent UTI diagnosed and treated, currently managed. disruptive behavior following discharge with no obvious medical etiology. Likely personality changes with vascular dementia. -continue psych medications: lamotrigine, wellbutrin XL, quetiapine - consult for placement -due to episode with telephone cord we will request psy to re-visit patient, continue sitter, Psy input appreciated 3.UTI, acute, POA, active -urine cx positive for e. fecalis -currently being treated with amoxicillin per ID for 14 day finished. 4.Prior stroke POA, chronic, -with residual expressive aphasia and right sided weakness in the setting of afib,T consult -resume Xarelto but likely to stop if family opt out. 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 6.Restless legs, 7.Coronary artery disease, poa, stable -continued aspirin, metoprolol, atorvastatin dispo: patient is medical stable for discharge, unlikely back to [facility], [facility]. needs SNF that can accept pt, appreciate SW/CM input VTE Prophylaxis: Other (therapeutic INR) VTE Mechanical Devices: Intermittant Pneumatic CD Resuscitation Status: CPR: Attempt Resuscitation Garrick Dow MD November 24, 2016 18:11
--- NOTE | 2016-11-24 18:18 | NUR ---
ACTIVITY Patient denies pain. Tolerating liquids PO. Poor appetite. Denies nausea. No emesis noted. Denies SOB. Patient was able to transfer to the wheelchair with 1-2 PA assist. Sitter is at the bedside for safety.
[2016-11-24] MEDS: lamoTRIgine 100 mg Tablet PO SCH (20:59)
[2016-11-24 22:55] VITALS: BP 98/63; PULSE 66; RESP 16; O2SAT 96
--- NOTE | 2016-11-25 04:04 | NUR ---
Activity Patient denies pain at this time. Appears to be in good spirits. Laughing and joking with staff. Communicating by writing down answers to questions. Patient had no questions. Medications administered. Call light within reach. Care continues.
[2016-11-25 06:22] VITALS: BP 97/53; PULSE 40; RESP 16; O2SAT 91
[2016-11-25 07:26] VITALS: BP 97/53
[2016-11-25] MEDS: Polyethylene Glycol (PEG) 17 Gm Powder PO SCH (09:24)
[2016-11-25] MEDS: buPROPion XL 300 mg ER24 Tablet PO SCH (09:24)
[2016-11-25] MEDS: Nystatin 100,000 Unit/Gm 15 Gm Powder TOPICAL SCH ×2 (09:25→20:10)
--- NOTE | 2016-11-25 09:57 | NUR ---
[facility]- beds and [facility] has declined pt. Becka Brunson,SEWER CLEANER
--- NOTE | 2016-11-25 10:46 | PCM.PNMED ---
Subjective Date of Service November 25, 2016 Subjective Patient seen and examined at bedside. He is back to baseline and no behavioral issues reported overnight Patient has no complains Exam Vital Signs Vital Sign - Last Date Time Temp Pulse Resp B/P Pulse Ox O2 Delivery O2 Flow Rate FiO2 11/25/16 07:26 97/53 11/25/16 06:22 36.8 40 16 91 Room Air Intake and Output 11/24/16 11/24/16 11/25/16 Cumulative From/Thru 15:00 23:00 07:00 11/09/16 13:58 - 11/25/16 06:22 Intake Total 440 ml 231 ml 69864 ml Output Total 250 ml 9625 ml Balance 190 ml 231 ml 2004 ml Intake Oral 440 ml 231 ml 10821 ml IV Total 60 ml Output Urine Total 250 ml 9625 ml # Voids 3 # Bowel Movements 0 1 9 Exam Gen : In bed comfortably. NAD HEENT : Satish, Sclera is anicteric Neck : Supple, no JVD Chest : Normal respiratory effort. Lung : clear bilaterally. No crackles, no wheezing Heart : S1S2, RRR, no gallop. Abdomen : Soft, Non tender . Ext : No edema Neuro : Right sided paresis / Weakness Skin : No rash , no ulcer IVs and Medications Medications Reviewed: Medications were reviewed in detail Assessment & Plan 56-year-old male with past medical history of stroke, atrial fibrillation on warfarin, type II diabetes mellitus, anxiety, and coronary artery disease presented to the emergency department following discharge (11/08) due to combative behavior at SNF. 1,Urinary retention, acute, POA, resolved -reported urinary retention at [facility] -bladder scan, post void residual, contact MD if residual >300cc -pts voiding well 2.Behavior disturbance, acute, POA, improved - history of bipolar disorder. personality changes with vascular dementia. -continue psych medications: lamotrigine, wellbutrin XL, quetiapine -Psych consult and recommendation noted . -Patient improved significantly and is back to baseline now. 1;1 ? sitter discontinued 3.UTI, acute, POA, active -urine cx positive for e. fecalis -currently being treated with amoxicillin per ID for 14 day finished. 4.Prior stroke POA, chronic, -with residual expressive aphasia and right sided weakness in the setting of afib -On Xarelto but likely to stop if family opt out. 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 6.Restless legs, 7.Coronary artery disease, poa, stable -continued aspirin, metoprolol, atorvastatin \ Patient is overall improved . He is medically cleared for discharge once arrangement is made VTE Prophylaxis: Other (therapeutic INR) VTE Mechanical Devices: Intermittant Pneumatic CD Resuscitation Status: CPR: Attempt Resuscitation Time spent 25 minutes Lewis Hopkins MD November 25, 2016 10:46
--- NOTE | 2016-11-25 13:56 | NUR ---
Evaluation completed. Please go to "Notes" then click on "Assessments and Notes" (bottom left corner of screen). Then select appropriate discipline tab on top of screen.
[2016-11-25 14:51] VITALS: BP 100/63; PULSE 76; RESP 18; O2SAT 100
--- NOTE | 2016-11-25 16:17 | NUR ---
Social Work-continued d/c planning: Data:EMR reviewed. Pt is on day 16 of hospitalization for depression per H&P. Pt is medically stable for discharge. SW spoke with pt's LEELEE Boyle who informed SW that he is not able to make the appointment tomorrow, but can come up on to see pt. [place] is requesting the medical paperwork to be filled out by . SW called Mary Ch and reminded her of meeting for tomorrow at 1130. SW also called and left a message informing her of meeting time. SW called AFH and SNFs [facility]- [facility] and [facility]- left message Cathryn Denton &Cathryn Wagnern- owner manager Cherry [phone] will [phone] owner manager Joyce and Wei will review and call back Rnonie Santos and [facility]- willing to look at referral, [facility], faxed referral to [phone] [facility]- no beds [facility]- no beds [facility]- has a bed [email or web address], asked Mary ch to sent referral [facility]- [phone]-no beds [facility]- left message [phone] [facility]- left message [phone] [facility]- left message [phone] [facility]- left message [phone] [facility]- no beds [facility]-left message for owner manager [phone] [facility]- no beds [place]- [phone] left message [facility]- no beds [place] [facility]- left message [phone] [facility]- no beds [facility] [place] [phone] [facility]- no beds [facility]- no beds Cyril Malone-no beds [facility]- no beds [facility]-no beds [place] [facility]- no beds [phone] left message [facility]-no beds [place] [facility]- left message [phone] Plan:SW to have meeting tomorrow with pt, UR RN, , and NYA Ch regarding pt at 1130. SW will continue to work on placement. VIANEY will continue to follow. REBECA Duncan
--- NOTE | 2016-11-25 16:26 | NUR ---
[facility] have declined pt. Becka Brunson,ORNAMENTAL PAINTER
--- NOTE | 2016-11-25 18:29 | NUR ---
Activity Patient mainly appropriate this shift. Patient has aphasia, able to produce few words, mainly repeating "hands" and "oh boy". Patient also able to communicate occasionally using written word but not always willing to write. Patient denies any pain, nausea or feelings of self harm. Patient was frustrated during one point this shift, seemingly related to communication difficulties, but soon resolved with therapeutic communication. Patient using urinal appropriately. Care is ongoing.
[2016-11-25] MEDS: lamoTRIgine 100 mg Tablet PO SCH (20:17)
[2016-11-25 21:30] VITALS: BP 96/62; PULSE 63; RESP 22; O2SAT 97
--- NOTE | 2016-11-25 23:50 | NUR ---
Activity On initial assessment, patient was cooperative with care. Bruises noted on back of right leg. Patient communicating with hand gestures and answered appropriately with yes or no to questions. Medications administered. Call light within reach. Care continues.
[2016-11-26 05:46] VITALS: BP 100/65; PULSE 62; RESP 18; O2SAT 98
--- NOTE | 2016-11-26 08:56 | PCM.PNMED ---
Subjective Date of Service November 26, 2016 Subjective no events overnight, no reports of cp/sob/f - no behavioral disturbance/ agitation - awaiting placement Exam Vital Signs Vital Sign - Last Date Time Temp Pulse Resp B/P Pulse Ox O2 Delivery O2 Flow Rate FiO2 11/26/16 05:46 36.5 62 18 100/65 98 Room Air Intake and Output 11/25/16 11/25/16 11/26/16 Cumulative From/Thru 15:00 23:00 07:00 11/09/16 13:58 - 11/26/16 03:25 Intake Total 800 ml 35615 ml Output Total 1500 ml 12390 ml Balance -700 ml 1304 ml Intake Oral 800 ml 05548 ml IV Total 60 ml Output Urine Total 1500 ml 73371 ml # Voids 3 # Bowel Movements 9 Exam Gen : In bed comfortably. NAD HEENT : Satish, Sclera is anicteric Neck : Supple, no JVD Chest : Normal respiratory effort. Lung : clear bilaterally. No crackles, no wheezing Heart : S1S2, RRR, no gallop. Abdomen : Soft, Non tender . Ext : No edema Neuro : Right sided paresis / Weakness Skin : No rash , no ulcer IVs and Medications Medications Reviewed: Medications were reviewed in detail Assessment & Plan 56-year-old male with past medical history of stroke, atrial fibrillation on warfarin, type II diabetes mellitus, anxiety, and coronary artery disease presented to the emergency department following discharge (11/08) due to combative behavior at SNF. 1,Urinary retention, acute, POA, resolved -reported urinary retention at SNF -bladder scan, post void residual, contact MD if residual >300cc -pts voiding well 2.Behavior disturbance, acute, POA, improved - history of bipolar disorder. personality changes with vascular dementia. -continue psych medications: lamotrigine, wellbutrin XL, quetiapine -Psych consult and recommendation noted . -Patient improved significantly and is back to baseline now. sitter discontinued 3.UTI, acute, POA, active -urine cx positive for e. fecalis -currently being treated with amoxicillin per ID for 14 day finished. 4.Prior stroke POA, chronic, -with residual expressive aphasia and right sided weakness in the setting of afib -On Xarelto but likely to stop if family opt out. 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 6.Restless legs, 7.Coronary artery disease, poa, stable -continued aspirin, metoprolol, atorvastatin Patient is overall improved . He is medically cleared for discharge once arrangement is made VTE Prophylaxis: Other (therapeutic INR) VTE Mechanical Devices: Intermittant Pneumatic CD Resuscitation Status: CPR: Attempt Resuscitation Time spent 30 minutes spent with eval and mgmt Lewis Isaacs DO November 26, 2016 08:56
[2016-11-26] MEDS: buPROPion XL 300 mg ER24 Tablet PO SCH (09:04)
[2016-11-26] MEDS: Polyethylene Glycol (PEG) 17 Gm Powder PO SCH (09:04)
[2016-11-26] MEDS: Nystatin 100,000 Unit/Gm 15 Gm Powder TOPICAL SCH ×2 (09:04→22:07)
--- NOTE | 2016-11-26 10:20 | NUR ---
VIANEY spoke with Natalia at [facility], she is the liaison. Natalia states she will be able to come into the hospital today to see pt around 1300. Natalia's cell phone number [phone]. VIANEY will continue to follow. REBECA Duncan
[2016-11-26 12:56] VITALS: BP 103/63; PULSE 63; RESP 22; O2SAT 97
--- NOTE | 2016-11-26 14:42 | NUR ---
Social Work-care conference: Data: EMR reviewed. SW organized a care conference to further discuss placement options for pt. In attendance was FLAKITO Bee RN, Becka, VIANEY, Mary Ch, SADE FAY, and pts Melba. Everyone met separate from pt and later met with pt at bedside. SW explained to pts that at this time, pt has been becoming more stable in the hospital. Pt has wanted to return home and most of his behaviors have been due to wanting to return home. SW explained that pt would need to be in agreement with placement even if the is pursing guardianship for pt. NYA Hernandez explained guardianship process to and explained even if she is guardian pt will still need to agree to go to facility. SW explained how pt has no medical reason to be in the hospital and that SW will continue to actively pursue placement for pt. SW explained barriers to placement with and she states an understanding. is still agreeable for pt to go out of [facility]. informed SW that she ultimately wants to be able to take pt home, but is worried about her safety and pts safety. states that pt has outbursts at home and he gets very frustrated with her. also states that pt is impulsive and thinks he is able to do things that he is not able to do. Pt falls out of wheelchair at home, want to drive, states she has to call EMS 3-4 times a day for a lift assist. is concerned about her ability to manage pts care at home. works during the week, is not able to apply for FMLA due to not working at her job for a year, has no more vacation time left. Family is also in the same place as , no vacation time left and works. states they do not have any other supports in the community that would be able to assist at home. NYA Ch informed SW that she is actively working on getting caregivers, but has not found any caregivers that are willing to work with pt. Mary will continue to pursue this. After meeting, VIANEY, lisa Reilly, and NYA Ch all met with pt at bedside to further discuss discharge planning, SW role explained. SW explained the recommendation of facility and at this time and that it is not safe for pt to return home. Communication with pt is challenging, pt uses thumbs up or thumbs down, or attempts to write. During conversation, pt became very agitated towards his . Pt expressed frustration around guardianship that he is is pursing. Observed during conversation is a definitely relational dynamic between and pt. Pt became agitated and pulled wifes purse off her shoulder. Pt also beats on his own chest in frustration. During conversation, SW was able to get pt to agree to going to facility if SW continued to work on this. Pt provided thumbs up in agreement. SW staffed case with ANALYTICAL MANAGER supervisor mapping, decision was made to continue to move forward with placement for pt. At this time, pt is not safe to return home with no support in the home. SW called Melba and provided her with update. SW asked about day of the week that would work for her for weekly check in. states Thursday is best around 1130 to meet. SW called NYA Ch and left message informed her of the above information. SW asked Mary about getting extra funding for pt through ECS. SW also informed Mary of the weekly check in on Thursday at 1130 to see if she is able to attend in person or via phone. Assessment: Pt and have relational dynamics that were observed during discussion in room. Pt is not safe to return home and placement with continue to be pursued. Plan: SW to continue to pursue placement for pt. At this time, pt is not safe to be able to return home. SW to facilitate weekly check in with pt, , UR, and pts CM on Thursday at 1130. SW to work with NYA Ch to determine ECS funding for pt. Pt is in agreement with facility placement. SW will continue to follow. REBECA Duncan
--- NOTE | 2016-11-26 14:47 | NUR ---
Social Work-continued d.c planning: Data:EMR reviewed. [facility] came to see pt. Pam from [facility] states she is not saying no, but would like to continue to look at pt. Natalia from [place] and [facility] came and saw pt and has declined. [facility] and [facility] care have declined pt. Facilities called: [facility] answer [facility] beds [facility] beds [facility] beds [facility] no beds [facility] beds [facility] beds [facility] beds [facility] beds [facility]- no answer [facility]- left message [phone], provider to call back [facility] beds [facility] no beds [facility]- no beds [facility]- no beds [facility]- no beds [facility]no beds Referrals sent: [facility] admissions F:[phone] [facility]-has bed cool roofing installer Taisha P:[phone] F:[phone] [facility]-will look at referral, email [email or web address], asked Mary Ch to send [facility]- P: [phone] has bed F: [phone] [facility] [phone] has received assessment, awaiting administer to look at it. Plan:SW to continue work on placement. SW will continue to follow. REBECA Duncan
--- NOTE | 2016-11-26 16:22 | NUR ---
Activity Patient largely appropriate this shift, along with two incidences of agitation when discussing discharge planning. During these times patient visually upset, with loud vocalization, emphatic gesturing, and striking of arms against patients own chest and bed during vocal emphasis. Patient soon relaxed visually, and shortly thereafter was resting. Care is ongoing.
[2016-11-26 19:30] VITALS: BP 100/58; PULSE 58; RESP 17; O2SAT 93
[2016-11-26] MEDS: lamoTRIgine 100 mg Tablet PO SCH (22:07)
--- NOTE | 2016-11-27 04:21 | NUR ---
Activity / blood pressure Patient pleasant and cooperative. Recognizes me from previous facility and appeared to be happy when I began the shift as his RN; smiling and "hands hands hands!" aphasia r/t past CVA, animated gestures and tone helpful in deciphering his needs. Has a touch tablet at bedside to assist w/ further communication. b/p at begin of shift: 100/58, pulse 58. metoprolol held at this time. PO fluids encouraged, and available at bedside. Denies pain/discomfort thru the NOC. Slept well most of the night and appears comfortable. Frequent safety checks by staff, small light on near door. Call light w/in reach.
[2016-11-27 04:35] VITALS: BP 101/62; PULSE 61; RESP 17; O2SAT 97
--- NOTE | 2016-11-27 07:17 | PCM.PNMED ---
Subjective Date of Service November 27, 2016 Subjective no sig events overnihgt, no reports of sob/cp/f - placement options cont ot be discussed Exam Vital Signs Vital Sign - Last Date Time Temp Pulse Resp B/P Pulse Ox O2 Delivery O2 Flow Rate FiO2 11/27/16 04:35 36.6 61 17 101/62 97 Room Air Intake and Output 11/26/16 11/26/16 11/27/16 Cumulative From/Thru 15:00 23:00 07:00 11/09/16 13:58 - 11/27/16 04:35 Intake Total 520 ml 556 ml 1050 ml 18663 ml Output Total 275 ml 300 ml 1150 ml 62735 ml Balance 245 ml 256 ml -100 ml 1705 ml Intake Oral 520 ml 556 ml 1050 ml 12082 ml IV Total 60 ml Output Urine Total 275 ml 300 ml 1150 ml 20596 ml # Voids 1 4 # Bowel Movements 0 0 0 9 Exam Gen : In bed comfortably. NAD HEENT : Satish, Sclera is anicteric Neck : Supple, no JVD Chest : Normal respiratory effort. Lung : clear bilaterally. No crackles, no wheezing Heart : S1S2, RRR, no gallop. Abdomen : Soft, Non tender . Ext : No edema Neuro : Right sided paresis / Weakness Skin : No rash , no ulcer IVs and Medications Medications Reviewed: Medications were reviewed in detail Assessment & Plan 56-year-old male with past medical history of stroke, atrial fibrillation on warfarin, type II diabetes mellitus, anxiety, and coronary artery disease presented to the emergency department following discharge (11/08) due to combative behavior at SNF. 1,Urinary retention, acute, POA, resolved -reported urinary retention at SNF -bladder scan, post void residual, contact MD if residual >300cc -pts voiding well 2.Behavior disturbance, acute, POA, improved - history of bipolar disorder. personality changes with vascular dementia. -continue psych medications: lamotrigine, wellbutrin XL, quetiapine -Psych consult and recommendation noted . -Patient improved significantly and is back to baseline now. sitter discontinued 3.UTI, acute, POA, active -urine cx positive for e. fecalis - treated with amoxicillin per ID for 14 day finished. 4.Prior stroke POA, chronic, -with residual expressive aphasia and right sided weakness in the setting of afib -On Xarelto but likely to stop if family opt out. 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 6.Restless legs, 7.Coronary artery disease, poa, stable -continued aspirin, metoprolol, atorvastatin Patient is overall improved . He is medically cleared for discharge once arrangement is made Pain Evaluation: Adequate Pain Control VTE Prophylaxis: Other (therapeutic INR) VTE Mechanical Devices: Intermittant Pneumatic CD Resuscitation Status: CPR: Attempt Resuscitation Time spent 30 minutes spent with eval and mgmt Lewis Isaacs DO November 27, 2016 07:17
[2016-11-27] MEDS: Polyethylene Glycol (PEG) 17 Gm Powder PO SCH (08:30)
[2016-11-27 08:38] VITALS: BP 108/64; PULSE 72
--- NOTE | 2016-11-27 09:13 | NUR ---
Social Work- Continued D/C Planning T/C from [facility] [phone] regarding pt's ECS funding. Mary is looking into increasing pt's ECS funding, working to find out more specifically what rate would be needed for necessary care. Mary is aware of check in on Thursday at 11:30, may be able to attend. Mary requested that INTERNATIONAL SALES MANAGER fax clinicals to [phone]. UR Specialist to fax these clinicals to Mary. REBECA Walton Addendum: 11/27/16 at 1144 by MARY PETTY T/C from Joan at [facility] [phone] requesting information regarding pt's ECS rate Joan states she has a bed available and would be amenable to accepting pt. INTERNATIONAL SALES MANAGER informed Joan that [facility] is working on increasing ECS rate. T/C to Mary Ch [phone] alerting her of pt's potential bed at [facility], requested that Mary contact Joan directly regarding ECS rate. Provided necessary contact information to Mary. REBECA Walton
[2016-11-27] MEDS: buPROPion XL 300 mg ER24 Tablet PO SCH (09:59)
[2016-11-27] MEDS: Nystatin 100,000 Unit/Gm 15 Gm Powder TOPICAL SCH ×2 (10:01→22:00)
--- NOTE | 2016-11-27 12:04 | NUR ---
Faxed all updated clinicals to Mary Ch at [phone], this is all updated notes and therapy assessments. Updated ELECTRONIC SCANNER OPERATOR
[2016-11-27 13:07] VITALS: BP 98/66; PULSE 65; RESP 17; O2SAT 99
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
--- NOTE | 2016-11-27 18:43 | NUR ---
spiritual care: nurse referral caring visit. though pt's speech patterns makes it difficult to understand, pt seemed to be quite expressive as he used facial expressions, hand gestures and some vocalizations to respond to leading questions. When I invited him to have a caring sales trainee visitor to read to him, or at least greet him, he was receptive. Caring Manager [employer] to be on site tomorrow (thursday) afternoon to be available for caring, supportive visit.
[2016-11-27 20:35] VITALS: BP 97/62; PULSE 62; RESP 18; O2SAT 97
[2016-11-27] MEDS: lamoTRIgine 100 mg Tablet PO SCH (22:01)
--- NOTE | 2016-11-28 03:43 | NUR ---
Activity Pt.'s in room. Pt.'s spirits were up, and he was enjoying watching a movie with his . Pt. was smiling during assessment. Pt. has been sleeping throughout most of the night. Will continue to monitor.
[2016-11-28 04:37] VITALS: BP 100/64; PULSE 61; RESP 18; O2SAT 98
[2016-11-28] MEDS: Polyethylene Glycol (PEG) 17 Gm Powder PO SCH (08:30)
[2016-11-28 09:34] VITALS: BP 103/70; PULSE 74; RESP 18; O2SAT 100
--- NOTE | 2016-11-28 09:37 | PCM.PNMED ---
Subjective Date of Service November 28, 2016 Subjective no events overnight, no reports of sob/cp/f Exam Vital Signs Vital Sign - Last Date Time Temp Pulse Resp B/P Pulse Ox O2 Delivery O2 Flow Rate FiO2 11/28/16 04:37 36.7 61 18 100/64 98 Room Air Intake and Output 11/27/16 11/27/16 11/28/16 Cumulative From/Thru 15:00 23:00 07:00 11/09/16 13:58 - 11/28/16 06:08 Intake Total 282 ml 120 ml 23352 ml Output Total 200 ml 225 ml 40373 ml Balance 82 ml -105 ml 1682 ml Intake Oral 282 ml 120 ml 16734 ml IV Total 60 ml Output Urine Total 200 ml 225 ml 99790 ml # Voids 4 # Bowel Movements 1 0 10 Exam Gen : In bed comfortably. NAD HEENT : Satish, Sclera is anicteric Neck : Supple, no JVD Chest : Normal respiratory effort. Lung : clear bilaterally. No crackles, no wheezing Heart : S1S2, RRR, no gallop. Abdomen : Soft, Non tender . Ext : No edema Neuro : Right sided paresis / Weakness Skin : No rash , no ulcer IVs and Medications Medications Reviewed: Medications were reviewed in detail Assessment & Plan 56-year-old male with past medical history of stroke, atrial fibrillation on warfarin, type II diabetes mellitus, anxiety, and coronary artery disease presented to the emergency department following discharge (11/08) due to combative behavior at SNF. Awaiting placement 1,Urinary retention, acute, POA, resolved -reported urinary retention at SNF -bladder scan, post void residual, contact MD if residual >300cc -pts voiding well 2.Behavior disturbance, acute, POA, improved - history of bipolar disorder. personality changes with vascular dementia. -continue psych medications: lamotrigine, wellbutrin XL, quetiapine -Psych consult and recommendation noted . -Patient improved significantly and is back to baseline now. sitter discontinued 3.UTI, acute, POA, active -urine cx positive for e. fecalis - treated with amoxicillin per ID for 14 day finished. 4.Prior stroke POA, chronic, -with residual expressive aphasia and right sided weakness in the setting of afib -On Xarelto but likely to stop if family opt out. 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 6.Restless legs, 7.Coronary artery disease, poa, stable -continued aspirin, metoprolol, atorvastatin Patient is overall improved . He is medically cleared for discharge once arrangement is made VTE Prophylaxis: Other (therapeutic INR) VTE Mechanical Devices: Intermittant Pneumatic CD Resuscitation Status: CPR: Attempt Resuscitation Time spent 25 minutes spent with eval and mgmt Lewis Isaacs DO November 28, 2016 09:37
[2016-11-28] MEDS: Nystatin 100,000 Unit/Gm 15 Gm Powder TOPICAL SCH ×2 (09:54→19:56)
[2016-11-28] MEDS: buPROPion XL 300 mg ER24 Tablet PO SCH (09:55)
--- NOTE | 2016-11-28 12:48 | NUR ---
NUTRITION FOLLOW-UP: ASSESS: 56 YO male admitted with depression, behavior disturbance; psych following. Sitter discontinued today; disposition pending. PO intake has improved with diet advance from dysphagia mechanical to mechanical soft, thin liquids. PMHx: Morbid obesity s/p gastric sleeve in Feb 2016, depression, CAD, [place], Stroke, Liliya's gangrene R groin, Kidney Stones, A-fib, anxiety, probable underlying mood disorder. LABS: No recent labs. MEDS: Reviewed. GI: BM x 1 (11/27). CURRENT WT: 106.4 kg (11/09/16) IBW: 70 kg. Pt has intentionally lost 44 kg since March 2016 from gastric sleeve procedure. DIET: Mechanical soft, thin liquids. PO intake 0 - 75% trays, erratic but improved. EST. NEEDS (BMI): 4371-3463 kcals (20-22 kcals/kg BW), 85-105 g protein (1.2-1.5 g/kg IBW) NUTRITION DIAGNOSIS: 1) Inadequate oral intake related to altered GI function (gastric sleeve) as evidenced by po intake of 25% of meals x 5 D - IMPROVED. NUTRITION INTERVENTION: 1) Continue to send Gelatein Plus at 10am & 8pm and Mighty shake at 2pm between meals to encourage adequate po intake. 2) Recommend new wt as only wt recorded was admit wt, 15 days ago. MONITOR / EVAL: Diet advance / tolerance, PO intake, labs, weights, nutritional status, potential diet modification. Follow per moderate nutritional risk guidelines.
--- NOTE | 2016-11-28 15:30 | NUR ---
Activity Pt has been up and oob multiple times today. Tolerating activity well. Pt had a visitor today and was very expressive and happy with the visit. Will continue to monitor.
--- NOTE | 2016-11-28 15:38 | NUR ---
Call[facility] and [facility] with [facility] [place], when original fax was sent she did not get a good quality copy. Faxed patient's new assessment along with clinicals for review. Patient's new assessment from [facility] is in and his new rate $109.00 per day, patient is also being reviewed for ECS funding per [facility]. Psychiatrist completed paperwork that was being requested for court by L[place]. DIGITAL CONTENT SPECIALIST has called [facility] and patient's to follow up on delivery of completed paperwork. Updated DIGITAL CONTENT SPECIALIST and DIGITAL CONTENT SPECIALIST Upsetting Machine Operator
[2016-11-28] MEDS: lamoTRIgine 100 mg Tablet PO SCH (20:05)
[2016-11-28 20:50] VITALS: BP 103/58; PULSE 68; RESP 18; O2SAT 97
--- NOTE | 2016-11-29 04:46 | NUR ---
Activity Pt. has been sleeping throughout most of the night. However, during assessment pt. was tearful. This RN asked "are you sad?". Pt. nodded yes. Pt. listened to pt's concerns, and provided reassurance. (Hx of CVA. Pt. is only able to use non verbal gestures and word "hand" for communication".). Will continue to monitor.
[2016-11-29 05:00] VITALS: BP 99/61; PULSE 62; RESP 16; O2SAT 96
[2016-11-29] MEDS: Polyethylene Glycol (PEG) 17 Gm Powder PO SCH (08:30)
[2016-11-29] MEDS: buPROPion XL 300 mg ER24 Tablet PO SCH (10:05)
[2016-11-29] MEDS: Nystatin 100,000 Unit/Gm 15 Gm Powder TOPICAL SCH ×2 (10:05→20:04)
--- NOTE | 2016-11-29 12:02 | PCM.PNMED ---
Subjective Date of Service November 29, 2016 Subjective Patient is stable No overnight event Very pleasant Exam Vital Signs Vital Sign - Last Date Time Temp Pulse Resp B/P Pulse Ox O2 Delivery O2 Flow Rate FiO2 11/29/16 05:00 36.3 62 16 99/61 96 Room Air Intake and Output 11/28/16 11/28/16 11/29/16 Cumulative From/Thru 15:00 23:00 07:00 11/09/16 13:58 - 11/29/16 06:58 Intake Total 500 ml 100 ml 73621 ml Output Total 350 ml 300 ml 26234 ml Balance 150 ml -200 ml 1632 ml Intake Oral 500 ml 100 ml 56097 ml IV Total 60 ml Output Urine Total 350 ml 300 ml 86344 ml # Voids 4 # Bowel Movements 1 0 11 Exam NAD, comfortably laying down on the bed motor 4/5 on right side, grossly CN2-12 intact. no JVD, MMM, no LAD RRR, nl s1, s2 no mrg CTAB, no w,c S,ND,NT,normoactive BS+ warm, no edema, pulses 2/2 IVs and Medications Medications Reviewed: Medications were reviewed in detail Assessment & Plan 56-year-old male with past medical history of stroke, atrial fibrillation on warfarin, type II diabetes mellitus, anxiety, and coronary artery disease presented to the emergency department following discharge (11/08) due to combative behavior at SNF. Awaiting placement 1,Urinary retention, acute, POA, resolved -reported urinary retention at SNF -bladder scan, post void residual, contact MD if residual >300cc -pts voiding well 2.Behavior disturbance, acute, POA, improved - history of bipolar disorder. personality changes with vascular dementia. -continue psych medications: lamotrigine, wellbutrin XL, quetiapine -Psych consult and recommendation noted . -Patient improved significantly and is back to baseline now. sitter discontinued 3.UTI, acute, POA, active -urine cx positive for e. fecalis - treated with amoxicillin per ID for 14 day finished. 4.Prior stroke POA, chronic, -with residual expressive aphasia and right sided weakness in the setting of afib -On Xarelto but likely to stop if family opt out. 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 6.Restless legs, 7.Coronary artery disease, poa, stable -continued aspirin, metoprolol, atorvastatin Patient is overall improved . He is medically cleared for discharge once arrangement is made VTE Prophylaxis: Other (therapeutic INR) VTE Mechanical Devices: Intermittant Pneumatic CD Resuscitation Status: CPR: Attempt Resuscitation Time spent 35min Jose Orta MD November 29, 2016 12:02
[2016-11-29 12:59] VITALS: BP 83/51; PULSE 80; RESP 17; O2SAT 98
--- NOTE | 2016-11-29 16:14 | NUR ---
mood pt seemed a little depressed. When asked about getting up, he immediately brightened and started pointing at the W/C in his room, and was indicating that he was quite bored, seems much happier now being up in room.
[2016-11-29] MEDS: lamoTRIgine 100 mg Tablet PO SCH (20:07)
[2016-11-29 20:14] VITALS: BP 108/68; PULSE 62
[2016-11-29 21:35] VITALS: BP 94/58; PULSE 74; RESP 20; O2SAT 96
--- NOTE | 2016-11-30 04:44 | NUR ---
Mood/ Skin Pt. seemed to be joyful during assessment earlier in shift enjoying watching a movie on tv, laughing and singing. Partial skin bath and feng care provided. Nystatin applied as ordered to folds in panis. Will continue to monitor.
[2016-11-30 05:25] VITALS: PULSE 71
[2016-11-30 06:23] VITALS: BP 95/60; PULSE 78; RESP 18; O2SAT 98
[2016-11-30] MEDS: Polyethylene Glycol (PEG) 17 Gm Powder PO SCH (08:30)
[2016-11-30] MEDS: Nystatin 100,000 Unit/Gm 15 Gm Powder TOPICAL SCH ×2 (09:23→20:46)
[2016-11-30] MEDS: buPROPion XL 300 mg ER24 Tablet PO SCH (09:31)
--- NOTE | 2016-11-30 10:30 | PCM.PNMED ---
Subjective Date of Service November 30, 2016 Subjective pt was pleasant while watching TV denied complaints Exam Vital Signs Vital Sign - Last Date Time Temp Pulse Resp B/P Pulse Ox O2 Delivery O2 Flow Rate FiO2 11/30/16 06:23 37.0 78 18 95/60 98 Room Air Intake and Output 11/29/16 11/29/16 11/30/16 Cumulative From/Thru 15:00 23:00 07:00 11/09/16 13:58 - 11/30/16 06:23 Intake Total 660 ml 350 ml 03984 ml Output Total 500 ml 700 ml 34064 ml Balance 160 ml -350 ml 1442 ml Intake Oral 660 ml 350 ml 72562 ml IV Total 60 ml Output Urine Total 500 ml 700 ml 45126 ml # Voids 4 # Bowel Movements 0 0 11 Exam NAD, comfortably laying down on the bed motor 4/5 on right side, grossly CN2-12 intact. no JVD, MMM, no LAD RRR, nl s1, s2 no mrg CTAB, no w,c S,ND,NT,normoactive BS+ warm, no edema, pulses 2/2 IVs and Medications Medications Reviewed: Medications were reviewed in detail Assessment & Plan 56-year-old male with past medical history of stroke, atrial fibrillation on warfarin, type II diabetes mellitus, anxiety, and coronary artery disease presented to the emergency department following discharge (11/08) due to combative behavior at SNF. Awaiting placement 1,Urinary retention, acute, POA, resolved -reported urinary retention at SNF -bladder scan, post void residual, contact MD if residual >300cc -pts voiding well 2.Behavior disturbance, acute, POA, improved - history of bipolar disorder. personality changes with vascular dementia. -continue psych medications: lamotrigine, wellbutrin XL, quetiapine -Psych consult and recommendation noted . -Patient improved significantly and is back to baseline now. sitter discontinued 3.UTI, acute, POA, active -urine cx positive for e. fecalis - treated with amoxicillin per ID for 14 day finished. 4.Prior stroke POA, chronic, -with residual expressive aphasia and right sided weakness in the setting of afib -On Xarelto but likely to stop if family opt out. 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 6.Restless legs, 7.Coronary artery disease, poa, stable -continued aspirin, metoprolol, atorvastatin Patient is overall improved . He is medically cleared for discharge once arrangement is made VTE Prophylaxis: Other (therapeutic INR) VTE Mechanical Devices: Intermittant Pneumatic CD Resuscitation Status: CPR: Attempt Resuscitation Time spent 35min Jose Orta MD November 30, 2016 10:30
--- NOTE | 2016-11-30 14:13 | NUR ---
Social Work Note: Continued Discharge Planning Data& Assessment: SW met with pt at bed side to check in and assess for any unmet needs. Pt was seen by ST yesterday and is ambulating the halls in his wheelchair. Pt also has a new electronic communication tablet to assist him. Pt showed SW the device and gave examples of what some of the buttons communicate. Pt pointed to a commercial advertising a [employer] game tonight on the TV, Pt expressed much excitement for this and seems in good spirts overall. Pt denies any other needs. SW to continue to follow and continue in further efforts for placement. Plan: SW to continue efforts in obtaining placement for pt. Pt continues to work with ST. Pt denies any other needs. SW to continue to follow. REBECA Day
[2016-11-30 14:27] VITALS: BP 97/63; PULSE 73; RESP 18; O2SAT 99
--- NOTE | 2016-11-30 16:46 | NUR ---
behavior pt happy and cooperative most of time. enjoys watching sports and enjoys his meals. At times gets very frustrated and angry when he cant get his point across. Have not seen obvious signs of depression today, family here with him at this time.
[2016-11-30 20:18] VITALS: BP 94/59; PULSE 78; RESP 16; O2SAT 97
[2016-11-30] MEDS: lamoTRIgine 100 mg Tablet PO SCH (20:45)
--- NOTE | 2016-12-01 00:42 | NUR ---
Behavior Patient continues to be in a good mood. Listening to music/singing along. Patient took all oral medications without any problems. Patient attempts to communicate using pictures on his computer. After evening medications patient stated he would like to get some sleep. Resting quietly in bed.
[2016-12-01 06:21] VITALS: BP 99/61; PULSE 68; RESP 18; O2SAT 97
--- NOTE | 2016-12-01 08:53 | NUR ---
Call[facility] and [facility] following [facility] on referral sent for this patient last week. Updated CUSTOMS APPRAISER
[2016-12-01] MEDS: Polyethylene Glycol (PEG) 17 Gm Powder PO SCH (09:14)
[2016-12-01] MEDS: buPROPion XL 300 mg ER24 Tablet PO SCH (09:16)
[2016-12-01] MEDS: Nystatin 100,000 Unit/Gm 15 Gm Powder TOPICAL SCH ×2 (09:17→21:13)
--- NOTE | 2016-12-01 10:31 | NUR ---
Social Work-continued d/c planning: Data& assessment:EMR Reviewed. Pt is on day 22 of hospitalization for depression per H&P. MD order received for SNF or [facility] placement. VIANEY spoke with pt's [facility] this morning regarding pt. Mary confirms that she did get approval for ECS funding and pt's daily rate is now $117.78. Mary states that assessment was faxed over to office on Thursday. VIANEY obtained assessment, but is missing first few pages. VIANEY requested that Mary re-fax over assessment. UR specialist Rudy has left a message for [facility] to determine if they would accept pt, awaiting a return call. VIANEY reminded Mary of the meeting set for tomorrow at 1130 with Melba. Mary states she feel like she will be able to attend this meeting tomorrow.SW updated pt's Melba and reminded her of meeting tomorrow at 1130. states she will be there. has questions about share cost associated with AFH or SNF. VIANEY called Mary and requested she get this information and bring it to the meeting tomorrow. VIANEY will continue to follow. Plan:VIANEY to continue to look for placement for pt. VIANEY will continue to follow. REBECA Duncan
--- NOTE | 2016-12-01 11:09 | NUR ---
Social Work called and spoke with Rut at [facility]. Rut confirms they have received referral, but she has not had a chance to look at it. Rut anticipates to be able to look at it by the end of the day today. REBECA Duncan
[2016-12-01 13:38] VITALS: BP 98/63; PULSE 68; RESP 18; O2SAT 97
--- NOTE | 2016-12-01 14:27 | PCM.PNMED ---
Subjective Date of Service December 01, 2016 Subjective Patient is somnolent no new needs reported no new chest pain, dyspnea, nausea or vomiting is primarily a placement issue Exam Vital Signs Vital Sign - Last Date Time Temp Pulse Resp B/P Pulse Ox O2 Delivery O2 Flow Rate FiO2 12/01/16 13:38 36.7 68 18 98/63 97 Room Air Intake and Output 11/30/16 11/30/16 12/01/16 Cumulative From/Thru 15:00 23:00 07:00 11/09/16 13:58 - 12/01/16 06:21 Intake Total 330 ml 450 ml 91880 ml Output Total 200 ml 400 ml 63607 ml Balance 130 ml 50 ml 1622 ml Intake Oral 330 ml 450 ml 48296 ml IV Total 60 ml Output Urine Total 200 ml 400 ml 54857 ml # Voids 1 5 # Bowel Movements 0 11 Exam Gen.- Sleeping, no apparent distress. Eyes-closed, no drainage ENT- ears normal, nose normal Neck- supple/trach midline CVS-normal rate Lungs- respirations regular and nonlabored GI-generous pannus Musc- no obvious deformity Neuro- cranial nerves II through XII intact to gross examination, nonfocal Skin- warm and dry, no rashes/lesions/wounds noted Psych-sleeping not roused to quiet voice Assessment & Plan 56-year-old male with past medical history of stroke, atrial fibrillation on warfarin, type II diabetes mellitus, anxiety, and coronary artery disease presented to the emergency department following discharge (11/08) due to combative behavior at SNF. Awaiting placement 12/01 is not clear why this patient's on metoprolol but his SBP is in double digits heart rates in the 60s on stopping the 12.5 mg twice a day. Patient's medical issues seem to be well controlled, I am being requested to complete paperwork regarding his overall fitness and medical situation on day 1 of meeting this patient was been hospitalized for 22+ days now. Urinary retention, acute, POA, resolved -reported urinary retention at SNF -bladder scan, post void residual, contact MD if residual >300cc -pts voiding well Behavior disturbance, acute, POA, improved - history of bipolar disorder. personality changes with vascular dementia. -continue psych medications: lamotrigine, wellbutrin XL, quetiapine -Psych consult and recommendation from 11/15 noted . -Patient improved significantly and is back to baseline now. sitter discontinued UTI, acute, POA, active- e. fecalis treated with amoxicillin per ID for 14 day finished. Prior stroke POA, chronic, -with residual expressive aphasia and right sided weakness in the setting of afib -On Xarelto but likely to stop if family opt out. 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 Restless legs, Coronary artery disease, poa, stable continued aspirin, metoprolol, atorvastatin Patient is overall improved . He is medically cleared for discharge once arrangement is made VTE Prophylaxis: Other (therapeutic INR) VTE Mechanical Devices: Intermittant Pneumatic CD Resuscitation Status: CPR: Attempt Resuscitation Abdelrahman Davila MD December 01, 2016 14:27
--- NOTE | 2016-12-01 14:32 | NUR ---
Social Work spoke with Taisha at [facility] in [place]- P:[phone], Taisha states they are interested in taking the pt. Taisha confirms that she has obtained new assessment with ECS rate of $117.78. Taisha state she needs to speak with second water analyst Taisha and will get back to when they will be able to come and meet pt. VIANEY provided Taisha with phone number to call VIANEY back. VIANEY will continue to follow. REBECA Duncan Addendum: 12/01/16 at 1438 by LEONID LOCKWOOD SS Correction: Second water analyst REBECA Laughlin
--- NOTE | 2016-12-01 15:42 | NUR ---
VIANEY received completed medical paperwork from the LEELEE Boyle. VIANEY called [place] [phone] and informed him that paperwork had been completed. [place] requested the paperwork be faxed to [phone]. VIANEY faxed paperwork and called [place] back to confirm he received the fax, message left, requesting a return call. REBECA Duncan
--- NOTE | 2016-12-01 18:10 | NUR ---
GI/communication Pt up to BSC x2 today with abdominal cramps and gas and finally had extra large BM. Now denies abdominal pain and has continued to have a good appetite. Continent of urine throughout shift. Pt wrote "30" on his paper and got frustrated that we were in the room while on the BSC. He wanted a half an hour of privacy and allowed the REAL ESTATE DIRECTOR to sit at the window for safety and called appropriately when he was done.
[2016-12-01] MEDS: lamoTRIgine 100 mg Tablet PO SCH (21:15)
[2016-12-01 21:30] VITALS: BP 110/64; PULSE 80; RESP 18; O2SAT 98
--- NOTE | 2016-12-02 00:08 | NUR ---
Activity On initial assessment, patient appears to be in good spirits. Patient used communication pad to communicate. Patient was cooperative with med pass. Patient requested meds for restless legs. Will page Dr. Alexander. VSS. Call light within reach. Care continues.
[2016-12-02 05:18] VITALS: BP 98/69; PULSE 105; RESP 16; O2SAT 100
[2016-12-02] MEDS: Polyethylene Glycol (PEG) 17 Gm Powder PO SCH (08:15)
[2016-12-02] MEDS: buPROPion XL 300 mg ER24 Tablet PO SCH (08:16)
[2016-12-02] MEDS: Nystatin 100,000 Unit/Gm 15 Gm Powder TOPICAL SCH ×2 (10:40→21:25)
--- NOTE | 2016-12-02 15:53 | NUR ---
Spoke with Taisha at [facility] [address] in [place]- P:[phone] she has spoken with Joan who she owns this AF with and they both have agreed that they are willing to accept the patient. Taisha has let me know again that they do not feel they need to do an onsite, Joan spoke with Mary in detail about patients needs and uniqueness of this patient. Joan and Taisha have spoke to each other and still come to the conclusion no onsite is needed and they are ready to take the patient. Taisha's fax # is [phone] and she will need complete discharge orders with Home Health PT,RN,BA if possible. She will need all medications in script form and written for at least 4 days. This adult family home uses [address] [place] [address]. Phone # option # 1 option # 1 Spoke with Trell [phone] and he will probably need to meet with Melba in order to set patient up with primary care. He will wait until tomorrow to call Melba and I will also follow up with him in the morning. Spoke with Ngoc LYNCH at [facility] and he has reached out to his corporate team and they can not accept patient back and can not manage his needs at this time. Updated LEASE BUYER and she is calling to update Melba patient's .
--- NOTE | 2016-12-02 16:14 | NUR ---
SW provided pt's father Kevin and pt's Melba the contact information for Patient Advocate. Amy Pasrtana MSW
--- NOTE | 2016-12-02 16:21 | NUR ---
Social Work-care conference: Data:EMR Reviewed. Pt is on day 23 of hospitalization for depression per H&P. VIANEY- Hubert, NYA Ch, pt's Melba and pt's father Kevin in attendance. Pt's father Kevin expressed concerns to SW team and NYA Ch regarding pt and plan. SW provided a listening presence and reviewed all the concerns with father and . SW reviewed care plan with pt's father and and explained process and where SW is in the process. SW answered all questions. SW updated patient advocate of father's concerns. SW explained placement is continuing to be pursued. SW updated by UR specialist that [facility] has officially accepted pt. SW spoke with mobile home park manager Taisha yesterday and UR specialist again today. Taisha and fellow mobile home park manager Joan have also spoken with pt's NYA Ch. Taisha and Joan are declining coming to do an onsight in the hospital of the pt. SW has provided them with this opportunity several times and they do not feel like they need to come and see pt prior to acceptance. VIANEY has staffed with FLEXOGRAPHIC PRESS HELPER endless track vehicle supervisor and plan is to move forward with placement. SW has offered and they are declining to come and see pt prior to admission. UR specialist provided with information about PCP and HH in the [place] area. SW placed a call to Melba and left message regarding acceptance. SW explained that PCP office would like to speak with her tomorrow. SW to call again in the morning. SW to update NYA Ch and GAL:[place] after discussing acceptance with Melba. SW will continue to follow. Assessment:Pt who would benefit from Placement. Plan:Pt has been accepted at A [facility] in [place]. A [facility] owners Taisha and Joan are declining coming to see pt in the hospital prior to acceptance. SW has offered to have them come and complete onsight of pt several times. VIANEY has staffed case with FLEXOGRAPHIC PRESS HELPER endless track vehicle supervisor and decision is made to move forward with placement. VIANEY left message with Melba to provide update, awaiting a return call. SW will continue to follow. REBECA Duncan
[2016-12-02 16:28] VITALS: BP 94/61; PULSE 90; RESP 16; O2SAT 97
--- NOTE | 2016-12-02 17:19 | NUR ---
DISCHARGE PLANNING P-Patient in need of discharge placement. I- SW states that [facility] in [facility] to visit patient with intake interview. E- Follow up with SW no interview time yet, patient made aware.
--- NOTE | 2016-12-02 17:50 | PCM.PNMED ---
Subjective Date of Service December 02, 2016 Subjective Patient poorly able to make his needs known. He seems to be comfortable and wants his close as far as I can discern his is coming and she can bring them. He seems to understand that we have found a facility might be up to accept him in [place] and he seems happy about it. Mostly what he can actually say is "hands hands hands, "but he seems to nod his head and understand and occasionally gets a word out other than "hands, hands" Exam Vital Signs Vital Sign - Last Date Time Temp Pulse Resp B/P Pulse Ox O2 Delivery O2 Flow Rate FiO2 12/02/16 16:28 36.7 90 16 94/61 97 Room Air Intake and Output 12/01/16 12/01/16 12/02/16 Cumulative From/Thru 14:59 22:59 06:59 11/09/16 13:58 - 12/02/16 05:38 Intake Total 920 ml 150 ml 64000 ml Output Total 750 ml 200 ml 63632 ml Balance 170 ml -50 ml 1742 ml Intake Oral 920 ml 150 ml 43195 ml IV Total 60 ml Output Urine Total 750 ml 200 ml 55221 ml # Voids 5 # Bowel Movements 1 0 12 Exam Gen.-Sitting up in bed watching television no apparent distress Open, conjunctivae clear pupils equal seems to track symmetrically ENT- ears normal, nose normal Neck- supple/trach midline CVS-normal rate Lungs- respirations regular and nonlabored GI-generous pannus Musc- no obvious deformity Neuro- cranial nerves II through XII intact to gross examination, Seems to move all extremities but communication is an obvious issue he certainly cannot express himself verbally and is not entirely clear what he understands Skin- warm and dry, no rashes/lesions/wounds noted Impossible to assess given communication issues Assessment & Plan 56-year-old male with past medical history of stroke, atrial fibrillation on warfarin, type II diabetes mellitus, anxiety, and coronary artery disease presented to the emergency department following discharge (11/08) due to combative behavior at [facility]. Awaiting placement 12/01 is not clear why this patient's on metoprolol but his SBP is in double digits heart rates in the 60s on stopping the 12.5 mg twice a day. Patient's medical issues seem to be well controlled, I am being requested to complete paperwork regarding his overall fitness and medical situation on day 1 of meeting this patient was been hospitalized for 22+ days now. 12/02 patient medically stable potential adult family home in [place] is reviewing for admission Urinary retention, acute, POA, resolved -reported urinary retention at SNF -bladder scan, post void residual, contact MD if residual >300cc -pts voiding well Behavior disturbance, acute, POA, improved - history of bipolar disorder. personality changes with vascular dementia. -continue psych medications: lamotrigine, wellbutrin XL, quetiapine -Psych consult and recommendation from 11/15 noted . -Patient improved significantly and is back to baseline now. sitter discontinued UTI, acute, POA, active- e. fecalis treated with amoxicillin per ID for 14 day finished. Prior stroke POA, chronic, -with residual expressive aphasia and right sided weakness in the setting of afib -On Xarelto but likely to stop if family opt out. 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 Restless legs, Coronary artery disease, poa, stable continued aspirin, metoprolol, atorvastatin Patient is overall improved . He is medically cleared for discharge once arrangement is made VTE Prophylaxis: Other (therapeutic INR) VTE Mechanical Devices: Intermittant Pneumatic CD Resuscitation Status: CPR: Attempt Resuscitation Abdelrahman Davila MD December 02, 2016 17:49
[2016-12-02] MEDS: lamoTRIgine 100 mg Tablet PO SCH (21:26)
[2016-12-02 21:30] VITALS: BP 100/63; PULSE 80; RESP 18; O2SAT 97
--- NOTE | 2016-12-02 22:48 | NUR ---
Activity On initial assessment, patient visiting with family members. Appears to be in good spirits. VSS. Med pass administered. Patient eating dinner brought in from family. Call light within reach. Care continues.
[2016-12-03 06:30] VITALS: BP 99/68; PULSE 94; RESP 16; O2SAT 94
[2016-12-03] MEDS: Polyethylene Glycol (PEG) 17 Gm Powder PO SCH (08:30)
[2016-12-03] MEDS: buPROPion XL 300 mg ER24 Tablet PO SCH (09:16)
[2016-12-03] MEDS: Nystatin 100,000 Unit/Gm 15 Gm Powder TOPICAL SCH ×2 (09:17→20:12)
--- NOTE | 2016-12-03 10:09 | NUR ---
Spoke with Trell from [employer] and updated him on status with patient's . He will be reaching out to her today to get established with their [facility]. Updated HAND GLASS CUTTER
--- NOTE | 2016-12-03 11:30 | NUR ---
KULDEEP signed by Melba. Becka Brunson,DELPHI PROGRAMMER
--- NOTE | 2016-12-03 13:16 | NUR ---
Received call from LEE[facility]E Boyle who confirms that he has received paperwork that SW faxed earlier this week. Amy Pastrana MSW
--- NOTE | 2016-12-03 13:49 | NUR ---
Social Work-continued d/c planning: Data:EMR Reviewed. Pt is on day 24 for depression per H&P. Pt is medically stable awaiting placement.VIANEY spoke with Taisha at [facility] in [place]- P:[phone] who states that she and her fellow national van owner operator Joan are both in agreement of accepting pt without completing onsite of pt. SW has offered several times and again today and national van owner operator declines. Crm Coordinator Taisha states they feel like they have a good sense of pt's care needs. Taisha states that they will be able to accept pt on Wednesday 12/06. Taisha states that she will need prescriptions faxed to [facility] P:[phone] and F:[phone] once they have been obtained by the MD. VIANEY has requested these RX from the doctor and will fax them as soon as they are available. These will need to be faxed as soon as possible to [facility]. Taisha states that they would like HH services also set up for pt and they use [facility] [phone] in [place]. VIANEY to await MD orders for HH services. VIANEY spoke with pt's Melba in the hospital. SW explained acceptance at A [facility] [address] [place] [address]. SW explained facility has declined onsite of pt at the hospital and they feel like they will be able to meet pt's needs. is agreeable to this plan. SW provided with phone number and address of facility so she can reach out as well. SW provided her with this information. SW explained that discharge would likely happen on Wednesday 12/06. states pt's w/c is at home and she will bring this in on Thursday morning so he can go in this facility. also aware Trell from PCP office [facility] will be calling her today to coordinate PCP for pt at discharge, agreeable to this plan. states she will provide an updated to pt's father Kevin on care plan as noted above. would like to kept updated in the next days if anything changes. VIANEY placed a call to pt's NYA Ch and left a message informing her of acceptance at A [facility] and that pt will be discharged on Thursday. SW received a call back from Mary stating she is agreeable to plan and would like to be updated if pt's discharge date changes. Mary will provide further information to the facility on Thursday. VIANEY updated pt's GAL [place] [phone] and provided him with update of discharge on Thursday to AF. [place] states he received medical report and would like to just be notified at discharge. SW will continue to follow. Assessment:PT who would will need [facility] placement. Plan:Pt to discharge to A [facility] on Wednesday 12/06. Crm Coordinator of AFH in [place] at [facility] in [place]- P:[phone]. SW to fax prescriptions to [facility] when available from P:[phone] and F:[phone]. SW awaiting HH order, once obtained SW to discuss HH facility uses [facility]. PCP appointment will need to be established, working with Trell from [employer] today on this. SW will continue to follow. REBECA Duncan
--- NOTE | 2016-12-03 14:36 | PCM.DIMED ---
Discharge Instructions Date of Service December 03, 2016 Dates of Hospitalization Nov 09, 2016 at 22:13 Discharge Diagnosis Discharge Diagnosis aphasia, R hemiparesis s/p CVA,bipolar w/ adjustment disorder Diet Discharge Diet: Other (soft diet) Activity Discharge Activity: No restrictions Patient Instructions Follow-up plan Patient being discharged to [facility] care care adult family home in [place] Follow-up with PCP in: Other (needs to find a new PCP JUAN ANTONIO) Abdelrahman Davila MD December 03, 2016 14:36
[2016-12-03] MEDS ORDERED: ATOR40TA69 PO (14:43)
[2016-12-03] MEDS ORDERED: LAMO100T PO (14:43)
[2016-12-03] MEDS ORDERED: BUPR300T51 PO (14:43)
[2016-12-03] MEDS ORDERED: ASPI-973 PO (14:43)
[2016-12-03] MEDS ORDERED: POLY17PO6 PO (14:44)
[2016-12-03] MEDS ORDERED: QUET25TA73 PO ×2 (14:44)
[2016-12-03] MEDS ORDERED: MULT-140 PO (14:44)
[2016-12-03] MEDS ORDERED: PRAM0.252 PO (14:44)
[2016-12-03] MEDS ORDERED: SENN-133 PO (14:44)
[2016-12-03] MEDS ORDERED: Docusate Sodium PO (14:44)
[2016-12-03] MEDS ORDERED: CHOL100043 PO (14:44)
[2016-12-03] MEDS ORDERED: NYST1POW25 TOPICAL (14:44)
[2016-12-03] MEDS ORDERED: RIVA20TA PO (14:44)
[2016-12-03] MEDS ORDERED: MELA5TAB14 PO (14:44)
--- NOTE | 2016-12-03 14:54 | PCM.PNMED ---
Subjective Date of Service December 03, 2016 Subjective "Hands "is all patient can really say. I think what he was talking about was he was expecting the people from the adult family home in [place] around 2:15 today. He felt that physical therapy said that his legs were not and arm were not really getting any better and is disappointed by that but his speech therapy is moving along. I explained to him that we are going to order all of the above and follow their ongoing recommendations. I wish him the best of luck in regaining more of his speech and ability to communicate as it is obvious that that was incredibly frustrating for him. Exam Vital Signs Vital Sign - Last Date Time Temp Pulse Resp B/P Pulse Ox O2 Delivery O2 Flow Rate FiO2 12/03/16 06:30 36.4 94 16 99/68 94 Room Air Intake and Output 12/02/16 12/02/16 12/03/16 Cumulative From/Thru 15:00 23:00 07:00 11/09/16 13:58 - 12/03/16 06:45 Intake Total 420 ml 300 ml 73916 ml Output Total 500 ml 175 ml 93729 ml Balance -80 ml 125 ml 1787 ml Intake Oral 420 ml 300 ml 95038 ml IV Total 60 ml Output Urine Total 500 ml 175 ml 33129 ml # Voids 5 # Bowel Movements 0 12 Exam Gen.-Sitting up in bed watching television no apparent distress Open, conjunctivae clear pupils equal seems to track symmetrically ENT- ears normal, nose normal Neck- supple/trach midline CVS-normal rate Lungs- respirations regular and nonlabored GI-generous pannus Musc- no obvious deformity Neuro- cranial nerves II through XII intact, contracture and right hemiparesis communication is an obvious issue he certainly cannot express himself verbally and is not entirely clear what he understands. My guess is he is pretty lucid unfortunately for him. Skin- warm and dry, no rashes/lesions/wounds noted Impossible to assess given communication issues Assessment & Plan 56-year-old male admitted 11/09 behavioral disturbance and SNF. 12/01 is not clear why this patient's on metoprolol but his SBP is in double digits heart rates in the 60s on stopping the 12.5 mg twice a day. Patient's medical issues seem to be well controlled, I am being requested to complete paperwork regarding his overall fitness and medical situation on day 1 of meeting this patient was been hospitalized for 22+ days now. 12/02 patient medically stable potential adult family home in [place] is reviewing for admission 12/03, completed all scripts for potential discharge Wednesday 12/06 to adult family home #CVA, expressive aphasia/ R kailey - continue PT/speech/OT this will also be ordered on discharge to the adult family home where he is going #Bipolar with behavior issues-likely an expression of his frustration with aphasia, has not been an issue since I met 11/30, last remote behavioral disturbance 11/27 was minimal - hx bipolar/ personality changes with vascular dementia. lamotrigine, wellbutrin XL, quetiapine for mood stabilization. Patient been stable for at least a week at this point in time from this perspective. -Psych consult and recommendation from 11/15 noted. #Urinary retention, acute, POA, resolved- pts voiding well, if patient is in distress this should be checked. #UTI- e. 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 #Restless legs,- Mirapex is working #NIDDM-A1c 6.1 during this admission, blood sugars controlled without medication. Blood sugars and sliding scale insulin stopped. He is medically cleared for discharge once arrangement is made VTE Prophylaxis: Other (therapeutic INR) VTE Mechanical Devices: Intermittant Pneumatic CD Resuscitation Status: CPR: Attempt Resuscitation Abdelrahman Davila MD December 03, 2016 14:54 Abdelrahman Davila MD December 03, 2016 14:54
--- NOTE | 2016-12-03 15:18 | NUR ---
NUTRITION FOLLOW-UP: ASSESS: 56 YO male admitted with depression, behavior disturbance; psych following. disposition pending. PO intake has improved with pt eating 25-100% of meals. PMHx: Morbid obesity s/p gastric sleeve in Feb 2016, depression, CAD, MS, Stroke, Liliya's gangrene R groin, Kidney Stones, A-fib, anxiety, probable underlying mood disorder. LABS: Reviewed. Alb 3.1 MEDS: Reviewed. GI: BM x 1 (12/01). CURRENT WT: 108.6 kg. IBW: 70 kg. Pt has intentionally lost 44 kg since March 2016 from gastric sleeve procedure. DIET: Mechanical soft, thin liquids + supplements all trays. PO intake 25-100% trays EST. NEEDS (BMI): 5974-4747 kcals (20-22 kcals/kg BW), 85-105 g protein (1.2-1.5 g/kg IBW) NUTRITION DIAGNOSIS: 1) Inadequate oral intake related to altered GI function (gastric sleeve) as evidenced by po intake of 25% of meals x 5 D - IMPROVED, PO 25-100% of meals. NUTRITION INTERVENTION: 1) Continue to send Gelatein Plus at 10am & 8pm and Mighty shake at 2pm between meals to encourage adequate po intake. MONITOR / EVAL: PO intake, labs, weights, nutritional status. Follow per moderate nutritional risk guidelines.
--- NOTE | 2016-12-03 15:54 | NUR ---
Faxed clinicals to [facility] [phone] per GENERAL FARMER
--- NOTE | 2016-12-03 16:39 | NUR ---
Social Work obtained RX from , VIANEY faxed these to [facility] and requested that UR specialist follow up with [facility] tomorrow. Order also obtained from for HH-RN,PT,OT, and ST. in agreement with [facility] in [place]. VIANEY placed a call to [facility] and provided referral. VIANEY requested UR specialist fax clinicals. VIANEY will need to fax discharge information to [facility] at discharge. VIANEY will continue to follow. REBECA Duncan
[2016-12-03 16:40] VITALS: BP 106/75; PULSE 101; RESP 16; O2SAT 97
[2016-12-03 20:10] VITALS: BP 108/75; PULSE 72; RESP 17; O2SAT 99
[2016-12-03] MEDS: lamoTRIgine 100 mg Tablet PO SCH (20:13)
--- NOTE | 2016-12-04 04:00 | NUR ---
Activity Pt. had visit, and seemed to be in good spirits during med pass. Pt. has been sleeping well throughout the night. Will continue to monitor.
[2016-12-04 05:20] VITALS: BP 119/77; PULSE 75; RESP 18; O2SAT 98
[2016-12-04] MEDS: Polyethylene Glycol (PEG) 17 Gm Powder PO SCH (08:30)
[2016-12-04] MEDS: Nystatin 100,000 Unit/Gm 15 Gm Powder TOPICAL SCH ×2 (09:04→20:44)
[2016-12-04] MEDS: buPROPion XL 300 mg ER24 Tablet PO SCH (09:04)
--- NOTE | 2016-12-04 10:20 | NUR ---
Called [employer] [facility] in [place], asked for updated fax number. I have sent multiple times and getting busy signal. Asked for follow up call with updated fax as it is pertinent they get patient information. Updated SOA INTEGRATION ARCHITECT Addendum: 12/04/16 at 1024 by KIERRA AMOS CM Spoke with Charo at [facility] and she gave me medical records fax [phone] and let me know to try that one as well. But fax we have for main line is correct. Updated SOA INTEGRATION ARCHITECT
--- NOTE | 2016-12-04 12:32 | NUR ---
T/C to Negin at [facility] regarding pt's prescriptions. They have received Rx's, VIANEY provided address for [facility]. Negin requested VIANEY fax facesheet to [phone]. VIANEY completed this. Negin requested VIANEY fax patients discharge orders on day of discharge to the same fax. Amy Pastrana MSW
[2016-12-04 12:54] VITALS: BP 106/68; PULSE 92; RESP 20; O2SAT 98
--- NOTE | 2016-12-04 15:13 | PCM.PNMED ---
Subjective Date of Service December 04, 2016 Subjective Patient does not seem to have any new complaints. I think he was wondering if his placement is going forward. I confirmed for him that yes indeed it was and he seemed pleased. Exam Vital Signs Vital Sign - Last Date Time Temp Pulse Resp B/P Pulse Ox O2 Delivery O2 Flow Rate FiO2 12/04/16 12:54 36.7 92 20 106/68 98 Room Air Intake and Output 12/03/16 12/03/16 12/04/16 Cumulative From/Thru 15:00 23:00 07:00 11/09/16 13:58 - 12/04/16 05:20 Intake Total 586 ml 537 ml 14182 ml Output Total 475 ml 0 ml 95936 ml Balance 111 ml 537 ml 2435 ml Intake Oral 586 ml 537 ml 00214 ml IV Total 60 ml Output Urine Total 475 ml 0 ml 83855 ml # Voids 5 # Bowel Movements 0 12 Exam Gen.-Sitting up in wheelchair in no apparent distress Open, conjunctivae clear pupils equal seems to track symmetrically ENT- ears normal, nose normal Neck- supple/trach midline CVS-normal rate Lungs- respirations regular and nonlabored GI-generous pannus Musc- no obvious deformity Neuro- cranial nerves II through XII intact, contracture and right hemiparesis communication is an obvious issue he certainly cannot express himself verbally and is not entirely clear what he understands. My guess is he is pretty lucid unfortunately for him. Skin- warm and dry, no rashes/lesions/wounds noted [facility]- seems happy, hard to assess given communication issues Assessment & Plan 56-year-old male admitted 11/09 behavioral disturbance and SNF. 12/01 is not clear why this patient's on metoprolol but his SBP is in double digits heart rates in the 60s on stopping the 12.5 mg twice a day. Patient's medical issues seem to be well controlled, I am being requested to complete paperwork regarding his overall fitness and medical situation on day 1 of meeting this patient was been hospitalized for 22+ days now. 12/02 patient medically stable potential adult family home in [place] is reviewing for admission 12/03 unremarkable day, completed all scripts for potential discharge Wednesday 12/06 to adult family home 12/04 unremarkable day no changes to his therapy ongoing [facility]entiary care. #CVA, expressive aphasia/ R kailey - continue PT/speech/OT this will also be ordered on discharge to the adult family home where he is going #Bipolar with behavior issues-likely an expression of his frustration with aphasia, has not been an issue since I met 11/30, last remote behavioral disturbance 11/27 was minimal - hx bipolar/ personality changes with vascular dementia. lamotrigine, wellbutrin XL, quetiapine for mood stabilization. Patient been stable for at least a week at this point in time from this perspective. -Psych consult and recommendation from 11/15 noted. #Urinary retention, acute, POA, resolved- pts voiding well, if patient is in distress this should be checked. #UTI- e. 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 #Restless legs,- Mirapex is working #NIDDM-A1c 6.1 during this admission, blood sugars controlled without medication. Blood sugars and sliding scale insulin stopped. He is medically cleared for discharge once arrangement is made VTE Prophylaxis: Other (therapeutic INR) VTE Mechanical Devices: Intermittant Pneumatic CD Resuscitation Status: CPR: Attempt Resuscitation Abdelrahman Davila MD December 04, 2016 15:13
--- NOTE | 2016-12-04 15:26 | NUR ---
No apparent signs of depression pt frequently cheerful, enjoys laughing, enjoys eating, likes to get up in a W/C and wonder about in room and hallway. Occasionally gets angry and frustrated when staff is unable to interpret what he is trying to say
--- NOTE | 2016-12-04 16:04 | NUR ---
Social Work- Continued D/C Planning Data: EMR reviewed. Pt is on day 25 of hospitalization for depression per H&P. T/C this morning to Taisha at [facility] regarding pt's placement. Taisha WINTERS received a late call from [facility] today 12/04 at 1530 regarding pt's placement at [facility]. Mary states that pt's ECS rate of $117 is accepted in [facility], not [facility]. [facility] is located in [place], which is in [facility]. Per Mary, [facility] is welcome to accept pt at the base rate of $109.18, though the additional ECS funding and Behavioral Health Specialist approved by [facility] will not transfer to [facility]. Mary states that she will have to pursue an ECS rate through [facility], which is a separate process. There is no guarantee that pt will be approved for additional ECS funding through [facility]. This will not be completed prior to the weekend. Per Mary, the HCS worker for [facility] is compiling a list of [facility] that [facility] has a relationship with that would be approved to receive this ECS funding to aid in securing placement. Due to the late hour of the call, VINAEY to update [facility] regarding this development tomorrow morning. SW to also update pt, pt's , [facility], and [facility] regarding pt's discharge plan. Assessment: Pt who would benefit from placement. Plan: Pt's ECS funding does not transfer to [facility]. [facility] is welcome to accept pt at the base rate of $109.18, though the additional ECS funding and Behavioral Health Specialist approved by [facility] will not transfer to [facility]. Due to the late hour of the call, VIANEY to update [facility] of funding tomorrow morning. SW to also update pt, pt's , [facility], and [facility] regarding pt's changing discharge plan. REBECA Walton
[2016-12-04] MEDS: lamoTRIgine 100 mg Tablet PO SCH (20:46)
[2016-12-04 20:50] VITALS: BP 105/71; PULSE 94; RESP 20; O2SAT 97
--- NOTE | 2016-12-05 03:48 | NUR ---
Activity Pt. in good spirits earlier in shift. Pt. was enjoying and laughing watching a hockey game. Pt. has been sleeping well throughout the night. Will continue to monitor.
[2016-12-05 04:30] VITALS: BP 109/73; PULSE 86; RESP 17; O2SAT 99
[2016-12-05] MEDS: Polyethylene Glycol (PEG) 17 Gm Powder PO SCH (08:30)
[2016-12-05] MEDS: buPROPion XL 300 mg ER24 Tablet PO SCH (09:05)
[2016-12-05] MEDS: Nystatin 100,000 Unit/Gm 15 Gm Powder TOPICAL SCH ×2 (09:06→21:56)
--- NOTE | 2016-12-05 11:45 | NUR ---
Social work Note - Continued D/C planning FOOD AND BEVERAGE ASSISTANT MANAGER spoke with Taisha at [facility] regarding pt's daily rate. Taisha states that she is not willing to accept pt at the $109 rate because she identifies that then [facility] may not increase his rate later. She is willing to hold Pt's bed at [facility] but wants Mary Ch to apply for the increased rate for [facility]. FOOD AND BEVERAGE ASSISTANT MANAGER spoke with pt - Explained that he is not able to d/c today - will need to wait until early next week. Pt appeared frustrated but nodded his head that he understood. Pt's called - FOOD AND BEVERAGE ASSISTANT MANAGER provided update that pt will remain in the hospital for the weekend. She states she will bring pt's belongings and wheelchair when she hears he has a discharge date secure. She states she does not like the idea of him going to [facility] and will continue to look for a facility closer to home. She however understands that Pt will likely d/c to [facility] when funding is secured with [facility]. Plan: D/C to Located within [facility] - awaiting [facility] Mary Ch to secure funding for his care. Alisia Palafox, QUEEN'S COUNSEL
[2016-12-05 14:20] VITALS: BP 132/72; PULSE 89; RESP 20; O2SAT 98
--- NOTE | 2016-12-05 14:23 | PCM.PNMED ---
Subjective Date of Service December 05, 2016 Subjective No new issues that we can discern from patient. It is very difficult to determine what the patient wants/needs due to aphasia. I think he would like his clothes brought from home. There is been a setback in funding and transfer to [facility] in [place] has been delayed hopefully only till Thursday. Patient remains medically stable and we are doing only fdc care. Exam Vital Signs Vital Sign - Last Date Time Temp Pulse Resp B/P Pulse Ox O2 Delivery O2 Flow Rate FiO2 12/05/16 14:20 36.8 89 20 132/72 98 Room Air Intake and Output 12/04/16 12/04/16 12/05/16 Cumulative From/Thru 15:00 23:00 07:00 11/09/16 13:58 - 12/05/16 05:55 Intake Total 676 ml 300 ml 67872 ml Output Total 350 ml 325 ml 56270 ml Balance 326 ml -25 ml 2736 ml Intake Oral 676 ml 300 ml 36391 ml IV Total 60 ml Output Urine Total 350 ml 325 ml 38336 ml # Voids 5 # Bowel Movements 1 0 13 Exam Gen.-Centripetally obese male Sitting up in wheelchair in no apparent distress Open, conjunctivae clear pupils equal seems to track symmetrically ENT- ears normal, nose normal Neck- supple/trach midline CVS-normal rate Lungs- respirations regular and nonlabored GI-generous pannus Musc- no obvious deformity Neuro- cranial nerves II through XII intact, contracture and right hemiparesis communication is an obvious issue he certainly cannot express himself verbally and is not entirely clear what he understands. My guess is he is pretty lucid unfortunately for him. Skin- warm and dry, no rashes/lesions/wounds noted [facility]- seems happy, hard to assess given communication issues Assessment & Plan 56-year-old male admitted 11/09 behavioral disturbance and SNF. 12/01 is not clear why this patient's on metoprolol but his SBP is in double digits heart rates in the 60s on stopping the 12.5 mg twice a day. Patient's medical issues seem to be well controlled, I am being requested to complete paperwork regarding his overall fitness and medical situation on day 1 of meeting this patient was been hospitalized for 22+ days now. 12/02 patient medically stable potential adult family home in [place] is reviewing for admission 12/03 unremarkable day, completed all scripts for potential discharge Wednesday 12/06 to adult family home 12/04 unremarkable day no changes to his therapy ongoing fdc care. 12/05new issues that we can discern from patient. It is very difficult to determine what the patient wants/needs due to aphasia. I think he would like his clothes brought from home. There is been a setback in funding and transfer to [facility] in [place] has been delayed hopefully only till Thursday. Patient remains medically stable and we are doing only fdc care. Interval summary 12/01-12/05-no events to report patient is been medically stable masses in a week of fdc care in looking for placement. #CVA, expressive aphasia/ R kailey - continue PT/speech/OT this will also be ordered on discharge to the adult family home where he is going #Bipolar with behavior issues-likely an expression of his frustration with aphasia, has not been an issue since I met 11/30, last remote behavioral disturbance 11/27 was minimal - hx bipolar/ personality changes with vascular dementia. lamotrigine, wellbutrin XL, quetiapine for mood stabilization. Patient been stable for at least a week at this point in time from this perspective. -Psych consult and recommendation from 11/15 noted. #Urinary retention, acute, POA, resolved- pts voiding well, if patient is in distress this should be checked. #UTI- e. 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 #Restless legs,- Mirapex is working #NIDDM-A1c 6.1 during this admission, blood sugars controlled without medication. Blood sugars and sliding scale insulin stopped. He is medically cleared for discharge once arrangement is made VTE Prophylaxis: Other (therapeutic INR) VTE Mechanical Devices: Intermittant Pneumatic CD Resuscitation Status: CPR: Attempt Resuscitation Abdelrahman Davila MD December 05, 2016 14:23
--- NOTE | 2016-12-05 15:22 | NUR ---
Social work note - Continued D/C plan COMPENSATION PROGRAMS MANAGER received call from Cherry Castro, android platform developer of [facility] [facility] in [place] [phone]. She was contacted by family and has an opening at her facility. She would like to see Pt tomorrow for bedside assessment. She states that she would need to talk with MILLICENT Mata to work on paperwork and could not have a decision about accepting pt until Thursday. Pt is to connect with COMPENSATION PROGRAMS MANAGER tomorrow around 10:00 and would like to meet pt. MARLYN Valdes
--- NOTE | 2016-12-05 16:50 | NUR ---
activity Pt up in wheelchair this afternoon. was very agitated, communicated to RN he wanted to go home, He was frustrated that everyone else was getting to leave but him. offered to take pt outside to garden for a little bit, pt refused. Resting comfortably in bed now.
[2016-12-05 19:46] VITALS: BP 119/53; PULSE 65; RESP 18; O2SAT 92
[2016-12-05] MEDS: lamoTRIgine 100 mg Tablet PO SCH (21:56)
--- NOTE | 2016-12-06 01:22 | NUR ---
RAILS When entering room, all 4 bedrails were up. When asked about putting one down because otherwise it would be a restraint, pt shook his head, seeming to communicate he wanted all 4 rails up. Left bedrails up, and pt seemed satisfied with this. Hourly rounding.
[2016-12-06 04:46] VITALS: BP 100/72; PULSE 83; RESP 18; O2SAT 97
[2016-12-06] MEDS: Nystatin 100,000 Unit/Gm 15 Gm Powder TOPICAL SCH ×2 (08:02→20:45)
[2016-12-06] MEDS: buPROPion XL 300 mg ER24 Tablet PO SCH (08:02)
[2016-12-06] MEDS: Polyethylene Glycol (PEG) 17 Gm Powder PO SCH (08:04)
--- NOTE | 2016-12-06 11:31 | NUR ---
Mentation patient very aggitated. spouse at bed side. spouse states," he is very frusturated with me when I talked about guardianship." Hospitalist aware. Notified social worker clinical and aware.
--- NOTE | 2016-12-06 13:30 | PCM.PNMED ---
Subjective Date of Service December 06, 2016 Subjective Patient is in bed, has aphasia, at the bedside. Patient is intermittently agitated. He is awaiting placement. Exam Vital Signs Vital Sign - Last Date Time Temp Pulse Resp B/P Pulse Ox O2 Delivery O2 Flow Rate FiO2 12/06/16 04:46 36.0 83 18 100/72 97 Room Air Intake and Output 12/05/16 12/05/16 12/06/16 Cumulative From/Thru 15:00 23:00 07:00 11/09/16 13:58 - 12/06/16 06:42 Intake Total 956 ml 100 ml 48833 ml Output Total 400 ml 175 ml 48053 ml Balance 556 ml -75 ml 3217 ml Intake Oral 956 ml 100 ml 76836 ml IV Total 60 ml Output Urine Total 400 ml 175 ml 42065 ml # Voids 5 # Bowel Movements 13 Exam PHYSICAL EXAM: GENERAL: Alert, intermittently agitated HEAD: atraumatic, normocephalic, no bruises. EYES: JAGDISH, EOMI, anicteric, able to fully open and close eyelids SKIN: Skin color normal, turgor normal/decreased. No visible rashes or lesions. EAR, NOSE, MOUTH, THROAT: Lips, oral mucosa, tongue gums, moist, pink, no lesions. Ears normal appearance, no lesions. NECK: no jugulovenous distention, supple; ROM normal. MUSCULOSKELETAL: ROM full, muscles are not tender EXTREMITIES: no pitting edema in LE, no deformities, clubbing or skin discoloration. NEURO: Sensation grossly intact., Cranial nerves II-XII intact, R hemiparesis present, aphasia present PULSES: 2+ radial, 2+ posterial tibial, 2+ dorsalis pedis, 2+ carotid REVIEW OF SYSTEMS: unable to evaluate, patient has aphasia. IVs and Medications Medications Reviewed: Medications were reviewed in detail Assessment & Plan 56-year-old male admitted 11/09 with behavioral disturbance. CVA, expressive aphasia/ R hemiparesis - stable - continue PT/speech/OT Bipolar with behavior issues - stable - likely an expression of his frustration with aphasia Hx bipolar/ personality changes with vascular dementia. - c/w lamotrigine, wellbutrin XL, quetiapine for mood stabilization - Psych evaluated the patient Urinary retention, acute, POA - resolved. UTI - e. 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 Restless legs - stable - Mirapex is working NIDDM -A1c 6.1 during this admission, blood sugars controlled without medication. - Blood sugars and sliding scale insulin stopped. He is medically cleared for discharge once arrangement is made I discussed plan of care with him and his . VTE Prophylaxis: Other (therapeutic INR) VTE Mechanical Devices: Intermittant Pneumatic CD Resuscitation Status: CPR: Attempt Resuscitation Shun Ahuja MD December 06, 2016 13:30
[2016-12-06 14:17] VITALS: BP 105/71; PULSE 93; RESP 18; O2SAT 98
--- NOTE | 2016-12-06 16:55 | NUR ---
Social Work Note: D&A: Reviewed chart. Received notification that Cherry Castro had arrived to access pt. for [facility] in [place]. After evaluation completed met with Cherry and she reports that pt. is not behaviorally appropriate for either of there Adult Family Homes. Spouse at [facility] and notified. Met briefly with spouse to discuss next steps. Spouse concerned about pt.'s current aggression towards her. Pt. previously at [facility] x5 months and spouse denies any aggressive behavior while he was there. Pt. home for approximately 1 month and during that time progressively has got worse. Spouse interested in neurology consult/update to determine if there has been any change or additional event. Spoke with nrsg and they report that pt. becomes the most agitated when she is here. P: Pending placement. Will need to continue to work with Mary Ch on placement options. Recommend CM team call [facility] on next business day to ask about previous behaviors and obtain medication list. Per spouse pt. was not at all like this [id number] at [facility]? REBECA Salinas
--- NOTE | 2016-12-06 18:01 | NUR ---
Mentation Patient alert and awake this shift. No further agitation noted after family left. patient had shower this shift. patient has been calm and pleasant rest of this shift. Dinner at bed side and eating. patient up to the bathroom, one person assist and in wheel chair in the thomas way with spouse before noon. Denies pain or discomfort. Call light with in reach and uses appropriately.
[2016-12-06 19:24] VITALS: BP 109/71; PULSE 84; RESP 18; O2SAT 98
[2016-12-06] MEDS: lamoTRIgine 100 mg Tablet PO SCH (20:42)
--- NOTE | 2016-12-07 05:09 | NUR ---
Mobility Pt has significant strength in the left side, compensates well for the right sided deficit. He got himself into his wheelchair with very little assistance. Pt wheeled himself around the unit 7-8 times with supervision. Impulsive tendencies were noted throughout the stroll. Pt denied any pain. Hourly rounding ongoing.
[2016-12-07 05:37] VITALS: BP 98/64; PULSE 73; RESP 18; O2SAT 98
[2016-12-07] MEDS: Nystatin 100,000 Unit/Gm 15 Gm Powder TOPICAL SCH ×2 (08:14→21:33)
[2016-12-07] MEDS: Polyethylene Glycol (PEG) 17 Gm Powder PO SCH (08:14)
[2016-12-07] MEDS: buPROPion XL 300 mg ER24 Tablet PO SCH (08:14)
--- NOTE | 2016-12-07 13:42 | PCM.PNMED ---
Subjective Date of Service December 07, 2016 Subjective Patient is in bed, he has aphasia, no acute issues over the night. Exam Vital Signs Vital Sign - Last Date Time Temp Pulse Resp B/P Pulse Ox O2 Delivery O2 Flow Rate FiO2 12/07/16 05:37 36.7 73 18 98/64 98 Room Air Intake and Output 12/06/16 12/06/16 12/07/16 Cumulative From/Thru 15:00 23:00 07:00 11/09/16 13:58 - 12/07/16 06:47 Intake Total 400 ml 300 ml 19835 ml Output Total 600 ml 400 ml 83088 ml Balance -200 ml -100 ml 2917 ml Intake Oral 400 ml 300 ml 66921 ml IV Total 0 ml 60 ml Output Urine Total 600 ml 400 ml 57955 ml # Voids 5 # Bowel Movements 13 Exam GENERAL: Alert, intermittently agitated HEAD: atraumatic, normocephalic, no bruises. EYES: JAGDISH, EOMI, anicteric, able to fully open and close eyelids SKIN: Skin color normal, turgor normal/decreased. No visible rashes or lesions. EAR, NOSE, MOUTH, THROAT: Lips, oral mucosa, tongue gums, moist, pink, no lesions. NECK: no jugulovenous distention, supple; ROM normal. MUSCULOSKELETAL: ROM full, muscles are not tender EXTREMITIES: no pitting edema in LE, no deformities, clubbing or skin discoloration. NEURO: Sensation grossly intact., Cranial nerves II-XII intact, R hemiparesis present, aphasia present PULSES: 2+ radial, 2+ carotid REVIEW OF SYSTEMS: unable to evaluate, patient has aphasia. IVs and Medications Medications Reviewed: Medications were reviewed in detail Assessment & Plan 56-year-old male admitted 11/09 with behavioral disturbance. CVA, expressive aphasia/ R hemiparesis - stable - continue PT/speech/OT Bipolar with behavior issues - stable - likely an expression of his frustration with aphasia Hx bipolar/ personality changes with vascular dementia. - c/w lamotrigine, wellbutrin XL, quetiapine for mood stabilization - Psych evaluated the patient Urinary retention, acute, POA - resolved. UTI - e. 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 Restless legs - stable - Mirapex is working NIDDM -A1c 6.1 during this admission, blood sugars controlled without medication. - Blood sugars and sliding scale insulin stopped. He is medically cleared for discharge once arrangement is made VTE Prophylaxis: Other (therapeutic INR) VTE Mechanical Devices: Intermittant Pneumatic CD Resuscitation Status: CPR: Attempt Resuscitation Shun Ahuja MD December 07, 2016 13:42
--- NOTE | 2016-12-07 16:32 | NUR ---
Social Work: Continued Discharge Planning D: EMR reviewed. Pt is on day 28 of hospitalization. SW met with pt at bedside. Pt is not able to verbalize thoughts but is able write and use assistive speaking device to communicate. Pt seems to be alert and oriented x3, but unable to verbalize due to Aphasia. Pt is frustrated that no one is listening to him and would like to get out of the hospital. Pt wrote "commode, bath, sweatpants, sweatshirt and underwear." When asked if pt would like those items at the hospital, pt pointed to a picture of home on assistive device. SW asked pt if he would like to go home with a caregiver and pt nodded yes. SW worked closely with pt's RN and asked pt if he felt understood after conversation. Pt pointed to several items on his legal documents that were incorrect. Pt wrote corrections by incorrect items. SW asked if it was okay to call pt's and discuss the communication SW had with pt and pt nodded yes. Pt communicated through writing, pointing, and assistive device that he would like to change several items on his legal documents. SW asked if it was okay to call and pt's father. Pt wrote (next to his fathers name on white board) $2,700,000. SW asked pt if his father had funds to help pay for caregiving. Pt nodded and agreed. SW asked if it was okay to have another meeting with his and father to determine if caregiving at home is a possibility. VIANEY will call and LEELEE Boyle to discuss conversation and attempt to determine a safe discharge plan. A: Pt for whom SNF/LTC has been deemed medically necessary. VIANEY will call and LEELEE Boyle to discuss conversation and attempt to determine a safe discharge plan. REBECA Muir
[2016-12-07 19:55] VITALS: BP 108/69; PULSE 58; RESP 18; O2SAT 94
[2016-12-07] MEDS: lamoTRIgine 100 mg Tablet PO SCH (21:32)
--- NOTE | 2016-12-08 04:50 | NUR ---
Mood/Affect Pt has been pleasant all throughout shift. Cooperative with all care, able to make needs known, observed resting quietly most of night. Ongoing rounding continued.
[2016-12-08 06:38] VITALS: BP 114/77; PULSE 63; RESP 18; O2SAT 97
[2016-12-08] MEDS: Nystatin 100,000 Unit/Gm 15 Gm Powder TOPICAL SCH ×2 (07:59→20:49)
[2016-12-08] MEDS: buPROPion XL 300 mg ER24 Tablet PO SCH (08:00)
[2016-12-08] MEDS: Polyethylene Glycol (PEG) 17 Gm Powder PO SCH (08:01)
[2016-12-08 11:48] VITALS: BP 119/77; PULSE 78; RESP 18; O2SAT 100
--- NOTE | 2016-12-08 12:51 | NUR ---
Evaluation completed. Rec: [facility]. Medication as tolerated. Please go to "Notes" then click on "Assessments and Notes" (bottom left corner of screen). Then select appropriate discipline tab on top of screen. Addendum: 12/08/16 at [address] wrong chart.
--- NOTE | 2016-12-08 16:01 | NUR ---
911 calls Pt on phone, noted to be more agitated, repeating "Hands...hands, oh boy... hands!" This RN entered room and pt held out phone which was a double back operator. Per screw driver operator, pt had called "multiple times", however unable to communicate need. This RN assured them that pt was fine at this time, upset about family issues. Pt became more upset when phone hung up and via communication board, tablet, writing and gestures it was determined that pt wanted a security police officer to go to Melba's home to have her bring him his wheelchair, commode, shower chair and clothing. Per pt, Melba is refusing to bring these items and "lying" about it which is making pt angry. This RN spoke with social work who is aware of situation. When this RN returned to room to communicate this, pt on phone with 911 again. Per battery recharger, phone at bedside unplugged. Pt told that staff/social work is making every attempt to get belongings to him including communication with Melba and meeting his needs is top priority. Pt appears calmer, laying in bed and watching TV at this time. Care is ongoing.
--- NOTE | 2016-12-08 16:27 | NUR ---
Social Work: Continued Discharge Planning SW contacted pt's Connie to update her on current discharge plan. SW told that we are waiting to contact NYA Ch until 12/09, when she will be back from holiday, to determine costs for the [facility]. Per pt's request, SW also asked if she could bring sweats, sweatshirt, and wheelchair from home. Connie stated that she has been told she could not bring these items. VIANEY confirmed with daycare teacher and pt's RN that these items are acceptable to bring into the hospital and confirmed this information with Connie. Connie became frustrated, began to cry, and stated "she can't deal with this anymore, I have to hang up the phone." SW called back and left a message providing phone number if Connie would like to call back at a later time to discuss her frustrations. VIANEY called Connie back and Connie stated she wants him closer to [place] and does not want pt to be in [place] at an [facility]. She does not believe sending him to [place] is in their best interest. Connie is considering taking pt home with caregiver. She is debating between [facility] and taking pt home with 24/7 care and speech therapy. VIANEY will continue to follow. REBECA Muir
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
[2016-12-08] MEDS: lamoTRIgine 100 mg Tablet PO SCH (20:49)
[2016-12-08 20:59] VITALS: BP 113/74; PULSE 54; RESP 20; O2SAT 97
--- NOTE | 2016-12-08 22:05 | PCM.PNPSY ---
Subjective Date of Service December 08, 2016 Subjective Per internal medicine, patient angry when they were communicating with present and grabbed wrist quite hard. Patient was also noted in the notes calling 911 apparently trying to get police to pickling solution maker clothes, his wheelchair, and shower chair. He indicated to this advertising writer that he was frustrated that his guardianship papers that indicate that his home is the hospital's address, not his house where he had lived with his . He does not seem to understand why it is difficult to provide for his needs in the home environment and has indicated he does not want to go to a facility. He indicated that he grabbed the internal medicine doctor because he was angry that they were not talking or explaining things directly to him. He did not seem to understand how this was inappropriate and seemed to think it was amusing. Sleep: okay Appetite: okay Suicidal and homicidal ideation: denies Anxiety: about placement Depression: denies Mental Status Exam Vital Signs Vital Signs Date Time Temp Pulse Resp B/P Pulse Ox O2 Delivery O2 Flow Rate FiO2 12/08/16 20:59 36.8 54 20 113/74 97 Room Air Appearance: Neat/well groomed Attitude: Pleasant, Cooperative Behavior: Stereotypic movements (epressive aphasia) Affect: Well Modulated/Appropriate Mood: Euthymic Thought Process/Associations: Other (Difficult to assess due to aphasia but themes noted in history) Speech Production: Other (repeated use of the word "hand" for all elements of speech with occasional "yes," and "oh boy") Speech Rate: Normal Speech Articulation: Other (dysarthria) Thought Content: Appropriate Danger to Self/Suicidal Ideati: None Danger to Others: None Consciousness: Alert Orientation: Person, Situation (partial) Memory: Untestable Estimate Intellectual Function: Unable to assess Attention/Concentration & Cogn: Impaired Insight: Limited Judgement: Limited (to), Poor Mental Health Plan The patient is a 56-year-old male with a history of depression, mood disorder ( bipolar II vs. cyclothymia) and stroke with expressive aphasia, who presented with unexplained agitation and non-adherence within hours of his transfer to [facility]. Given his fairly rapid return to baseline, it would seem that some environmental cue was involved in his rapid decline although it is not readily apparent what that may have been. The patient had been detained, but fairly quickly returned to baseline and was released from hold. Social work has been working on placement since and he has guardianship papers. He still is experiencing periodic agitation typically due to his frustration regarding his inability to be understood or when he is not explained what is going on. The patient continues to not understand the extent of his impairment. It appears he may be placed on 12/09/16. If the patient is not placed, he may benefit from further titration of lamotrigine to better improve mood stability. [place] AXIS I: 1. Mood disorder unspecified 2. 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 Major neurocognitive disorder, vascular type, due to stroke. AXIS II: Deferred. AXIS III: See past medical history. AXIS IV: Severe. AXIS V: Global Assessment of Functioning 35 (due to physical impairments/ aphasia). Medications Psychiatric medication: Lamotrigine 100mg po nightly Wellbutrin XL 300mg daily. Quetiapine 25mg daily and 50mg nightly for agitation/bipolar. Melatonin 5mg nightly as needed for sleep. Treatments 1. If patient not placed on 12/09/16, would increase lamotrigine to 150mg po nightly. 2. Continue other current psychiatric medications. 3. SW is continuing to work on placement. 4. Please contact psychiatry if there are further questions. Paddy Stout MD December 08, 2016 22:05 5. Continue melatonin for sleep. 6. Patient does not appear to need 1:1. 7. SW working on placement in [facility]. 8. Estimated length of stay 5-7 days. Paddy Stout MD December 08, 2016 22:05
--- NOTE | 2016-12-08 22:42 | NUR ---
Mood On initial assessment, patient appeared to be quiet and " down " compared to other assessments from the previous week. Patient tried to communicate with computer and pointed to pictures of wheelchair, shower chair, and clothes. Patient can only say "hands" and "oh boy". Patient tried to write out thoughts on paper but only could write a number. Communicated with patient with yes or no questions. Patient denies pain. VSS . Call light within reach. Care continues.
[2016-12-09 06:15] VITALS: BP 103/66; PULSE 81; RESP 20; O2SAT 95
[2016-12-09] MEDS: Polyethylene Glycol (PEG) 17 Gm Powder PO SCH (08:01)
[2016-12-09] MEDS: buPROPion XL 300 mg ER24 Tablet PO SCH (08:07)
[2016-12-09 13:24] VITALS: BP 114/81; PULSE 66; RESP 20; O2SAT 95
--- NOTE | 2016-12-09 14:35 | NUR ---
Social Work-Care Conference: Data: EMR Reviewed. Pt is on day 30 of hospitalization for depression per H&P. MONROE Jovel and FLAKITO Reyes RN, NYA Ch, pt's Melba in attendance. SW reviewed progress regarding pts placement in an [facility]. Pts Melba shared concerns regarding inconsistencies in communication between herself and SW. SW provided a listening presence and reviewed all concerns with . SW reviewed care plan with and explained process and where SW is in the process. SW answered all questions. SW provided an additional business card with Floor VISUAL EDUCATOR contact information. NYA Ch continues to work on placement and submitting the ECS rate to [facility] in [facility] and [facility]. Pts increased ECS rate has not been approved for [facility]. Mary stated that pts ECS rate likely will not be approved in [facility] considering that pt has already been approved in multiple [facility]. Mary has resubmitted pts assessment to an [facility] in [place]. Mary has confirmed with all state contracted caregiving organizations that there are no openings for pt to obtain caregiving services at home at this time. Pts continues to reinforce to pt that placement at a facility is the current discharge plan. Pt has expressed concerns through writing to floor staff scientist that it is too far. Pts Melba shares these concerns, as she does not drive and transportation to visit pt is too lengthy. Melba is agreeable to continuing to pursue AFH placement within the currently approved counties. VISUAL EDUCATOR reinforced to pts that placement to an AFH is the current discharge barrier. The pt is medically stable for discharge. When placement is resolved, the pt will be discharged to the AFH that has accepted pt, regardless of pts preference or transportation barriers. Pts stated understanding and agreement. Pts confirmed that bringing patient home with caregivers is not an option at this time. She clarified that the pt returning home is her terminal worker plan after pt is able to progress with therapies and his mood and behaviors have stabilized at a facility. VISUAL EDUCATOR placed call to LEELEE Boyle [phone] regarding pts placement plan. [place] informed VISUAL EDUCATOR that he will be out of the office until 16 DECEMBER. VIANEY is welcome to leave a message for him but he will not have ready access to his phone or messages. [place] informed VIANEY that pts is recognized as Power of Kiln Transfer Operator and may sign on pts behalf. At this time, pt is presumed to have full capacity. [place] advised VIANEY to direct any of Bonnies questions regarding the guardianship process to her own legal circle, as [place] is not able to give legal advice of any kind. Assessment:Pt who would benefit from Placement. Plan: SW continues to pursue placement at in the [facility] [place] approved E[place] funding, including [facility], [facility]. Pts ECS funding is not approved in [facility] at this time. At this time, [facility] is not willing to accept pt at the base rate without approved additional ECS funding. SW addressed concerns from family regarding inconsistencies in communication and will revise patterns of communication to more effectively communicate with pts . All updated and agreeable to plan. VIANEY will continue to follow. REBECA Walton
--- NOTE | 2016-12-09 15:52 | NUR ---
NUTRITION FOLLOW-UP: ASSESS: 56 YO male admitted with depression, behavior disturbance; psych following. disposition pending, family meeting today to discuss placement. PO intake good. Appears pt diet advanced to general with no updated ST order beyond mechanical soft on 11/25, discussed concern with RN, RN unaware of diet advancement beyond ST recommendation/or diet against medical advice, same with dietary aide cook, no diet AMA form found, no clear reason for diet advancement found. RN reports she will look into diet advancement and call if she finds answer. PMHx: Morbid obesity s/p gastric sleeve in Feb 2016, depression, CAD, ME, Stroke, Liliya's gangrene R groin, Kidney Stones, A-fib, anxiety, probable underlying mood disorder. LABS: Reviewed. Alb 3.1, Glu 115 MEDS: Reviewed. GI: BM x 1 (12/09). CURRENT WT: 108.7 kg. IBW: 70 kg. Pt has intentionally lost 44 kg since March 2016 from gastric sleeve procedure. DIET: General. PO 50-100%. RN notes good po intake, however struggled eating salad ordered today. EST. NEEDS (BMI): 0661-9848 kcals (20-22 kcals/kg BW), 85-105 g protein (1.2-1.5 g/kg IBW) NUTRITION DIAGNOSIS: 1) Inadequate oral intake related to altered GI function (gastric sleeve) as evidenced by po intake of 50-100% x 5d - IMPROVED. NUTRITION INTERVENTION: 1) Diet modified to mechanical soft per previous ST diet order, ST called and left message re diet upgrade and unclear documentation re why. In meantime RN will attempt to verify diet advancement and will modify PRN. MONITOR / EVAL: PO intake, labs, weights, nutritional status. Follow per moderate nutritional risk guidelines.
--- NOTE | 2016-12-09 16:44 | NUR ---
DIET Diet order was changed back to General per Dr. Munroe verbal order. Patient was very upset that diet order had gotten changed to soft, he has been tolerating general diet without any issues for last 5 days. Diet order will be clarified with TALENT PROGRAM MANAGER tomorrow.
[2016-12-09] MEDS ORDERED: Ondansetron 2 mg/mL 2 mL Inj IVPUSH PRN (16:45)
[2016-12-09 19:41] VITALS: BP 120/70; PULSE 97; RESP 18; O2SAT 99
[2016-12-09] MEDS: Nystatin 100,000 Unit/Gm 15 Gm Powder TOPICAL SCH (20:30)
[2016-12-09] MEDS: lamoTRIgine 100 mg Tablet PO SCH (21:00)
--- NOTE | 2016-12-09 23:48 | PCM.PNMED ---
Subjective Date of Service December 09, 2016 Subjective Patient is seen examined. He is in his usual mood, going around in a wheelchair. It appears he got his clothing back and appears to be very happy about it, however later he was agitated because speech therapy change his diet to soft. He has been needing general diet. Exam Vital Signs Vital Sign - Last Date Time Temp Pulse Resp B/P Pulse Ox O2 Delivery O2 Flow Rate FiO2 12/08/16 20:59 36.8 54 20 113/74 97 Room Air Intake and Output 12/08/16 12/08/16 12/09/16 Cumulative From/Thru 15:00 23:00 07:00 11/09/16 13:58 - 12/08/16 20:50 Intake Total 500 ml 63371 ml Output Total 225 ml 350 ml 98330 ml Balance -225 ml 150 ml 3029 ml Intake Oral 500 ml 41101 ml IV Total 60 ml Output Urine Total 225 ml 350 ml 60658 ml # Voids 5 # Bowel Movements 0 14 Exam Gen.: Mildly agitated HEENT: Mild droop to the left Heart: Regular rate and rhythm no S3-S4 murmurs Lungs: Clear to auscultation no crackles or wheezes Abdomen: Nondistended nontender Extremities: Negative for edema MSK: weak right lower and right upper extremity. Right arm is contracted, he kept this arm closer to his body. Neuro: Endorsing altered sensation over right leg and right arm Skin: Warm and dry Assessment & Plan 56-year-old male admitted 11/09 with behavioral disturbance. CVA, expressive aphasia/ R hemiparesis : only word he was able to say wa s"hand " - stable - continue PT/speech/OT Bipolar with behavior issues - Does not appear to be cognitive about who he is talking with: Doctor vs Staff vs social work. Confusing people's roles. -- Was agitated in his 's presence - likely an expression of his frustration with aphasia -- Continue to follow psych recommendations. Dr. Reina is following. -- Restart patient's medications as they all today Hx bipolar/ personality changes with vascular dementia. - c/w lamotrigine, wellbutrin XL, quetiapine for mood stabilization - Psych evaluated the patient Urinary retention, acute, POA - resolved. UTI - e. 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 Restless legs - stable - Mirapex is working -- Will consider gabapentin. NIDDM -A1c 6.1 during this admission, blood sugars controlled without medication. - Blood sugars and sliding scale insulin stopped. As for him to receive general diet, will check records speech therapy tomorrow as to what their concerns are He is medically cleared for discharge once arrangement is made VTE Prophylaxis: Other (therapeutic INR) VTE Mechanical Devices: Intermittant Pneumatic CD Resuscitation Status: CPR: Attempt Resuscitation Time spent 30 minutes Lisa Munroe DO December 09, 2016 05:19
--- NOTE | 2016-12-10 01:32 | NUR ---
Diet/Activity Rec'd call from Evelyne-metal fitters and machinists, she stated general diet is fine. PULP PRESS TENDER can follow. Pt remained in bed all shift. He is very anxious and upset over papers he has rec'd for guardianship but believes they are divorce papers. Unable to express all his words due to aphasia but used his Ipad/tablet to say she's gone and he is sad. Reassured him she was not him, he just shook his head. Pt slept all shift after this. No s/sx of pain. Care continues
[2016-12-10 05:40] VITALS: BP 104/69; PULSE 58; RESP 16; O2SAT 98
[2016-12-10] MEDS: Nystatin 100,000 Unit/Gm 15 Gm Powder TOPICAL SCH ×2 (08:30→20:30)
[2016-12-10] MEDS: buPROPion XL 300 mg ER24 Tablet PO SCH (08:30)
[2016-12-10] MEDS: Polyethylene Glycol (PEG) 17 Gm Powder PO SCH (10:18)
--- NOTE | 2016-12-10 12:59 | NUR ---
Social Work- Continued D/C Planning Data: Pt is on day 31 of hospitalization for depression per H&P. Pt is medically stable, awaiting placement. VIANEY received call from Kimi Kong, washery boss of [facility], [address] [place] [address]. Phone number is . Fax is [phone]. Kimi states that he received assessment from NYA Ch regarding pt's ECS. Kimi has also spoken with pt's Melba. Kimi states he has an open bed and is willing to look at pt for placement. He requested that SW fax clinicals over detailing pt's behaviors. VIANEY requested PROPERTY CLERK to fax referrals to fax listed above. VIANEY continues to follow. Assessment: Pt who would benefit from placement. Plan: PROPERTY CLERK to fax clinicals to Kimi Kong, washery boss of [facility] in [place]. VIANEY continues to follow. REBECA Walton
[2016-12-10 14:14] VITALS: BP 115/78; PULSE 41; RESP 19; O2SAT 98
--- NOTE | 2016-12-10 15:29 | NUR ---
[facility] CONTINUED SEARCH---- [place] [facility] [place] BED [facility] [place] NO BED [facility] [place], [place] NO BED [facility] [place], [place] BED [facility] [place], [place] BED Amazing [facility] [place] [facility] [place]ED Jacqueline [place] [facility] [place] [facility] [place] BED [facility] [place] Dimple [place], [place] BED Gold Isela [place] BED [facility] [address] 3 [place] B[place] Noemi [place], [place] NO ANSWER [phone] Noemi [place] Left Message on Machine [phone] Vandana Cassoday [place], [place] BED [facility] [place] BED [facility] [place], [place] NO BED & this house is female only [facility] [place] B[place] Lloyd Serene [place] Disconnected Line [place] Unable to accept due to patient's weight [facility] [place], [place] NO BED [facility] [place], [place] NO BED [facility] [place] BED [facility] [place] Unable to accept due to Age [place], [place] Left Message on Machine [phone] [facility] [place] B[place] Serenity Smith [place] Left Message on Machine [phone] Shalom [place] BED The Agu[facility] Age 2 [place], [place] NO BED [facility]st [facility] [place], [place] NO BED [facility] [place], [place] NO Answer and No Machine [facility] Disconnected Phone [facility] [place], [place] Left Message on Machine [phone] [facility] [place], [place] NO BED [facility] [place] BED [facility] [place], [place] Faxed referral to [phone] / [place], [place] Faxed referral to [phone] and this is the phone as well ( UNABLE TO ACCEPT DUE TO LEVEL OF CARE AND BEHAVIORS). [facility] [place], [place] Faxed referral to [phone]/ [facility] in [place], [place] has confirmed they do not have an appropriate bed for this patient. Updated PROJECT LEADER
--- NOTE | 2016-12-10 17:14 | NUR ---
[place]ott Pt requesting more control over his care today. Allowed pt decision making with when he showers, eats, takes his medications and gets in and out of his WC. Pt using his iPad and notepad to communicate with staff. Medications were switched to 9pm tonight. Pt agrees to a shower and skin care tomorrow morning. Will continue to improve pt independence with ADL's for pt satisfaction.
--- NOTE | 2016-12-10 17:50 | PCM.PNMED ---
Subjective Date of Service December 10, 2016 Subjective Patient is acting as his usual self. His speech mostly consists of "hands" and "Oh boy". She refused to take his data medications because he believes Seroquel is making him drowsy. He is also frustrated because some papers that his brought for him and address were showing up as hospital address, while she is living in his house. He is eating well and expresses no other health related concerns Exam Vital Signs Vital Sign - Last Date Time Temp Pulse Resp B/P Pulse Ox O2 Delivery O2 Flow Rate FiO2 12/10/16 05:40 36.7 58 16 104/69 98 Room Air Intake and Output 12/09/16 12/09/16 12/10/16 Cumulative From/Thru 15:00 23:00 07:00 11/09/16 13:58 - 12/10/16 01:32 Intake Total 400 ml 420 ml 31297 ml Output Total 550 ml 300 ml 83638 ml Balance -150 ml 120 ml 2999 ml Intake Oral 400 ml 420 ml 91182 ml IV Total 60 ml Output Urine Total 550 ml 300 ml 33004 ml # Voids 5 # Bowel Movements 1 15 Exam Gen.: Mildly agitated HEENT: Mild droop to the left Heart: Regular rate and rhythm no S3-S4 murmurs Lungs: Clear to auscultation no crackles or wheezes Abdomen: Nondistended nontender Extremities: Negative for edema MSK: weak right lower and right upper extremity. Right arm is contracted, he kept this arm closer to his body. Neuro: Endorsing altered sensation over right leg and right arm Skin: Warm and dry IVs and Medications Medications Reviewed: Medications were reviewed in detail Assessment & Plan 56-year-old male admitted 11/09 with behavioral disturbance. CVA, expressive aphasia/ R hemiparesis : only words he was able to say were "hand" and "oh boy" - stable - continue PT/speech/OT Bipolar with behavior issues - Does not appear to be cognitive about who he is talking with: Doctor vs Staff vs social work. Confusing people's roles. -- Was agitated in his 's presence - likely an expression of his frustration with aphasia -- Continue to follow psych recommendations. Dr. Reina is following. -- Restart patient's medications as they all on 12/09 -- May give Seroquel both doses at night per Dr. Reina -- Dr. Allen also Encourages patient to take Wellbutrin during the daytime because giving him at nighttime to keep him up, Hx bipolar/ personality changes with vascular dementia. - c/w lamotrigine, wellbutrin XL, quetiapine for mood stabilization - Psych evaluated the patient Urinary retention, acute, POA - resolved. UTI - e. 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 Restless legs - stable - Mirapex is working -- Will consider gabapentin. NIDDM -A1c 6.1 during this admission, blood sugars controlled without medication. - Blood sugars and sliding scale insulin stopped. As for him to receive general diet, will check records speech therapy tomorrow as to what their concerns are He is medically cleared for discharge once arrangement is made VTE Prophylaxis: Other (therapeutic INR) VTE Mechanical Devices: Intermittant Pneumatic CD Resuscitation Status: CPR: Attempt Resuscitation Time spent 25 minutes Lisa Munroe DO December 10, 2016 06:07
[2016-12-10 19:30] VITALS: BP 107/74; PULSE 60; RESP 16; O2SAT 98
[2016-12-10] MEDS: lamoTRIgine 100 mg Tablet PO SCH (22:43)
--- NOTE | 2016-12-11 04:57 | NUR ---
Participation in care Patient participating in care, agreeable to most medications after specifying which were what. After med pass patient able to rest comfortably the reminder of the evening. Bed in low position call light within reach, intentional rounding. Continue plan of care.
[2016-12-11 05:47] VITALS: BP 118/77; PULSE 62; RESP 16; O2SAT 97
--- NOTE | 2016-12-11 08:08 | NUR ---
Called and spoke with Mary Ch CM at [facility] and she is emailing [place] [phone] the assessment so he can review and then he would like to come and see patient most likely tomorrow between &12. Updated CHUCK SPLITTER
[2016-12-11] MEDS: Polyethylene Glycol (PEG) 17 Gm Powder PO SCH (08:30)
[2016-12-11] MEDS: Nystatin 100,000 Unit/Gm 15 Gm Powder TOPICAL SCH ×2 (08:30→20:31)
[2016-12-11] MEDS: buPROPion XL 300 mg ER24 Tablet PO SCH (08:30)
--- NOTE | 2016-12-11 10:00 | NUR ---
Behavior: Patient refusing all scheduled am medications this am. Education completed on reasons for medications, patient continues to refuse. OOB to wheelchair roaming hallways earlier this am, now in room. Allowed for nursing physical assessment. Patient using hand gestures and pointing to communicate. Stating the words "yes" "no" and "hands" for verbal communications.
[2016-12-11 13:13] VITALS: BP 119/74; PULSE 93; RESP 18; O2SAT 99
[2016-12-11] MEDS: lamoTRIgine 100 mg Tablet PO SCH (20:32)
[2016-12-11 20:38] VITALS: BP 124/63; PULSE 83; RESP 18; O2SAT 99
--- NOTE | 2016-12-11 23:27 | PCM.PNMED ---
Subjective Date of Service Dec 11, 2016 Subjective Patient is laying on bed and watching TV. It started in his usual " hands O Boy " pattern. He did not take his medications even if after they were adjusted to not make him drowsy during the day time. His making signs to indicate that he is very unhappy. No other concerns Exam Vital Signs Vital Sign - Last Date Time Temp Pulse Resp B/P Pulse Ox O2 Delivery O2 Flow Rate FiO2 12/11/16 20:38 36.7 83 18 124/63 99 Room Air Intake and Output 12/10/16 12/10/16 12/11/16 Cumulative From/Thru 15:00 23:00 07:00 11/09/16 13:58 - 12/11/16 05:47 Intake Total 436 ml 636 ml 96373 ml Output Total 300 ml 650 ml 56762 ml Balance 136 ml -14 ml 3158 ml Intake Oral 436 ml 636 ml 04776 ml IV Total 60 ml Output Urine Total 300 ml 650 ml 30984 ml # Voids 5 # Bowel Movements 0 0 15 Exam Gen.: Lying in bed slightly agitated HEENT: Normocephalic. The mouth droop Heart: Regular rate and rhythm last S4 murmurs Next trachea central Lungs: Clear to auscultation no crackles or wheezes Abdomen soft nondistended Extremities: Warm and dry Neuro: Cognitive deficits, speech deficit/aphasia Psych: Mild agitation IVs and Medications Medications Reviewed: Medications were reviewed in detail Assessment & Plan 56-year-old male admitted 11/09 with behavioral disturbance. CVA, expressive aphasia/ R hemiparesis : only words he was able to say were "hand" and "oh boy" - stable - continue PT/speech/OT Bipolar with behavior issues - Does not appear to be cognitive about who he is talking with: Doctor vs Staff vs social work. Confusing people's roles. -- Was agitated in his 's presence - likely an expression of his frustration with aphasia -- Continue to follow psych recommendations. Dr. Reina is following. -- Restart patient's medications as they all on 12/09 -- May give Seroquel both doses at night per Dr. Reina -- Dr. Allen also Encourages patient to take Wellbutrin during the daytime because giving him at nighttime to keep him up, -- We will notify Dr. Reina regarding refusal of meds Hx bipolar/ personality changes with vascular dementia. - c/w lamotrigine, wellbutrin XL, quetiapine for mood stabilization - Psych evaluated the patient Urinary retention, acute, POA - resolved. UTI - e. 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 Restless legs - stable - Mirapex is working -- Will consider gabapentin. NIDDM -A1c 6.1 during this admission, blood sugars controlled without medication. - Blood sugars and sliding scale insulin stopped. As for him to receive general diet, will check records speech therapy tomorrow as to what their concerns are He is medically cleared for discharge once arrangement is made VTE Prophylaxis: Other (therapeutic INR) VTE Mechanical Devices: Intermittant Pneumatic CD Resuscitation Status: CPR: Attempt Resuscitation Time spent 20 min Lisa Munroe DO Dec 11, 2016 23:27
--- NOTE | 2016-12-12 01:58 | NUR ---
Mood On initial assessment, patient appeared sad. Patient brought out Guardianship papers. Patient started to cry at one point. Patient reassured by RN that hospital staff has his best interest in mind . Patient agreed to med pass this evening. VSS. Call light within reach. Care continues.
[2016-12-12 04:21] VITALS: BP 116/57; PULSE 81; RESP 20; O2SAT 98
[2016-12-12] MEDS: buPROPion XL 300 mg ER24 Tablet PO SCH (08:30)
[2016-12-12] MEDS: Polyethylene Glycol (PEG) 17 Gm Powder PO SCH (08:30)
[2016-12-12] MEDS: Nystatin 100,000 Unit/Gm 15 Gm Powder TOPICAL SCH ×2 (08:30→22:07)
[2016-12-12 09:25] VITALS: BP 112/77; PULSE 82; RESP 20; O2SAT 99
--- NOTE | 2016-12-12 12:45 | NUR ---
Social Work: Continued Discharge Planning D: EMR reviewed. Pt is on day 34 of hospitalization. SW met with pt and [facility] to assess pt for placement. Pt was pleasant and demonstrated how he communicates using hand signals and his tablet. Pt was happy during the assessment. Martha (fagoter) from the [facility] asked how the pt communicates yes and no answers. Pt demonstrated thumbs up for yes and thumbs down for no. Pt used tablet to show how he goes to the bathroom using a commode. Pt demonstrated what activities he likes using his tablet. When asked what pt does for fun, pt pointed to the [employer] he was wearing and the TV. SW confirmed pt likes sports and watching sports on TV - pt agreed. Martha from the [facility] said the meeting went well but that it would be difficult and take a lot of time to care for pt. SW advocated for pt stating that pt can understand what others are saying, he just uses different tools to communicate - including pointing, writing, and his assistive tablet device. Martha from the [facility] said she would review pt's information and reach a decision by Thursday, 12/15. SW will continue to follow. A: Pt for whom [facility] placement has been deemed medically necessary. P: SW will continue to follow for placement. VIANEY will follow-up with Aydee PARIKH to determine if pt will be accepted. REBECA Muir Addendum: 12/13/16 at 1635 by PAKO TOTH SS Aydee PARIKH - Martha Murillo (fagoter) - [phone] (fax) [phone] (zmdc) [id number] [place] [address]
[2016-12-12 14:19] VITALS: BP 122/73; PULSE 78; RESP 20; O2SAT 97
--- NOTE | 2016-12-12 14:26 | NUR ---
NUTRITION FOLLOW-UP: ASSESS: 56 YO male admitted with depression, behavior disturbance; psych following. placement pending. Pt diet was modified by RD 12/09 from General to previous soft diet per ST; pt was upset, MD gave verbal order later that day to change back to General. ST was called 12/[address], however no further assessments or evals noted. Pt remains on general with variable po intake, RN notes no texture issues. Would default to ST what they would recommend for texture. PMHx: Morbid obesity s/p gastric sleeve in Feb 2016, depression, CAD, ID, Stroke, Liliya's gangrene R groin, Kidney Stones, A-fib, anxiety, probable underlying mood disorder. LABS: Reviewed. Alb 3.1 MEDS: Reviewed. GI: BM x 1 (12/09). CURRENT WT: 108.7 kg. IBW: 70 kg. Pt has intentionally lost 44 kg since March 2016 from gastric sleeve procedure. DIET: General. PO refusal-100%. EST. NEEDS (BMI): 7836-9152 kcals (20-22 kcals/kg BW), 85-105 g protein (1.2-1.5 g/kg IBW) NUTRITION DIAGNOSIS: 1) Inadequate oral intake related to altered GI function (gastric sleeve) as evidenced by po intake of 0-100% x 3d ~50% - IMPROVED. NUTRITION INTERVENTION: 1) No intervention at this time. Recommend MD obtain additional ST eval. if warranted. 2.) If PO intake remains 50% or < x 2-4 d consider supplements. MONITOR / EVAL: PO intake, labs, weights,texture issues?, nutritional status. Follow per moderate nutritional risk guidelines.
--- NOTE | 2016-12-12 17:25 | NUR ---
Behavior Pts. behavior on shift has been appropriate. Makes needs known and I assisted him in calling his father and . Pt. is getting eager to go home and refused his morning medications stating he does not need them and is feeling healthy.
[2016-12-12 21:15] VITALS: BP 102/59; PULSE 89; RESP 18; O2SAT 97
[2016-12-12] MEDS: lamoTRIgine 100 mg Tablet PO SCH (22:06)
--- NOTE | 2016-12-12 22:09 | PCM.PNMED ---
Subjective Date of Service Dec 12, 2016 Subjective Patient is seen and examined in his room. He was seen sitting in the doorway in his wheelchair for most part of the day. He appears to be a sad mood, became teary-eyed in the room. Mood that I have not seen Prior to this visit, as it is more common for him to be more agitated and frustrated. He expresses no pain, or medical issues. He was pointing to his nurse that he can order his supper, was pointing to things on the menu, however it is not clear whether he can actually read the menu Exam Vital Signs Vital Sign - Last Date Time Temp Pulse Resp B/P Pulse Ox O2 Delivery O2 Flow Rate FiO2 12/12/16 14:19 36.4 78 20 122/73 97 Room Air Intake and Output 12/11/16 12/11/16 12/12/16 Cumulative From/Thru 15:00 23:00 07:00 11/09/16 13:58 - 12/12/16 06:19 Intake Total 1000 ml 574 ml 11087 ml Output Total 300 ml 710 ml 10686 ml Balance 700 ml -136 ml 3722 ml Intake Oral 1000 ml 574 ml 67443 ml IV Total 60 ml Output Urine Total 300 ml 710 ml 48774 ml # Voids 2 7 # Bowel Movements 0 15 Exam Gen.: Sitting in his wheelchair, subdued mood HEENT: mouth droop to the left Heart: Regular rate and rhythm last S4 murmurs Neck trachea central Lungs: Clear to auscultation no crackles or wheezes Abdomen soft nondistended Extremities: Warm and dry Neuro: Positive for Cognitive deficits, speech deficit/aphasia Psych: Affect is sad, mood is cooperative IVs and Medications IV Fluids None Medications Reviewed: Medications were reviewed in detail Assessment & Plan 56-year-old male admitted 11/09 with behavioral disturbance. CVA, expressive aphasia/ R hemiparesis : only words he was able to say were "hand" and "oh boy" - stable - continue PT/speech/OT Bipolar with behavior issues - Does not appear to be cognitive about who he is talking with: Doctor vs Staff vs social work. Confusing people's roles. -- Was agitated in his 's presence - likely an expression of his frustration with aphasia -- Continue to follow psych recommendations. Dr. Reina is following. -- Restart patient's medications as they all on 12/09 -- May give Seroquel both doses at night per Dr. Reina -- Dr. Allen also Encourages patient to take Wellbutrin during the daytime because giving him at nighttime to keep him up, -- Staff were asked to notify Dr. Reina on refusal of medicaitons during daytime, patient cannot be convinced that Wellbutrin cannot cause sedation -- We will discuss more change with Dr. Reina or his associate Hx bipolar/ personality changes with vascular dementia. - c/w lamotrigine, wellbutrin XL, quetiapine for mood stabilization - Psych evaluated the patient Urinary retention, acute, POA - resolved. UTI - e. 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 Restless legs - stable - Mirapex is working -- Will consider gabapentin. NIDDM -A1c 6.1 during this admission, blood sugars controlled without medication. - Blood sugars and sliding scale insulin stopped. He is medically cleared for discharge once arrangement is made VTE Prophylaxis: Other (therapeutic INR) VTE Mechanical Devices: Intermittant Pneumatic CD Resuscitation Status: CPR: Attempt Resuscitation Time spent 20 minutes Lisa Munroe DO Dec 12, 2016 22:09
--- NOTE | 2016-12-12 23:39 | NUR ---
Activity On initial assessment, patient appeared irritated in regards to conversation with . Patient refused to take pm medications. was heard trying to convince patient to take meds. Patient sitting up in wheelchair. VSS. Medications administered later on by charge nurse. Patient needed assistance getting back to bed. Patient looking at brochures regarding longterm care. Call light within reach. Care continues.
[2016-12-13 06:00] VITALS: BP 104/69; PULSE 80; RESP 16; O2SAT 99
[2016-12-13] MEDS: Polyethylene Glycol (PEG) 17 Gm Powder PO SCH (08:30)
[2016-12-13] MEDS: buPROPion XL 300 mg ER24 Tablet PO SCH (08:30)
[2016-12-13] MEDS: Nystatin 100,000 Unit/Gm 15 Gm Powder TOPICAL SCH ×2 (08:30→21:06)
--- NOTE | 2016-12-13 11:05 | NUR ---
medication pt refused all his medications this morning, will attempt again later to have him take them Pt up in his wheelchair sitting at the motel front desk clerk most the morning. Addendum: 12/13/16 at 1306 by JENNY DARBY RN Pt became teary eyed when talking to RN, pointed at Family members names and were they lived, indicating he wishes they would come, RN attempted to help pt call his father and his daughter, went to voice mail both times.
[2016-12-13 15:58] VITALS: BP 107/71; PULSE 72; RESP 20; O2SAT 97
[2016-12-13] MEDS: lamoTRIgine 100 mg Tablet PO SCH (21:00)
[2016-12-13 21:10] VITALS: BP 107/65; PULSE 87; RESP 16; O2SAT 99
--- NOTE | 2016-12-14 00:46 | PCM.PNMED ---
Subjective Date of Service Dec 14, 2016 Subjective Patient Is indicating to me with his ipad his home address and that he would like to go back there. Continues to speak with " hands, O Boy!" Exam Vital Signs Vital Sign - Last Date Time Temp Pulse Resp B/P Pulse Ox O2 Delivery O2 Flow Rate FiO2 12/13/16 21:10 36.6 87 16 107/65 99 Room Air Intake and Output 12/13/16 12/13/16 12/14/16 Cumulative From/Thru 15:00 23:00 07:00 11/09/16 13:58 - 12/13/16 18:33 Intake Total 640 ml 18751 ml Output Total 300 ml 73176 ml Balance 340 ml 4804 ml Intake Oral 640 ml 65271 ml IV Total 60 ml Output Urine Total 300 ml 74157 ml # Voids 3 13 # Bowel Movements 15 Exam Gen.: sitting in wheelchair, agitated HEENT: Normocephalic. mouth droop to left Heart: Regular rate and rhythm last S4 murmurs Neck trachea central Lungs: Clear to auscultation no crackles or wheezes Abdomen soft nondistended Extremities: Warm and dry Neuro: Cognitive deficits, speech deficit/aphasia Psych: Mild agitation IVs and Medications IV Fluids none Medications Reviewed: Medications were reviewed in detail Assessment & Plan 56-year-old male admitted 11/09 with behavioral disturbance. CVA, expressive aphasia/ R hemiparesis : only words he was able to say were "hand" and "oh boy" - stable - continue PT/speech/OT Bipolar with behavior issues - Does not appear to be cognitive about who he is talking with: Doctor vs Staff vs social work. Confusing people's roles. -- Was agitated in his 's presence - likely an expression of his frustration with aphasia -- Continue to follow psych recommendations. Dr. Reina is following. -- Restart patient's medications as they all on 12/09 -- May give Seroquel both doses at night per Dr. Reina -- Dr. Allen also Encourages patient to take Wellbutrin during the daytime because giving him at nighttime to keep him up, -- Staff were asked to notify Dr. Reina on refusal of medicaitons during daytime, patient cannot be convinced that Wellbutrin cannot cause sedation -- We will discuss more change with Dr. Reina or his associate Hx bipolar/ personality changes with vascular dementia. - c/w lamotrigine, wellbutrin XL, quetiapine for mood stabilization - Psych evaluated the patient Urinary retention, acute, POA - resolved. UTI - e. fecalis in urine - completed antibiotics CAD, paroxysmal A-fib - stable - Patient is on Xarelto, family is aware it can cause severe bleeding - rate is controlled without metoprolol, patient is also on statin Anemia of chronic disease -Records review reveals some degree of anemia since 2009, patient with vertical sleeve gastrectomy in February 2016.likely anemia of chronic dz, h/h stable. Restless legs - stable - MirapePrice[employer]ics is working NIDDM -A1c 6.1 during this admission, blood sugars controlled without medication. - Blood sugars and sliding scale insulin stopped. He is medically cleared for discharge once arrangement is made VTE Prophylaxis: Other (therapeutic INR) VTE Mechanical Devices: Intermittant Pneumatic CD Resuscitation Status: CPR: Attempt Resuscitation Time spent 20 min Lisa Munroe DO Dec 14, 2016 00:46
--- NOTE | 2016-12-14 06:20 | NUR ---
Behavior/meds Pt pleasant during shift, but gets easily frustrated when his attempt to communicate is not understood. Pt refused all HS meds besides his Nystatin powder, appeared to be asleep most of night.
[2016-12-14] MEDS: Polyethylene Glycol (PEG) 17 Gm Powder PO SCH (08:30)
[2016-12-14] MEDS: buPROPion XL 300 mg ER24 Tablet PO SCH (08:30)
[2016-12-14] MEDS: Nystatin 100,000 Unit/Gm 15 Gm Powder TOPICAL SCH ×2 (08:30→20:42)
[2016-12-14 12:29] VITALS: BP 144/87; PULSE 72; RESP 18; O2SAT 100
--- NOTE | 2016-12-14 16:59 | NUR ---
Patients helped patient explain a recent weight loss surgery that the patient had; resulting in eating smaller more frequent meals. Addendum: 12/14/16 at 1701 by DANY HURTADO CNA Amended: Links added.
[2016-12-14 20:00] VITALS: BP 114/61; PULSE 80; RESP 16; O2SAT 97
[2016-12-14] MEDS: lamoTRIgine 100 mg Tablet PO SCH (20:42)
--- NOTE | 2016-12-15 01:46 | PCM.PNMED ---
Subjective Date of Service Dec 15, 2016 Subjective Patient is seen and examined. He is showing as how he can stand up by himself in the bathroom, seems to be making some progress with right arm movement, and with the writing numbers and letters, putting together pictures and sentences on the ipad so he can communicate. He is expressing his desire to go home. He has no health concerns Exam Vital Signs Vital Sign - Last Date Time Temp Pulse Resp B/P Pulse Ox O2 Delivery O2 Flow Rate FiO2 12/14/16 20:00 36.9 80 16 114/61 97 Room Air Intake and Output 12/14/16 12/14/16 12/15/16 Cumulative From/Thru 15:00 23:00 07:00 11/09/16 13:58 - 12/14/16 20:00 Intake Total 800 ml 75582 ml Output Total 400 ml 89115 ml Balance 400 ml 5204 ml Intake Oral 800 ml 88736 ml IV Total 60 ml Output Urine Total 400 ml 32332 ml # Voids 13 # Bowel Movements 15 IVs and Medications Medications Reviewed: Medications were reviewed in detail Assessment & Plan 56-year-old male admitted 11/09 with behavioral disturbance. CVA, expressive aphasia/ R hemiparesis : only words he was able to say were "hand" and "oh boy" - stable - continue PT/speech/OT: Physical therapy is no longer seeing the patient, created a new consult today for them to come work with patient on his right arm strength Bipolar with behavior issues - Does not appear to be cognitive about who he is talking with: Doctor vs Staff vs social work. Confusing people's roles. -- Was agitated in his 's presence - likely an expression of his frustration with aphasia -- Continue to follow psych recommendations. Dr. Reina is following. -- Restart patient's medications as they all on 12/09 -- May give Seroquel both doses at night per Dr. Reina -- Dr. Allen also Encourages patient to take Wellbutrin during the daytime because giving him at nighttime to keep him up, -- Staff were asked to notify Dr. Reina on refusal of medicaitons during daytime, patient cannot be convinced that Wellbutrin cannot cause sedation -- We will discussed mood change with Dr. Felix on 12/14/16 Hx bipolar/ personality changes with vascular dementia. We will - c/w lamotrigine, wellbutrin XL, quetiapine for mood stabilization - Psych evaluated the patient - We will discussed mood change with Dr. Felix on 12/14/16. Dr. Felix stated he will see the patient Urinary retention, acute, POA - resolved. UTI - e. fecalis in urine - completed antibiotics CAD, paroxysmal A-fib - stable - Patient is on Xarelto, family is aware it can cause severe bleeding - rate is controlled without metoprolol, patient is also on statin Anemia of chronic disease -Records review reveals some degree of anemia since 2009, patient with vertical sleeve gastrectomy in February 2016.likely anemia of chronic dz, h/h stable. Restless legs - stable - Mirapex is working NIDDM -A1c 6.1 during this admission, blood sugars controlled without medication. - Blood sugars and sliding scale insulin stopped. Disposition: He is medically cleared for discharge once arrangement is made VTE Prophylaxis: Other (therapeutic INR) VTE Mechanical Devices: Intermittant Pneumatic CD Resuscitation Status: CPR: Attempt Resuscitation Time spent 20 min Lisa Munroe DO Dec 15, 2016 01:46
[2016-12-15 05:15] VITALS: BP 103/62; PULSE 90; RESP 16; O2SAT 97
--- NOTE | 2016-12-15 05:19 | NUR ---
Mood Positive mood throughout shift. Up in hallway in wheelchair, interacting pleasantly with staff and others. Appeared to sleep well. Accepted some meds, refused others. Does not appear to have had a BM in several days; however, refused bowel meds despite information/education. Hourly rounding ongoing.
[2016-12-15] MEDS: Polyethylene Glycol (PEG) 17 Gm Powder PO SCH (08:30)
[2016-12-15] MEDS: buPROPion XL 300 mg ER24 Tablet PO SCH (08:30)
[2016-12-15] MEDS: Nystatin 100,000 Unit/Gm 15 Gm Powder TOPICAL SCH ×2 (08:30→20:30)
--- NOTE | 2016-12-15 08:49 | NUR ---
Refusals Pt refuses to take all medication. Offered each one individually but pt continues to decline. Will attempt to administer later. Addendum: 12/15/16 at 0913 by LETY SELBY RN Called and spoke with BREANNE on the [facility] regarding patient refusing medications. Dr. Stout is not on today, BREANNE will notify MD once they are out of report. Awaiting response. Addendum: 12/15/16 at 1028 by TUAN ELIZABETH RN No response back from Psych at this time. Pt continues to refuse medications. Addendum: 12/15/16 at 1710 by TUAN ELIZABETH RN Pt continues to refuse medications. Explained the importance of his medications, offered each one by itself and pt refuses.
--- NOTE | 2016-12-15 15:23 | PCM.PNMED ---
Subjective Date of Service Dec 15, 2016 Subjective No new events or complaints. Awaiting placement. Exam Vital Signs Vital Sign - Last Date Time Temp Pulse Resp B/P Pulse Ox O2 Delivery O2 Flow Rate FiO2 12/15/16 05:15 36.0 90 16 103/62 97 Room Air Intake and Output 12/14/16 12/14/16 12/15/16 Cumulative From/Thru 15:00 23:00 07:00 11/09/16 13:58 - 12/15/16 05:42 Intake Total 800 ml 150 ml 54329 ml Output Total 400 ml 250 ml 77121 ml Balance 400 ml -100 ml 5104 ml Intake Oral 800 ml 150 ml 00049 ml IV Total 60 ml Output Urine Total 400 ml 250 ml 62504 ml # Voids 13 # Bowel Movements 0 15 Exam Gen : In bed comfortably. NAD HEENT : Satish, Sclera is anicteric Neck : Supple, no JVD Chest : Normal respiratory effort. Lung : clear bilaterally. No crackles, no wheezing Heart : S1S2, RRR, no gallop. Abdomen : Soft, Non tender . Ext : No edema Neuro : Right sided paresis / Weakness . Patient only able to say " hands" and ' Oh boy". Tries to communicate with hand sign Skin : No rash , no ulcer IVs and Medications Medications Reviewed: Medications were reviewed in detail Assessment & Plan 56-year-old male admitted 11/09 with behavioral disturbance. #CVA, expressive aphasia/ R hemiparesis : only words he was able to say were "hand" and "oh boy" - stable - continue PT/speech/OT: Physical therapy is no longer seeing the patient, created a new consult today for them to come work with patient on his right arm strength #Bipolar with behavior issues - Does not appear to be cognitive about who he is talking with: Doctor vs Staff vs social work. Confusing people's roles. -- Was agitated in his 's presence prior to admission - likely an expression of his frustration with aphasia -- Continue to follow psych recommendations. Dr. Reina is following. -- Restart patient's medications as they all on 12/09 -- May give Seroquel both doses at night per Dr. Reina -- Dr. Allen also Encourages patient to take Wellbutrin during the daytime because giving him at nighttime to keep him up, #Hx bipolar/ personality changes with vascular dementia. We will - c/w lamotrigine, wellbutrin XL, quetiapine for mood stabilization - Psych evaluated the patient - We will discussed mood change with Dr. Felix on 12/14/16. Dr. Felix stated he will see the patient Urinary retention, acute, POA - resolved. #History of UTI - e. fecalis in urine - completed antibiotics #CAD, paroxysmal A-fib - stable - Patient is on Xarelto, family is aware it can cause severe bleeding - rate is controlled without metoprolol, patient is also on statin #Anemia of chronic disease -Records review reveals some degree of anemia since 2009, patient with vertical sleeve gastrectomy in February 2016.likely anemia of chronic dz, h/h stable. #Restless legs - stable - Mirapex is working #NIDDM -A1c 6.1 during this admission, blood sugars controlled without medication. - Blood sugars and sliding scale insulin stopped. Disposition: He is medically cleared for discharge once arrangement is made VTE Prophylaxis: Other (therapeutic INR) VTE Mechanical Devices: Intermittant Pneumatic CD Resuscitation Status: CPR: Attempt Resuscitation Kaushik Mariano MD Dec 15, 2016 15:23
[2016-12-15 15:47] VITALS: BP 130/73; PULSE 73; RESP 19; O2SAT 98
[2016-12-15 19:55] VITALS: BP 108/69; PULSE 71; RESP 16; O2SAT 96
[2016-12-15] MEDS: lamoTRIgine 100 mg Tablet PO SCH (21:24)
[2016-12-16 04:13] VITALS: BP 111/70; PULSE 64; RESP 18; O2SAT 97
--- NOTE | 2016-12-16 06:19 | NUR ---
Mood/Activity Pt willingly takes all PM medications; he handed me a list of evening medications when he was ready. Aphasic, writes words but not phrases, communicates with tone and arm gestures. No agitation and good cooperation this shift. Independent in WC in thomas, carries his own meal tray to the cart to be cleaned, and dresses/undresses himself with minimal assist- R arm flaccid per baseline. Pt was here earlier and has agreed he may be able to come home with her, he is very happy about this and expresses desire to be independent. Some red skin noted under pannus, pt does not indicate discomfort. No SOB or chest pain. Care continues
[2016-12-16] MEDS: Polyethylene Glycol (PEG) 17 Gm Powder PO SCH (08:30)
[2016-12-16] MEDS: buPROPion XL 300 mg ER24 Tablet PO SCH (08:44)
[2016-12-16] MEDS: Nystatin 100,000 Unit/Gm 15 Gm Powder TOPICAL SCH ×2 (08:45→20:30)
--- NOTE | 2016-12-16 10:30 | PCM.PNMED ---
Subjective Date of Service Dec 16, 2016 Subjective awaiting placement Exam Vital Signs Vital Sign - Last Date Time Temp Pulse Resp B/P Pulse Ox O2 Delivery O2 Flow Rate FiO2 12/16/16 04:13 36.9 64 18 111/70 97 Room Air Intake and Output 12/15/16 12/15/16 12/16/16 Cumulative From/Thru 15:00 23:00 07:00 11/09/16 13:58 - 12/15/16 21:38 Intake Total 200 ml 41683 ml Output Total 200 ml 51199 ml Balance 0 ml 5104 ml Intake Oral 200 ml 50327 ml IV Total 60 ml Output Urine Total 200 ml 26443 ml # Voids 13 # Bowel Movements 1 16 Exam Gen : In bed comfortably. NAD HEENT : Satish, Sclera is anicteric Neck : Supple, no JVD Chest : Normal respiratory effort. Lung : clear bilaterally. No crackles, no wheezing Heart : S1S2, RRR, no gallop. Abdomen : Soft, Non tender . Ext : No edema Neuro : Right sided paresis / Weakness . Patient only able to say " hands" and ' Oh boy". Tries to communicate with hand sign Skin : No rash , no ulcer IVs and Medications Medications Reviewed: Medications were reviewed in detail Assessment & Plan 56-year-old male admitted 11/09 with behavioral disturbance. # CVA, expressive aphasia/ R hemiparesis : only words he was able to say were "hand" and "oh boy" - stable - continue PT/speech/OT: Physical therapy is no longer seeing the patient, created a new consult today for them to come work with patient on his right arm strength # Bipolar with behavior issues - Does not appear to be cognitive about who he is talking with: -- Was agitated in his 's presence prior to admission - likely an expression of his frustration with aphasia -- Continue to follow psych recommendations. Dr. Reina is following. -- Restart patient's medications as they all on 12/09 -- May give Seroquel both doses at night per Dr. Reina -- Dr. Allen also Encourages patient to take Wellbutrin during the daytime because giving him at nighttime to keep him up, # Hx bipolar/ personality changes with vascular dementia. We will - c/w lamotrigine, wellbutrin XL, quetiapine for mood stabilization - Psych evaluated the patient - We will discussed mood change with Dr. Felix on 12/14/16. Dr. Felix stated he will see the patient Urinary retention, acute, POA -resolved. # History of UTI - e. fecalis in urine - completed antibiotics # CAD, paroxysmal A-fib - stable - Patient is on Xarelto, family is aware it can cause severe bleeding - rate is controlled without metoprolol, patient is also on statin # Anemia of chronic disease -Records review reveals some degree of anemia since 2009, patient with vertical sleeve gastrectomy in February 2016.likely anemia of chronic dz, h/h stable. # Restless legs - stable - Mirapex is working # NIDDM -A1c 6.1 during this admission, blood sugars controlled without medication. - Blood sugars and sliding scale insulin stopped. Disposition: He is medically cleared for discharge once arrangement is made VTE Prophylaxis: Other (therapeutic INR) VTE Mechanical Devices: Intermittant Pneumatic CD Resuscitation Status: CPR: Attempt Resuscitation Kaushik Mariano MD Dec 16, 2016 10:30
--- NOTE | 2016-12-16 10:35 | PCM.PNPSY ---
Subjective Date of Service Dec 16, 2016 Subjective I spent 30 minutes both reviewing his treatment plan and providing supportive and educational psychotherapy. I spent more than 50% of the time counseling the patient. I reviewed the treatment plan with the patient and discussed options available including the potential risks, benefits and side effects. Daryn reports a marked decrease in his anger and frustration as he tells me his is going to have increased involvement in his care. He appeared bright and alert and was easily engaged today. He showed no neurovegetative signs of depression. He denied psychotic review of systems. He remains unaware of his deficits or his lack of impulse control that resulted in violent behavior towards his and staff. He denied depressive review of systems reporting that he is doing well but is very adamant that he will not go to a care home. I was asked by internal medicine to evaluate after reports that he was refusing to take his antidepressant.. Daryn was able to communicate to me that he was no longer depressed and has no intention of taking antidepressant medications. He denies medication side effects. Communication was very slow and very difficult. Patient with an expressive aphagia that believes when he repeats the word hand--hand-hand that he is communicating. I frequently slow him down and get him to write with his eyes closed using his left hand. When he does this he is able to do a "work around" of the expressive aphasia and he is able to communicate if not very concretely. Mental Status Exam Vital Signs Vital Signs Date Time Temp Pulse Resp B/P Pulse Ox O2 Delivery O2 Flow Rate FiO2 12/16/16 04:13 36.9 64 18 111/70 97 Room Air Appearance: Neat/well groomed Attitude: Pleasant, Cooperative Behavior: Stereotypic movements (epressive aphasia) Affect: Well Modulated/Appropriate Mood: Euthymic Thought Process/Associations: Other (Difficult to assess due to aphasia but themes noted in history) Speech Production: Other (repeated use of the word "hand" for all elements of speech with occasional "yes," and "oh boy") Speech Rate: Normal Speech Articulation: Other (dysarthria) Thought Content: Appropriate Danger to Self/Suicidal Ideati: None Danger to Others: None Consciousness: Alert Orientation: Person, Place, Situation (partial) Memory: Untestable Estimate Intellectual Function: Unable to assess Attention/Concentration & Cogn: Impaired Insight: Limited Judgement: Limited (to) Mental Health Plan The patient is a 56-year-old white male with history of depression and recent stroke with expressive aphasia. I evaluated him on multiple occasions when he was here on his previous admission where he presented with worsening mental state following return to his home and a loss of SADE caregiver. That stress produced incredible frustration and violent bizarre acting out by the patient towards his family. The patient had worsening agitation, decreased ability to care for himself, increase aggression towards others and was detained by a [facility] designated mental health professional to the medical floor. He again presented to the ER with unexplained agitation and non-adherence within hours of his transfer to [facility]. Given his fairly rapid return to baseline, it would seem that some environmental cue was involved in his rapid decline although it is not readily apparent what that may have been. The patient tolerated the increase in pm quetiapine and reports improved mood. Given his lack of psychiatric symptoms, other than his CVA there appears no indication to file for additional inpatient psychiatric time. VIANEY is working on placement. Daryn reports a marked decrease in his anger and frustration as he tells me his is going to have increased involvement in his care. He appeared bright and alert and was easily engaged today. He showed no neurovegetative signs of depression. He denied psychotic review of systems. He remains unaware of his deficits or his lack of impulse control that resulted in violent behavior towards his and staff. He denied depressive review of systems reporting that he is doing well but is very adamant that he will not go to a care home. I was asked by internal medicine to evaluate after reports that he was refusing to take his antidepressant.. Daryn was able to communicate to me that he was no longer depressed and has no intention of taking antidepressant medications. He denies medication side effects. Communication was very slow and very difficult. Patient with an expressive aphagia that believes when he repeats the word hand--hand-hand that he is communicating. I frequently slow him down and get him to write with his eyes closed using his left hand. When he does this he is able to do a "work around" of the expressive aphasia and he is able to communicate if not very concretely. No new recommendations for medications at this time as patient refusing medications after he was given significant informed consent about relative risk versus relative benefits. Bradley AXIS I: 1. Mood disorder unspecified 2. 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 Major neurocognitive disorder, vascular type, due to stroke. AXIS II: Deferred. AXIS III: See past medical history. AXIS IV: Severe. AXIS V: Global Assessment of Functioning 35 (due to physical impairments/ aphasia). Medications Psychiatric medication: Lamotrigine 100mg po nightly Wellbutrin XL 300mg daily. Patient refusing Quetiapine 25mg daily and 50mg nightly for agitation/bipolar. Melatonin 5mg nightly as needed for sleep. Treatments Patient is being provided with a high degree of safety through our internal medical staffs monitoring as well as our social service department engagement. Recommend focusing on developing improved coping skills and identifying stressors that may have led to current episode as we attempt to find appropriate placement.. Recommend attempting to: * Maintain in a closely monitored unit * Provide a more stimulating environment through computer based games and projects at his bedside. * Obtain collateral data to assist in treatment planning * Assess degree of lability of affect and impulse control on a daily basis since patient now refusing antidepressant medications. * Decrease frequency of relapse and need for re-hospitalization * Establish a consistent sleep pattern * Encourage Medications for stabilization of mood and/or thought process ( Lamictal) Disposition: Transition to longterm home facility Would recommend social work evaluate the possibility of his being more involved in his care. Son Felix MD Dec 16, 2016 10:35
[2016-12-16 11:10] VITALS: BP 116/81; PULSE 81; RESP 18; O2SAT 97
--- NOTE | 2016-12-16 16:12 | NUR ---
Faxed clinicals to [facility] per HOME HEALTH CARE COORDINATOR [phone]
[2016-12-16 16:17] VITALS: BP 103/61; PULSE 93; RESP 19; O2SAT 98
--- NOTE | 2016-12-16 16:25 | NUR ---
Social Work-Care Conference: Data: EMR Reviewed. Pt is on day 37 of hospitalization for depression per H&P. VIANEY- Amy, [facility], pt's Melba in attendance. VIANEY reviewed progress regarding pts placement in an AF. T/C to Kimi at [facility] at 1030 am regarding pts placement. informed READING SPECIALIST that they were interested and able to accept pt and pts Melba declined this placement believing it to be a poor fit for the patient. T/C to [facility] at 1037 am regarding placement decision. This [facility] assessed pt at bedside. SW left message requesting update regarding decision, at the time of this note no return call had occurred. T/C to [facility] at 1039 am regarding potential for assessment at bedside mentioned in prior note. VIANEY left message requesting update regarding decision, at the time of this note no return call had occurred. Melba informed READING SPECIALIST that the discharge plan has changed since the last care conference and she will be taking pt home rather than placement at an Adult Family Home. VIANEY and [facility] explored extensively with pts the risks and benefits of this decision. Melba feels that through her regular visitation and conversation with pt she has seen markedly improved physical capabilities in addition to decreased aggressive behaviors. Melba attributes this to continued therapies and pts medication adjustments completed during this admission. Melba feels that with continued support from [facility] for assistance in obtaining caregivers, support from D[facility] at [facility], and her own efforts she will be able to care for pt at home versus placing him in an adult family home. Melba believes that pt will be best served at home where she is able to support him and maintain their integrity as a family unit. Melba repeatedly denied fearing for her safety at home and repeatedly affirmed that she will be able to manage pt at home, acknowledging that she will develop strategies to cope with pts escalation or behavioral concerns. Melba acknowledges that her own thoughts and behaviors in the past may have contributed to pts escalation, including treating Daryn like a child rather than an adult, which really upsets him. Melba states that the combination of returning home, increased physical independence, increased cognitive capability and a steady medication regimen will contribute to pts success at home. VIANEY reviewed with pts the acceptance at [facility] for which she declined. Melba stated that after touring this facility and meeting the individuals who would be caring for pt she felt that they were too dima and mild and Daryn would bully them, which would then place pt in the same situation that he is in currently. SW acknowledged these concerns and validated this perspective. SW reiterated shared concern of pts behaviors becoming frightening or unmanageable at home and resulting in a readmission to the hospital. Pts stated understanding and denied currently feeling unsafe at home. SW reiterated that both pt and have a right to feel safe at home and be care for, pts stated understanding and is agreeable. [facility] has again confirmed with all state contracted caregiving organizations- [facility], [employer] [facility], and [facility]- that there are no openings for pt to obtain caregiving services at home at this time. Mary stated again that pts caregiving through [facility] may not be in place for multiple weeks after discharge. Melba stated understanding. Mary has contacted and provided the contact information for a male caregiver through the referral registry to pts . Melba aware that she will have to facilitate the hiring and overseeing of this caregiver, including interviewing, scheduling, and management of care. Melba stated understanding and is agreeable. VIANEY explored with pts social and family supports at home for both the pt and pts . Melba states that she is very close with her daughter who has been supportive throughout this journey. Ricky daughter in law is also a source of emotional support for her. Mleba states that her special assemblies supervisor at work is supportive and flexible and she is confident in her ability to adjust her life to manage pts needs. READING SPECIALIST explored additional possibilities for caregiving opportunities, including partnering with pts family to obtain the finances for 24/7 care at home for a short period of time until correction caregivers through [facility] can be obtained. Pts is adamant that due to pts family history and current family dynamics she is not comfortable with asking pts family for financial assistance. Pts declines that this is a viable option at this time. READING SPECIALIST explored HH with pts . VIANEY has received order for HH RN PT OT ST, VIANEY will obtain frequency specifications and F2F from prior to discharge. Melba confirmed pt has been open with [facility] in the past and she would be agreeable to returning to this service. Melba also stated agreement with [facility] if [facility] were not able to service pt at discharge. Melba confirmed that pts PCP is Dr. Martin at [facility] in [place]. VIANEY reinforced that after 37 days in the hospital, pts discharge plan will be proceeding as Home with HH services and in home caregivers as they can be obtained. Due to the fact that pt currently has no barriers to discharge at this time, [facility] will proceed with discharge as soon as possible. Pt is medically cleared for discharge. Melba agreeable to discharge timeline, requested that she be given 24 hours to coordinate her home. READING SPECIALIST confirmed with Melba and READ[facility] SPECIALIST Scheduling Clerk that pt will discharge tomorrow 12/17/16 at 1700. Assessment:Pt who would benefit from Placement. Plan: Pts feels that [facility] are not in the pts best interest and is proceeding with pt returning home with HH services at this time and eventual caregivers at home once they can be coordinated. VIANEY extensively reviewed the risks and benefits of plan. Melba understands the risks and benefits of plan. VIANEY will proceed with coordinating HH services RN PT OT [facility] through either [facility] or [facility] . All updated and agreeable to plan. Amy Pastrana, READING SPECIALIST
--- NOTE | 2016-12-16 17:03 | NUR ---
Social Work- Continued D/C Planning Data: EMR reviewed. Pt is on day 37 of hospitalization for depression per H&P. After care conference today, pt will not be discharging to [facility]. Pt to discharge home with HH RN PT OT ST services and caregivers as they can be coordinated in the future. T/C to Kimi at [facility] at 1030 am regarding pts placement. Student Support Advisor informed MANAGER FOOD that they were interested and able to accept pt and pts Melba declined this placement believing it to be a poor fit for the patient. T/C to [facility] at 1037 am regarding placement decision. This [facility] assessed pt at bedside. VIANEY left message requesting update regarding decision, at the time of this note no return call had occurred. T/C to [facility] at 1039 am regarding potential for assessment at bedside mentioned in prior CM note. VIANEY left message requesting update regarding decision, at the time of this note no return call had occurred. VIANEY placed call to Negin Cole, [facility] liaison, regarding referral for HH services. [facility] fax[facility] clinicals to [facility]. Received call from Negin informing [facility] that they are not currently able to accept pt at this time. In care conference, pt's Melba agreeable to services through [facility] or [facility]. VIANEY placed call to Aaron Bai, liaison with [facility], regarding referral. Access given. Aaron states he will review pt and update MA[facility]GER FO[facility] of acceptance tomorrow morning. VIANEY will obtain F2F and HH frequency prior to pt's discharge. T/C to Melba confirming that pt will be discharging tomorrow at 1700. Melba agreeable. Melba requests that RN go over all pt's medications and pt be discharged tomorrow with Rx for necessary medications. Assessment: Pt for whom HH is medically necessary. Plan: Pt to discharge home with spouse via POV and MAR RN PT OT ST services. [facility] is reviewing pt at this time. VIANEY will obtain F2F and HH frequency prior to pt's discharge. VIANEY will continue to follow. REBECA Walton Addendum: 12/17/16 at 1023 by MARY LÓPEZ [facility] is unable to accept pt onto service at this time. Referral faxed to [facility] Amy Pastrana, REBECA
--- NOTE | 2016-12-16 18:15 | NUR ---
Mood Pt has been appropriate all day and has been taking medications as directed. Seems to be attempting to communicate better and staying more calm when trying to communicate. Pt has been transferring self from bed to WC and back as well as moving around floor in WC independently. Pt showered independently today as well. Pt needs encouraged to use talking ipad more often to communicate. Care continues
[2016-12-16 20:15] VITALS: BP 100/65; PULSE 95; RESP 20; O2SAT 99
[2016-12-16] MEDS: lamoTRIgine 100 mg Tablet PO SCH (22:03)
--- NOTE | 2016-12-17 02:26 | NUR ---
Mood Patient is less active in hallway this evening, cooperative with meds and independent for most cares. Takes all prescribed oral meds, does not want nystatin powder under pannus. He shows me his clip board from today and is excited about going home with Melba. Per MD note he will DC at 1700 on 12/17. No chest pain or SOB, green buises on arms and chest appear to be fading. Care continues
[2016-12-17 05:15] VITALS: BP 100/56; PULSE 106; RESP 20; O2SAT 96
--- NOTE | 2016-12-17 10:29 | PCM.DIMED ---
Discharge Instructions Date of Service Dec 17, 2016 Dates of Hospitalization Nov 09, 2016 at 22:13 Discharge Diagnosis Discharge Diagnosis aphasia, R hemiparesis s/p CVA,bipolar w/ adjustment disorder Medication Instructions Additional med instructions Current psychiatric medications Lamotrigine 100mg po nightly Wellbutrin XL 300mg daily. Patient refusing Quetiapine 25mg daily and 50mg nightly for agitation/bipolar. Melatonin 5mg nightly as needed for sleep. Diet Discharge Diet: Low fat, Low Sodium, Other (soft diet) Activity Discharge Activity: No restrictions Call your provider Call your provider for: Fever or Chills, Shortness of breath, Bleeding, Chest pain, Vomitting, Excessive diarrhea, Weakness (unilateral) Patient Instructions Patient Instructions You were hospitalized due to behavioral disturbance due to bipolar disorder. He was also treated for UTI. Please follow-up with PCP in 1 week and discuss hospitalization Follow-up plan Patient being discharged to home with home health. Continue RN, PT, OT, ST Follow-up Provider: Vicky Martin MD Follow-up with PCP in: 1 week (needs to find a new PCP JUAN ANTONIO) Kaushik Mariano MD Dec 17, 2016 10:29
--- NOTE | 2016-12-17 10:39 | NUR ---
Faxed clinicals, face to face and facehseet to [facility] to see if there is availability for patient per CLEANING MACHINE OPERATOR. Access also given. [phone]
--- NOTE | 2016-12-17 10:41 | PCM.DC.MED ---
Discharge Summary Date of Service Dec 17, 2016 Dates of Hospitalization Date of Hospital Admission Nov 09, 2016 at 22:13 Date of Discharge: Dec 17, 2016 Providers: Admitting Physician: Dimple Ornelas DO Primary Care Physician: Vicky Martin MD Attending Physician: Dimple Ornelas DO Diagnosis at Time of Discharge Diagnosis at Time of Discharge aphasia, R hemiparesis s/p CVA,bipolar w/ adjustment disorder Consultations Psychiatric Brief History per HPI 56-year-old male with past medical history of stroke, atrial fibrillation on warfarin, type II diabetes mellitus, anxiety, and coronary artery disease presented to the emergency department following discharge (11/08) due to combative behavior at [facility] Patient was recently discharge to [facility] in [place] however when he arrived staff was unable to manage his care due to behavioral issues at which time he was transported back to [facility]. As per record, [facility] stated that patient was severely agitated, aggressive, hostile, and physically abusive towards staff. They reported that patient has also refused to take medications , eat or drink and has had urinary retention. Patient was calm and cooperative at time of presentation. Recent admissions for workup of aggressive behavior 09/2016 and 10/28-11/08. Last admission was treated for UTI with recorded improvement in cognition. Psychiatry has been involved in adjusting medications during admissions. Hospital Course 56-year-old male admitted 11/09 with behavioral disturbance. # Bipolar with behavior issues -- Was agitated in his 's presence prior to admission - likely an expression of his frustration with aphasia -Current psychiatric medications Lamotrigine 100mg po nightly Wellbutrin XL 300mg daily. Patient refusing Quetiapine 25mg daily and 50mg nightly for agitation/bipolar. Melatonin 5mg nightly as needed for sleep. -Patient progressively improved and less agitated. Placing him in adult family home was difficult. eventually decided to take him home given improvement of his behavior. Patient discharged home with home health # CVA, expressive aphasia/ R hemiparesis : only words he was able to say were "hand" and "oh boy" - stable - continue PT/speech/OT # Hx bipolar/ personality changes with vascular dementia. We will - c/w lamotrigine, wellbutrin XL, quetiapine for mood stabilization - Psych evaluated the patient #Urinary retention, acute, POA -resolved. # History of UTI - e. fecalis in urine - completed antibiotics # CAD, paroxysmal A-fib - stable - Patient is on Xarelto, family is aware it can cause severe bleeding - rate is controlled without metoprolol, patient is also on statin # Anemia of chronic disease -Records review reveals some degree of anemia since 2009, patient with vertical sleeve gastrectomy in February 2016.likely anemia of chronic dz, h/h stable. # Restless legs - stable - [employer] is working # NIDDM -A1c 6.1 during this admission, blood sugars controlled without medication. - Blood sugars and sliding scale insulin stopped. Disposition: Discharge home Condition on discharge stable Exam Vital Signs (Last) Date Time Temp Pulse Resp B/P Pulse Ox O2 Delivery O2 Flow Rate FiO2 12/17/16 05:15 36.4 106 20 100/56 96 Room Air Exam Gen : In bed comfortably. NAD HEENT : Satish, Sclera is anicteric Neck : Supple, no JVD Chest : Normal respiratory effort. Lung : clear bilaterally. No crackles, no wheezing Heart : S1S2, RRR, no gallop. Abdomen : Soft, Non tender . Ext : No edema Neuro : Right sided paresis / Weakness . Patient only able to say " hands" and ' Oh boy". Tries to communicate with hand sign Skin : No rash , no ulcer Test 11/09/16 17:45 11/09/16 18:15 11/13/16 06:05 11/16/16 08:15 Hold Schultz Top Tube Received (Received) Alcohols < 10mg/dL (0-10) Urine Color Dark yellow (YELLOW) Urine Appearance Hazy (CLEAR,HAZY) Urine pH 7.0 (5.0-8.0) Urine Specific [place] 1.015 (1.003-1.035) Urine Protein Negativemg/dL (NEG,TRACE) Urine Glucose (UA) Negativemg/dL (NEGATIVE) Urine Ketones Negativemg/dL (NEGATIVE) Urine Occult Blood Negative (NEGATIVE) Urine Nitrite Negative (NEGATIVE) Urine Bilirubin Negative (NEGATIVE) Urine Urobilinogen Normalmg/dL (NORMAL) Urine Leukocyte Esterase Negative (NEGATIVE) Urine RBC 0-2/hpf (0-2) Urine WBC 0-5/hpf (0-5) Urine Epithelial Cells Moderate/hpf (NONE-MOD) Urine Crystals None seen (NONE SEEN) Urine Bacteria None/hpf (NONE-FEW) Urine Hyaline Casts None/lpf (NONE) Urine Granular Casts None seen (NONE SEEN) Urine Waxy Casts None seen (NONE SEEN) Urine Red Blood Cell Casts None seen (NONE SEEN) Urine White Blood Cell Casts None seen (NONE SEEN) Urine Mucus None seen (None Seen) Urine Trichomonas None seen (NONE SEEN) Urine Yeast None (NONE SEEN) Urinalysis Comment None Urine Culture Reflexed Not indicated Prothrombin Time 14.0sec (8.1-12.5) Prothromb Time International Ratio 1.30ratio White Blood Count 5.7th/mm3 (3.8-10.1) Red Blood Count 3.84mil/mm3 (4.40-5.80) Hemoglobin 12.2g/dL (13.8-17.2) Hematocrit 37.9% (41.0-50.0) Mean Corpuscular Volume 98.7fL (81-100) Mean Corpuscular Hemoglobin 31.8pg (27.0-35.0) Mean Corpuscular Hemoglobin Concent 32.2% (32.0-37.0) Red Cell Distribution Width 14.1% (12.3-15.4) Platelet Count 155bil/L (150-400) Neutrophils (%) (Auto) 59.8% (40-74) Lymphocytes (%) (Auto) 27.1% (14-46) Monocytes (%) (Auto) 7.2% (4-12) Eosinophils (%) (Auto) 4.8% (0-5) Basophils (%) (Auto) 0.9% (0-3) Sodium Level 143mEq/L (134-144) Potassium Level 4.0mEq/L (3.5-5.2) Chloride Level 106mEq/L (97-108) Carbon Dioxide Level 24mmol/L (18-29) Blood Urea Nitrogen 18mg/dL (6-24) Creatinine 0.96mg/dL (0.76-1.27) Estimat Glomerular Filtration Rate 86mL/min (>59) Glucose Level 115mg/dL (60-99) Calcium Level 9.6mg/dL (8.5-10.1) Phosphorus Level 3.5mg/dL (2.5-4.9) Magnesium Level 1.8mg/dL (1.6-2.6) Total Bilirubin 0.6mg/dL (0.0-1.2) Aspartate Amino Transf (AST/SGOT) 24U/L (0-50) Alanine Aminotransferase (ALT/SGPT) 19U/L (0-44) Alkaline Phosphatase 103U/L (25-150) Total Protein 6.3g/dL (6.4-8.4) Albumin 3.1g/dL (3.4-5.0) Discharge Medications Discharge Medications ([Docusate Sodium]) 250 MG CAPSULE 250 MG PO BID Prescribed by: ORLIN XIONG MD Aspirin (Aspirin) 81 Mg Tablet 81 MG PO DAILY Prescribed by: ORLIN XIONG MD Atorvastatin Calcium (Atorvastatin Calcium) 40 Mg Tablet 40 MG PO HS Prescribed by: ORLIN XIONG MD Bupropion ER (Wellbutrin XL) 300 Mg Tab.er.24h 300 MG PO DAILY Prescribed by: ORLIN XIONG MD Cholecalciferol (Vitamin D3) (Vitamin D) 1,000 Unit Tablet 5,000 UNIT PO DAILY Prescribed by: ORLIN XIONG MD Lamotrigine (Lamictal) 100 Mg Tablet 100 MG PO HS Prescribed by: ORLIN XIONG MD Melatonin (Melatonin) 5 Mg Tablet 5 MG PO HS Prescribed by: ORLIN XIONG MD Multivit with Calcium,Iron,Min (Therapeutic M) 1 Each Tablet 1 TABLET PO DAILY Prescribed by: ORLIN XIONG MD Nystatin (Nystatin) 1 Each Powder.ea. 1 APPLIC TOPICAL BID Prescribed by: ORLIN XIONG MD Polyethylene Glycol 3350 (Miralax) 17 Gm Powd.pack 17 GM PO DAILY Prescribed by: ORLIN XIONG MD Pramipexole Dihydrochloride (Mirapex) 0.25 Mg Tablet 0.25 MG PO HS Prescribed by: ORLIN XIONG MD Quetiapine Fumarate (Quetiapine Fumarate) 25 Mg Tablet 25 MG PO DAILY Prescribed by: ORLIN XIONG MD Quetiapine Fumarate (Quetiapine Fumarate) 25 Mg Tablet 50 MG PO HS Prescribed by: ORLIN XIONG MD Rivaroxaban (Xarelto) 20 Mg Tablet 20 MG PO DAILY Prescribed by: ORLIN XIONG MD Sennosides (Senna) 8.6 Mg Tablet 17.2 MG PO HS Prescribed by: ORLIN XIONG MD Additional med instructions Current psychiatric medications Lamotrigine 100mg po nightly Wellbutrin XL 300mg daily. Patient refusing Quetiapine 25mg daily and 50mg nightly for agitation/bipolar. Melatonin 5mg nightly as needed for sleep. Followup Plan Disposition: Home with home health Follow-up plan Patient being discharged to home with home health. Continue RN, PT, OT, ST Discharge Diet: Low fat, Low Sodium, Other (soft diet) Discharge Activity: No restrictions Patient Instructions You were hospitalized due to behavioral disturbance due to bipolar disorder. He was also treated for UTI. Please follow-up with PCP in 1 week and discuss hospitalization Follow-up Provider: Vicky Martin MD Follow-up with PCP in: 1 week (needs to find a new PCP JUAN ANTONIO) Time spent 40 minutes copies to: Vicky Martin MD, Melaku MD Dec 17, 2016 10:41
[2016-12-17] MEDS: buPROPion XL 300 mg ER24 Tablet PO SCH (10:53)
[2016-12-17] MEDS: Nystatin 100,000 Unit/Gm 15 Gm Powder TOPICAL SCH ×2 (10:54→20:40)
[2016-12-17] MEDS: Polyethylene Glycol (PEG) 17 Gm Powder PO SCH (10:54)
--- NOTE | 2016-12-17 12:49 | NUR ---
Social Work- Readiness for Discharge Data: EMR reviewed. Pt is on day 38 of hospitalization for depression per H&P. Pt to discharge today, discharge orders are active. Pt was referred to services through [facility] and [facility] . Neither are able to accept pt at this time. Pt's agreeable to referral to [facility]. [facility] is able to accept pt with anticipated start date of 12/19. [facility] does not currently have a speech therapist on staff. staffed with MD regarding this. feels that pt may discharge home with RN PT OT only and his PCP will be able to coordinate ST as pt is able to transition to outpt services or will write for ST at the appropriate time. Order and discharge summary have been modified. Pt's PCP is Vicky Martin at [facility]. T/C to pt's Melba regarding HH services. Melba is agreeable to following up with PCP regarding pt's ST. Melba requested the MD call pt's prescriptions into the urgent care pharmacy on [address] MD notified of this. F2F has been faxed to [facility]. [facility] to coordinate PCP follow up appointment at [facility]. VIANEY will continue to follow. Assessment: Pt for whom HH is medically necessary. Plan: Pt to discharge home with spouse via POV and [facility] RN PT OT services. feels that pt may discharge home with RN PT OT only and his PCP will be able to coordinate ST as pt is able to transition to outpt services or will write for ST at the appropriate time. VIANEY has faxed [facility] the F2F, original placed in chart. VIANEY will continue to follow. REBECA Walton Addendum: 12/17/16 at 1349 by MARY LÓPEZ MD agreeable to calling in Rx for pt. ANESTHESIA ATTENDING updated pt's that the Rx will be available for her when she goes to pick them up. REBECA Walton Addendum: 12/17/16 at 1708 by MARY PETTY SS SW received call from Nazanin at [facility] regarding pt's HH plan. Nazanin informed ANESTHESIA ATTENDING that despite her acceptance earlier today she has concerns about providing care to pt and feels that [facility] cannot meet pt's needs at this time. notified of this. is not comfortable discharging pt tonight without HH services. MD would like to staff case tomorrow. Pt's has been notified of this. Updated and agreeable to plan. REBECA Walton
[2016-12-17 14:20] VITALS: BP 110/81; PULSE 61; RESP 18; O2SAT 98
[2016-12-17 20:20] VITALS: BP 113/69; PULSE 89; RESP 16; O2SAT 100
[2016-12-17] MEDS: lamoTRIgine 100 mg Tablet PO SCH (20:41)
[2016-12-18 05:30] VITALS: BP 117/70; PULSE 97; RESP 18; O2SAT 99
--- NOTE | 2016-12-18 07:28 | NUR ---
hand hygiene Patient alert, does not exhibit signs and symptoms of discomfort except for right constricted fist. Finger nails long and pressing into palm. This Rn trimmed nails conservatively, mild redness noted in palm, no breaks in skin. Patient tolerated well. Will continue plan of care.
[2016-12-18] MEDS: Nystatin 100,000 Unit/Gm 15 Gm Powder TOPICAL SCH (08:30)
[2016-12-18] MEDS: Polyethylene Glycol (PEG) 17 Gm Powder PO SCH (08:30)
[2016-12-18] MEDS: buPROPion XL 300 mg ER24 Tablet PO SCH (10:49)
--- NOTE | 2016-12-18 11:02 | NUR ---
Spoke with RN at [facility] and they can see patient on Thu check in will be at 115PM for 130PM appointment with . Updated FINAL DRESSING CUTTER
--- NOTE | 2016-12-18 11:38 | NUR ---
CAROLYNM with Mary Ch at [facility], req call back re: pt's DC.
--- NOTE | 2016-12-18 12:17 | NUR ---
KULDEEP signed by pt's DPOA Melba Pastrana, BRANCH ACCOUNT MANAGER
--- NOTE | 2016-12-18 13:01 | PCM.DC.MED ---
Discharge Summary Date of Service Dec 18, 2016 Dates of Hospitalization Date of Hospital Admission Nov 09, 2016 at 22:13 Date of Discharge: Dec 18, 2016 Providers: Admitting Physician: Dimple Ornelas DO Primary Care Physician: Vicky Martin MD Attending Physician: Dimple Ornelas DO Diagnosis at Time of Discharge Diagnosis at Time of Discharge aphasia, R hemiparesis s/p CVA,bipolar w/ adjustment disorder Consultations Psychiatric Brief History per HPI 56-year-old male with past medical history of stroke, atrial fibrillation on warfarin, type II diabetes mellitus, anxiety, and coronary artery disease presented to the emergency department following discharge (11/08) due to combative behavior at [facility]. Patient was recently discharge to [facility] in [place] however when he arrived staff was unable to manage his care due to behavioral issues at which time he was transported back to [facility]. As per record, [facility] stated that patient was severely agitated, aggressive, hostile, and physically abusive towards staff. They reported that patient has also refused to take medications , eat or drink and has had urinary retention. Patient was calm and cooperative at time of presentation. Recent admissions for workup of aggressive behavior 09/2016 and 10/28-11/08. Last admission was treated for UTI with recorded improvement in cognition. Psychiatry has been involved in adjusting medications during admissions. Hospital Course 56-year-old male admitted 11/09 with behavioral disturbance. # Bipolar with behavior issues -- Was agitated in his 's presence prior to admission - likely an expression of his frustration with aphasia -Current psychiatric medications -behavioral disturbance also sometimes coincides with UTI but doubt that is the cause . current psych meds Lamotrigine 100mg po nightly Wellbutrin XL 300mg daily. Patient refusing Quetiapine 25mg daily and 50mg nightly for agitation/bipolar. Melatonin 5mg nightly as needed for sleep. -Patient progressively improved and less agitated. Placing him in adult family home was difficult. eventually decided to take him home given improvement of his behavior. Patient discharged home .initially arranged home health with [facility] agency. they accepted initially but cancelled yesterday. advised to work with PCP to get referral for HH and get in place . agrees . # CVA, expressive aphasia/ R hemiparesis : only words he was able to say were "hand" and "oh boy" - stable - continue PT/speech/OT once HH is in place # Hx bipolar/ personality changes with vascular dementia. We will - c/w lamotrigine, wellbutrin XL, quetiapine for mood stabilization - Psych evaluated the patient #Urinary retention, acute, POA -resolved. # History of UTI - e. fecalis in urine - completed antibiotics # CAD, paroxysmal A-fib - stable - Patient is on Xarelto, family is aware it can cause severe bleeding - rate is controlled without metoprolol, patient is also on statin # Anemia of chronic disease -Records review reveals some degree of anemia since 2009, patient with vertical sleeve gastrectomy in February 2016.likely anemia of chronic dz, h/h stable. # Restless legs - stable - [employer] is working # NIDDM -A1c 6.1 during this admission, blood sugars controlled without medication. Disposition: Discharge home Condition on discharge stable patient high risk for readmission given recurrent behavioral issue Exam Vital Signs (Last) Date Time Temp Pulse Resp B/P Pulse Ox O2 Delivery O2 Flow Rate FiO2 12/18/16 05:30 36.3 97 18 117/70 99 Room Air Exam Gen : In bed comfortably. NAD HEENT : Satish, Sclera is anicteric Neck : Supple, no JVD Chest : Normal respiratory effort. Lung : clear bilaterally. No crackles, no wheezing Heart : S1S2, RRR, no gallop. Abdomen : Soft, Non tender . Ext : No edema Neuro : Right sided paresis / Weakness . Patient only able to say " hands" and ' Oh boy". Tries to communicate with hand sign Skin : No rash , no ulcer Test 11/09/16 17:45 11/09/16 18:15 11/13/16 06:05 11/16/16 08:15 Hold Schultz Top Tube Received (Received) Alcohols < 10mg/dL (0-10) Urine Color Dark yellow (YELLOW) Urine Appearance Hazy (CLEAR,HAZY) Urine pH 7.0 (5.0-8.0) Urine Specific [place] 1.015 (1.003-1.035) Urine Protein Negativemg/dL (NEG,TRACE) Urine Glucose (UA) Negativemg/dL (NEGATIVE) Urine Ketones Negativemg/dL (NEGATIVE) Urine Occult Blood Negative (NEGATIVE) Urine Nitrite Negative (NEGATIVE) Urine Bilirubin Negative (NEGATIVE) Urine Urobilinogen Normalmg/dL (NORMAL) Urine Leukocyte Esterase Negative (NEGATIVE) Urine RBC 0-2/hpf (0-2) Urine WBC 0-5/hpf (0-5) Urine Epithelial Cells Moderate/hpf (NONE-MOD) Urine Crystals None seen (NONE SEEN) Urine Bacteria None/hpf (NONE-FEW) Urine Hyaline Casts None/lpf (NONE) Urine Granular Casts None seen (NONE SEEN) Urine Waxy Casts None seen (NONE SEEN) Urine Red Blood Cell Casts None seen (NONE SEEN) Urine White Blood Cell Casts None seen (NONE SEEN) Urine Mucus None seen (None Seen) Urine Trichomonas None seen (NONE SEEN) Urine Yeast None (NONE SEEN) Urinalysis Comment None Urine Culture Reflexed Not indicated Prothrombin Time 14.0sec (8.1-12.5) Prothromb Time International Ratio 1.30ratio White Blood Count 5.7th/mm3 (3.8-10.1) Red Blood Count 3.84mil/mm3 (4.40-5.80) Hemoglobin 12.2g/dL (13.8-17.2) Hematocrit 37.9% (41.0-50.0) Mean Corpuscular Volume 98.7fL (81-100) Mean Corpuscular Hemoglobin 31.8pg (27.0-35.0) Mean Corpuscular Hemoglobin Concent 32.2% (32.0-37.0) Red Cell Distribution Width 14.1% (12.3-15.4) Platelet Count 155bil/L (150-400) Neutrophils (%) (Auto) 59.8% (40-74) Lymphocytes (%) (Auto) 27.1% (14-46) Monocytes (%) (Auto) 7.2% (4-12) Eosinophils (%) (Auto) 4.8% (0-5) Basophils (%) (Auto) 0.9% (0-3) Sodium Level 143mEq/L (134-144) Potassium Level 4.0mEq/L (3.5-5.2) Chloride Level 106mEq/L (97-108) Carbon Dioxide Level 24mmol/L (18-29) Blood Urea Nitrogen 18mg/dL (6-24) Creatinine 0.96mg/dL (0.76-1.27) Estimat Glomerular Filtration Rate 86mL/min (>59) Glucose Level 115mg/dL (60-99) Calcium Level 9.6mg/dL (8.5-10.1) Phosphorus Level 3.5mg/dL (2.5-4.9) Magnesium Level 1.8mg/dL (1.6-2.6) Total Bilirubin 0.6mg/dL (0.0-1.2) Aspartate Amino Transf (AST/SGOT) 24U/L (0-50) Alanine Aminotransferase (ALT/SGPT) 19U/L (0-44) Alkaline Phosphatase 103U/L (25-150) Total Protein 6.3g/dL (6.4-8.4) Albumin 3.1g/dL (3.4-5.0) Discharge Medications Discharge Medications ([Docusate Sodium]) 250 MG CAPSULE 250 MG PO BID Prescribed by: ORLIN XIONG MD Aspirin (Aspirin) 81 Mg Tablet 81 MG PO DAILY Prescribed by: ORLIN XIONG MD Atorvastatin Calcium (Atorvastatin Calcium) 40 Mg Tablet 40 MG PO HS Prescribed by: ORLIN XIONG MD Bupropion ER (Wellbutrin XL) 300 Mg Tab.er.24h 300 MG PO DAILY Prescribed by: ORLIN XIONG MD Cholecalciferol (Vitamin D3) (Vitamin D) 1,000 Unit Tablet 5,000 UNIT PO DAILY Prescribed by: ORLIN XIONG MD Lamotrigine (Lamictal) 100 Mg Tablet 100 MG PO HS Prescribed by: ORLIN XIONG MD Melatonin (Melatonin) 5 Mg Tablet 5 MG PO HS Prescribed by: ORLIN XIONG MD Multivit with Calcium,Iron,Min (Therapeutic M) 1 Each Tablet 1 TABLET PO DAILY Prescribed by: ORLIN XIONG MD Nystatin (Nystatin) 1 Each Powder.ea. 1 APPLIC TOPICAL BID Prescribed by: ORLIN XIONG MD Polyethylene Glycol 3350 (Miralax) 17 Gm Powd.pack 17 GM PO DAILY Prescribed by: ORLIN XIONG MD Pramipexole Dihydrochloride (Mirapex) 0.25 Mg Tablet 0.25 MG PO HS Prescribed by: ORLIN XIONG MD Quetiapine Fumarate (Quetiapine Fumarate) 25 Mg Tablet 25 MG PO DAILY Prescribed by: ORLIN XIONG MD Quetiapine Fumarate (Quetiapine Fumarate) 25 Mg Tablet 50 MG PO HS Prescribed by: ORLIN XIONG MD Rivaroxaban (Xarelto) 20 Mg Tablet 20 MG PO DAILY Prescribed by: ORLIN XIONG MD Sennosides (Senna) 8.6 Mg Tablet 17.2 MG PO HS Prescribed by: ORLIN XIONG MD Additional med instructions Current psychiatric medications Lamotrigine 100mg po nightly Wellbutrin XL 300mg daily. Patient refusing Quetiapine 25mg daily and 50mg nightly for agitation/bipolar. Melatonin 5mg nightly as needed for sleep. Followup Plan Disposition: home Follow-up plan Patient being discharged to home with home health. Continue RN, PT, OT, ST Discharge Diet: Low fat, Low Sodium, Other (soft diet) Discharge Activity: No restrictions Patient Instructions You were hospitalized due to behavioral disturbance due to bipolar disorder. He was also treated for UTI. Please follow-up with PCP in 1 week and discuss hospitalization Follow-up Provider: Vicky Martin MD Follow-up with PCP in: 1 week (needs to find a new PCP JUAN ANTONIO) Time spent 35 minutes copies to: Vicky Martin MD, Melaku MD Dec 18, 2016 13:01
--- NOTE | 2016-12-18 13:26 | NUR ---
Social Work- Discharge Data: EMR reviewed. Pt is on day 39 of hospitalization for depression per H&P. Pt is medically ready for discharge at this time. MD requested CONTRACT ADMINISTRATIVE ASSISTANT and UR staff toxicologist pt's discharge plan to review for safe discharge. [facility], [facility], and [facility] are unable to accept pt at this time as they are concerned that they are not able meet pt's needs at this time. Per MD, pt is appropriate to pursue outpt treatment for PT, OT, ST as he has no acute need for in home services. recommends that pt pursue outpt therapies coordinated through his PCP Dr. Vicky Martin at [facility]. Pt's arrived at hospital to supervisor picking crew pt today. CONTRACT ADMINISTRATIVE ASSISTANT and UR RN Cristal met with pt and at bedside regarding discharge plan. Melba informed SW that she has found a caregiver at home M through from 9 am to 1330. Pt's caregiver contact information was provided through [facility]. Pt's caregiver is certified through [facility]. Melba informed CONTRACT ADMINISTRATIVE ASSISTANT that she has taken through Thursday off from work to stay home with pt and get him acclimated. MD notified of this, agreeable to pt discharge home. MD communicated above recommendations to pt and at bedside. SW verbally confirmed that pt and understood MD's recommendations. CONTRACT ADMINISTRATIVE ASSISTANT informed Melba that PCP appointment has been scheduled for December 24 for 1315 check in for 1330 appointment. Melba states that she may call and reschedule this appointment so that she can work it into her schedule but she is appreciative of the continuity of care. Melba confirms that she picked up pt's prescriptions at the pharmacy prior to discharge. SW requested RN to review pt's medications in depth and provide a spreadsheet and written time schedule for pt and pt's caregiver to manage medications. Melba is agreeable to pt discharging with no HH services at this time and is confident that she will be able to coordinate outpt services for pt to attend with his caregiver. Pt is agreeable to this. Melba had questions about hospital beds, UR RN shared recommendations of [facility] at [facility], [facility], or [facility] for used beds and equipment at a reduced cost. Melba appreciative and agreeable. Pt was emphatically gesturing and communicating in the room, expressing his happiness at returning home and validating Melba's plans of going to outpt therapy. Pt and were observed communicating appropriately, holding hands and sitting closely, clearly comfortable with each other. This worker did not observe pt's seeming fearful of pt or pt being aggressive or inappropriate. Pt was observed transferring completely independently from bed to wheelchair to use the bathroom. CONTRACT ADMINISTRATIVE ASSISTANT enforced to pt and pt's that should concerns or changes in caregiving arise, [facility] and the [facility] Transitions Team is the best advocate to arrange services in the future. Melba stated understanding of this. Assessment: Pt who will discharge home with caregiver and family support. Plan: Pt to discharge home with Melba to transport via POV. Pt will have [facility] caregiving beginning ThursdayDecember 22. Pt's has successfully obtained all of pt's medications to be reviewed with the floor RN prior to discharge. REBECA Walton
--- NOTE | 2016-12-18 15:28 | NUR ---
Discharge Patient discharged home with this afternoon. Discharge instructions discussed with patient and his . Medications reviewed and times and dosages written out for who will administer meds. Patient will need to follow up with primary Dr and both agreed would do so. who is POA signed discharge instruction sheet and denied any further questions when asked. All belongings gathered and sent with patient.
== END 2016-12-18 15:17 | disposition home or self-care (01) | DRG 882 ==
LOC: SED 12:50 → EDBD 12:50 → MPC 22:13 → OSC 11-21 23:18
PROVIDERS: ADMIT Internal Medicine; ATTEND Internal Medicine
DX: F43.24 Adjustment disorder with disturbance of conduct (principal); K56.7 Ileus, unspecified; N39.0 Urinary tract infection, site not specified; I69.351 Hemiplegia and hemiparesis following cerebral infarction affecting right dominant side; F91.8 Other conduct disorders; F31.81 Bipolar II disorder; I69.320 Aphasia following cerebral infarction; E11.9 Type 2 diabetes mellitus without complications; I48.0 Paroxysmal atrial fibrillation; R33.9 Retention of urine, unspecified; B95.2 Enterococcus as the cause of diseases classified elsewhere; D63.8 Anemia in other chronic diseases classified elsewhere; I25.10 Atherosclerotic heart disease of native coronary artery without angina pectoris; G25.81 Restless legs syndrome; Z79.82 Long term (current) use of aspirin; Z79.01 Long term (current) use of anticoagulants; Z87.891 Personal history of nicotine dependence; Z98.84 Bariatric surgery status; Z72.89 Other problems related to lifestyle